=== PATIENT | male | born 1950 | race Caucasian/White ===

== ENCOUNTER 2019-01-20 16:52 | Inpatient (IN) ==
[2019-01-20] MEDS ORDERED: ZITHROMAX 500 MG/NS 500 MG/250 ML IVPB IV ONE (17:25)
[2019-01-20 18:15] LABS: BASO# 0.06 X1000 (0.0-0.2); BASO% 0.2 % (0.0-0.8); EOS# 0.05 X1000 (0.0-0.7); EOS% 0.2 % (0.0-10.0); HEMATOCRIT 47.1 % (42.0-52.0); HEMOGLOBIN 15.3 g/dL (14.0-18.0); IMM GRAN# 0.13 X1000 (0.0-0.04); IMM GRAN% 0.5 % (0.0-0.5); LYMPH# 1.08 X1000 (1.2-3.4); LYMPH% 4.3 % (20.5-51.1); MCH 29.4 PG (27-31); MCHC 32.5 g/dL (33-37); MCV 90.6 FL (81-99); MONO# 0.32 X1000 (0.11-0.59); MONO% 1.3 % (1.7-9.3); MPV 10.4 FL (7.4-10.4); NEUT# 23.63 X1000 (1.4-6.5); NEUT% 93.5 % (42.2-75.2); PLT 337 X1000 (130-400); RDW 14.5 % (11.5-14.5); WBC 25.27 X1000 (4.8-10.8)
--- NOTE | 2019-01-20 18:52 | Diag Imaging Result Doc PS360 ---
EXAM: CHEST-2 VIEWS HISTORY: SOB TECHNIQUE: Chest two views COMPARISON: 03/07/2015 FINDINGS: The lungs are hyperexpanded. There are multifocal bilateral infiltrates. These are most dense in the upper lobes. No cardiomegaly. Sternal wires are present. No pleural effusions. IMPRESSION: Dense bilateral pneumonia. Follow-up films recommended. Electronically signed by Rosendo Mendoza 01/20/2019 6:50 PM
[2019-01-20 18:59] LABS: AGAP 15; ALB/GLOB RATIO 1.2; ALBUMIN 4.4 g/dL (3.5-5.0); ALKALINE PHOSPHATASE 170 U/L (32-122); BUN 12 mg/dL (8-22); CALCIUM 9.7 mg/dL (8.8-10.2); CHLORIDE 101 mmol/L (98-107); CK PROFILE 168 U/L (24-204); COSMO 285; CREATININE 0.8 mg/dL (0.7-1.2); ESTIMATED GFR > 60; GLUCOSE 135 mg/dL (70-104); GOT 27 U/L (10-34); GPT 34 U/L (10-44); SODIUM 142 mmol/L (136-145); TCO2 26 mmol/L (25-35); TOTAL BILIRUBIN 0.47 mg/dL (0.20-1.00)
[2019-01-20] MEDS ORDERED: XYLOCAINE 2% JELLY UROJECT ONE (19:08)
--- NOTE | 2019-01-20 19:25 | PROVIDER DOCUMENTATION ---
This chart was entered by Fatimah Macario Scribe, acting as scribe for Wellington Irizarry MD. HPI-Respiratory General - General Chief Complaint: Shortness of Breath Stated Complaint: sob Time Seen by Provider: 01/20/19 16:53 Source: patient Allergies/Adverse Reactions: Patient Allergies Allergy/AdvReac Type Severity Reaction Status Date / Time No Known Allergies Allergy Verified 05/29/15 19:42 Home Medications: Home Medication List Medication Instructions Recorded Confirmed Last Taken Type Amlodipine [Norvasc] 10 mg PO DAILY 05/29/15 05/29/15 05/29/15 09:00 History Aspirin [Ecotrin] 81 mg PO DAILY 05/29/15 05/29/15 05/29/15 09:00 History Clopidogrel [Plavix] 75 mg PO DAILY 05/29/15 05/29/15 05/29/15 09:00 History Metoprolol Tartrate 25 mg PO BID 05/29/15 05/29/15 05/29/15 09:00 History PRAVAstatin [Pravachol] 40 mg PO QHS 05/29/15 05/29/15 05/28/15 23:00 History - History of Present Illness-Resp Nature of Presenting Problem: Patient is a 68 year old male who presents to the ED via EMS with shortness of breath, chest pain and cough that has been present for 1 month. Report being seen at [facility] today and was informed he has bilateral pneumonia and an elevated WBC. Denies abdominal pain, nausea, and vomiting. Patient's O2 sat was 78% on room air on arrival to ED. Quality of Pain: reports: aching, tightness Severity in ED: reports: mild Onset/Duration: reports: other (1 month) Timing: reports: still present, getting worse Cough Quality/Degree: reports: moderate Current Respiratory Medication Therapy: Initiated see nurses note Modifying Factors: improves with: coughing (worse) Associated Symptoms: reports: chest pain/soreness (CP), cough, shortness of breath Similar Symptoms Previously?: Yes Recently seen or treated by another doctor?: Yes Review of Systems - Adult - REVIEW OF SYSTEMS - ADULT Constitutional: reports: no symptoms reported. denies: chills, fever, fatique Eyes: reports: no symptoms reported Ears, Nose, Mouth & Throat: reports: no symptoms reported Cardiovascular: reports: see HPI, chest pain. denies: irregular heart rate, palpitations Respiratory: reports: see HPI, cough, shortness of breath. denies: wheezing Gastrointestinal: reports: no symptoms reported Genitourinary: reports: no symptoms reported Musculoskeletal: reports: no symptoms reported Integumentary: reports: no symptoms reported Neurological: reports: no symptoms reported Psychiatric: reports: no symptoms reported Endocrine: reports: no symptoms reported Hematologic/Lymphatic: reports: no symptoms reported Allergic/Immunologic: reports: no symptoms reported All Other Systems: Reviewed and Negative Past History - Adult - PAST MEDICAL HISTORY-ADULT Review of Records: reports: Nursing Assessment Review, Medications Reviewed, Social history reviewed & non-contributory. Major Childhood Illnesses: reports: denies history Cardiovascular: reports: CAD, HTN, hyperlipidemia, [place] Respiratory: reports: denies history Gastrointestinal: reports: denies history Obstetrical/Gynecological: reports: denies history Genitourinary: reports: prostate cancer Musculoskeletal: reports: denies history Neurological: reports: denies history Psychiatric: reports: denies history Endocrine/Immune: reports: denies history Other Conditions: reports: denies history - PRIOR SURGERIES/PROCEDURES Surgical/Procedure History: reports: appendectomy, CABG, hernia repair - IMMUNIZATION STATUS Childhood Immunizations: See Nurse Assessment Flu Vaccine: See Nurse Assessment - FAMILY HISTORY Family History: reviewed, not pertinent - SOCIAL HISTORY Smoking: cigarettes (former) Substance Use: denies Physical Exam-General - PHYSICAL EXAM-ADULT Initial Vital Signs Reviewed: Yes - CONSTITUTIONAL General Appearance: alert, moderate distress. negative: lethargic, slow to respond - HEAD, EARS, NOSE, MOUTH & THROAT HENMT: normal ENT inspection. negative: angioedema, hearing deficit - RESPIRATORY Respiratory: chest non-tender, respiratory distress (moderate), crackles, rales, rhonchi, wheezing. negative: lungs clear, normal breath sounds - CARDIOVASCULAR Cardiovascular: normal peripheral pulses, regular rate, rhythm. negative: tachycardia, systolic murmur - GASTROINTESTINAL (ABDOMEN) Abdominal Exam: normal bowel sounds, non tender, soft. negative: guarding, rebound - MUSCULOSKELETAL Extremity: non-tender, normal inspection. negative: deformity, swelling - SKIN Integumentary: normal color, normal turgor, warm/dry. negative: cyanosis, ecc hymosis, erythema, jaundice - NEUROLOGIC Neurologic: grossly normal. negative: aphasia, facial droop - PSYCHIATRIC Psych/Mental Status: normal mood/affect, oriented x 3. negative: paranoid, tearful - HEART Score HEART Score: History: Slightly Suspicious HEART Score: ECG: Non-Specific Repolarization Disturbance/LBBB/PM HEART Score: Age: > or = 65 Years HEART Score: Risk Factors for Atherosclerotic Disease: 1 or 2 Risk Factors HEART Score: Troponin: < or = Normal Limit Total HEART Score:: 4 Progress - PLAN OF CARE/RESULTS Progress/Plan/Lab Results: Vital Signs - 8 hr 01/20/19 17:15 01/20/19 17:16 01/20/19 17:20 Temperature Pulse Rate 116 H 116 H Respiratory Rate 20 Blood Pressure 201/174 201/174 O2 Sat by Pulse Oximetry 78 L 79 L 86 L 01/20/19 17:27 01/20/19 17:30 01/20/19 17:40 Temperature Pulse Rate 113 H 114 H 100 H Respiratory Rate 21 14 13 Blood Pressure 130/79 O2 Sat by Pulse Oximetry 96 95 92 L 01/20/19 17:50 01/20/19 17:51 01/20/19 18:00 Temperature 98.2 F Pulse Rate 112 H 111 H Respiratory Rate 26 H 19 17 Blood Pressure 141/91 O2 Sat by Pulse Oximetry 92 L 92 L 92 L 01/20/19 18:01 01/20/19 18:10 Temperature Pulse Rate 109 H Respiratory Rate 14 61 H Blood Pressure 124/85 O2 Sat by Pulse Oximetry 93 L 91 L Laboratory Results - last 24 hr 01/20/19 01/20/19 01/20/19 17:40 17:40 17:40 WBC 25.27 H RBC 5.20 Hgb 15.3 Hct 47.1 MCV 90.6 MCH 29.4 MCHC 32.5 L RDW Std Deviation 14.5 Plt Count 337 MPV 10.4 Immature Gran % (Auto) 0.5 Neut % (Auto) 93.5 H Lymph % (Auto) 4.3 L Alexander % (Auto) 1.3 L Eos % (Auto) 0.2 Baso % (Auto) 0.2 Immature Gran # (Auto) 0.13 H Neut # (Auto) 23.63 H Lymph # (Auto) 1.08 L Alexander # (Auto) 0.32 Eos # (Auto) 0.05 Baso # (Auto) 0.06 Sodium 142 Potassium 4.0 Chloride 101 Carbon Dioxide 26 Anion Gap 15 BUN 12 Creatinine 0.8 Estimated GFR/1.73 m2 > 60 BUN/Creatinine Ratio 15 Glucose 135 H Calculated Osmolality 285 Calcium 9.7 Total Bilirubin 0.47 AST 27 ALT 34 Alkaline Phosphatase 170 H Creatine Kinase 168 Troponin T Total Protein 8.0 Albumin 4.4 Globulin 3.6 Albumin/Globulin Ratio 1.2 Plasma Lactate 1.4 01/20/19 17:40 WBC RBC Hgb Hct MCV MCH MCHC RDW Std Deviation Plt Count MPV Immature Gran % (Auto) Neut % (Auto) Lymph % (Auto) Alexander % (Auto) Eos % (Auto) Baso % (Auto) Immature Gran # (Auto) Neut # (Auto) Lymph # (Auto) Alexander # (Auto) Eos # (Auto) Baso # (Auto) Sodium Potassium Chloride Carbon Dioxide Anion Gap BUN Creatinine Estimated GFR/1.73 m2 BUN/Creatinine Ratio Glucose Calculated Osmolality Calcium Total Bilirubin AST ALT Alkaline Phosphatase Creatine Kinase Troponin T < 0.010 Total Protein Albumin Globulin Albumin/Globulin Ratio Plasma Lactate Orders Category Date Time Status Saline Loc NOW Care 01/20/19 17:25 Active CHEST-2 VIEWS [RAD] Stat Exams 01/20/19 17:25 Completed BLOOD CULTURE [BLDCUL] Stat Lab 01/20/19 17:48 Results CBC WITH ELECTRONIC DIFF [HEME] Stat Lab 01/20/19 17:40 Completed CK PROFILE [SP CHEM] Stat Lab 01/20/19 17:40 Completed COMPREHENSIVE METABOLIC PANEL [CHEM] Stat Lab 01/20/19 17:40 Completed LACTATE, PLASMA [CHEM] Stat Lab 01/20/19 17:40 Completed TROPONIN T Stat Lab 01/20/19 17:40 Completed Azithromycin 500 mg/Ns [Zithromax 500 mg/Ns] Med 01/20/19 17:25 Discontinued 500 mg in 250 ml IV NOW Lidocaine 2% Jelly Appl [Xylocaine 2% Jelly Uroject] Med 01/20/19 19:08 Discontinued 10 ml .ROUTE .STK-MED ONE EKG [EKG] Stat Ther 01/20/19 17:25 Ordered A/P: Bilateral pneumonia, elevated WBC. was seen in urgent care, given ceftriaxone, steroids, breting treatment, low oxygen sat 78. will admit Dr hagan accepted Result Diagrams: 01/20/19 17:40 01/20/19 17:40 - EKG 1 Time of EKG reading by physician:: 17:05 EKG Read and Signed by:: Keon Ortez EKG Interpretation (*Must complete 3 of following elements*): Abnormal (bifascicular block;) Rate: 110 Rhythm: sinus tachycardia QRS: RBB, LVH (inferior infarct, age undetermined) VT Interval: normal Comments: possible left atrial enlargement; left anterior fascicular block; - XRAY 1 XRAY Study: Chest Impression: Abnormal ([facility] [address], [address], [place] [address] Department of Imaging Patient: JAIRO WILKINSON Date: 01/20/19#: [id number] : 1950DM Status: PRE ERAcct#: [id number] Age/Sex: 68/MRoom/Bed: Loc: ED Ordering Physician: Wellington Irizarry MD Family Physician: Reason for Procedure: SOB Signed EXAM: CHEST-2 VIEWS HISTORY: SOB TECHNIQUE: Chest two views COMPARISON: 03/07/2015 FINDINGS: The lungs are hyperexpanded. There are multifocal bilateral infiltrates. These are most dense in the upper lobes. No cardiomegaly. Sternal wires are present. No pleural effusions. IMPRESSION: Dense bilateral pneumonia. Follow-up films recommended. Electronically signed by Rosendo Mendoza 01/20/2019 6:50 PM 01/20/19 5800 Interpreting Physician: Rosendo Mendoza MD Dictated Date/Time: 01/20/19 0082 cc: Wellington Irizarry MD;) - CONSULTS/PCP/HOSPITALIST Notification #1 *Consult/PCP/Hospitalist*: Dr Iqbal Time Discussed: 19:24 Consult Disposition: Admit Departure - Departure Date of Disposition Decision: 01/20/19 Time of Disposition Decision: 19:24 DIAGNOSIS: Bilateral pneumonia Disposition: HOME 01 Certified Medical Emergency: Emergent Condition: Stable Additional Freetext Instructions: We have examined and treated you today on an emergency basis only. This was not a substitute for, or an effort to provide, complete medical care. In most cases, you must let your doctor check you again. Tell your doctor about any new or lasting problems. We cannot recognize and treat all injuries or illnesses in one Emergency Department visit. If you had special tests, such as X-rays or CT scans, will be reviewed by radiologist and will call you if there are any new suggestions Follow up with primary care provider in 1 to 2 days if no improvement. If you do not have a primary care provider, you need to choose one as soon as possible. Take medicines as prescribed. Monitor for any side effects or adverse events from medications. If any side effect, adverse event or rash develops, or if you suspect any other adverse reaction to the medication, then discontinue the medication immediately and contact clinic /PCP or go to the nearest ER. Narcotic meds / sedative meds instruction - patent advised not to drive, operate any machinery or go into water after taking meds as it may impair mental ability to react to the situation in an appropriate manner. Continue other current medicines. Follow up with PCP within 24-48 hours, or sooner if symptoms worsen or fail to improve. Patient / guardian verbalizes understanding of treatment plan, medication, and side effects and agrees with treatment plan. Patient leaves ER in stable condition and ambulatory state. Return to ER as needed. Discharge instructions reviewed verbally and given to patient in written form. Follow up with primary care provider. - Critical Care Note This patient required my direct & personal management of CC.: No Attestation - Physician/ BRIGITTE Attestation Patient care was provided by Advanced Practice Provider:: No The physician spent face to face time with patient:: Yes Advanced Practice Provider documentation review:: Supervising physician onsite and consulted in the evaluation and care of this patient. The physician did have a face to face encounter with the patient. This chart was documented by the indicated scribe, (Fatimah Macario Scribe) and accurately reflects the services I performed and decisions made by me, Wellington Irizarry MD, as attested by the provider's signature.
[2019-01-20] MEDS ORDERED: DUONEB (A & A) INH PRN (19:47)
[2019-01-20] MEDS ORDERED: NS 1,000 ML IV SCH (20:00)
[2019-01-20] MEDS ORDERED: ROCEPHIN 1 GM in NS 50 ML IV SCH (20:00)
[2019-01-20 20:29] LABS: ALLEN TEST YES; BE 0.7 mmoll (-3.0-3.0); BLOOD TYPE ARTERIAL; HCO3-(ACT) 25.2 mmoll (20.0-26.0); METHB 1.1 % (0.0-1.5); O2(CT) 18.9 mL/dL (15.0-23.0); PCO2(98.6) 43 mmHg (35-45); PO2(98.6) 59 mmHg (60-100); SAMPLE BLOOD; SAO2 92.6 % (95.0-100.0); pH(98.6) 7.39 (7.35-7.45)
[2019-01-20 20:31] LABS: MODALITY VENTIMASK; O2HB 89.6 % (95.0-99.0)
[2019-01-20] MEDS ORDERED: VANCOMYCIN IV PER PHARMACY MISC SCH (21:00)
[2019-01-20] MEDS: PROTONIX IV SCH (21:49)
[2019-01-20] MEDS: NS 1,000 ML IV SCH (21:49)
[2019-01-20] MEDS: SODIUM CHLORIDE 0.9% INJ SCH (21:50)
[2019-01-20] MEDS: ROCEPHIN 2 GM in NS 50 ML IV SCH (21:50)
[2019-01-20] MEDS ORDERED: VANCOMYCIN 2,250 MG in NS 500 ML IV ONE (23:30)
[2019-01-20] MEDS: DUONEB (A & A) INH SCH (23:30)
--- NOTE | 2019-01-21 01:06 | HISTORY AND PHYSICAL ---
CHIEF COMPLAINT: Shortness of breath for about 3 weeks. HISTORY OF PRESENT ILLNESS: Mr. Juan Yang is a 68-year-old male who has a history of hypertension, hyperlipidemia, urinary retention, thyroid disease, prostate cancer status post radiation treatment, presented to the hospital because of shortness of breath which has been ongoing for close to 3 weeks. Initially he describes having chest pain. The patient also reports having cough with clear sputum. No wheezing, no fever. X-ray of the chest done at the time of presentation showed evidence of dense bilateral pneumonia. He was noted to be hypoxic at the time of presentation and required oxygen. White count was elevated at 25.27. The patient has now been admitted to the unit for further management. PAST MEDICAL HISTORY: 1. Hypertension. 2. Coronary artery disease. 3. Hyperlipidemia. 4. Urinary retention. 5. Peripheral artery disease. 6. History of prostate cancer status post radiation treatment. SOCIAL HISTORY: The patient is an ex-smoker. Drinks alcohol. No drug use. ALLERGIES: No known drug allergies. PAST SURGICAL HISTORY: 1. Carotid endarterectomy. 2. CABG. 3. Appendectomy. FAMILY HISTORY: Positive for diabetes, lung cancer. MEDICATIONS INCLUDE: 1. Amlodipine 10 mg p.o. daily. 2. Aspirin 81 mg p.o. daily. 3. Plavix 75 mg p.o. once a day. 4. Metoprolol 25 mg p.o. twice a day. 5. Pravastatin 40 mg p.o. at bedtime. REVIEW OF SYSTEMS: Central nervous system: Has headaches. Cardiovascular: Has chest pain. Respiratory: As per history of present illness. Gastrointestinal: No nausea, vomiting, but has diarrhea. Genitourinary: No dysuria. Musculoskeletal: Has joint pain. Dermatology: No skin cancer. Hematology: The patient bleeds easily, he is currently on Plavix. Endocrinology: No diabetes. No thyroid disease. PHYSICAL EXAMINATION: VITAL SIGNS: As follows, temperature 99.1 degrees, pulse 116, respiratory is 16, blood pressure 126/74, O2 saturation is 94%. HEENT: The patient is atraumatic, normocephalic. He is anicteric. Extraocular movements intact. No oral lesions noted. Neck: No lymphadenopathy or thyromegaly. Cardiovascular: S1, S2. Respiratory system: Has evidence of good air entry bilaterally. Abdomen: Soft, nontender. No masses felt. Extremities: No evidence of edema. Central nervous system: No evidence of focal deficits. LABS: WBC 25.27, hematocrit is 27.1 with a platelet count of 337,000. ABG 7.39/33/59/82.96%. Sodium is 142, potassium 3.0, chloride is 101, bicarb 26, BUN is 12, creatinine 0.8. IMAGING: X-ray chest shows dense bilateral infiltrates. ASSESSMENT AND PLAN: This is a 68-year-old male presents to the hospital because of shortness of breath, and x-ray chest shows evidence of dense bilateral infiltrate. 1. Acute respiratory failure. Maintain patient on oxygen supplementation. Primary lung condition pneumonia. Maintain patient on nebulized bronchodilators if needed. 2. Multifocal pneumonia. Obtain sputum culture as well as blood cultures. Maintain patient on antibiotics. 3. Coronary artery disease, asymptomatic. Continue the patient on aspirin, beta-sanya, as well as statin. Also, get serial cardiac enzymes. 4. Hypertension. Maintain patient on current antihypertensive regimen. 5. Hyperlipidemia. Continue lipid-lowering agent. 6. History of prostate cancer status post radiation treatment/urinary retention. Maintain the patient on Flomax for now. 7. Peripheral artery disease. Continue Plavix. 8. Deep vein thrombosis prophylaxis. Lovenox. 9. Gastrointestinal prophylaxis. Proton pump inhibitor. cc: Foster Torres MD
[2019-01-21] MEDS: DUONEB (A & A) INH SCH ×5 (03:30→23:33)
[2019-01-21] MEDS: NS 1,000 ML IV SCH ×2 (05:27→20:48)
[2019-01-21 06:12] LABS: BASO# 0.01 X1000 (0.0-0.2); BASO% 0.1 % (0.0-0.8); HEMATOCRIT 41.2 % (42.0-52.0); HEMOGLOBIN 13.3 g/dL (14.0-18.0); IMM GRAN% 0.7 % (0.0-0.5); LYMPH# 0.91 X1000 (1.2-3.4); LYMPH% 6.4 % (20.5-51.1); MCH 29.6 PG (27-31); MCHC 32.3 g/dL (33-37); MCV 91.8 FL (81-99); MONO# 0.16 X1000 (0.11-0.59); MONO% 1.1 % (1.7-9.3); MPV 10.7 FL (7.4-10.4); NEUT# 13.05 X1000 (1.4-6.5); NEUT% 91.7 % (42.2-75.2); PLT 287 X1000 (130-400); RBC 4.49 XMIL (4.7-6.1); RDW 14.3 % (11.5-14.5); WBC 14.23 X1000 (4.8-10.8)
[2019-01-21 06:45] LABS: AGAP 12; BUN 11 mg/dL (8-22); CALCIUM 8.5 mg/dL (8.8-10.2); CHLORIDE 104 mmol/L (98-107); COSMO 282; CREATININE 0.7 mg/dL (0.7-1.2); ESTIMATED GFR > 60; GLUCOSE 126 mg/dL (70-104); POTASSIUM 4.3 mmol/L (3.5-5.1); SODIUM 141 mmol/L (136-145); TCO2 25 mmol/L (25-35)
[2019-01-21 07:14] LABS: SEGS 100 % (42-75)
--- NOTE | 2019-01-21 07:22 | Diag Imaging Result Doc PS360 ---
CHEST-1 VIEW - 01/21/2019 INDICATION: pneumonia COMPARISON: 01/20/2019 FINDINGS: There are stable dense bilateral infiltrates. Stable sternotomy wires. Heart size and pulmonary vascularity remain normal. No pneumothorax or pleural effusion. IMPRESSION: Stable dense bilateral infiltrates suggesting pneumonia. Electronically signed by Jairo Hammonds 01/21/2019 7:20 AM
--- NOTE | 2019-01-21 08:19 | PROGRESS NOTE ---
DATE: 01/21/2019 SUBJECTIVE: The patient reports breathing better in comparing with yesterday. Denies any chest pain or any shortness of breath at this point. OBJECTIVE: Vital Signs: Temperature degrees, heart rate 91, respiratory rate 14, blood pressure 104/71, O2 saturation on Venturi mask at 50%. General Examination: This is a 68-year-old male, lying in bed, in no acute distress. HEENT: Head is normocephalic, atraumatic. Neck: No JVD noted. No carotid bruits. No lymphadenopathy. No thyromegaly. Cardiovascular: S1, S2 heard. No murmurs, gallops, or rubs. Regular rate and rhythm. Respiratory: Minimal coarse breath sounds in both pulmonary bases. Patient not using any accessory muscles or having work of breathing. Abdomen: Soft. Nontender to palpation. Bowel sounds present. No organomegaly. Extremities: No clubbing, cyanosis, or edema. Peripheral pulses present in both legs. Neurological: Patient is alert and oriented x3. Moves 4 extremities. LABORATORY DATA: White cell count 14.23, hemoglobin 13.3, hematocrit 41.2, platelets 287,000 with normal BMP. We have checked troponins 3 times and are completely normal. ASSESSMENT AND PLAN: 1. Acute hypoxemic respiratory failure secondary to bilateral pneumonia. Patient has been placed on vancomycin, ceftriaxone and azithromycin. This patient white cell count is getting better. I think that because Dr. Link from Infectious Disease has been consulted, I will leave the management of antibiotics to him. 2. Multifocal pneumonia. As we mentioned above. A sputum culture pending as well as blood cultures. We will continue with antibiotic directed by Dr. Link. 3. Coronary artery disease status post coronary artery bypass grafting. Initially because the because the patient was complaining of chest pain. We have checked troponins. I think that the chest pain is secondary to pneumonia. In any case, since admission, Cardiology has been consulted. We will follow recommendations. 4. Hyperlipidemia. We will continue with statin. 5. Peripheral vascular disease. We will continue with Plavix. 6. Deep vein thrombosis prophylaxis. Patient is on Lovenox. 7. Gastrointestinal prophylaxis. Patient is on Protonix. 8. Disposition. The patient is getting better. We will transfer him to a regular floor today. Addendum: I was called by nurse around 12:00 that patient start to desaturate. Currently he is on NRB at 100%. Will keep him in the ICU. Considering her worsening respiratory status will also order CT of thorax w/o contrast. Will monitor patient closely. cc: Dejon Dominguez MD MTDEzequiel
--- NOTE | 2019-01-21 08:24 | INFECTIOUS DISEASE CONSULT REP ---
DATE: 01/21/2019 CONCLUSION: Patient is admitted to the hospital with bilateral pneumonia. RECOMMENDATIONS: I agree with treating the patient with Rocephin and azithromycin. I have changed azithromycin from IV to p.o., and I have discontinued vancomycin. I have ordered a pneumococcal urinary antigen also. I ordered immunoglobulin levels. DISCUSSION: The patient tells me for the past 3 or 4 weeks he has had a cough. He occasionally brings up sputum which he says is clear. He has also noticed that he has dyspnea on exertion. He has not noticed any blood in his sputum. The patient did not have any fever. His chest x-ray shows bilateral infiltrates. His CBC shows a white count of 14,230, hemoglobin 13.3 and platelet count 287,000. Blood gases show a pH of 7.39, a PO2 of 59, a pCO2 of 43. Creatinine is 0.7. GFR is greater than 60. Blood cultures are pending. Chest x-ray shows bilateral infiltrates. PAST MEDICAL HISTORY/REVIEW OF SYSTEMS: Eyes and ears: Patient has decreased hearing, but his vision is okay. Neck: No stiffness. Respiratory: See present illness. Cardiac: No chest pain or palpitations. GI: The patient has had for almost 20 years episodic diarrhea. : No dysuria or flank pain. Bones, joints, muscles: No swollen joints or muscle aches. Endocrine: Patient is not a diabetic. He does not have thyroid problems either. Neurologic: No seizures. No recent loss of motor or sensory function. Integument: No rash. Extremities: No erythema in the legs. The patient does have edema in the legs. PREVIOUS HOSPITALIZATIONS AND OPERATIONS: He has had a carotid endarterectomy, a femoral artery endarterectomy, coronary artery bypass grafting, radiation therapy and use of radioactive gold seeds for patient's prostate cancer. He has had 2 bladder surgeries. MEDICAL DISEASES: Positive for hypertension, myocardial infarction, peripheral vascular disease, obesity, prostate cancer, and hyperlipidemia. INFECTIOUS DISEASE HISTORY: Positive for UTI. Negative for pneumonia. FAMILY HISTORY: Positive for diabetes mellitus, hypertension, myocardial infarction, stroke and cancer. SOCIAL HISTORY[place] . He has dogs and cats for pets. He stopped smoking cigarettes in 2014. He still drinks alcoholic beverages. He does not abuse drugs. The patient is retired. MEDICATIONS TAKEN AT HOME: Include the following: Amlodipine, aspirin, Plavix, metoprolol and Pravachol. PHYSICAL EXAMINATION: Vital Signs: The temperature is 98 degrees, pulse 87, respirations 15, blood pressure 101/61. General: This is a somewhat ill-appearing elderly male. He is in no acute distress. Head, eyes, ears, nose, and throat: He had decreased hearing. He can see near objects. He does not have any white patches on his tongue. Neck: No pain when he moves his head. Lungs: Clear to auscultation. Cardiovascular: Heart rate is regular. Abdomen: Soft and nontender. Extremities: The patient has bilateral leg edema, but no erythema. Neurologic: Patient is alert. He can move his extremities. There is no tremor. His memory as regarding his medical history is intact. Integument: No rash noted. Thank you for the consult. cc: Aleks Link MD MTDD
--- NOTE | 2019-01-21 08:46 | EKG Report ---
Test Performed on : 01/20/2019 8:25:18 PM Test Reason : sob Blood Pressure : / mmHG Vent. Rate : 107 BPM Atrial Rate : 107 BPM P-R Int : 166 ms QRS Dur : 140 ms QT Int : 382 ms P-R-T Axes : 057 -64 054 degrees QTc Int : 509 ms Sinus tachycardia. with premature atrial complexes. with aberrant conduction. Possible Left atrial enlargement Right bundle branch block Left anterior fascicular block Bifascicular block Cannot rule out Inferior infarct (cited on or before 29-MAY-2015) Abnormal ECG When compared with ECG of 20-JAN-2019 17:05, (Unconfirmed) aberrant conduction. is now present Unconfirmed Result
[2019-01-21] MEDS: LOVENOX SUBQ SCH (09:28)
[2019-01-21] MEDS: NORVASC PO SCH (11:15)
[2019-01-21] MEDS: ASPIRIN PO SCH (11:15)
[2019-01-21] MEDS: PLAVIX PO SCH (11:15)
[2019-01-21] MEDS: LOPRESSOR PO SCH ×2 (11:15→20:49)
--- NOTE | 2019-01-21 11:17 | CONSULTATION ---
DATE OF CONSULTATION: 01/21/2019 IMPRESSION: 1. Productive cough and atypical chest pain with leukocytosis and abnormal chest x-ray suggesting pneumonia. 2. Atherosclerotic coronary artery disease with previous coronary artery bypass grafting in 2014. Patient continues without angina. 3. Mild aortic stenosis. 4. Probable chronic obstructive pulmonary disease. 5. Peripheral artery disease with history of previous cerebrovascular accident in the past. Patient continues on dual anti-platelet therapy. 6. Hypertension. RECOMMENDATIONS: 1. Continue current cardiovascular regimen unchanged. 2. We will see further on an inpatient basis as needed. Patient should follow up with his regular pipelaying fitter, Dr. James, in [place] on a routine basis following discharge. HISTORY: This 68-year-old, white male with a past history of previous coronary artery bypass grafting in 2014, mild aortic stenosis, probable COPD, hypertension, and hyperlipidemia was admitted with a several day history of cough productive of clear to white sputum. Due to persistent coughing, he started experiencing some bilateral chest discomfort with his cough. He relates he has not had any recurrence of angina or discomfort like what he had prior to his coronary artery bypass surgery. He was found to have leukocytosis and radiographic evidence of pneumonia. He has been started on parenteral antibiotics. He no longer smokes. PAST MEDICAL HISTORY: 1. Atherosclerotic coronary disease with previous coronary artery bypass surgery in 2014. 2. Mild aortic stenosis. 3. Probable COPD. 4. Hypertension. 5. Hyperlipidemia. 6. Prostate cancer treated with radiation therapy. 7. Peripheral artery disease. Patient is status post previous cerebrovascular accident and has had carotid endarterectomy on the right. He continues on dual anti-platelet therapy. PAST SURGICAL HISTORY: Includes coronary artery bypass surgery in 2015, right carotid endarterectomy, and appendectomy. ALLERGIES: He has no known drug allergies. MEDICATIONS PRIOR TO ADMISSION: As listed. 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 He is originally from [place], [place]. He has a history of smoking 50 years at a rate of 1-1/2 packs of cigarettes per day but discontinued this at the time of his bypass surgery. He does not use alcohol. FAMILY HISTORY: Negative for premature coronary artery disease. REVIEW OF SYSTEMS: Pulmonary: Noteworthy for dyspnea, cough productive of clear to white sputum, and atypical chest pain. Gastrointestinal: Negative. Constitutional: Negative for fever. Remainder of review of systems negative/noncontributory with 14 total systems reviewed. PHYSICAL EXAMINATION: General: This is an overweight, older, white male in no distress, on supplemental oxygen per nasal cannula. Vital Signs: Blood pressure 142/87, heart rate 110 with ECG monitor showing sinus tachycardia. HEENT Examination: Extraocular movements appear to be intact. Mucous membranes are moist. Neck: Supple without jugular venous distention. Auscultation of the chest reveals inspiratory crackles and rhonchi in the right base posteriorly. Cardiac Examination: Reveals a regular rate and rhythm with soft systolic murmur at the right upper sternal border. No gallop could be appreciated. Abdomen: Soft. Bowel sounds are normal. Extremities: Without edema. Neurologic: Examination reveals him to be alert and fully oriented. Speech is fluent. He moves all 4 extremities equally well. Skin: Warm, dry. Psychiatric: Examination reveals mood to be appropriate. DIAGNOSTIC DATA: A 12-lead EKG demonstrates sinus tachycardia with occasional premature atrial complex, occasional premature ventricular complex, left atrial abnormality, right bundle branch block, and left anterior fascicular block. LABORATORY DATA: Includes initial white blood cell count of 25.27, hematocrit 47.1, hemoglobin 15.3, platelet count 337,000. Sodium 142, potassium 4.0, chloride 101, carbon dioxide 26, BUN 12, creatinine 0.8. Troponin T less than 0.01. Followup troponin T less than 0.01. Followup white blood cell count 14.23. Initial arterial blood gas, pH 7.39, pCO2 43, PO2 59 on supplemental oxygen per Ventimask. cc: Carlos Tracey MD
[2019-01-21 12:11] LABS: URINE SOURCE CATH
[2019-01-21 12:22] LABS: BILIRUBIN URINE NEGATIVE (NEGATIVE); BLOOD URINE LARGE (NEGATIVE); COLOR YELLOW; GLUCOSE URINE NEGATIVE (NEGATIVE); KETONE URINE 10 mg/dL (NEGATIVE); LEUKOCYTES URINE TRACE (NEGATIVE); NITRITE URINE NEGATIVE (NEGATIVE); PH URINE 5.5; PROTEIN URINE TRACE mg/dL (NEGATIVE); SP GRAVITY URINE 1.016; TURBIDITY URINE HAZY (CLEAR); UROBILINOGEN URINE NORMAL (NORMAL)
[2019-01-21 12:30] LABS: UR EPITHELIAL CELLS <10 /HPF (<10); URINE BACTERIA NEGATIVE /HPF; URINE RBC TNTC /HPF (<10)
[2019-01-21 12:44] LABS: URINE YEAST NONE SEEN
--- NOTE | 2019-01-21 16:44 | Diag Imaging Result Doc PS360 ---
EXAM: CT THORAX W/O CONTRAST 01/21/2019 HISTORY: pna TECHNIQUE: This exam was performed using automated exposure control, adjustment of mA or kV according to patient size, and/or use of iterative reconstruction technique. COMMENT: There are no previous studies available for comparison. There are patchy opacities in both upper lobes particularly the right upper lobe. There are numerous patchy and nodular opacities present in the lower lobes the lingula and to some extent in the right middle lobe as well. There are no abnormal fluid collections. There are extensive vascular calcifications including coronary calcifications. There are nonspecific aorticopulmonary window and paratracheal nodes. There has been sternotomy. IMPRESSION: Bronchopneumonia. Advise followup after treatment. Electronically signed by Kamlesh Garcia 01/21/2019 4:42 PM
[2019-01-21] MEDS: ZITHROMAX PO SCH (17:58)
[2019-01-21] MEDS ORDERED: ZITHROMAX 500 MG/NS 500 MG/250 ML IVPB IV SCH (18:00)
[2019-01-21] MEDS: PROTONIX IV SCH (20:48)
[2019-01-21] MEDS: SODIUM CHLORIDE 0.9% INJ SCH (20:48)
[2019-01-21] MEDS: LIPITOR PO SCH (20:49)
[2019-01-21] MEDS: ROCEPHIN 2 GM in NS 50 ML IV SCH (20:51)
[2019-01-21] MEDS ORDERED: VANCOMYCIN 1,850 MG in NS 500 ML IV SCH (23:30)
[2019-01-22] MEDS: DUONEB (A & A) INH SCH ×6 (03:12→23:30)
[2019-01-22 05:06] LABS: BASO# 0.04 X1000 (0.0-0.2); BASO% 0.2 % (0.0-0.8); EOS# 0.26 X1000 (0.0-0.7); EOS% 1.4 % (0.0-10.0); HEMATOCRIT 40.4 % (42.0-52.0); HEMOGLOBIN 12.7 g/dL (14.0-18.0); IMM GRAN# 0.11 X1000 (0.0-0.04); IMM GRAN% 0.6 % (0.0-0.5); LYMPH# 1.96 X1000 (1.2-3.4); LYMPH% 10.8 % (20.5-51.1); MCH 29.5 PG (27-31); MCHC 31.4 g/dL (33-37); MCV 93.7 FL (81-99); MPV 10.2 FL (7.4-10.4); NEUT# 14.72 X1000 (1.4-6.5); PLT 274 X1000 (130-400); RBC 4.31 XMIL (4.7-6.1); RDW 14.5 % (11.5-14.5); WBC 18.19 X1000 (4.8-10.8)
[2019-01-22] MEDS: NS 1,000 ML IV SCH (05:37)
[2019-01-22 05:43] LABS: AGAP 10; BUN 13 mg/dL (8-22); CALCIUM 7.9 mg/dL (8.8-10.2); CHLORIDE 108 mmol/L (98-107); COSMO 289; CREATININE 0.8 mg/dL (0.7-1.2); ESTIMATED GFR > 60; GLUCOSE 109 mg/dL (70-104); POTASSIUM 3.9 mmol/L (3.5-5.1); SODIUM 145 mmol/L (136-145); TCO2 27 mmol/L (25-35)
--- NOTE | 2019-01-22 08:14 | PROGRESS NOTE ---
DATE: 01/22/2019 No acute event overnight. SUBJECTIVE: Patient continues to have cough, and he wants me to take off his BiPAP mask. I discussed with him about low oxygen level. Also discussed with him about his very bad pneumonia which was showing up on CT scan. Also discussed with him about progression of pneumonia or other possible course of pneumonia. If it gets worse, he might require intubation. I answered all of his questions. We discussed about restarting his allopurinol. VITALS: Currently, detect temperature of 98.1 degrees, pulse of 61, respiratory rate 17, saturating 92% on 90% BiPAP with blood pressure of 108/60. OBJECTIVE: General: He does not appear in any acute distress. He has a BiPAP mask on. HEENT: Pupils bilaterally equal reacting to light. Lungs: Equal bilateral air entry with inspiratory crackles bilaterally. No wheeze or rhonchi. Cardiovascular: S1, S2 normal. Tachycardic with heart rate of 98 on monitor. No murmur, rub, or gallop. He has a midline scar of previous CABG. Abdomen: Soft and nontender. Extremities: No lower extremity edema. Pelvic: He has a Graff catheter in place. Input and output suggests positive 1.6 L yesterday. LABORATORY: Suggestive of persistent leukocytosis. Normal hemoglobin and platelet count. His electrolytes are within acceptable range. Microbiology: Blood culture and sputum culture are pending. ASSESSMENT AND PLAN: 1. Acute hypoxic respiratory failure and sepsis secondary to bilateral pneumonia. Continue intravenous ceftriaxone and azithromycin. Continue BiPAP for oxygenation, and I will consider giving him a BiPAP break today. Continue albuterol ipratropium nebulization every 4 hours. Appreciate Infectious Disease recommendation. 2. History of coronary artery disease status post CABG (2014). Continue his home aspirin, clopidogrel, atorvastatin, metoprolol, and amlodipine for essential hypertension as well. 3. GI prophylaxis on pantoprazole. 4. DVT prophylaxis on Lovenox. 5. Other issues: History of hyperlipidemia, peripheral vascular disease, gout on allopurinol. DISPOSITION: The patient's condition remains critical because of persistent hypoxia. TIME SPENT: More than 30 minutes of critical care time was spent taking care of this patient. I discussed the plan with the patient at bedside, and answered all of his questions. Surrogate decision makers are patient's and daughter, and will keep them updated. cc: Dickson Monteiro MD [facility]
[2019-01-22] MEDS: ASPIRIN PO SCH (08:39)
[2019-01-22] MEDS: LOVENOX SUBQ SCH (08:39)
[2019-01-22] MEDS: NORVASC PO SCH (08:39)
[2019-01-22] MEDS: ZITHROMAX PO SCH (08:40)
[2019-01-22] MEDS: LOPRESSOR PO SCH ×2 (08:40→21:32)
[2019-01-22] MEDS: PLAVIX PO SCH (08:40)
[2019-01-22] MEDS ORDERED: ATIVAN IV ONE (09:04)
[2019-01-22] MEDS ORDERED: NS 1,000 ML IV SCH (09:12)
[2019-01-22] MEDS: ZYLOPRIM PO SCH ×2 (09:25→21:32)
--- NOTE | 2019-01-22 10:41 | INFECTIOUS DISEASE PROGRESS NO ---
DATE: 01/22/2019 SUBJECTIVE: The patient has a bilateral pneumonia. 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 MEDICATIONS: The patient is on Rocephin and azithromycin. OBJECTIVE: Vital signs: Temperature is 98, pulse 88, respirations 24, blood pressure 108/60. General: This is an ill-appearing elderly male. He is wearing a BiPAP mask at this time. He does seem to be dyspneic even at rest. Head, eyes, ears, nose and throat: The patient is wearing a BiPAP mask. There is no drainage from the ears, I did not see any from the nose. Neck: No pain with movement of his head. Lungs: Clear to auscultation. Cardiovascular: Heart rate is regular. Abdomen: Soft and not tender. Neurologic: The patient is awake. He can moves his extremities. He is trying to talk, but it is difficult with the BiPAP mask on. Integument: No rash noted. Thorax: The patient has an increased AP diameter of the chest. LABORATORY AND X-RAY: The CBC today shows a white count of 18,190, hemoglobin 12.7 and platelets 274,000, creatinine is 0.8. GFR is greater than 60. Blood cultures are still. Sputum culture is pending. Chest x-ray shows bilateral pneumonia. ASSESSMENT AND PLAN: The patient has a bilateral pneumonia. My plan is to continue azithromycin and increase the dose of Rocephin to 2 g IV every 12 hours. I have also ordered immunoglobulin levels, because I think it is possible the patient has an immunoglobulin deficiency. COMORBIDITIES: Include the following: He is elderly, he has a history of cigarette smoking which he stopped in 2014, but I suspect there is some damage to his lungs causing him to have possible chronic obstructive pulmonary disease. On physical examination, he did have an increase in the AP diameter of the chest, which may indicate that he does have emphysema. cc: Aleks Link MD [facility]
[2019-01-22] MEDS: ROCEPHIN 2 GM in NS 50 ML IV SCH ×2 (10:42→21:32)
[2019-01-22] MEDS ORDERED: HUMALOG SUBQ SCH (16:00)
[2019-01-22] MEDS ORDERED: CHLORASEPTIC SPRAY MT PRN (18:33)
[2019-01-22] MEDS: LIPITOR PO SCH (21:32)
[2019-01-22] MEDS: PROTONIX IV SCH (21:32)
[2019-01-22] MEDS: ATIVAN IV PRN (21:33)
[2019-01-22 21:53] LABS: ALLEN TEST YES; BE 5.1 mmoll (-3.0-3.0); BLOOD TYPE ARTERIAL; HCO3-(ACT) 28.8 mmoll (20.0-26.0); O2HB 93.9 % (95.0-99.0); PCO2(98.6) 47 mmHg (35-45); PO2(98.6) 71 mmHg (60-100); SAMPLE BLOOD; SAO2 96.5 % (95.0-100.0); THB 13.6 g/dL (11.5-17.4); pH(98.6) 7.42 (7.35-7.45)
[2019-01-22 21:55] LABS: MODALITY BI PAP
--- NOTE | 2019-01-22 22:13 | CONSULTATION ---
DATE OF CONSULTATION: 01/22/2019 REQUESTING PROVIDER: Dr. Dickson Monteiro. REASON FOR CONSULTATION: Hypoxemic respiratory failure due to pneumonia. HISTORY OF PRESENT ILLNESS: This is a 68-year-old male with a medical history of hypertension, atherosclerotic coronary arterial disease, mild aortic stenosis, hyperlipidemia, urinary retention, peripheral arterial disease, prostatic cancer, cerebral vascular accident. He apparently was diagnosed with bilateral pneumonia and leukocytosis at [facility] on 01/20/2019 as his oxygen saturation dropped to 78% at room air later on that day he was sent to the ER via EMS. Initial chest x-ray in the ER revealed hyperexpanded lungs with multifocal bilateral infiltrates and most dense in the upper lobes. He has been admitted since then for further evaluation and management. Since yesterday morning, his respiratory status kept further declining and he was placed on BiPAP yesterday afternoon. At the time of my examination, the patient is wearing a BiPAP mask. He appears comfortable at this time with his eyes closed. His oxygen saturation stays at low 90s, but as I wake him up and he tries to talk with me, he becomes dyspneic and his oxygen saturation drops to 80s. There is no family at the bedside. All other information is obtained from the E-chart. PAST MEDICAL AND SURGICAL HISTORY: 1. Hypertension. 2. Atherosclerotic coronary arterial disease status post coronary artery bypass in 2014. 3. Mild aortic stenosis. 4. Hyperlipidemia. 5. Urinary retention 6. Peripheral arterial disease. 7. Prostatic cancer status post radiation treatment. 8. History of cerebrovascular accident, on dual antiplatelet therapy. 9. Right carotid endarterectomy. 10. Appendectomy. SOCIAL HISTORY: Per the E-chart. The patient used to smoke 1-1/2 packs of cigarettes per day for 50 years. He quit in 2014. He has no history of alcohol or illicit drug use. FAMILY HISTORY: Positive for diabetes and lung cancer. ALLERGIES: No known drug allergies. REVIEW OF SYSTEMS: Difficult to be obtained. PHYSICAL EXAMINATION: Vital Signs: Temperature 98.1, blood pressure 108/60, pulse 77, respiratory rate 24, oxygen saturation 93% on BiPAP with FiO2 90%, and pressure 14/5. General: Patient appears chronically ill. He is wearing a BiPAP mask at this time. He is resting comfortably at this time with his eyes closed and oxygen saturation at low 90s, but as I wake him out and he tries to talk with me, his oxygen saturation dropped to 80s. HEENT: Atraumatic. Trachea midline. Respiratory: Breathing symmetrical excursion. Auscultation reveals diminished breathing sounds and inspiratory crackles bilaterally. Cardiovascular: Regular rate and rhythm, with murmur. Gastrointestinal: Bowel sounds present in all 4 quadrants. Soft and nondistended. Extremities: No pedal edema. No cyanosis. No clubbing. Dorsalis pedis 1+ bilaterally. LAB DATA: White blood cell 18.19, hemoglobin 12.7, hematocrit 40.4, platelet 274,000. Sodium 145, potassium 3.9, chloride 108, carbon dioxide 27, BUN 14, creatinine 0.8, glucose 109, proBNP 395. IMAGING DATA: Chest CT without contrast on 01/21/2019 revealed patchy opacities in both upper lobes, particularly the right upper lobe. Numerous patchy and nodular opacities present in the lower lobes, the lingula and to some extent in the right middle lobe as well. Extensive vascular calcifications including coronary calcifications. ASSESSMENT: This is a 68-year-old male with a medical history of hypertension, atherosclerotic coronary artery disease, mild aortic stenosis, hyperlipidemia, urinary retention, peripheral arterial disease, prostate cancer, cerebral vascular accident. He has been admitted since 01/20/2019 with bilateral pneumonia. 1. Acute hypoxemic respiratory failure. 2. Bilateral pneumonia. 3. Worsened leukocytosis today. The patient is not on steroids. PLAN: 1. Continue BiPAP with supplemental oxygen. 2. The patient is a full code. Consider AC if needed. 3. Continue two broad spectrum antibiotics per Dr. Link. 4. Continue bronchodilators. 5. Follow up with pro BNP and sputum culture. 6. Continue GI and DVT prophylaxis. 7. Further recommendations pending hospital course. Thank you for the courtesy of this consult. Dictated by RIO Euceda for Renae Madrid MD cc: RIO Euceda MD [facility]
[2019-01-23] MEDS: DUONEB (A & A) INH SCH ×7 (03:30→23:30)
[2019-01-23 05:07] LABS: ALLEN TEST YES; BE 5.3 mmoll (-3.0-3.0); BLOOD TYPE ARTERIAL; HCO3-(ACT) 28.9 mmoll (20.0-26.0); METHB 1.2 % (0.0-1.5); O2(CT) 18.3 mL/dL (15.0-23.0); O2HB 92.8 % (95.0-99.0); PCO2(98.6) 49 mmHg (35-45); PO2(98.6) 66 mmHg (60-100); SAMPLE BLOOD; SAO2 95.7 % (95.0-100.0); pH(98.6) 7.41 (7.35-7.45)
[2019-01-23 05:12] LABS: MODALITY BI PAP
[2019-01-23 07:28] LABS: BASO# 0.05 X1000 (0.0-0.2); BASO% 0.3 % (0.0-0.8); EOS# 0.52 X1000 (0.0-0.7); EOS% 3.4 % (0.0-10.0); HEMATOCRIT 43.5 % (42.0-52.0); HEMOGLOBIN 13.8 g/dL (14.0-18.0); IMM GRAN# 0.03 X1000 (0.0-0.04); IMM GRAN% 0.2 % (0.0-0.5); LYMPH# 1.26 X1000 (1.2-3.4); LYMPH% 8.2 % (20.5-51.1); MCH 29.6 PG (27-31); MCHC 31.7 g/dL (33-37); MCV 93.1 FL (81-99); MONO# 0.87 X1000 (0.11-0.59); MONO% 5.6 % (1.7-9.3); MPV 9.9 FL (7.4-10.4); NEUT# 12.69 X1000 (1.4-6.5); NEUT% 82.3 % (42.2-75.2); PLT 269 X1000 (130-400); RBC 4.67 XMIL (4.7-6.1); RDW 14.4 % (11.5-14.5); WBC 15.42 X1000 (4.8-10.8)
[2019-01-23 08:04] LABS: AGAP 12; BUN 9 mg/dL (8-22); CHLORIDE 97 mmol/L (98-107); COSMO 278; CREATININE 0.7 mg/dL (0.7-1.2); ESTIMATED GFR > 60; GLUCOSE 90 mg/dL (70-104); MAGNESIUM 1.7 mg/dL (1.5-2.7); PHOSPHORUS 4.3 mg/dL (2.7-4.5); POTASSIUM 3.7 mmol/L (3.5-5.1); SODIUM 140 mmol/L (136-145); TCO2 31 mmol/L (25-35)
[2019-01-23] MEDS: LOVENOX SUBQ SCH (08:40)
[2019-01-23] MEDS: ROCEPHIN 2 GM in NS 50 ML IV SCH ×2 (08:40→21:21)
[2019-01-23] MEDS: ZYLOPRIM PO SCH ×2 (08:40→21:20)
[2019-01-23] MEDS: ZITHROMAX PO SCH (08:40)
[2019-01-23] MEDS: ASPIRIN PO SCH (08:41)
[2019-01-23] MEDS: NORVASC PO SCH (08:41)
[2019-01-23] MEDS: PLAVIX PO SCH (08:41)
[2019-01-23] MEDS: LOPRESSOR PO SCH ×2 (08:41→21:20)
--- NOTE | 2019-01-23 10:16 | INFECTIOUS DISEASE PROGRESS NO ---
DATE: 01/23/2019 PRESENT ILLNESS: Mr. Yang is being treated for bilateral pneumonia. MEDICATIONS: He is receiving Zithromax 500 mg by mouth daily and Rocephin 2 grams IV every 12 hours. PHYSICAL EXAMINATION: Vital Signs: Temperature is 98.6 degrees, pulse rate 92, respiratory rate 17, blood pressure 137/79 ,O2 saturation is 94% on 90% FiO2 on the BiPAP. General: This is an acutely ill-appearing elderly gentleman. He is lying in the bed currently in no acute distress. HEENT: Atraumatic, normocephalic. Oral mucous membranes are pink and dry. Conjunctiva are pink. Neck: Supple. Trachea is midline. Cardiovascular: Heart rate and rhythm are regular. Normal sinus rhythm on the monitor. Respiratory: The lung sounds have crackles noted bilaterally with breath sounds diminished. Abdomen: Soft, round, nontender. Bowel sounds are active. Neurologic: He is awake, alert, and oriented. Able to move all extremities in the bed independently. LABORATORY AND X-RAY: Today his white count is 15.42, hemoglobin 13.8, platelet count 269,000. On 100% FiO2 on the BiPAP this morning his pH was 7.41, pCO2 49, PO2 66, HCO3 28.9. Creatinine is 0.7, estimated GFR is greater than 60. Immunoglobulin levels show an IgA of 158 and IgG of 799. Urine strep pneumoniae antigen is negative. Urine, sputum and blood cultures have also shown no growth. No imaging reports today. However yesterday afternoon he had a CT of the chest which showed bronchopneumonia with patchy opacities in both upper lobes and numerous patchy nodular opacities in the lower lobes and lingula. ASSESSMENT AND PLAN: Mr. Yang is being treated for bilateral pneumonia and today he states he is feeling a little better. His FiO2 has been decreased slightly on the BiPAP and the plan is to try to put him on high-flow oxygen. Today his white count has come down a little so we will continue his medications as ordered which includes Rocephin and Zithromax. These plans have been discussed with and recommended by Dr. Link. COMORBIDITIES: For the patient include he is elderly, with coronary artery disease, peripheral artery disease, and COPD. Dictated by RIO Marcial for Aleks Link MD cc: Aleks Link MD MTDD
--- NOTE | 2019-01-23 10:20 | PROGRESS NOTE ---
DATE: 01/23/2019 INTERVAL HISTORY: Overnight, the patient's BiPAP settings were changed because he was saturating only 89% to 100% BiPAP after the settings were changed with increase in IPAP to 20 and EPAP to 10. His saturation was increasing to 94% to 95%. SUBJECTIVE: He is feeling better than he was yesterday. He does not appear in a lot of distress today. We discussed with him about his tenuous respiratory status, pneumonia, antibiotics and answered all of his questions. He is denying any chest pain. VITALS: Detect temperature of 98.6 degrees, pulse 88, respiratory rate 19, blood pressure 130/79, saturating 95% on BiPAP. He is on 90% to 100% FiO2. PHYSICAL EXAMINATION: General: Morbidly obese, not in any acute distress. Mouth: Oral cavity is dry. Eyes: Pupils bilaterally equal, reacting to light. Lungs: Air entry equal bilaterally with inspiratory crackles. No appreciable wheeze or rhonchi. Heart: S1, S2 normal. Not tachycardic. No murmur, rub, or gallop. He has midline scar of previous CABG. Abdomen: Soft, nontender. No lower extremity edema. He has a Graff catheter in place. LABS: Suggestive of decreasing leukocytosis. Acceptable range of hemoglobin, hematocrit, and platelet count which is normal. His pCO2 is 49, but pH of 7.41 and PO2 of 66 on 100% FiO2. His electrolytes are in acceptable range. His proBNP is only mildly elevated. His urine streptococcal antigen was undetectable. Immunoglobulins are all within normal limits. MICROBIOLOGY: Urine culture, blood culture, sputum culture has not shown any growth. IMAGING: No new chest x-ray today. ASSESSMENT AND PLAN: 1. Acute hypoxic respiratory failure and sepsis secondary to bilateral pneumonia. Continue intravenous ceftriaxone and intravenous azithromycin as per Infectious Disease recommendation. Continue BiPAP for oxygenation. I discussed with Respiratory Therapy about considering high- flow nasal cannula to try if tolerated. Continue albuterol ipratropium nebulization every 4 hours. His proBNP is only minimally elevated. 2. History of coronary artery disease status post coronary artery bypass graft in 2014. Continue his home aspirin, clopidogrel, atorvastatin, metoprolol and amlodipine. 3. Gastrointestinal prophylaxis. Pantoprazole. 4. Deep venous thrombosis prophylaxis. Lovenox. 5. Other issues: Hyperlipidemia, peripheral vascular disease and gout. We will continue his home medications including allopurinol, and we will also continue intravenous lorazepam as needed for anxiety. DISPOSITION: The patient's condition remains critical as he is requiring 100% FiO2, and he might need intubation if his respiratory status worsens. I will continue to monitor him. CRITICAL CARE: More than 30 minutes of critical care time was spent in taking care of this patient. I called the patient's daughter and informed her about patient's clinical condition and answered all of her questions. The patient's did not picker box operator, and I have left a voice message. cc: Dickson Monteiro MD
[2019-01-23] MEDS ORDERED: LASIX IV ONE (15:12)
--- NOTE | 2019-01-23 18:38 | PULMONOLOGY PROGRESS NOTE ---
DATE: 01/23/2019 SUBJECTIVE: The patient is awake, alert, and conversant. He is on high-flow oxygen by nasal cannula at 95%. OBJECTIVE: Vital Signs: The patient is afebrile for the last 24 hours. Blood pressure 127/75, heart rate 100, respiratory rate 17, oxygen saturation 92%. HEENT: Pupils are equal and reactive. Oropharynx is clear. Neck: Supple. Chest: Reveals coarse rhonchi bilaterally. Cardiovascular: S1, S2. Abdomen is soft. Extremities: Without edema. LABORATORIES: Immunoglobulin levels are normal. White blood count has decreased to 15.42, hemoglobin 13.8, platelet count 269,000. Arterial blood gas on 100% BiPAP, pH 7.41, pCO2 of 49, PO2 of 66. Chemistry: Sodium 140, potassium 3.7, chloride 97, bicarbonate 31, BUN 9, creatinine 0.7. Streptococcal pneumonia antigen is negative. IMPRESSION: A 68-year-old with: 1. Chronic obstructive pulmonary disease. 2. Severe community-acquired pneumonia. 3. Acute hypoxemic respiratory failure. 4. Coronary artery disease status post bypass grafting. 5. History of prostate cancer. PLAN: 1. Attempt to balance intake and output. 2. Continue oxygen for hypoxemic respiratory failure. 3. Continue current anticoagulation, but consider discontinuing Lovenox if he has worsening infiltrates. With aspirin, Lovenox and Plavix he will be at increased risk for alveolar bleeding with pneumonia. 4. Continue antibiotic regimen per Dr. Aleks Link. 5. Prognosis is guarded. His pulmonary status is tenuous and he remains at risk for intubation. 6. Continue ICU monitoring. cc: Dereck Duarte MD
[2019-01-23] MEDS: ATIVAN IV PRN (18:40)
[2019-01-23] MEDS: LIPITOR PO SCH (21:20)
[2019-01-23] MEDS: PROTONIX IV SCH (21:21)
[2019-01-23] MEDS ORDERED: NORCO-5 PO ONE (22:41)
[2019-01-24] MEDS: ATIVAN IV PRN ×2 (02:49→18:12)
[2019-01-24] MEDS: DUONEB (A & A) INH SCH ×6 (03:30→23:40)
[2019-01-24 05:13] LABS: ALLEN TEST YES; BE 6.6 mmoll (-3.0-3.0); BLOOD TYPE ARTERIAL; HCO3-(ACT) 29.9 mmoll (20.0-26.0); METHB 1.2 % (0.0-1.5); O2(CT) 19.9 mL/dL (15.0-23.0); O2HB 92.7 % (95.0-99.0); PCO2(98.6) 40 mmHg (35-45); PO2(98.6) 66 mmHg (60-100); SAMPLE BLOOD; SAO2 95.4 % (95.0-100.0); THB 15.3 g/dL (11.5-17.4); pH(98.6) 7.49 (7.35-7.45)
[2019-01-24 05:14] LABS: MODALITY BI PAP
[2019-01-24 06:43] LABS: MAGNESIUM 1.8 mg/dL (1.5-2.7); PHOSPHORUS 4.5 mg/dL (2.7-4.5)
--- NOTE | 2019-01-24 07:31 | Diag Imaging Result Doc PS360 ---
CHEST-PORTABLE - 01/24/2019 INDICATION: abnormal exam COMPARISON: 01/21/2019 FINDINGS: There has been significant decrease in density of the bilateral focal infiltrates. There is worsening pulmonary vascular congestion and faint interstitial pulmonary edema diffusely. Heart size remains top normal. No pneumothorax or large pleural effusion. IMPRESSION: Mixed changes from prior. Electronically signed by Jairo Hammonds 01/24/2019 7:29 AM
[2019-01-24] MEDS ORDERED: COLCRYS PO ONE (08:31)
[2019-01-24] MEDS ORDERED: LASIX IV ONE ×2 (08:32→21:00)
[2019-01-24] MEDS: ZITHROMAX PO SCH (08:58)
[2019-01-24] MEDS: NORVASC PO SCH (08:58)
[2019-01-24] MEDS: ZYLOPRIM PO SCH ×2 (08:58→21:47)
[2019-01-24] MEDS: PLAVIX PO SCH (08:58)
[2019-01-24] MEDS: LOPRESSOR PO SCH ×2 (08:58→21:49)
[2019-01-24] MEDS: ROCEPHIN 2 GM in NS 50 ML IV SCH ×2 (08:59→21:45)
[2019-01-24] MEDS: ASPIRIN PO SCH (08:59)
--- NOTE | 2019-01-24 09:34 | PROGRESS NOTE ---
DATE: 01/24/2019 INTERVAL HISTORY: Yesterday he was given a dose of Lasix following which he put out a good amount of urine. He tolerated high-flow nasal cannula during daytime, pretty well at nighttime. He was put back on BiPAP. SUBJECTIVE: He is feeling better than he has been over the last few days. Denies any chest pain. Denies any shortness of breath. He is complaining of excruciating pain in the left knee, which is bothering him. He does have prior history of acute gouty arthritis predominantly affecting bilateral feet. VITALS: Currently, temperature 99.1 degrees, pulse 103, respiratory rate 20, blood pressure 120/78, saturating 100% on BiPAP. PHYSICAL EXAMINATION: General: Does not appear in any acute distress. Morbidly obese. No pallor, cyanosis, clubbing, or icterus. Oral cavity is moist. Pupils bilaterally equal, reactive to light. Lungs: Air entry bilaterally equal. No wheeze or rhonchi. Mild inspiratory crackles in the bilateral inframammary region. Heart: S1, S2 normal. Heart rate of 100 per minute. No murmur, rub, or gallop. He has midline scar of previous CABG. Abdomen: Soft, nontender. No lower extremity edema. He has a Graff catheter in place. Extremities: Right knee examination is essentially normal. Left knee examination: He does have significant swelling affecting left knee. There is no overlying erythema that I could see. It is not hot to touch, but he has significant joint line tenderness, and range of movement is significantly tender. MICROBIOLOGY: No new microbiological data. Urine Legionella and streptococcal antigen have been negative. Cultures of blood and sputum have been negative. LABS: ABG suggestive of PO2 of 62 on 90% BiPAP and pH of 7.49. His phosphorus and magnesium have been unremarkable. IMAGING: Chest x-ray performed today suggests significant decrease in the bilateral local infiltrates, but worsening pulmonary vascular congestion and interstitial pulmonary edema diffusely. ASSESSMENT AND PLAN: 1. Acute hypoxic respiratory failure and sepsis, secondary to bilateral pneumonia. Continue intravenous ceftriaxone and intravenous azithromycin. Continue to cycle BiPAP and high-flow nasal cannula as tolerated. Continue albuterol ipratropium nebulization every 4 hours. I will give him additional dose of Lasix today considering chest x-ray findings. Continue Graff catheter for close input and output monitoring. 2. Suspected acute gouty arthritis of the left knee. Continue home allopurinol and start him on colchicine. Lasix could have contributed to it. However, considering his tenuous respiratory status, I will continue Lasix as tolerated. 3. History of coronary artery disease status post coronary artery bypass graft in 2015. Continue home aspirin, clopidogrel, atorvastatin, metoprolol and amlodipine. 4. Others. Continue pantoprazole for gastrointestinal prophylaxis. I am holding his Lovenox for deep vein thrombosis prophylaxis at the moment until his respiratory status stabilizes. Continue intravenous lorazepam as needed for anxiety. His other issues, including hyperlipidemia, peripheral vascular disease, are stable. DISPOSITION: The patient would remain in ICU for monitoring of his tenuous respiratory status. More than 30 minutes of critical care time was spent in taking care of this patient. Yesterday, I had informed the patient's daughter of patient's clinical course and had answered all of her questions. cc: Dickson Monteiro MD
--- NOTE | 2019-01-24 13:18 | PULMONOLOGY PROGRESS NOTE ---
DATE: 01/24/2019 SUBJECTIVE: The patient is awake, alert, and conversant. He reports his breathing has marginally improved. He reports increased hunger. OBJECTIVE: Vital Signs: Intake 1140; output 3950. BP 146/84, heart rate 103, respiratory rate 19, oxygen saturation 93% on 84% high-flow oxygen. The patient has been afebrile for the last 24 hours. HEENT: Pupils are equal and reactive. Oropharynx appears clear. Neck: Supple. Chest: Reveals rhonchi and crackles bilaterally. Cardiac Exam: S1, S2. Abdomen: Soft without hepatosplenomegaly. Extremities: Reveal trace edema. LABORATORIES: No CBC today. No chemistries today. X-RAYS: Chest x-ray reveals decrease in bilateral areas of consolidation with increased evidence of pulmonary edema. IMPRESSION: A 68-year-old with: 1. Community-acquired pneumonia. 2. Severe chronic obstructive pulmonary disease. 3. Acute hypoxemic respiratory failure. 4. Coronary artery disease. 5. History of prostate cancer. RECOMMENDATIONS: 1. Continue oxygen and wean as tolerated for acute hypoxemic respiratory failure. 2. Continue antibiotics. 3. Continue to balance intake and output. 4. Follow up chest x-ray and arterial blood gas tomorrow morning. cc: Dereck Duarte MD
[2019-01-24] MEDS: NORCO-5 PO PRN (14:31)
[2019-01-24] MEDS: COLCRYS PO SCH (17:34)
[2019-01-24] MEDS: PROTONIX IV SCH (21:45)
[2019-01-24] MEDS: LIPITOR PO SCH (21:47)
[2019-01-25] MEDS: DUONEB (A & A) INH SCH ×6 (03:05→23:55)
[2019-01-25 05:35] LABS: ALLEN TEST YES; BE 7.2 mmoll (-3.0-3.0); BLOOD TYPE ARTERIAL; HCO3-(ACT) 30.3 mmoll (20.0-26.0); METHB 1.3 % (0.0-1.5); O2(CT) 18.5 mL/dL (15.0-23.0); PO2(98.6) 60 mmHg (60-100); SAMPLE BLOOD; SAO2 92.7 % (95.0-100.0); THB 14.7 g/dL (11.5-17.4); pH(98.6) 7.41 (7.35-7.45)
[2019-01-25 05:36] LABS: MODALITY BI PAP; O2HB 89.7 % (95.0-99.0); PCO2(98.6) 53 mmHg (35-45)
[2019-01-25] MEDS: COLCRYS PO SCH ×2 (06:18→17:36)
--- NOTE | 2019-01-25 07:37 | Diag Imaging Result Doc PS360 ---
CHEST-PORTABLE - 01/25/2019 INDICATION: abnormal exam COMPARISON: 01/24/2019 FINDINGS: There has been little change in the dense peripheral infiltrates in the right upper lobe and lateral left lung base. There is little change in the pulmonary vascular congestion and background interstitial pulmonary edema. Heart size remains top normal. No large pleural effusion. IMPRESSION: Pulmonary edema. Dense bilateral peripheral infiltrates. No change from prior. Electronically signed by Jairo Hammonds 01/25/2019 7:35 AM
[2019-01-25] MEDS: LOPRESSOR PO SCH ×2 (08:43→21:04)
[2019-01-25] MEDS: ZITHROMAX PO SCH (08:44)
[2019-01-25] MEDS: ZYLOPRIM PO SCH ×2 (08:44→21:03)
[2019-01-25] MEDS: PLAVIX PO SCH (08:44)
[2019-01-25] MEDS: NORVASC PO SCH (08:44)
[2019-01-25] MEDS: ASPIRIN PO SCH (08:44)
[2019-01-25] MEDS: NORCO-5 PO PRN ×2 (08:44→21:03)
[2019-01-25 09:19] LABS: BASO# 0.04 X1000 (0.0-0.2); BASO% 0.3 % (0.0-0.8); EOS# 0.37 X1000 (0.0-0.7); EOS% 2.5 % (0.0-10.0); HEMATOCRIT 45.5 % (42.0-52.0); HEMOGLOBIN 14.2 g/dL (14.0-18.0); IMM GRAN# 0.06 X1000 (0.0-0.04); IMM GRAN% 0.4 % (0.0-0.5); LYMPH# 1.75 X1000 (1.2-3.4); LYMPH% 11.6 % (20.5-51.1); MCH 28.8 PG (27-31); MCHC 31.2 g/dL (33-37); MCV 92.3 FL (81-99); MONO# 1.02 X1000 (0.11-0.59); MONO% 6.8 % (1.7-9.3); MPV 10.4 FL (7.4-10.4); NEUT% 78.4 % (42.2-75.2); PLT 271 X1000 (130-400); RBC 4.93 XMIL (4.7-6.1); RDW 14.1 % (11.5-14.5); WBC 15.04 X1000 (4.8-10.8)
[2019-01-25 09:29] LABS: AGAP 12; BUN 15 mg/dL (8-22); CALCIUM 9.1 mg/dL (8.8-10.2); CHLORIDE 94 mmol/L (98-107); COSMO 284; CREATININE 0.7 mg/dL (0.7-1.2); ESTIMATED GFR > 60; GLUCOSE 166 mg/dL (70-104); MAGNESIUM 1.8 mg/dL (1.5-2.7); PHOSPHORUS 3.2 mg/dL (2.7-4.5); POTASSIUM 3.5 mmol/L (3.5-5.1); SODIUM 140 mmol/L (136-145); TCO2 34 mmol/L (25-35)
[2019-01-25] MEDS: ROCEPHIN 2 GM in NS 50 ML IV SCH ×2 (09:46→21:02)
--- NOTE | 2019-01-25 10:04 | PULMONOLOGY PROGRESS NOTE ---
DATE: 01/25/2019 SUBJECTIVE: The patient is awake, alert, and conversant. He reports, "I can finally take of deep breath and breathe." He reports he is hungry. OBJECTIVE: Vital Signs: The patient has been afebrile for the last 24 hours. BP 128/82, heart rate 98, respiratory rate 15, oxygen saturation 93% on nonrebreather. HEENT: Pupils are equal and reactive. Oropharynx is clear. Neck: Supple. Chest: Reveals some crackles bilaterally, with intermittent rhonchi over the large airways. IMAGING AND LABORATORY DATA: White blood count 15.0, hemoglobin 14.2, platelet count 271,000. Arterial blood gas: PH 7.41, pCO2 of 53, PO2 of 60. Sodium 140, potassium 3.7, chloride 91, BUN 9, creatinine 0.7. Chest x-ray reveals bilateral infiltrates with increased vascular congestion. No change from 01/24/2019. Microbiology reveals no new data. IMPRESSION: A 68-year-old with: 1. Community-acquired pneumonia. 2. Severe chronic obstructive pulmonary disease. 3. Acute hypoxemic respiratory failure. 4. Coronary artery disease. 5. History of prostate cancer. PLAN: 1. Continue antibiotics as directed by Dr. Aleks Link. 2. Attempt to collect another sputum for C and S to rule out drug-resistant pathogens. 3. Continue bronchial hygiene. 4. Attempt to balance intake and output fluids today. cc: Dereck Duarte MD
[2019-01-25] MEDS: LASIX IV SCH ×2 (10:56→21:02)
--- NOTE | 2019-01-25 12:13 | PROGRESS NOTE ---
DATE: 01/25/2019 INTERVAL HISTORY: No acute overnight events. He maintained adequate saturations on high-flow nasal cannula to a nonrebreather mask yesterday without any problems. In the morning time, he is feeling fine. He states he feels his breathing every day better. We discussed about his persistent low oxygen, pneumonia. I answered all of his questions. We discussed about advancing his diet. Currently, he is denying any chest pain. His shortness of breath is mild. He is denying undue cough. His left knee pain is better. VITALS: Detect he has been afebrile with temperature of 97.5 degrees, pulse of 80, respiratory rate 17, blood pressure 113/65, saturating 94% on 100% nonrebreather mask. PHYSICAL EXAMINATION: General: Not in any acute distress. Morbidly obese. No pallor, cyanosis, clubbing, or icterus. Oral cavity is moist. Pupils are bilaterally equal, reacting to light. Lungs: Air entry bilaterally equal. No rhonchi and end-expiratory mild wheezes bilaterally. Inspiratory crackles in bilateral inframammary region. S1, S2 normal. Heart rate of 100 per minute. No murmur, rub, or gallop. He has midline scar of previous CABG. Abdomen: Soft, nontender. No lower extremity edema. He has Graff catheter in place. There is persistent swelling of left knee without any erythema. MICROBIOLOGY: No new microbiological data. IMAGING: Chest x-ray today morning is suggestive of pulmonary edema. There is bilateral peripheral infiltrates which are unchanged from prior. ASSESSMENT AND PLAN: 1. Acute hypoxic respiratory failure and sepsis secondary to bilateral pneumonia. Continue intravenous ceftriaxone and intravenous azithromycin, cycling of BiPAP, high-flow nasal cannula or nonrebreather mask as tolerated. Continue albuterol-ipratropium nebulization every 4 hours, intravenous Lasix to match input and output and considering his pulmonary edema, add budesonide inhaler, and continue Graff catheter for close input and output monitoring. 2. Acute gouty arthritis of left knee, improving. Continue colchicine and [place]. 3. History of coronary artery disease, status post coronary artery bypass graft in 2014. Continue home aspirin, clopidogrel, atorvastatin, metoprolol, and amlodipine. 4. Others. Continue pantoprazole for gastrointestinal prophylaxis. He is on dual anti-platelet therapy so I would withhold on adding enoxaparin at the moment. Continue as needed lorazepam as needed for anxiety. His other issues including hyperlipidemia and peripheral vascular disease are stable. I ordered physical therapy to help him mobilize and advance his diet to a gastrointestinal soft. 5. More than 30 minutes of critical care time were spent in taking of this patient. All of his questions have been answered. I will try and reach out to patient's family and inform them about his clinical course. cc: Dickson Monteiro MD
--- NOTE | 2019-01-25 13:36 | INFECTIOUS DISEASE PROGRESS NO ---
DATE: 01/25/2019 PRESENT ILLNESS: Patient has bilateral pneumonia superimposed on pulmonary venous congestion. MEDICATIONS: The patient is taking azithromycin and Rocephin. This is the 4th day of treatment with these agents. PHYSICAL EXAMINATION: Vital Signs: Temperature is 97.5 degrees, pulse 80, respirations 17, blood pressure 129/67. General: This is a somewhat ill-appearing, elderly male. He is wearing an oxygen mask and has progressed well from what he came in like. Head/eyes/ears/nose/throat: He can hear my spoken words and see near objects. He does not have any white patches on his tongue. Neck: There is no pain when he bends his neck. Lungs: Clear to auscultation. Cardiovascular: Regular heart rate. Abdomen: Soft and nontender. Neurologic: Patient is alert. He can move his extremities. There is no tremor. LABORATORY AND X-RAY: Chest x-ray shows pulmonary venous congestion with bilateral infiltrates. Immunoglobulin levels are normal. Legionella and pneumococcal antigens are negative. Sputum cultures growing normal rommel. Blood and urine cultures are negative. Creatinine is 0.7. GFR is greater than 60. CBC shows a white count of 15,040, hemoglobin 14.2, and platelet count 271,000. Blood gases show a pH of 7.41, PO2 of 60, pCO2 of 53. ASSESSMENT AND PLAN: 1. The patient has bilateral pneumonia superimposed on pulmonary venous congestion. I plan on continuing Rocephin and azithromycin. 2. Comorbidities in this patient: He is elderly he has coronary artery disease, peripheral artery disease, and COPD. cc: Aleks Link MD
[2019-01-25] MEDS: PULMICORT INH SCH ×2 (15:51→19:35)
[2019-01-25] MEDS: SODIUM CHLORIDE 0.9% INJ SCH (21:02)
[2019-01-25] MEDS: PROTONIX IV SCH (21:02)
[2019-01-25] MEDS: LIPITOR PO SCH (21:03)
[2019-01-26] MEDS: DUONEB (A & A) INH SCH ×6 (03:30→23:33)
[2019-01-26] MEDS: COLCRYS PO SCH ×2 (05:51→18:15)
[2019-01-26] MEDS ORDERED: MIRALAX PO ONE (07:49)
[2019-01-26] MEDS: PULMICORT INH SCH ×2 (08:01→20:20)
[2019-01-26] MEDS: ASPIRIN PO SCH (08:38)
[2019-01-26] MEDS: NORVASC PO SCH (08:39)
[2019-01-26] MEDS: PLAVIX PO SCH (08:39)
[2019-01-26] MEDS: LOPRESSOR PO SCH ×2 (08:39→20:43)
--- NOTE | 2019-01-26 09:03 | INFECTIOUS DISEASE PROGRESS NO ---
DATE: 01/26/2019 PRESENT ILLNESS: The patient has a bilateral pneumonia. Clinically, he is better than when he came in. However, I discussed the patient with Dr. Monteiro and I agree that the patient still remains very ill and there is not much in the way of improvement that he has had. I would suggest consulting Dr. Madrid for a bronchoscopy with transbronchial biopsy or possibly even a VATS procedure. In the meantime, Dr. Monteiro suggested changing the antibiotics and I think that would be very reasonable to do too. What I will do is stop Rocephin and azithromycin, and put the patient on meropenem and Zyvox. MEDICATIONS: This is the 5th day of treatment with Rocephin and azithromycin. PHYSICAL EXAMINATION: Vital Signs: Temperature is 98 degrees, pulse 101, respirations 22, blood pressure 148/90. General: This still is a somewhat ill-appearing, elderly male. He is wearing an oxygen mask and even with it on, he does seem dyspneic. Head, Eyes, Ears, Nose, and Throat: He can hear my spoken words and see near objects. He does not have any white coating of his tongue. Neck: There is no pain when he moves this neck. Lungs: Lungs are clear to auscultation. Cardiovascular: Heart rate is regular. Abdomen: Soft and nontender. Neurologic: The patient is alert. He can move his extremities. There is no tremor. LAB AND X-RAY: CBC today shows a white count of 15,040, hemoglobin 14.2, and platelet count 271,000. Blood gases show a pH of 7.41, a PO2 of 16, a pCO2 of 53. Creatinine is 0.7. GFR is greater than 60. ASSESSMENT AND PLAN: The patient has a bilateral pneumonia and there may well be a component of pulmonary venous congestion. I am going to change the patient's antibiotics to meropenem and Zyvox. Also, the plan is to discuss with Dr. Madrid the possibility of doing a bronchoscopy with transbronchial biopsy. COMORBIDITIES: The patient is elderly. He has COPD. He also has coronary artery disease and peripheral vascular disease. cc: Aleks Link MD
--- NOTE | 2019-01-26 09:17 | PROGRESS NOTE ---
DATE: 01/26/2019 INTERVAL HISTORY: No acute events overnight. SUBJECTIVE: He is feeling fine. He has not had a bowel movement. We discussed about giving him MiraLAX. We also discussed about discussing with Infectious Disease about changing antibiotics and possible bronchoscopy and I answered all of his questions. OBJECTIVE: Vitals: Currently, temperature of 98 degrees, pulse of 101, respiratory rate 20, blood pressure 148/90, he is saturating 92% on 15 L 90% non-rebreather mask. INPUT AND OUTPUT: Suggests he was equal input and output yesterday. LABORATORIES: Today suggestive of persistent leukocytosis. Normal hemoglobin, hematocrit, platelet count, which was yesterday's laboratory. We will repeat laboratories tomorrow. No new microbiological data. Repeat sputum culture has been ordered. No new imaging. ASSESSMENT AND PLAN: 1. Acute hypoxic respiratory failure and sepsis secondary to bilateral pneumonia. After discussion with Infectious Disease doctor, we will upgrade the antibiotics to meropenem and linezolid. I will continue to cycle BiPAP and non-rebreather mask as tolerated. Continue albuterol-ipratropium nebulization every 4 hours. I will continue Lasix as needed to match input and output monitor, budesonide inhaler, and Graff catheter for close input and output monitoring. I will appreciate Pulmonology recommendations about need for bronchoscopy since he has not improved after for 4 to 5 days of intravenous antibiotics. 2. Acute gouty arthritis of left knee, likely related to Lasix use, now improving. Continue colchicine and [place]. 3. History of coronary artery disease, status post CABG in 2015. Continue home aspirin, clopidogrel, atorvastatin, metoprolol and amlodipine. 4. Continue pantoprazole for gastrointestinal prophylaxis. He is on dual anti-platelet therapy, so I would withhold from adding enoxaparin for DVT prophylaxis. I will apply a mechanical device. 5. Continue as-needed lorazepam for anxiety. Continue statin for hyperlipidemia. His peripheral vascular disease is stable. 6. Disposition. The patient remains in ICU for high oxygen need. Physical therapy has been ordered to help him ambulate a little bit. Plan of care was discussed with the patient. Yesterday, I called the patient's daughter and informed her about patient's clinical course and had left a voice message with the patient's mother. cc: Dickson Monteiro MD
[2019-01-26] MEDS: MERREM 2 GM in NS 100 ML IV SCH ×2 (09:18→18:15)
[2019-01-26] MEDS: ZYVOX PO SCH ×2 (09:18→20:43)
[2019-01-26] MEDS: ZYLOPRIM PO SCH ×2 (09:18→20:43)
[2019-01-26] MEDS: SOLU-MEDROL IV SCH ×3 (13:46→20:42)
--- NOTE | 2019-01-26 15:11 | Diag Imaging Result Doc PS360 ---
EXAM: CT ANGIOGRM PULMONARY ARTERIES 01/26/2019 HISTORY: Rule out PE TECHNIQUE: This exam was performed using automated exposure control, adjustment of mA or kV according to patient size, and/or use of iterative reconstruction technique. COMMENT: The current examination is compared with the previous study of 01/21/2019. 3-D MIPS were performed. There are no filling defects in the pulmonary arteries. There are calcifications in the aorta and its branches. There is no evidence of aneurysm or dissection. There are patchy alveolar opacities in both lungs. Compared to the previous examination there is slight worsening of opacities in the right middle lobe and lingula. The right lower lobe opacities are also more extensive. There is right paratracheal and aorticopulmonary window adenopathy. This was also present at the time the previous examination. The regional skeleton appears to be stable. IMPRESSION: Slightly worsened bronchopneumonia. No evidence of pulmonary emboli. Electronically signed by Kamlesh Garcia 01/26/2019 3:09 PM
[2019-01-26] MEDS: LIPITOR PO SCH (20:43)
[2019-01-26] MEDS: PROTONIX IV SCH (20:43)
[2019-01-27] MEDS: MERREM 2 GM in NS 100 ML IV SCH ×3 (02:52→17:33)
[2019-01-27] MEDS: SOLU-MEDROL IV SCH ×4 (02:52→20:44)
[2019-01-27] MEDS: DUONEB (A & A) INH SCH ×6 (04:11→23:45)
[2019-01-27 04:49] LABS: ALLEN TEST YES; BE 8.7 mmoll (-3.0-3.0); BLOOD TYPE ARTERIAL; HCO3-(ACT) 31.6 mmoll (20.0-26.0); METHB 0.9 % (0.0-1.5); O2(CT) 23.7 mL/dL (15.0-23.0); O2HB 94.4 % (95.0-99.0); PO2(98.6) 79 mmHg (60-100); SAMPLE BLOOD; SAO2 96.5 % (95.0-100.0); THB 17.9 g/dL (11.5-17.4); pH(98.6) 7.42 (7.35-7.45)
[2019-01-27 04:50] LABS: MODALITY NRB; PCO2(98.6) 55 mmHg (35-45)
[2019-01-27] MEDS: COLCRYS PO SCH ×2 (05:43→17:33)
--- NOTE | 2019-01-27 07:13 | Diag Imaging Result Doc PS360 ---
EXAM: CHEST-1 VIEW 01/27/2019 HISTORY: SOB TECHNIQUE: AP portable at 0532 COMMENT: There are patchy alveolar opacities bilaterally. There is interstitial opacity in the right lower lobe. The left upper lobe is relatively clear. This has not changed appreciably since 01/25/2019 but is slightly improved since 01/24/2019. IMPRESSION: Pulmonary edema and/or pneumonia. Electronically signed by Kamlesh Garcia 01/27/2019 7:11 AM
[2019-01-27 07:57] LABS: BASO# 0.01 X1000 (0.0-0.2); BASO% 0.1 % (0.0-0.8); EOS# 0.01 X1000 (0.0-0.7); EOS% 0.1 % (0.0-10.0); HEMATOCRIT 44.5 % (42.0-52.0); HEMOGLOBIN 14.5 g/dL (14.0-18.0); IMM GRAN# 0.02 X1000 (0.0-0.04); IMM GRAN% 0.2 % (0.0-0.5); LYMPH# 0.57 X1000 (1.2-3.4); LYMPH% 6.1 % (20.5-51.1); MCH 29.4 PG (27-31); MCHC 32.6 g/dL (33-37); MCV 90.3 FL (81-99); MONO# 0.17 X1000 (0.11-0.59); MONO% 1.8 % (1.7-9.3); MPV 10.5 FL (7.4-10.4); NEUT# 8.53 X1000 (1.4-6.5); NEUT% 91.7 % (42.2-75.2); PLT 307 X1000 (130-400); RBC 4.93 XMIL (4.7-6.1); RDW 13.6 % (11.5-14.5); WBC 9.31 X1000 (4.8-10.8)
[2019-01-27] MEDS: ZYVOX PO SCH ×2 (08:04→20:42)
[2019-01-27] MEDS: PLAVIX PO SCH (08:04)
[2019-01-27] MEDS: LOPRESSOR PO SCH ×2 (08:04→20:42)
[2019-01-27] MEDS: NORVASC PO SCH (08:04)
[2019-01-27] MEDS: ASPIRIN PO SCH (08:05)
[2019-01-27] MEDS: ZYLOPRIM PO SCH ×2 (08:06→20:42)
[2019-01-27 08:15] LABS: AGAP 4; BUN 19 mg/dL (8-22); CHLORIDE 94 mmol/L (98-107); COSMO 280; CREATININE 0.7 mg/dL (0.7-1.2); ESTIMATED GFR > 60; GLUCOSE 194 mg/dL (70-104); MAGNESIUM 1.9 mg/dL (1.5-2.7); POTASSIUM 3.8 mmol/L (3.5-5.1); SODIUM 136 mmol/L (136-145); TCO2 38 mmol/L (25-35)
[2019-01-27 08:19] LABS: BANDS 4 % (0-1); LARGE PLATELETS 1+; LYMPHS 6 % (21-51); SEGS 90 % (42-75)
[2019-01-27] MEDS: PULMICORT INH SCH ×2 (08:21→19:55)
--- NOTE | 2019-01-27 09:44 | PROGRESS NOTE ---
DATE: 01/27/2019 INTERVAL HISTORY: Patient underwent CT scan and angiography of lungs yesterday which did not detect any pulmonary embolism. However, it did detect the patient had persistent bilateral pneumonia. His antibiotics were changed to meropenem and linezolid. Physical therapy had evaluated the patient. Patient was able to come out of bed and sit in the chair without too much trouble. Intravenous steroids were also added to his regimen. SUBJECTIVE: He is feeling significantly fine. Denies any new complaints. Does not appear in any acute distress. He states that his shortness of breath is significantly better. No other complaints. VITAL SIGNS: Currently vitals suggest temperature of 98.1 degrees, pulse 94, respiratory rate 22, blood pressure 140/75, saturating 100% on nonrebreather mask. PHYSICAL EXAMINATION: General: Does not appear in any acute distress. HEENT: Oral cavity is moist. Lungs: Air entry bilaterally equal. No wheeze, rhonchi. He does have significant crackles and decreased air entry bilateral in infrascapular region. Cardiac: S1, S2 normal. Not tachycardic. No murmur, rub, or gallop. Abdomen: Soft, nontender. Extremities: No lower extremity edema, significantly decreased swelling of left knee. Neurologic: Alert and oriented x3. LABS: Labs suggestive of resolution of leukocytosis. Normal hemoglobin, hematocrit, platelet count. Normal pH with pCO2 of 55 and pO2 of 79 on 100% non-rebreather. He does have hypochloremia, elevated bicarbonate and normal kidney function.Microbiology: Repeat sputum culture is pending. IMAGING: As discussed, pulmonary arteriogram yesterday had slightly worsened bronchopneumonia without any evidence of pulmonary embolism. Chest x-ray performed today had pulmonary edema or pneumonia. ASSESSMENT AND PLAN: 1. Acute hypoxic respiratory failure and sepsis secondary to bilateral pneumonia. His antibiotics were changed from ceftriaxone and azithromycin to meropenem and linezolid on January 26. Continue current antibiotics. Continue oxygenation to maintain saturation more than 94%. Continue to cycle non-rebreather mask and high-flow nasal cannula as tolerated. Pulmonology and ID on board. He is also on intravenous steroids. 2. Acute gouty arthritis of left knee related to Lasix use, now improving. Continue patient on colchicine and [place]. 3. Coronary artery disease status post coronary artery bypass grafting in 2014. Continue home aspirin, clopidogrel, atorvastatin, metoprolol and amlodipine. 4. Continue pantoprazole for GI prophylaxis. He is on dual anti-platelet and so enoxaparin has not been added for deep venous thrombosis prophylaxis. Continue mechanical device for sequential compression; continue lorazepam as needed for anxiety; statin for hyperlipidemia. DISPOSITION: I will continue to monitor the patient in ICU. His oxygen requirement has remained stable, though he is requiring 90% of oxygen. Once his oxygen requirement decreases, my plan is to eventually transition him to [facility], which I would expect in the next 48 to 72 hours. Plan of care discussed with him. All of his questions have been answered. cc: Dickson Monteiro MD
--- NOTE | 2019-01-27 14:01 | INFECTIOUS DISEASE PROGRESS NO ---
DATE: 01/27/2019 PRESENT ILLNESS: Patient has bilateral pneumonia. Clinically, he is better, but the chest x-ray today shows bilateral opacities that has not changed much. His PO2 today was higher. MEDICATIONS: This is day 1 of treatment with Zyvox and meropenem. Prior to that, the patient had been on Rocephin and azithromycin. PHYSICAL EXAMINATION: Vital Signs: Temperature is 98 degrees, pulse 92, respirations 14, blood pressure is 127/70. General: This is a somewhat ill-appearing elderly male. He is wearing an oxygen mask, but he seems much more alert and less dyspneic. Head/eyes/ears/nose/throat: He can hear my spoken words and see near objects. There is no white coating on his tongue. Neck: It does not hurt when he is moving his head. Lungs: Clear to auscultation. Cardiovascular: Heart rate is regular. Abdomen: Soft and nontender. Neurologic: Patient is alert. He is sitting up in his chair. There is no tremor. LAB AND X-RAY: Chest x-ray shows bilateral opacity. Sputum culture grew normal rommel. CBC shows a white count of 9310, hemoglobin 14.5, and platelet count 307,000. Blood gases show a pH of 7.42, a PO2 79 and a pCO2 of 55. ASSESSMENT AND PLAN: Patient has bilateral pneumonia. The plan is to continue with these new antibiotics, namely Zyvox and meropenem. I am waiting to see what further suggestions if any Dr. Madrid has to make. COMORBIDITIES: The patient is elderly. He has COPD. He also has coronary artery disease and peripheral vascular disease. cc: Aleks Link MD
--- NOTE | 2019-01-27 14:09 | INFECTIOUS DISEASE PROGRESS NO ---
DATE: 01/27/2019 PRESENT ILLNESS: The patient has a bilateral pneumonia. Yesterday, I switched his antibiotics around and he continues to feel a little bit better each day. Also, it appears that his PO2 is increased. MEDICATIONS: This is day 1 of treatment with a combination of meropenem and Zyvox. PHYSICAL EXAMINATION: Vital Signs: Temperature is 98 degrees, pulse 92, respirations 14, blood pressure 127/70. General: This is a somewhat ill-appearing elderly male, but he is looking a little bit better each day now. He is wearing an oxygen mask but he does not seem to be dyspneic and he is sitting in a chair. Head, eyes, ears, nose, and throat: He can hear my spoken words and see near objects. He does not have any white coating on his tongue. Neck: There is no pain when he moves his head. Lungs: Clear to auscultation. Cardiovascular: Regular heart rate. Abdomen: Soft and nontender. Neurologic: He is alert. He can move his extremities. As mentioned above, he is sitting in a chair now. LAB AND X-RAY: A chest x-ray shows bilateral opacities that have not changed much. Sputum culture is growing normal rommel. CBC shows a white count of 9310, hemoglobin 14.5, and platelet count 307,000. Blood gases show a pH of 7.42, a PO2 of 79, and a pCO2 of 55. ASSESSMENT AND PLAN: The patient has a bilateral pneumonia. There may be some element of pulmonary venous congestion as well. For now, I am going to continue with the patient's current antibiotics, namely meropenem and Zyvox. Waiting for Dr. Madrid's opinion. COMORBIDITIES: The patient is elderly. He has COPD as well as coronary artery disease and peripheral vascular disease. cc: Aleks Link MD
[2019-01-27] MEDS: SODIUM CHLORIDE 0.9% INJ SCH (20:43)
[2019-01-27] MEDS: PROTONIX IV SCH (20:43)
[2019-01-27] MEDS: LIPITOR PO SCH (20:43)
[2019-01-28] MEDS: SOLU-MEDROL IV SCH ×4 (01:46→21:37)
[2019-01-28] MEDS: MERREM 2 GM in NS 100 ML IV SCH ×3 (01:46→18:32)
[2019-01-28] MEDS: DUONEB (A & A) INH SCH ×7 (03:40→23:45)
[2019-01-28] MEDS: COLCRYS PO SCH ×2 (05:59→17:23)
[2019-01-28] MEDS: PULMICORT INH SCH ×2 (08:05→20:29)
[2019-01-28 08:21] LABS: ALLEN TEST NO; BE 8.5 mmoll (-3.0-3.0); BLOOD TYPE ARTERIAL; HCO3-(ACT) 31.2 mmoll (20.0-26.0); METHB 1.2 % (0.0-1.5); O2(CT) 18.4 mL/dL (15.0-23.0); PCO2(98.6) 46 mmHg (35-45); PO2(98.6) 52 mmHg (60-100); SAMPLE BLOOD; SAO2 88.8 % (95.0-100.0); THB 15.2 g/dL (11.5-17.4); pH(98.6) 7.47 (7.35-7.45)
[2019-01-28 08:26] LABS: MODALITY CANNULA; O2HB 86.1 % (95.0-99.0)
[2019-01-28] MEDS: LOPRESSOR PO SCH ×2 (10:59→21:36)
[2019-01-28] MEDS: NORVASC PO SCH (10:59)
[2019-01-28] MEDS: ZYLOPRIM PO SCH ×2 (11:00→21:36)
[2019-01-28] MEDS: ASPIRIN PO SCH (11:00)
[2019-01-28] MEDS: PLAVIX PO SCH (11:00)
[2019-01-28] MEDS: ZYVOX PO SCH ×2 (11:00→21:36)
--- NOTE | 2019-01-28 11:09 | INFECTIOUS DISEASE PROGRESS NO ---
DATE: 01/28/2019 PRESENT ILLNESS: Patient has bilateral pneumonia. Overall since his admission, he is improving. MEDICATIONS: This is the second day of treatment with meropenem and Zyvox. Prior to those 2 antibiotics, the patient was on Rocephin and azithromycin. PHYSICAL EXAMINATION: Vital Signs: Temperature is 98 degrees, pulse 74, respirations 11, blood pressure 141/80. General: This is a somewhat ill-appearing elderly male. He actually looks better than when he first came in. Head, Eyes, Ears, Nose, and Throat: He can hear my spoken words and see near objects. He does not have any white coating to his tongue. He is only requiring now nasal cannula oxygen. Neck: There is no pain when he moves his neck. Lungs: Clear to auscultation. Cardiovascular: Heart rate is regular. Abdomen: Soft and nontender. Neurologic: The patient is alert. He is able to ambulate with the use of a walker. Integument: No rash noted. DIAGNOSTIC STUDIES: Sputum culture grew out normal rommel. Legionella antigen was negative. Blood gases showed a pH of 7.47, a PO2 of 52, and a pCO2 of 46. Chest x-ray shows bilateral opacities which had not changed from the patient's last chest x-ray. ASSESSMENT AND PLAN: I have discussed the patient's case with Dr. Monteiro and Dr. Madrid and we all agree the patient is getting better and for now we are going to continue his current antibiotics. COMORBIDITIES: 1. The patient is elderly. 2. He has chronic obstructive pulmonary disease. 3. Coronary artery disease. 4. Peripheral vascular disease. cc: Aleks Link MD
--- NOTE | 2019-01-28 12:24 | PROGRESS NOTE ---
DATE: 01/28/2019 HOSPITAL COURSE SUMMARY: Mr. Yang has been admitted for bilateral pneumonia and acute hypoxic respiratory failure. He was previously on ceftriaxone and azithromycin, and it did not improve his hypoxia so we had decided to titrate his antibiotics up to meropenem and linezolid, and add steroids about 48 hours ago. Since then, he has shown significant improvement. His oxygen levels are going down. His culture data have been negative. INTERVAL HISTORY: No acute event overnight. SUBJECTIVE: He is feeling fine. He is sitting in the chair receiving his nebulization. Denies any chest pain, shortness of breath, or cough. He states now he is able to expectorate pinkish frothy sputum, but denies any chest pain. He states he is ready to be discharged. However, I discussed with him about his high oxygen need, currently on oxygen. VITALS: Temperature 98 degrees, pulse 81, respiratory rate 13, blood pressure 140/80, and saturating 94% on 4 L nasal cannula. PHYSICAL EXAMINATION: General: Does not appear in any acute distress. HEENT: Oral cavity is moist. Lungs: Air entry bilaterally equal. No wheeze or rhonchi. Bilateral infrascapular crackles and decreased air entry. Cardiovascular: S1, S2 normal. Not tachycardic. No murmur, rub, or gallop. He has previous sternotomy scar. Abdomen: Soft and nontender. No lower extremity edema. The left knee has only mild tenderness and significantly decreased knee effusion. Neurologic: Alert and oriented x3. LABORATORY: Input and output since presentation is -2 L. No CBC or BMP today. ABG was suggestive of hypoxia with hypoxemia with PO2 of 52. No new microbiological data. ASSESSMENT AND PLAN: 1. Acute hypoxic respiratory failure and sepsis secondary to bilateral pneumonia. Continue intravenous meropenem and linezolid. Continue oxygenation and titrated down to maintain saturation more than 92%. Pulmonology and ID on board. Continue intravenous steroids. Continue albuterol ipratropium nebulization with budesonide. 2. Acute gouty arthritis of left knee likely related to Lasix use now improving significantly. Continue colchicine and [place] with home allopurinol. 3. History of essential hypertension and coronary artery disease status post CABG in 2014. Continue home aspirin, clopidogrel, atorvastatin, metoprolol, and amlodipine. 4. Others: Continue pantoprazole for GI prophylaxis, mechanical device for sequential compression for deep venous thrombosis prophylaxis, lorazepam as needed for anxiety. His issues of peripheral vascular disease and hyperlipidemia are stable. DISPOSITION: The patient has high oxygen requirement. It has been stable for more than 72 hours now. Patient has clinically improved. I would transfer this patient out to CIC unit. If his oxygen levels go down, he might need to be discharged on home oxygen later during the week. I will place social work consult with that. Physical Therapy is on board too. Plan of care discussed with the patient. I also called the patient's daughter. I answered all of her questions satisfactorily. cc: Dickson Monteiro MD
[2019-01-28] MEDS: LIPITOR PO SCH (21:36)
[2019-01-28] MEDS: SODIUM CHLORIDE 0.9% INJ SCH (21:37)
[2019-01-28] MEDS: PROTONIX IV SCH (21:37)
[2019-01-29] MEDS: SOLU-MEDROL IV SCH ×4 (02:19→20:21)
[2019-01-29] MEDS: MERREM 2 GM in NS 100 ML IV SCH ×3 (02:19→17:37)
[2019-01-29] MEDS: DUONEB (A & A) INH SCH ×6 (03:30→23:38)
[2019-01-29 05:20] LABS: ALLEN TEST YES; BE 8.6 mmoll (-3.0-3.0); BLOOD TYPE ARTERIAL; HCO3-(ACT) 31.4 mmoll (20.0-26.0); METHB 0.1 % (0.0-1.5); PCO2(98.6) 46 mmHg (35-45); PO2(98.6) 55 mmHg (60-100); SAMPLE BLOOD; SAO2 92.8 % (95.0-100.0); THB 13.5 g/dL (11.5-17.4); pH(98.6) 7.47 (7.35-7.45)
[2019-01-29 05:43] LABS: MODALITY CANNULA
[2019-01-29 05:47] LABS: O2HB 89.8 % (95.0-99.0)
[2019-01-29] MEDS: COLCRYS PO SCH ×2 (06:34→17:37)
--- NOTE | 2019-01-29 07:36 | Diag Imaging Result Doc PS360 ---
CHEST-1 VIEW - 01/29/2019 INDICATION: SOB COMPARISON: 01/27/2019 FINDINGS: Stable dense bilateral infiltrates. There has been improvement in the background interstitial pulmonary edema. No pneumothorax or significant pleural effusion. Heart size is normal. IMPRESSION: Improvement in the background interstitial pulmonary edema. Stable dense bilateral infiltrates. Electronically signed by Jairo Hammonds 01/29/2019 7:32 AM
--- NOTE | 2019-01-29 07:36 | INFECTIOUS DISEASE PROGRESS NO ---
DATE: 01/29/2019 PRESENT ILLNESS: The patient has bilateral pneumonia. He appears to be improving. MEDICATIONS: Currently, the patient is on a combination of meropenem and Zyvox. This is day 3 of those antibiotics. Prior to that, the patient was on Rocephin and azithromycin. PHYSICAL EXAMINATION: Vital Signs: Temperature is 98.4 degrees, pulse 96, respirations 15, blood pressure 151/75. General: This is a somewhat ill-appearing elderly male. He is in no acute distress and he continues each day to look a little bit better. Currently, he is wearing his nasal cannula for oxygen. Head/eyes/ears/nose/throat: He can hear my spoken words and see near objects. He does not have any white patches on tongue. Neck: There is no pain when he moves his neck. Lungs: Clear to clear to auscultation. Cardiovascular: Heart rate is regular. The patient has a systolic murmur. Abdomen: Soft and nontender. Neurologic: The patient is alert. He can move his extremities. There is no tremor. Integument: No rash noted. LAB AND X-RAY: There was no x-ray for today and there is no CBC or BMP for today. The arterial blood gases show a pH of 7.47, a PO2 of 55, and a pCO2 of 46. ASSESSMENT AND PLAN: The patient has bilateral pneumonia which is improving. My plan would be for right now to continue with meropenem and Zyvox. For tomorrow, I have ordered a CBC, a BMP, and a portable chest x-ray. COMORBIDITIES: He is elderly. He has chronic obstructive pulmonary disease, coronary artery disease, and peripheral vascular disease. cc: Aleks Link MD
[2019-01-29] MEDS: PLAVIX PO SCH (09:02)
[2019-01-29] MEDS: ZYVOX PO SCH ×2 (09:02→20:20)
[2019-01-29] MEDS: ASPIRIN PO SCH (09:02)
[2019-01-29] MEDS: NORVASC PO SCH (09:02)
[2019-01-29] MEDS: LOPRESSOR PO SCH ×2 (09:03→20:20)
[2019-01-29] MEDS: ZYLOPRIM PO SCH ×2 (09:05→20:21)
[2019-01-29] MEDS: PULMICORT INH SCH ×2 (10:36→19:30)
--- NOTE | 2019-01-29 14:23 | PROGRESS NOTE ---
DATE: 01/29/2019 SUBJECTIVE: Respiratory hernandez, this patient is feeling better, but now apparently he has been having diarrhea, since last night at least 15 times. I will ask for C difficile toxin and antigen, also stool studies. He is not complaining of nausea or vomiting. He does not look dehydrated, I will add Imodium to his medications to be given if the C difficile is negative. OBJECTIVE: Vital Signs: Temperature 97.3 degrees, pulse 84, respiratory rate 16, blood pressure 156/75, oxygen saturation 94% on 6 L of nasal cannula. HEENT: Head normocephalic. No trauma. PERRLA. Neck: Supple. No JVD. No masses. Central trachea. Chest: Decreased breath sounds globally with bilateral rhonchi and crackles at the bases. Abdomen: Soft, nontender, nondistended. No hepatosplenomegaly. Some discomfort to palpation at the level of the periumbilical area. Extremities: No edema, no clubbing, no cyanosis. Neurological: The patient is completely alert and oriented x3. No focal deficits. LABORATORY DATA: pH 7.47, pCO2 46, PO2 55. Oxyhemoglobin 89.8. ASSESSMENT AND PLAN: 1. Acute hypoxemic, hypercarbic respiratory failure, likely secondary to bilateral pneumonia. He used to be a heavy smoker so the possibility of chronic obstructive pulmonary disease still is high, he stop smoking 4 years ago but he used to smoke 1-1/2 packs a day for 50 years. Will continue with the same treatment. He is getting better slowly. 2. Acute gouty arthritis, improving significantly. Continue with the same management. 3. Hypertension and coronary artery disease status post coronary artery bypass grafting in 2014, Continue with aspirin, atorvastatin, metoprolol, amlodipine, and Plavix. 4. Bilateral lung pneumonia, continue with antibiotics. This is likely the source of his hypoxia. 5. Gastrointestinal prophylaxis with proton pump inhibitor. 6. Deep venous thrombosis prophylaxis with sequential compression devices. 7. Anxiety. Continue with lorazepam as needed. 8. Diarrhea. As per the patient, he has a history of IBS and he takes Imodium every time he has diarrhea and has been working fine at home. I will put him back on Imodium but I will start the treatment only if the C difficile toxin and antigen are negative. cc: Jason Steele MD [facility]iel
[2019-01-29] MEDS: PROTONIX IV SCH (20:21)
[2019-01-29] MEDS: LIPITOR PO SCH (20:49)
[2019-01-30] MEDS: SOLU-MEDROL IV SCH ×4 (01:15→22:22)
[2019-01-30] MEDS: MERREM 2 GM in NS 100 ML IV SCH ×2 (01:16→17:09)
[2019-01-30] MEDS: DUONEB (A & A) INH SCH ×6 (03:33→23:39)
[2019-01-30] MEDS: COLCRYS PO SCH ×2 (05:27→17:09)
[2019-01-30 05:36] LABS: ALLEN TEST YES; BE 8.5 mmoll (-3.0-3.0); BLOOD TYPE ARTERIAL; HCO3-(ACT) 31.2 mmoll (20.0-26.0); O2(CT) 16.5 mL/dL (15.0-23.0); PO2(98.6) 50 mmHg (60-100); SAMPLE BLOOD; SAO2 88.4 % (95.0-100.0); THB 13.7 g/dL (11.5-17.4); pH(98.6) 7.43 (7.35-7.45)
[2019-01-30 05:38] LABS: BASO# 0.01 X1000 (0.0-0.2); BASO% 0.1 % (0.0-0.8); HEMATOCRIT 42.4 % (42.0-52.0); HEMOGLOBIN 13.4 g/dL (14.0-18.0); LYMPH% 4.7 % (20.5-51.1); MCH 29.5 PG (27-31); MCHC 31.6 g/dL (33-37); MCV 93.2 FL (81-99); MONO# 0.42 X1000 (0.11-0.59); MONO% 3.3 % (1.7-9.3); MPV 10.5 FL (7.4-10.4); NEUT# 11.79 X1000 (1.4-6.5); NEUT% 91.9 % (42.2-75.2); PLT 311 X1000 (130-400); RBC 4.55 XMIL (4.7-6.1); RDW 13.9 % (11.5-14.5); WBC 12.82 X1000 (4.8-10.8)
[2019-01-30 05:49] LABS: MODALITY CANNULA; PCO2(98.6) 52 mmHg (35-45)
[2019-01-30 05:52] LABS: AGAP 10; BUN 19 mg/dL (8-22); CALCIUM 8.5 mg/dL (8.8-10.2); CHLORIDE 101 mmol/L (98-107); COSMO 290; CREATININE 0.7 mg/dL (0.7-1.2); ESTIMATED GFR > 60; GLUCOSE 185 mg/dL (70-104); POTASSIUM 3.6 mmol/L (3.5-5.1); SODIUM 142 mmol/L (136-145); TCO2 31 mmol/L (25-35)
--- NOTE | 2019-01-30 07:24 | Diag Imaging Result Doc PS360 ---
CHEST-1 VIEW - 01/30/2019 INDICATION: SOB COMPARISON: 01/29/2019 FINDINGS: Stable dense bilateral alveolar infiltrates. Heart size is normal. No pneumothorax or pleural effusion. IMPRESSION: No change from prior. Electronically signed by Jairo Hammonds 01/30/2019 7:21 AM
--- NOTE | 2019-01-30 07:40 | INFECTIOUS DISEASE PROGRESS NO ---
DATE: 01/30/2019 PRESENT ILLNESS: The patient has a bilateral pneumonia. Also, he has pulmonary venous congestion. MEDICATIONS: This is the fourth day of treatment with meropenem and Zyvox. Prior to that, the patient was on Rocephin and azithromycin. PHYSICAL EXAMINATION: Vital Signs: Temperature is 97.6 degrees, pulse 86, respirations 16, blood pressure 139/71. General: This is a somewhat ill-appearing elderly male. He is in no acute distress, and he would very much like to go home. Head/Eyes/Ears/Nose/Throat: The patient has nasal cannulas on for oxygen. He can hear my spoken words and see near objects. He does not have any white coating of his tongue. Neck: There is no pain when he moves his neck. Lungs: Clear to auscultation. Cardiovascular: Heart rate is regular with a systolic murmur. Abdomen: Soft and nontender. Neurologic: The patient is alert. He can move his extremities. There is no tremor. Integumentary: No rash. Thorax: Patient has an increased AP diameter of the chest. LAB AND X-RAY STUDIES: A CBC today shows a white count of 12,820, hemoglobin 13.4, and platelet count 311,000. Blood gases show a pH of 7.43, a PO2 of 50, and a pCO2 of 52. Creatinine is 0.7, GFR is greater than 60. Clostridium difficile toxin and antigen are negative. Sputum culture grew normal rommel. Chest x-ray shows stable dense bilateral infiltrates superimposed on pulmonary venous congestion. ASSESSMENT AND PLAN: The patient has a bilateral pneumonia. He is certainly better than when he came in. However, he remains hypoxemic and also has retention of CO2. For now, I think it would be reasonable to continue Zyvox and meropenem. The question I think comes up is can the patient go home. If he did would, it probably be best to be on his current antibiotics, but I think with his O2 level low and his CO2 level high, it might be somewhat risky. COMORBIDITIES: The patient is elderly. He also has chronic obstructive pulmonary disease, coronary artery disease, and peripheral vascular disease. cc: Aleks Link MD
[2019-01-30] MEDS: PULMICORT INH SCH ×2 (07:58→19:24)
[2019-01-30] MEDS: IMODIUM PO PRN ×4 (09:40→18:37)
[2019-01-30] MEDS: NORVASC PO SCH (09:40)
[2019-01-30] MEDS: ZYLOPRIM PO SCH ×2 (09:40→22:21)
[2019-01-30] MEDS: PLAVIX PO SCH (09:40)
[2019-01-30] MEDS: ASPIRIN PO SCH (09:41)
[2019-01-30] MEDS: LOPRESSOR PO SCH ×2 (09:45→22:22)
[2019-01-30] MEDS: ZYVOX PO SCH ×2 (09:45→22:22)
--- NOTE | 2019-01-30 10:24 | PROGRESS NOTE ---
DATE: 01/30/2019 SUBJECTIVE: As per the patient, he is breathing better. He is still complaining of diarrhea, C difficile toxin and antigen were negative. I have placed this patient on Imodium. We will continue to monitor this patient. He is still hypoxemic and hypercapnic. He still has bilateral dense infiltrates, no pneumothorax or pleural effusion. OBJECTIVE: Vital Signs: Temperature 98.3 degrees, pulse 89, respiratory rate 16, blood pressure 165/71, oxygen saturation 98 on 6 L of nasal cannula. HEENT: Head normocephalic no trauma PERRLA. Neck: Supple. No JVD. No masses. Central trachea. Chest: Decreased breath sounds globally with bilateral rhonchi and crackles at the bases mostly. Abdomen: Soft, nontender, nondistended. No hepatosplenomegaly. Some discomfort to palpation at the level of the periumbilical area. Extremities: No edema, no clubbing, no cyanosis. Neurological: The patient is completely alert and oriented x3. No focal deficits. LABORATORY: WBC 12.8, hemoglobin 13.4, hematocrit 42.4, platelets 311,000, PO2 50, pCO2 52. Sodium 142, potassium 3.6, chloride 101, bicarbonate 31, BUN 19, creatinine 0.7 glucose 185, calcium 8.5. ASSESSMENT AND PLAN: 1. One acute hypoxemic, hypercarbic respiratory failure likely secondary to bilateral pneumonia. He used to be a heavy smoker so the possibility of chronic obstructive pulmonary disease is still high. He stopped smoking 4 years ago and he used to smoke 1-1/2 pack a day for 50 years. We will continue with same management. He is getting better slowly. 2. Severe diarrhea, C difficile toxin and antigen has been negative. Apparently, he has a history of irritable bowel syndrome and I would I have placed this patient on Imodium. He is tolerating p.o. 3. Acute gouty arthritis, improving significantly. 4. Hypertension and coronary artery disease status post coronary artery bypass grafting in 2014, continue with aspirin, atorvastatin, metoprolol, amlodipine, and Plavix. 5. Bilateral lung pneumonia, continue with antibiotics. This is likely the source of his hypoxia. 6. Gastrointestinal prophylaxis with proton pump inhibitors. 7. Deep vein thrombosis prophylaxis with sequential compression devices. 8. Anxiety, continue with lorazepam as needed. cc: Jason Steele MD
[2019-01-30] MEDS: HUMULIN R SUBQ SCH ×3 (12:03→22:23)
[2019-01-30] MEDS: LIPITOR PO SCH (22:22)
[2019-01-30] MEDS: SODIUM CHLORIDE 0.9% INJ SCH (22:22)
[2019-01-30] MEDS: PROTONIX IV SCH (22:22)
[2019-01-31] MEDS: DUONEB (A & A) INH SCH ×5 (03:18→20:01)
[2019-01-31] MEDS: MERREM 2 GM in NS 100 ML IV SCH ×3 (04:56→18:21)
[2019-01-31 05:48] LABS: ALLEN TEST YES; BE 6.4 mmoll (-3.0-3.0); BLOOD TYPE ARTERIAL; HCO3-(ACT) 29.8 mmoll (20.0-26.0); PCO2(98.6) 50 mmHg (35-45); PO2(98.6) 68 mmHg (60-100); SAMPLE BLOOD; SAO2 97.1 % (95.0-100.0); THB 15.9 g/dL (11.5-17.4); pH(98.6) 7.42 (7.35-7.45)
[2019-01-31 05:49] LABS: MODALITY CANNULA
[2019-01-31] MEDS: COLCRYS PO SCH ×2 (05:54→18:21)
[2019-01-31] MEDS: SOLU-MEDROL IV SCH ×4 (05:54→21:22)
[2019-01-31] MEDS: HUMULIN R SUBQ SCH ×4 (06:20→21:14)
[2019-01-31 07:26] LABS: HEMATOCRIT 44.8 % (42.0-52.0); HEMOGLOBIN 14.2 g/dL (14.0-18.0); IMM GRAN# 0.07 X1000 (0.0-0.04); IMM GRAN% 0.5 % (0.0-0.5); LYMPH% 5.5 % (20.5-51.1); MCH 29.2 PG (27-31); MCHC 31.7 g/dL (33-37); MONO# 0.79 X1000 (0.11-0.59); MONO% 5.5 % (1.7-9.3); MPV 10.8 FL (7.4-10.4); NEUT# 12.82 X1000 (1.4-6.5); NEUT% 88.5 % (42.2-75.2); PLT 358 X1000 (130-400); RBC 4.87 XMIL (4.7-6.1); RDW 14.1 % (11.5-14.5); WBC 14.48 X1000 (4.8-10.8)
--- NOTE | 2019-01-31 07:34 | Diag Imaging Result Doc PS360 ---
EXAM: CHEST-1 VIEW INDICATION: SOB TECHNIQUE: One view COMPARISON: 01/30/2019 FINDINGS: Bilateral dense consolidations in the right upper lobe and left mid and lower lung zone are essentially stable. No new consolidation is identified. Cardiac silhouette is stable. IMPRESSION: Stable chest. Electronically signed by Tae Cornell 01/31/2019 7:32 AM
[2019-01-31 07:42] LABS: AGAP 12; BUN 23 mg/dL (8-22); CHLORIDE 101 mmol/L (98-107); COSMO 296; CREATININE 0.8 mg/dL (0.7-1.2); ESTIMATED GFR > 60; GLUCOSE 166 mg/dL (70-104); POTASSIUM 4.1 mmol/L (3.5-5.1); SODIUM 145 mmol/L (136-145); TCO2 32 mmol/L (25-35)
[2019-01-31] MEDS: PULMICORT INH SCH ×2 (07:47→20:01)
[2019-01-31 08:22] LABS: BANDS 2 % (0-1); LYMPHS 6 % (21-51); SEGS 92 % (42-75)
[2019-01-31] MEDS: ZYLOPRIM PO SCH ×2 (10:16→21:21)
[2019-01-31] MEDS: PLAVIX PO SCH (10:16)
[2019-01-31] MEDS: ZYVOX PO SCH ×2 (10:16→21:21)
[2019-01-31] MEDS: NORVASC PO SCH (10:17)
[2019-01-31] MEDS: ASPIRIN PO SCH (10:17)
[2019-01-31] MEDS: IMODIUM PO PRN ×2 (10:17→15:55)
[2019-01-31] MEDS: LOPRESSOR PO SCH ×2 (10:17→21:21)
--- NOTE | 2019-01-31 11:33 | PROGRESS NOTE ---
DATE: 01/31/2019 SUBJECTIVE: This patient is breathing better, diarrhea is better. He has been admitted due to pneumonia, hypoxemic and hypercarbic respiratory failure. He does have bilateral pneumonia. Infectious Disease Department and Pulmonary Department following this patient closely. OBJECTIVE: Vital Signs: Temperature 97.9 degrees, pulse 99, respiratory rate 15, blood pressure 148/48 and oxygen saturation 98 on 4 L of nasal cannula. HEENT: Head normocephalic. No trauma. PERRLA. Neck: Supple. No JVD. No masses. Central trachea. Chest: Decreased breath sounds globally with bilateral rhonchi and crackles at the bases mostly. Abdomen: Soft, nontender, and nondistended. No hepatosplenomegaly. There is some discomfort to palpation at the level of the periumbilical area. Extremities: No edema. No clubbing. No cyanosis. Neurological: The patient is completely alert and oriented x3. No focal deficits. LABORATORY: WBC 14.4, hemoglobin 14.2, hematocrit 44.8, and platelets 258,000. A pH 7.42, pCO2 50, PO2 68, and oxygen hemoglobin 94. Sodium 145, potassium 4.1, chloride 101, bicarbonate 32, BUN 23, creatinine 0.8, glucose 166, and calcium 9. ASSESSMENT AND PLAN: 1. Acute hypoxemic and hypercarbic respiratory failure, likely secondary to bilateral pneumonia. He used to be a heavy smoker, so probably this patient also has COPD. He stopped smoking 4 years ago, and he used to smoke 1-1/2 packs a day for 50 years. We will continue with the same management. I do believe this is getting better slowly. Probably, this patient will need to be discharged home with oxygen. 2. Severe diarrhea, C. Difficile toxin and antigen are negative. Apparently, he has a history of IBS. I placed this patient on Imodium. This is getting better. He is tolerating p.o. 3. Acute gouty arthritis, improving significantly. 4. Hypertension and coronary artery disease status post CABG in 2014. Continue with aspirin, atorvastatin, metoprolol, and amlodipine. 5. Bilateral lung pneumonia, right upper lung and left lower lung. Symptomatically, he is improving, but he is still requiring oxygen. Probably, he will need to be discharged home with oxygen. We will follow the recommendations of Pulmonary Department, Infectious Disease on board. 6. Gastroesophageal reflux disease. Continue proton pump inhibitors. 7. Deep vein thrombosis prophylaxis with SCD's. 8. Anxiety. Continue with lorazepam as needed. 9. Overall, this patient is doing much better. Symptomatically, he has been improving on a daily basis. X-ray showed bilateral pneumonia. He is tolerating the antibiotics. He is tolerating p.o. and walking. He is still requiring oxygen and we will continue with that. Probably, he will need to be discharged home with home oxygen. Infectious Disease Department and Pulmonary Department following this patient closely. We will wait for final recommendations, and once they are okay to send this patient home we will discharge him. Pulmonary Department has placed this patient on steroids. We will continue with that. cc: Jason Steele MD
[2019-01-31] MEDS: PROTONIX IV SCH (21:21)
[2019-01-31] MEDS: LIPITOR PO SCH (21:21)
[2019-01-31] MEDS: SODIUM CHLORIDE 0.9% INJ SCH (21:21)
[2019-02-01] MEDS: DUONEB (A & A) INH SCH ×7 (00:23→23:32)
[2019-02-01 03:48] LABS: ALLEN TEST YES; BE 6.1 mmoll (-3.0-3.0); BLOOD TYPE ARTERIAL; HCO3-(ACT) 29.6 mmoll (20.0-26.0); METHB 1.1 % (0.0-1.5); O2(CT) 16.8 mL/dL (15.0-23.0); O2HB 92.1 % (95.0-99.0); PCO2(98.6) 46 mmHg (35-45); PO2(98.6) 65 mmHg (60-100); SAMPLE BLOOD; SAO2 94.8 % (95.0-100.0); pH(98.6) 7.44 (7.35-7.45)
[2019-02-01 03:50] LABS: MODALITY CANNULA
[2019-02-01] MEDS: MERREM 2 GM in NS 100 ML IV SCH ×3 (04:18→18:40)
[2019-02-01] MEDS: SOLU-MEDROL IV SCH ×4 (04:19→22:14)
[2019-02-01] MEDS: HUMULIN R SUBQ SCH ×3 (06:25→16:20)
[2019-02-01] MEDS: COLCRYS PO SCH ×2 (06:38→18:40)
--- NOTE | 2019-02-01 07:26 | Diag Imaging Result Doc PS360 ---
EXAM: CHEST-1 VIEW HISTORY: SOB TECHNIQUE: Chest single view COMPARISON: 01/31/2019 FINDINGS: There are dense infiltrates in the right upper lobe and in the mid left lung. No cardiomegaly. Sternal wires are present. Question trace left pleural fluid. IMPRESSION: No interval improvement Electronically signed by Rosendo Mendoza 02/01/2019 7:24 AM
[2019-02-01] MEDS: PULMICORT INH SCH ×2 (07:51→19:32)
[2019-02-01] MEDS: ASPIRIN PO SCH (07:59)
[2019-02-01] MEDS: IMODIUM PO PRN ×4 (07:59→22:19)
[2019-02-01] MEDS: LOPRESSOR PO SCH ×2 (07:59→22:14)
[2019-02-01] MEDS: ZYLOPRIM PO SCH ×2 (07:59→22:14)
[2019-02-01] MEDS: ZYVOX PO SCH ×2 (07:59→22:14)
[2019-02-01] MEDS: NORVASC PO SCH (07:59)
[2019-02-01] MEDS: PLAVIX PO SCH (07:59)
[2019-02-01 08:00] LABS: BASO# 0.01 X1000 (0.0-0.2); BASO% 0.1 % (0.0-0.8); EOS# 0.07 X1000 (0.0-0.7); EOS% 0.5 % (0.0-10.0); HEMATOCRIT 44.6 % (42.0-52.0); IMM GRAN# 0.07 X1000 (0.0-0.04); IMM GRAN% 0.5 % (0.0-0.5); LYMPH# 0.85 X1000 (1.2-3.4); LYMPH% 6.1 % (20.5-51.1); MCH 28.9 PG (27-31); MCHC 31.4 g/dL (33-37); MONO# 0.54 X1000 (0.11-0.59); MONO% 3.9 % (1.7-9.3); NEUT# 12.35 X1000 (1.4-6.5); NEUT% 88.9 % (42.2-75.2); PLT 353 X1000 (130-400); RBC 4.85 XMIL (4.7-6.1); RDW 14.1 % (11.5-14.5); WBC 13.89 X1000 (4.8-10.8)
[2019-02-01 08:06] LABS: AGAP 12; BUN 22 mg/dL (8-22); CALCIUM 8.7 mg/dL (8.8-10.2); CHLORIDE 104 mmol/L (98-107); COSMO 298; CREATININE 0.7 mg/dL (0.7-1.2); ESTIMATED GFR > 60; GLUCOSE 179 mg/dL (70-104); POTASSIUM 3.6 mmol/L (3.5-5.1); SODIUM 146 mmol/L (136-145); TCO2 30 mmol/L (25-35)
[2019-02-01 08:18] LABS: BANDS 2 % (0-1); EOS 2 % (1-10); LYMPHS 16 % (21-51); MONO 2 % (1-9); SEGS 76 % (42-75)
[2019-02-01] MEDS ORDERED: QUESTRAN PO PRN (14:36)
--- NOTE | 2019-02-01 14:54 | PROGRESS NOTE ---
DATE: 02/01/2019 SUBJECTIVE: The patient complains of frequent bowel motions. OBJECTIVE: Vital Signs: Temperature 98.6 degrees, pulse 93, respiratory rate 16, blood pressure 158/84, oxygen saturation is 93%. HEENT: Atraumatic, normocephalic. Cardiovascular System: S1, S2. Respiratory System: Has evidence of good air entry bilaterally. Abdomen: Soft, nontender. No masses felt. Extremities: No evidence of edema. Central Nervous System: No obvious focal deficit noted. Labs: WBC 13.89, hematocrit 44.6, with a platelet count of [*] . ABG 7.44/ [*]/65/94.8 percent. Sodium is 146, potassium 3.6, chloride 104, bicarb 30, BUN is 22, creatinine 0.8. ASSESSMENT AND PLAN: 1. Acute respiratory failure secondary to bilateral pneumonia. The patient also has probable chronic obstructive pulmonary disease. Continue antibiotics for presumed pneumonia as well as nebulized bronchodilators for chronic obstructive pulmonary disease. We will continue to follow up on patient's respiratory status. Maintain him on oxygen supplementation. 2. Severe diarrhea. Stool for Clostridium difficile negative. We will place patient on Questran. 3. Coronary artery disease, status post coronary artery bypass graft in 2014. Continue aspirin, beta sanya, as well as a statin. The patient is currently asymptomatic. 4. Hypertension. Continue current antihypertensive regimen. 5. Gastroesophageal reflux disease. Continue proton pump inhibitor. 6. Anxiety. Continue benzodiazepine as needed. 7. Deep vein thrombosis prophylaxis. Sequential compression devices. 8. Gastrointestinal prophylaxis. Proton pump inhibitor. DISPOSITION: I think the patient can be discharged home once we can get his diarrhea under control. In terms of antibiotics, we will defer decision to the infectious disease team. cc: Foster Torres MD
[2019-02-01] MEDS: LIPITOR PO SCH (22:14)
[2019-02-01] MEDS: SODIUM CHLORIDE 0.9% INJ SCH (22:14)
[2019-02-01] MEDS: PROTONIX IV SCH (22:14)
[2019-02-02] MEDS: HUMULIN R SUBQ SCH ×3 (01:41→11:06)
[2019-02-02] MEDS: DUONEB (A & A) INH SCH ×4 (03:32→15:50)
[2019-02-02] MEDS: SOLU-MEDROL IV SCH ×3 (04:51→15:49)
[2019-02-02] MEDS: MERREM 2 GM in NS 100 ML IV SCH ×2 (04:51→09:53)
[2019-02-02] MEDS: COLCRYS PO SCH ×2 (04:51→05:46)
[2019-02-02 05:27] LABS: ALLEN TEST YES; BE 1.7 mmoll (-3.0-3.0); BLOOD TYPE ARTERIAL; HCO3-(ACT) 26.2 mmoll (20.0-26.0); METHB 1.2 % (0.0-1.5); O2(CT) 18.4 mL/dL (15.0-23.0); O2HB 95.3 % (95.0-99.0); PCO2(98.6) 42 mmHg (35-45); PO2(98.6) 85 mmHg (60-100); SAMPLE BLOOD; SAO2 98.2 % (95.0-100.0); THB 13.7 g/dL (11.5-17.4); pH(98.6) 7.41 (7.35-7.45)
[2019-02-02 05:28] LABS: MODALITY CANNULA
--- NOTE | 2019-02-02 06:41 | Diag Imaging Result Doc PS360 ---
EXAM: CHEST-1 VIEW HISTORY: SOB TECHNIQUE: Portable chest single view COMPARISON: 02/01/2019 FINDINGS: There is bilateral pneumonia. No definite change. No cardiomegaly. Sternal wires are present. The lungs are well expanded. No pleural effusions identified. IMPRESSION: Persistent bilateral pneumonia with no significant change. Electronically signed by Rosendo Mendoza 02/02/2019 6:38 AM
[2019-02-02] MEDS: PULMICORT INH SCH (07:50)
[2019-02-02] MEDS: LOPRESSOR PO SCH (09:11)
[2019-02-02] MEDS: PLAVIX PO SCH (09:11)
[2019-02-02] MEDS: ASPIRIN PO SCH (09:11)
[2019-02-02] MEDS: NORVASC PO SCH (09:11)
[2019-02-02] MEDS: ZYLOPRIM PO SCH (09:11)
[2019-02-02] MEDS: ZYVOX PO SCH (09:12)
[2019-02-02] MEDS: IMODIUM PO PRN (11:01)
--- NOTE | 2019-02-02 11:28 | PROGRESS NOTE ---
DATE: 02/02/2019 SUBJECTIVE: The patient is resting in bed. He would like to be discharged home today. OBJECTIVE: Vital Signs: Temperature 97.8 degrees, pulses 81, respiratory rate 16, blood pressure 169/79, and oxygen is 93%. HEENT: Atraumatic, normocephalic. Cardiovascular: S1, S2. Respiratory: There is evidence of good air entry bilaterally. Abdomen: Soft and nontender. No masses felt. Extremities: No evidence of edema. Central nervous system: No obvious focal deficits noted. LABORATORY: ABG 7.41/42/85/95.3. Blood glucose 154. ASSESSMENT AND PLAN: 1. Acute respiratory failure secondary to bilateral pneumonia. The patient also has probable COPD as well. Continue antibiotics for presumed pneumonia as well as nebulized bronchodilators for COPD. Maintain patient on supplemental oxygen. 2. Severe diarrhea. Stool for Clostridium difficile negative. Continue current regimen. 3. Coronary artery disease. Status post coronary artery bypass graft in 2014. Continue aspirin, beta sanya, as well as statin. The patient is currently asymptomatic. 4. Hypertension. Continue current antibiotic regimen. 5. Gastroesophageal reflux disease. Continue proton pump inhibitor. 6. Anxiety disorder. Continue anxiolytic. 7. Deep vein thrombosis prophylaxis. Sequential compression devices. 8. Gastrointestinal prophylaxis. Proton pump inhibitor. 9. Disposition. I think the patient can be discharged home soon. Will discuss with ID concerning discharge. The patient's preference is to be discharged home today. cc: Foster Torres MD MTDD
[2019-02-02 11:58] VITALS: BP 144/78
--- NOTE | 2019-02-02 14:51 | INFECTIOUS DISEASE PROGRESS NO ---
DATE: 02/02/2019 PRESENT ILLNESS: The patient has bilateral pneumonia. MEDICATIONS: This is the is the 7th day of treatment with a combination of meropenem and Zyvox. Prior to that, the patient had been on Rocephin and azithromycin. PHYSICAL EXAMINATION: Vital Signs: Temperature is 97.9, pulse 88, respirations 18, blood pressure is 144/78. General: This is a somewhat ill-appearing elderly male. He is in no acute distress and he looks much better than when he came in. He also told me he very much wants to go home. Head, Eyes, Ears, Nose and Throat: He is wearing nasal oxygen. He can hear my spoken words and see near objects. He does not have any white patches on his tongue. Neck: There is no pain when he moves his neck. Lungs: Clear to auscultation. Cardiovascular: Heart rate is regular with a systolic murmur. Abdomen: Soft and nontender. Genitalia: The patient has a Graff catheter in place. Neurologic: The patient is alert. He is able to ambulate without difficulty. Integument: No rash. Thorax: Patient has an increased AP diameter of the chest. LAB AND X-RAY: The patient's latest chest x-ray shows bilateral pneumonia without any change from the chest x-ray done before this one. CBC shows a white count of 13,890, hemoglobin 14 and platelet count 353,000. Creatinine is 0.7. GFR is greater than 60. ASSESSMENT AND PLAN: The patient has bilateral pneumonia. He very much wants to go home, as I mentioned above. My plan is to send him home on a combination of doxycycline and Ceftin. I am requesting that the patient has an appointment to my office in 2 weeks at which time the patient will be examined and the chest x-ray will be repeated. The patient self catheterizes himself four times a day, so when the patient leaves we will remove his Graff catheter and then he will return to doing self catheterizations. COMORBIDITIES: He is elderly. He has chronic obstructive pulmonary disease, coronary artery disease and peripheral vascular disease. cc: Aleks Link MD MTDD
[2019-02-02] MEDS ORDERED: PNEUMOVAX 23 IM ONE (16:34)
--- NOTE | 2019-02-02 19:30 | DISCHARGE SUMMARY ---
ADMISSION DATE: 01/20/2019 DISCHARGE DATE: 02/02/2019 PRINCIPAL DIAGNOSIS: Acute respiratory failure. SECONDARY DIAGNOSES: 1. Multifocal pneumonia. 2. Coronary artery disease. 3. Hypertension. 4. Hyperlipidemia. 5. History of prostate cancer status post radiation treatment. 6. Urinary retention. 7. Peripheral arterial disease. DISCHARGE MEDICATIONS: Include the followin. Doxycycline 100 mg p.o. twice a day. 2. Ceftin 500 mg every 12 hours. 3. Pravastatin 40 mg p.o. daily. 4. Metoprolol 25 mg p.o. twice a day. 5. Plavix 75 mg p.o. once a day. 6. Aspirin 81 mg p.o. daily. 7. Norvasc 10 mg p.o. daily. 8. Atorvastatin 80 mg p.o. daily. 9. Pletal 50 mg p.o. twice a day. PROCEDURES DONE DURING THIS HOSPITAL STAY: Include the following: Chest CT on 01/21/2019. CONSULTATIONS DONE DURING THIS HOSPITAL STAY: Include: 1. Dr. Aleks Link, Infectious Disease. 2. Dr. Renae Madrid, Pulmonology. HOSPITAL COURSE: Mr. Juan Yang is a 68-year-old male who has a history of hypertension, coronary artery disease, hyperlipidemia urinary retention, peripheral artery disease, history of prostate cancer status post radiation treatment. The patient was admitted to the hospital as a case of acute respiratory failure as well as multifocal pneumonia. Antibiotic management was done by Dr. Aleks Link. Sputum culture came back positive for gram-positive cocci. The patient was also seen by the Pulmonary Team. Just prior to discharge patient was noted to be hypoxic with oxygen saturations in the 80s. X-ray of his chest showed bilateral pneumonia. The patient kept insisting on going home. The pulmonary Team as well as Infectious Disease Team were made aware of his persistence in wanting to go home. PHYSICAL EXAMINATION: During my evaluation today vital signs as follows: Temperature 97.9, pulse 88, respirations 18, blood pressure 144/78, oxygen is 92%. HEENT: Atraumatic, normocephalic. Cardiovascular: S1, S2. Respiratory: Has evidence of good air entry bilaterally. Abdomen: Soft, nontender. No masses felt. Extremities: No evidence of edema. Central Nervous System: No obvious focal deficit noted. LABORATORY: AB.41/42/85/98.2%. Blood glucose is 177. PLAN: We will proceed and discharge patient home today. Antibiotics to be taken in the outpatient have already been addressed by the Infectious Disease Team. We will notify the Pulmonary Team prior to discharge from the hospital. The patient will need to follow up with both Dr. Madrid as well as Dr. Aleks Link in the outpatient. He will be going home on home oxygen. cc: Foster Torres MD
== END 2019-02-02 17:17 | disposition home health service (06) | DRG 189 ==
LOC: ED 16:52 → 3N 19:42 → SUATTDRO 19:42 → ICU 22:03 → 3S 01-28 22:57 → 3N 01-30 14:03
PROVIDERS: ATTEND Internal Medicine
CPT/HCPCS: 51702; 71010; 71020; 71045; 71046; 71250; 71275; 80048; 80053; 81001; 82550; 82784; 82805; 82948; 83605; 83735; 83880; 84100; 84484; 85025; 87040; 87070; 87088; 87205; 87324; 87449; 87899; 89055; 90732; 93005; 94640; 94660; 94667; 94668; 94761; 96365; 97162; 97530; 99285; A9270; C9113; J0456; J0696; J1650; J1940; J2060; J2185; J2920; J2930; J3370; J7030; J7040; Q9967; S0164; XXXXX

== ENCOUNTER 2019-02-05 15:45 | Inpatient (IN) ==
[2019-02-05] MEDS ORDERED: DUONEB (A & A) INH ONE (16:10)
[2019-02-05] MEDS ORDERED: VANCOMYCIN 1 GM/NS 1 GM/250 ML IVPB IV ONE (16:13)
[2019-02-05] MEDS ORDERED: ZOSYN 2.25 GM in NS 50 ML IV ONE (16:13)
[2019-02-05 16:53] LABS: ALLEN TEST YES; BE 0.9 mmoll (-3.0-3.0); BLOOD TYPE ARTERIAL; HCO3-(ACT) 25.6 mmoll (20.0-26.0); METHB 1.1 % (0.0-1.5); O2(CT) 19.3 mL/dL (15.0-23.0); O2HB 95.8 % (95.0-99.0); PCO2(98.6) 39 mmHg (35-45); PO2(98.6) 87 mmHg (60-100); SAMPLE BLOOD; SAO2 98.9 % (95.0-100.0); THB 14.3 g/dL (11.5-17.4); pH(98.6) 7.42 (7.35-7.45)
[2019-02-05 16:54] LABS: MODALITY BI PAP
[2019-02-05 17:05] LABS: EOS# 0.42 X1000 (0.0-0.7); EOS% 2.2 % (0.0-10.0); HEMOGLOBIN 14.6 g/dL (14.0-18.0); IMM GRAN# 0.09 X1000 (0.0-0.04); IMM GRAN% 0.5 % (0.0-0.5); LYMPH# 3.06 X1000 (1.2-3.4); MCH 28.8 PG (27-31); MCHC 32.4 g/dL (33-37); MCV 88.8 FL (81-99); MONO# 1.18 X1000 (0.11-0.59); MONO% 6.2 % (1.7-9.3); MPV 10.9 FL (7.4-10.4); NEUT# 14.41 X1000 (1.4-6.5); NEUT% 75.1 % (42.2-75.2); PLT 193 X1000 (130-400); RBC 5.07 XMIL (4.7-6.1); RDW 13.8 % (11.5-14.5); WBC 19.16 X1000 (4.8-10.8)
[2019-02-05 17:18] LABS: AGAP 13; ALB/GLOB RATIO 1.4; ALBUMIN 4.2 g/dL (3.5-5.0); ALKALINE PHOSPHATASE 145 U/L (32-122); BUN 20 mg/dL (8-22); CALCIUM 8.9 mg/dL (8.8-10.2); CHLORIDE 100 mmol/L (98-107); COSMO 285; CREATININE 0.7 mg/dL (0.7-1.2); ESTIMATED GFR > 60; GLUCOSE 114 mg/dL (70-104); GOT 29 U/L (10-34); GPT 37 U/L (10-44); POTASSIUM 3.8 mmol/L (3.5-5.1); SODIUM 141 mmol/L (136-145); TCO2 28 mmol/L (25-35); TOTAL BILIRUBIN 0.96 mg/dL (0.20-1.00); TOTAL PROTEIN 7.1 g/dL (6.3-8.3)
--- NOTE | 2019-02-05 17:31 | Diag Imaging Result Doc PS360 ---
CHEST-PORTABLE - 02/05/2019 INDICATION: short of breath COMPARISON: 02/02/2019 FINDINGS: There is worsening ill-defined infiltrate in the lung bases bilaterally. Stable dense focal infiltrates bilaterally. Heart size is normal. No pneumothorax or pleural effusion. IMPRESSION: Worsening ill-defined infiltrate throughout the lung bases. Electronically signed by Jairo Hammonds 02/05/2019 5:28 PM
[2019-02-05 17:46] LABS: INR 0.97; PROTIME 13.7 Seconds (11.0-16.0)
[2019-02-05 17:47] LABS: PTT 31.6 Seconds (22.3-41.8)
[2019-02-05] MEDS ORDERED: DUONEB (A & A) INH PRN (18:48)
--- NOTE | 2019-02-05 18:53 | PROVIDER DOCUMENTATION ---
This chart was entered by Laura Rhodes Scribe, acting as scribe for Mendel Diaz MD. HPI-Respiratory General - General Chief Complaint: Shortness of Breath Stated Complaint: 02 LOW Time Seen by Provider: 02/05/19 16:04 Source: patient, family () Unable to obtain history due to:: urgency Allergies/Adverse Reactions: Patient Allergies Allergy/AdvReac Type Severity Reaction Status Date / Time No Known Allergies Allergy Verified 02/05/19 18:00 Home Medications: Home Medication List Medication Instructions Recorded Confirmed Last Taken Type Amlodipine [Norvasc] 10 mg PO DAILY 05/29/15 02/05/19 02/05/19 History Aspirin [Ecotrin] 81 mg PO DAILY 05/29/15 02/05/19 02/05/19 History Clopidogrel [Plavix] 75 mg PO DAILY 05/29/15 02/05/19 02/05/19 History Metoprolol Tartrate 25 mg PO BID 05/29/15 02/05/19 02/05/19 07:00 History Allopurinol 100 mg PO BID 01/21/19 02/05/19 02/05/19 07:00 History Atorvastatin Calcium [Lipitor] 80 mg PO HS 01/21/19 02/05/19 02/04/19 History Cilostazol [Pletal] 50 mg PO BID 01/21/19 02/05/19 02/05/19 07:00 History CefUROXIME [Ceftin] 500 mg PO Q12HR 14 Days #56 tab 02/02/19 02/05/19 02/05/19 07:00 Rx Doxycycline 100 mg PO Q12H #30 tab 02/02/19 02/05/19 02/05/19 07:00 Rx - History of Present Illness-Resp Nature of Presenting Problem: 68 yowm presents to the ed with c/o sob. pt was recently dc from [facility] with bilateral pneumonia. pt sts was feeling better till yesterday and started feeling sob and fatigue. this am pt felt worse. pt when arrived in triage pt had 65% on ra. pt was brought back to ed and dr diaz was at bedside due to critical O2. pt was placed on non-rebreather at 100% and pt O2 came up to 89%. 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 worse with: exertion Associated Symptoms: reports: chest pain/soreness, cough, shortness of breath. denies: wheezing Similar Symptoms Previously?: Yes Recently seen or treated by another doctor?: Yes (dr fuller) Review of Systems - Adult - REVIEW OF SYSTEMS - ADULT Constitutional: denies: chills, fever Eyes: reports: no symptoms reported Ears, Nose, Mouth & Throat: reports: no symptoms reported Cardiovascular: reports: see HPI, chest pain (chest wall pain from cough). denies: palpitations, syncope Respiratory: reports: see HPI, cough, dyspnea on exertion, shortness of breath Gastrointestinal: denies: abdominal pain, diarrhea, nausea, vomiting Genitourinary: reports: no symptoms reported Musculoskeletal: reports: no symptoms reported Integumentary: reports: no symptoms reported Neurological: denies: dizziness/vertigo, headache/migraines Psychiatric: reports: no symptoms reported Endocrine: reports: no symptoms reported Hematologic/Lymphatic: reports: no symptoms reported Allergic/Immunologic: reports: no symptoms reported All Other Systems: Reviewed and Negative Past History - Adult - PAST MEDICAL HISTORY-ADULT Review of Records: reports: Nursing Assessment Review, Medications Reviewed Major Childhood Illnesses: reports: denies history Cardiovascular: reports: CAD, HTN, MS Respiratory: reports: pneumonia. denies: COPD Gastrointestinal: reports: denies history Genitourinary: reports: prostate cancer Musculoskeletal: reports: denies history Hand Dominance: Right Handed Neurological: reports: denies history Psychiatric: reports: denies history Endocrine/Immune: reports: denies history Other Conditions: reports: denies history - PRIOR SURGERIES/PROCEDURES Surgical/Procedure History: reports: appendectomy, CABG, hernia repair - IMMUNIZATION STATUS Childhood Immunizations: See Nurse Assessment Flu Vaccine: See Nurse Assessment - FAMILY HISTORY Family History: reviewed, not pertinent - SOCIAL HISTORY Smoking: quit greater than 1 year Substance Use: denies Alcohol Use Frequency: never Living Situation: family Physical Exam-General - PHYSICAL EXAM-ADULT Initial Vital Signs Reviewed: Yes - CONSTITUTIONAL General Appearance: alert, moderate distress, obese - EYES Eyes: PERRL/EOMI, pink conjunctivae - HEAD, EARS, NOSE, MOUTH & THROAT HENMT: moist mucous membranes, dental decay - NECK Neck: full range of motion, supple, normal inspection - RESPIRATORY Respiratory: respiratory distress, crackles, rales, increased rate (24). negative: chest non-tender (tenderness from coughing) - CARDIOVASCULAR Cardiovascular: normal peripheral pulses, tachycardia (103) - GASTROINTESTINAL (ABDOMEN) Abdominal Exam: normal bowel sounds, non tender, soft - LYMPHATIC Lymphatic: no adenopathy - MUSCULOSKELETAL Back Exam: normal inspection, no CVA tenderness, no vertebral tenderness Extremity: normal range of motion, non-tender, normal gait, normal inspection, no pedal edema, no calf tenderness, normal capillary refill, pelvis stable - SKIN Integumentary: normal color, normal turgor, warm/dry - NEUROLOGIC Neurologic: grossly normal - PSYCHIATRIC Psych/Mental Status: normal mood/affect, normal thought content, normal thought process, oriented x 3 Progress - PLAN OF CARE/RESULTS Progress/Plan/Lab Results: Vital Signs - 8 hr 02/05/19 15:55 02/05/19 16:32 02/05/19 16:34 Temperature 98.3 F Pulse Rate 103 H 100 H 87 Respiratory Rate 24 21 21 Blood Pressure 126/80 143/89 O2 Sat by Pulse Oximetry 65 L 02/05/19 16:40 02/05/19 16:45 02/05/19 16:50 Temperature Pulse Rate 99 H 95 H 98 H Respiratory Rate 25 H 25 H 16 Blood Pressure O2 Sat by Pulse Oximetry 97 100 02/05/19 17:00 02/05/19 17:10 02/05/19 17:20 Temperature Pulse Rate 92 H 90 89 Respiratory Rate 19 16 16 Blood Pressure O2 Sat by Pulse Oximetry 100 99 100 02/05/19 17:30 02/05/19 17:40 02/05/19 17:50 Temperature Pulse Rate 88 90 90 Respiratory Rate 19 17 21 Blood Pressure O2 Sat by Pulse Oximetry 100 98 100 02/05/19 18:00 02/05/19 18:10 Temperature Pulse Rate 84 91 H Respiratory Rate 17 24 Blood Pressure O2 Sat by Pulse Oximetry 100 100 Laboratory Results - last 24 hr 02/05/19 02/05/19 02/05/19 16:35 16:35 16:35 WBC 19.16 H RBC 5.07 Hgb 14.6 Hct 45.0 MCV 88.8 MCH 28.8 MCHC 32.4 L RDW Std Deviation 13.8 Plt Count 193 MPV 10.9 H Immature Gran % (Auto) 0.5 Neut % (Auto) 75.1 Lymph % (Auto) 16.0 L Grainger % (Auto) 6.2 Eos % (Auto) 2.2 Baso % (Auto) 0.0 Immature Gran # (Auto) 0.09 H Neut # (Auto) 14.41 H Lymph # (Auto) 3.06 Grainger # (Auto) 1.18 H Eos # (Auto) 0.42 Baso # (Auto) 0.00 PT INR PTT (Actin FS) Specimen Type Sample Site pH pCO2 pO2 HCO3 Base Excess Oxyhemoglobin ABG O2 Sat (Calculated) ABG O2 Saturation ABG Carboxyhemoglobin ABG Methemoglobin Elías Test A-a O2 Difference Total Hemoglobin Lactate Blood Gas Modality FiO2 % Inspiratory BiPAP Expiratory BiPAP Sodium 141 Potassium 3.8 Chloride 100 Carbon Dioxide 28 Anion Gap 13 BUN 20 Creatinine 0.7 Estimated GFR/1.73 m2 > 60 BUN/Creatinine Ratio 29 Glucose 114 H Calculated Osmolality 285 Calcium 8.9 Total Bilirubin 0.96 AST 29 ALT 37 Alkaline Phosphatase 145 H Troponin T Iwc-C-Xqfhuiumogh Pept Total Protein 7.1 Albumin 4.2 Globulin 2.9 Albumin/Globulin Ratio 1.4 Plasma Lactate 1.4 02/05/19 02/05/19 02/05/19 16:35 16:35 16:35 WBC RBC Hgb Hct MCV MCH MCHC RDW Std Deviation Plt Count MPV Immature Gran % (Auto) Neut % (Auto) Lymph % (Auto) Grainger % (Auto) Eos % (Auto) Baso % (Auto) Immature Gran # (Auto) Neut # (Auto) Lymph # (Auto) Grainger # (Auto) Eos # (Auto) Baso # (Auto) PT 13.7 INR 0.97 PTT (Actin FS) 31.6 Specimen Type Sample Site pH pCO2 pO2 HCO3 Base Excess Oxyhemoglobin ABG O2 Sat (Calculated) ABG O2 Saturation ABG Carboxyhemoglobin ABG Methemoglobin Elías Test A-a O2 Difference Total Hemoglobin Lactate Blood Gas Modality FiO2 % Inspiratory BiPAP Expiratory BiPAP Sodium Potassium Chloride Carbon Dioxide Anion Gap BUN Creatinine Estimated GFR/1.73 m2 BUN/Creatinine Ratio Glucose Calculated Osmolality Calcium Total Bilirubin AST ALT Alkaline Phosphatase Troponin T < 0.010 Snp-W-Meruqlkmjlv Pept 259 H Total Protein Albumin Globulin Albumin/Globulin Ratio Plasma Lactate 02/05/19 16:40 WBC RBC Hgb Hct MCV MCH MCHC RDW Std Deviation Plt Count MPV Immature Gran % (Auto) Neut % (Auto) Lymph % (Auto) Grainger % (Auto) Eos % (Auto) Baso % (Auto) Immature Gran # (Auto) Neut # (Auto) Lymph # (Auto) Grainger # (Auto) Eos # (Auto) Baso # (Auto) PT INR PTT (Actin FS) Specimen Type ARTERIAL Sample Site R RADIAL pH 7.42 pCO2 39 pO2 87 HCO3 25.6 Base Excess 0.9 Oxyhemoglobin 95.8 ABG O2 Sat (Calculated) 19.3 ABG O2 Saturation 98.9 ABG Carboxyhemoglobin 2.10 ABG Methemoglobin 1.1 Elías Test YES A-a O2 Difference 577.0 Total Hemoglobin 14.3 Lactate 1.00 Blood Gas Modality BI PAP FiO2 % 100.0 Inspiratory BiPAP 16.0 Expiratory BiPAP 8.0 Sodium Potassium Chloride Carbon Dioxide Anion Gap BUN Creatinine Estimated GFR/1.73 m2 BUN/Creatinine Ratio Glucose Calculated Osmolality Calcium Total Bilirubin AST ALT Alkaline Phosphatase Troponin T Ifn-B-Dkjqdsdqvve Pept Total Protein Albumin Globulin Albumin/Globulin Ratio Plasma Lactate Orders Category Date Time Status Admit - [facility] Routine AdmDCTranf 02/05/19 18:46 Active Activity - Strict Bedrest ORDERED Care 02/05/19 18:46 Active Intake and Output-Strict ORDERED Care 02/05/19 18:46 Active Nursing- MD Consult Request ROUTINE Care 02/05/19 18:48 Active Vital Signs Order Q 8-HR ASSESS Care 02/05/19 18:46 Active Z-Document. for Tele Applied ORDERED Care 02/05/19 18:47 Active Physician/Provider Consults Routine Cons 02/05/19 18:46 Ordered Clear Liquid Diet Diet 02/05/19 18:47 Active CHEST-PORTABLE [RAD] Stat Exams 02/05/19 16:13 Completed ABG [RESP] Routine Lab 02/05/19 16:40 Completed BLOOD CULTURE [BLDCUL] Stat Lab 02/05/19 16:35 Results CBC WITH DIFF [HEME] Routine Lab 02/06/19 06:00 Uncollected CBC WITH ELECTRONIC DIFF [HEME] Stat Lab 02/05/19 16:35 Completed COMPREHENSIVE METABOLIC PANEL [CHEM] Routine Lab 02/06/19 06:00 Uncollected COMPREHENSIVE METABOLIC PANEL [CHEM] Stat Lab 02/05/19 16:35 Completed LACTATE, PLASMA [CHEM] Stat Lab 02/05/19 16:35 Completed PRO B-NATRIURETIC PEPTIDE Stat Lab 02/05/19 16:35 Completed PROTIME WITH INR [COAG] Stat Lab 02/05/19 16:35 Completed PTT [COAG] Stat Lab 02/05/19 16:35 Completed TROPONIN T Stat Lab 02/05/19 16:35 Completed Albuterol 2.5MG/Ipratrop 0.5MG [Duoneb (A & A)] Med 02/05/19 16:10 Discontinued 3 ml INH NOW ONE Albuterol 2.5MG/Ipratrop 0.5MG [Duoneb (A & A)] Med 02/05/19 18:48 Ordered 3 ml INH Q2H PRN PRN Albuterol 2.5MG/Ipratrop 0.5MG [Duoneb (A & A)] Med 02/05/19 19:30 Ordered 3 ml INH RTQ4H Linezolid 600 mg/D5w [Zyvox 600 mg/D5w] Med 02/05/19 19:00 Ordered 600 mg in 300 ml IV Q12H Meropenem [Merrem] 1,000 mg Med 02/05/19 19:00 Ordered 0.9% Sodium Chloride Inj [Ns] 50 ml IV Q8H Methylprednisolone Sod Succ [Solu-Medrol] Med 02/05/19 19:00 Ordered 60 mg IV Q12H Ondansetron [Zofran] Med 02/05/19 18:46 Ordered 4 mg IV Q4H PRN PRN Pantoprazole [Protonix] Med 02/05/19 19:00 Ordered 40 mg IV Q24H Piperacillin/Tazobactam [Zosyn] 2.25 gm Med 02/05/19 16:13 Discontinued 0.9% Sodium Chloride Inj [Ns] 50 ml IV NOW Sodium Chloride 0.9% Med 02/05/19 19:00 Ordered 10 ml INJ DIRECTED Vancomycin 1 gm/Ns Med 02/05/19 16:13 Discontinued 1 gm in 250 ml IV NOW Aerosol Treatments Routine Oth 02/05/19 16:11 Completed Aerosol Treatments Routine Ot 02/05/19 18:49 Active Aerosol Treatments Stat Oth 02/05/19 16:11 Completed BIPAP Stat Ot 02/05/19 16:47 Active Telemetry [OM.EQ] Routine Ot 02/05/19 18:46 Active Result Diagrams: 02/05/19 16:35 02/05/19 16:35 - REASSESSMENT Reassessment #1 Time Reassessed: 16:26 (pt on bipap and much improved) Status: improving (on bipap) - EKG 1 Time of EKG reading by physician:: 16:19 EKG Read and Signed by:: Mendel Diaz EKG Interpretation (*Must complete 3 of following elements*): Abnormal Rate: 94 Rhythm: nsr [place]: left (deviation) QRS: RBB, LVH, other (possible left atrial enlargement) UT Interval: normal ST Wave: normal Comments: inferior/anterior infarct, age undetermined - CONSULTS/PCP/HOSPITALIST Notification #1 *Consult/PCP/Hospitalist*: dr fuller Time Discussed: 16:28 (spoke with dr fuller and he agrees with managment) Consult Disposition: Admit Departure - Departure Date of Disposition Decision: 02/05/19 Time of Disposition Decision: 17:00 DIAGNOSIS: Bilateral pneumonia Disposition: ADMITTED INPATIENT 09 Certified Medical Emergency: Emergent Condition: Critical Referrals and Follow-Ups: None,PCP [Primary Care Provider] - - Critical Care Note This patient required my direct & personal management of CC.: Yes Total Time (mins): 38 Critical Care Statement: This patient required my direct personal management to treat or rule out processes, the absence of which, could potentiallly result in sudden, clinically significant life or limb threatening deterioration. Attestation - Physician/ BRIGITTE Attestation Patient care was provided by Advanced Practice Provider:: No The physician spent face to face time with patient:: Yes Advanced Practice Provider documentation review:: Supervising physician onsite and consulted in the evaluation and care of this patient. The physician did have a face to face encounter with the patient. This chart was documented by the indicated scribe, (Laura Rhodes, John) and accurately reflects the services I performed and decisions made by me, Mendel Diaz MD, as attested by the provider's signature.
[2019-02-05] MEDS ORDERED: SODIUM CHLORIDE 0.9% INJ SCH (19:00)
[2019-02-05] MEDS ORDERED: IMODIUM PO ONE (20:15)
[2019-02-05] MEDS: ZYVOX 600 MG/D5W 600 MG/300 ML IVPB IV SCH (20:42)
[2019-02-05] MEDS: SOLU-MEDROL IV SCH (20:42)
[2019-02-05] MEDS: PROTONIX IV SCH (20:42)
[2019-02-05] MEDS ORDERED: LASIX IV ONE (20:57)
[2019-02-05 21:59] LABS: URINE SOURCE CATH
[2019-02-05] MEDS: MERREM 1,000 MG in NS 50 ML IV SCH (22:00)
[2019-02-05] MEDS: LOPRESSOR PO SCH (22:00)
--- NOTE | 2019-02-05 22:15 | PROVIDER PROGRESS NOTE ---
Progress Note Pulmonary Consult: Case Evaluated and full Dictation to follow. Recent Discharge with pneumonia and possible C.O.P. Was in My office today with significant Oxygen desaturation. He was Sent to ER Likely he has persistent pneumonia, ARDS. Possible C.O.P. Plan includes antibiotics, steroids, ICU observation. So far compensating with Bipap and if needed will use assisted ventillation. Once more stable will consider CT chest. Thanks for the courtesy of this consult.
--- NOTE | 2019-02-05 22:27 | HISTORY AND PHYSICAL ---
CHIEF COMPLAINT: Shortness of breath since 2 days. HISTORY OF PRESENT ILLNESS: Mr. Yang is a 68-year-old man with past medical history of essential hypertension, coronary artery disease status post CABG in 2015, carotid artery disease status post carotid endarterectomy, hyperlipidemia, peripheral arterial disease, history of prostate cancer status post radiation who was recently admitted for bilateral pneumonia and acute hypoxic respiratory failure requiring prolonged antibiotic course and prolonged hospitalization for hypoxia who was discharged on January and comes in with complaints of worsening shortness of breath since last 2 days. At the time of discharge on February 02, 2019, the patient was detected to be hypoxic, and he was recommended to remain inside the hospital; however, he was adamant about going home so after discussing risks versus benefit, the patient was discharged home on p.o. antibiotics. Patient was doing okay for a day; however, yesterday he started feeling short of breath again to an extent that he had feeling of passing out. 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 Madrid's office, he was found to be hypoxic and was sent to the emergency room where he was found to have saturation of oxygen of 65% on room air so he was admitted for further management. I am seeing this patient in ICU at the moment. By the time I evaluated him he had received a dose of what looks like vancomycin and Zosyn, and he has been started on meropenem and linezolid as well as methylprednisolone. Currently, he is feeling fine. Denies any complaints. He is on 100% non-rebreather mask. We discussed about chest x-ray findings, diagnosis, lung consultation and answered all of his questions. I also discussed with him about need for nighttime BiPAP. Currently vitals suggest temperature of 98.5 degrees, pulse 86, respiratory 24, blood pressure 142/74. He is saturating 89% on nonrebreather mask. REVIEW OF SYSTEMS: Positive for occasional cough. Negative for chest pain. Negative for knee pain. Negative for headache or dizziness. Negative for nausea or vomiting. Negative for abdominal pain. Negative for bowel or bladder symptoms. PAST MEDICAL HISTORY: Coronary artery disease disease, hyperlipidemia, urinary retention, peripheral artery disease, history of prostate cancer status post radiation. PAST SURGICAL HISTORY: Carotid endarterectomy, CABG in 2015, appendectomy. SOCIAL HISTORY: Patient is an ex-smoker, and he had quit smoking several years ago. He drinks occasional alcohol. No drug use. ALLERGIES: The patient does not have any known drug allergy. FAMILY HISTORY: Positive for diabetes and lung cancer. HOME MEDICATIONS: He was discharged on doxycycline 100 mg b.i.d., cefuroxime 500 mg every 12 hours, pravastatin 40 mg daily, metoprolol 25 mg b.i.d., Plavix 75 mg once a day, aspirin 81 mg daily, Norvasc 10 mg daily, atorvastatin 80 mg daily, Pletal 50 mg twice a day. PHYSICAL EXAMINATION: VITALS: As mentioned above. GENERAL: The patient does not appear in any acute distress on nonrebreather mask. HEENT: Oral cavity is moist. No pallor, cyanosis, clubbing, or icterus. RESPIRATORY: Decreased air entry with inspiratory crackles, bilateral inframammary infrascapular region. No wheeze or rhonchi. CARDIOVASCULAR: S1, S2 normal. Systolic murmur affecting base of the heart, crescendo decrescendo. He has a scar of previous CABG on the sternotomy. ABDOMEN: Soft, nontender. EXTREMITIES: No lower extremity edema. LABORATORY DATA: Suggestive of leukocytosis. Normal hemoglobin, hematocrit, platelet count. Normal coagulation profile. ABG on 100% BiPAP, had pO2 of 87. Normal electrolytes and normal kidney function. His proBNP was just 259. Blood cultures are in lab. IMAGING: Chest x-ray performed, has worsening ill-defined infiltrate throughout the lung bases. ASSESSMENT: 1. Acute hypoxic respiratory failure. 2. Persistent bilateral pneumonia with suspicion for cryptogenic organizing pneumonia. 3. Sepsis due to bilateral pneumonia. 4. History of coronary artery disease status post CABG in 2015. PLAN: I will start the patient on albuterol ipratropium nebulization, intravenous antibiotics and intravenous steroids. I will resume his home antiplatelet medication for history of coronary artery disease. Continue on pantoprazole for GI prophylaxis, enoxaparin for DVT prophylaxis. We will consult pulmonology to evaluate for need for bronchoscopy. I would also consider Infectious Disease consult in the future. TIME SPENT: More than 30 minutes of critical care time was spent in taking care of this patient. All of his questions have been answered. cc: MD NIKO Muñiz
[2019-02-05 22:37] LABS: BILIRUBIN URINE NEGATIVE (NEGATIVE); BLOOD URINE NEGATIVE (NEGATIVE); COLOR YELLOW; GLUCOSE URINE NEGATIVE (NEGATIVE); KETONE URINE 10 mg/dL (NEGATIVE); LEUKOCYTES URINE NEGATIVE (NEGATIVE); NITRITE URINE NEGATIVE (NEGATIVE); PH URINE 5.5; PROTEIN URINE TRACE mg/dL (NEGATIVE); SP GRAVITY URINE 1.024; TURBIDITY URINE CLEAR (CLEAR); UROBILINOGEN URINE NORMAL (NORMAL)
[2019-02-05] MEDS: DUONEB (A & A) INH SCH ×2 (22:43)
[2019-02-05 22:50] LABS: UR EPITHELIAL CELLS <10 /HPF (<10); URINE BACTERIA NEGATIVE /HPF; URINE RBC <10 /HPF (<10); URINE WBC <10 /HPF (<10)
[2019-02-05 23:38] LABS: URINE CASTS NONE SEEN; URINE CRYSTALS NONE SEEN; URINE SMALL ROUND CELLS NONE SEEN; URINE YEAST NONE SEEN
[2019-02-06] MEDS: DUONEB (A & A) INH SCH ×6 (03:35→23:35)
[2019-02-06 04:26] LABS: ALLEN TEST YES; BLOOD TYPE ARTERIAL; O2(CT) 17.7 mL/dL (15.0-23.0); O2HB 96.7 % (95.0-99.0); PCO2(98.6) 45 mmHg (35-45); PO2(98.6) 100 mmHg (60-100); SAMPLE BLOOD; SAO2 99.2 % (95.0-100.0); THB 12.9 g/dL (11.5-17.4); pH(98.6) 7.42 (7.35-7.45)
[2019-02-06 04:27] LABS: MODALITY NRB
[2019-02-06] MEDS: MERREM 1,000 MG in NS 50 ML IV SCH ×3 (04:48→20:25)
[2019-02-06 05:45] LABS: EOS# 0.02 X1000 (0.0-0.7); EOS% 0.2 % (0.0-10.0); HEMATOCRIT 39.3 % (42.0-52.0); HEMOGLOBIN 12.8 g/dL (14.0-18.0); IMM GRAN# 0.05 X1000 (0.0-0.04); IMM GRAN% 0.5 % (0.0-0.5); LYMPH% 7.6 % (20.5-51.1); MCH 28.9 PG (27-31); MCHC 32.6 g/dL (33-37); MCV 88.7 FL (81-99); MONO# 0.12 X1000 (0.11-0.59); MONO% 1.3 % (1.7-9.3); MPV 11.6 FL (7.4-10.4); NEUT# 8.28 X1000 (1.4-6.5); NEUT% 90.4 % (42.2-75.2); PLT 165 X1000 (130-400); RBC 4.43 XMIL (4.7-6.1); RDW 13.5 % (11.5-14.5); WBC 9.17 X1000 (4.8-10.8)
[2019-02-06] MEDS: ZYVOX 600 MG/D5W 600 MG/300 ML IVPB IV SCH ×2 (06:01→18:14)
[2019-02-06] MEDS: SOLU-MEDROL IV SCH ×3 (06:01→18:14)
[2019-02-06 06:04] LABS: AGAP 12; ALB/GLOB RATIO 1.3; ALBUMIN 3.1 g/dL (3.5-5.0); ALKALINE PHOSPHATASE 116 U/L (32-122); BUN 17 mg/dL (8-22); CALCIUM 7.9 mg/dL (8.8-10.2); CHLORIDE 103 mmol/L (98-107); COSMO 286; CREATININE 0.7 mg/dL (0.7-1.2); ESTIMATED GFR > 60; GLUCOSE 195 mg/dL (70-104); GOT 21 U/L (10-34); GPT 28 U/L (10-44); POTASSIUM 3.9 mmol/L (3.5-5.1); SODIUM 140 mmol/L (136-145); TCO2 25 mmol/L (25-35); TOTAL BILIRUBIN 0.61 mg/dL (0.20-1.00); TOTAL PROTEIN 5.5 g/dL (6.3-8.3)
--- NOTE | 2019-02-06 07:11 | Diag Imaging Result Doc PS360 ---
EXAM: CHEST-1 VIEW 02/06/2019 HISTORY: SOB TECHNIQUE: AP portable at 0515 COMMENT: There are patchy alveolar opacities present in the right upper and left lower lobes with generalized interstitial opacity elsewhere. Compared to 02/05/2019 the opacity over the right base has improved and the left heart border is more defined. IMPRESSION: Improved pulmonary edema plus minus pneumonia. Electronically signed by Kamlesh Garcia 02/06/2019 7:09 AM
[2019-02-06] MEDS: LOPRESSOR PO SCH ×2 (08:08→20:25)
[2019-02-06] MEDS: NORVASC PO SCH (08:08)
[2019-02-06] MEDS: ZYLOPRIM PO SCH ×2 (08:08→20:25)
[2019-02-06] MEDS: LOVENOX SUBQ SCH (08:08)
[2019-02-06] MEDS: ASPIRIN EC PO SCH (08:08)
[2019-02-06] MEDS: PLAVIX PO SCH (08:08)
--- NOTE | 2019-02-06 08:33 | EKG Report ---
Test Performed on : 02/05/2019 4:19:13 PM Test Reason : SOB Blood Pressure : / mmHG Vent. Rate : 094 BPM Atrial Rate : 094 BPM P-R Int : 162 ms QRS Dur : 146 ms QT Int : 430 ms P-R-T Axes : 055 -65 052 degrees QTc Int : 537 ms Normal sinus rhythm. Possible Left atrial enlargement Left axis deviation Right bundle branch block Left ventricular hypertrophy Inferior infarct (cited on or before 29-MAY-2015) Anterior infarct , age undetermined Abnormal ECG When compared with ECG of 20-JAN-2019 20:25, (Unconfirmed) aberrant conduction. is no longer present Anterior infarct is now present Questionable change in initial forces of Inferior leads Unconfirmed Result
[2019-02-06] MEDS: COLCRYS PO SCH (10:23)
--- NOTE | 2019-02-06 11:24 | PROGRESS NOTE ---
DATE: 02/06/2019 INTERVAL HISTORY: Mr. Yang received a dose of Lasix overnight. He has a Graff catheter placed. He did not have any other overnight events. He was continued on non- rebreather mask, which he tolerated well. SUBJECTIVE: In the morning time, he is feeling better. Denies any new complaints. We discussed about working him up for possible fungal pneumonia as well as HIV test, and I answered all of the questions. Currently, he denies any other complaints. We also discussed about cryptogenic organizing pneumonia, persistent bacterial pneumonia, and answered all of his questions. OBJECTIVE: Vital Signs: He has been afebrile with temperature of 97.9 degrees, He is no longer tachycardic with heart rate of 85 per minute, respiratory rate 21 per minute, blood pressure 160/89. He is saturating 98% on 15 L 100% non-rebreather mask, and I discussed with the nursing team about decreasing oxygenation as tolerated. General: Not in any acute distress. HEENT: Oral cavity is moist. No pallor, cyanosis, clubbing, or icterus. Lungs: Decreased air entry with inspiratory crackles bilateral inframammary and infrascapular region. No wheeze or rhonchi. Cardiovascular: S1, S2 normal. Systolic murmur affecting base of the heart, crescendo decrescendo without any radiation. He has scar of previous CABG on the sternotomy. Abdomen: Soft, nontender. Extremities: Mild left lower extremity edema. The left knee appears without any inflammation. Input and output -1 L so far today. LABORATORY DATA: Suggestive of resolution of leukocytosis, normocytic anemia, normal platelet count. ABG with PO2 of 100 on 100% non-rebreather mask. Normal kidney function. Microbiology: Blood cultures are in lab. IMAGING: Chest x-ray performed today morning shows improved pulmonary edema, plus or minus pneumonia. Previously, he has had CT scans on last admission. ASSESSMENT AND PLAN: 1. Sepsis and acute hypoxic respiratory failure due to bilateral pneumonia with suspicion of cryptogenic organizing pneumonia. Continue the patient on intravenous meropenem and intravenous linezolid and follow up procalcitonin levels. Follow up blood test results for fungal pneumonia and HIV. Continue intravenous steroids. Continue oxygenation and albuterol ipratropium nebulization. to maintain saturation more than 94%. 2. History of coronary artery disease with coronary artery bypass graft in 2014. Continue home dose of aspirin, atorvastatin, clopidogrel. Obtain ECHO for the findings of pulmonary edema 3. History of essential hypertension. Continue home metoprolol, amlodipine. 4. History of gout. Continue allopurinol and add colchicine. DISPOSITION: The patient remains in ICU for high oxygen requirement. TIME SPENT: More than 30 minutes of critical care time was spent in taking of this patient. Plan of care discussed with him. All of his questions have been answered. cc: Dickson Monteiro MD MTDD
--- NOTE | 2019-02-06 13:36 | Diag Imaging Result Doc PS360 ---
CT THORAX W/O CONTRAST - 02/06/2019 INDICATION: Non resolving pneumonia COMPARISON: 01/21/2019 FINDINGS: There has been little change in the dense alveolar consolidation of the right and left upper lobes. There is worsening diffuse infiltrate mainly throughout the lung bases. There is also diffuse intralobular septal thickening suggesting pulmonary edema. Heart size is normal. There are CABG changes. There are densities in the gallbladder. These may represent sludge or small stones. IMPRESSION: 1. Persistent dense bilateral upper lobe infiltrate. At this point, these are likely cryptogenic organizing pneumonia. 2. Worsening more diffuse infiltrates with basilar predominance. Most consistent with pulmonary edema. This exam was performed using automated exposure control, adjustment of mA or kV according to patient size, and/or use of iterative reconstruction technique Electronically signed by Jairo Hammonds 02/06/2019 1:34 PM
[2019-02-06] MEDS ORDERED: LASIX IV ONE (14:18)
--- NOTE | 2019-02-06 15:46 | PULMONOLOGY PROGRESS NOTE ---
DATE: 02/06/2019 SUBJECTIVE: The patient is awake, alert, and conversant. He remains on high oxygen concentration. He has a dry cough. OBJECTIVE: Vital Signs: Blood pressure 133/74, heart rate, respiratory rate 15, oxygen saturation 89%. HEENT: Pupils are equal and reactive. Oropharynx appears clear. Neck: Supple. Chest: Reveals rhonchi bilaterally Cardiac: Distant heart sounds. Normal S1, normal S2. Abdomen: Soft. Extremities: Without edema. LABORATORY DATA: Chest x-ray reveals dense opacities in the right upper lobe and the left lower lobe with generalized infiltrates bilaterally. Preliminary microbiology is negative. White blood count 9.1, hemoglobin 12.8, platelet count 165,000. Sodium 140, potassium 3.9, chloride 103, bicarbonate 25, BUN 17, creatinine 0.7, glucose 195. IMPRESSION: A 68-year-old with recent admission and discharge to the hospital for community- acquired pneumonia who returns with persistent infiltrates and acute hypoxemic respiratory failure. The patient did receive steroids during the last hospitalization, but was not discharged on steroids. This may represent a cryptogenic organizing pneumonia/BOOP. However, other etiologies such as persistent infections, recurrent aspiration, connective tissue diseases will remain in the differential. RECOMMENDATIONS: 1. CT scan of the thorax to compare to previous CT scans. 2. Increase steroid dosing. 3. Antibiotics per Dr. Aleks Link. 4. Collect sputum for culture and sensitivity. 5. Send serology for a connective tissue profile/cascade and a CRP level. 6. We will add sliding scale. The patient will likely become hyperglycemic with increased steroid dosing. cc: Dereck Duarte MD
[2019-02-06] MEDS: HUMULIN R SUBQ SCH ×3 (16:20→20:25)
[2019-02-06] MEDS: PROTONIX IV SCH (18:14)
[2019-02-06] MEDS: LIPITOR PO SCH (20:24)
[2019-02-06 23:23] LABS: HIV ANTIBODY SCREEN SEE COMMENTS
[2019-02-07] MEDS: SOLU-MEDROL IV SCH ×5 (00:04→23:43)
[2019-02-07] MEDS: HUMULIN R SUBQ SCH ×7 (00:04→23:43)
[2019-02-07] MEDS: DUONEB (A & A) INH SCH ×6 (03:24→23:33)
[2019-02-07 04:17] LABS: ALLEN TEST YES; BE 8.3 mmoll (-3.0-3.0); BLOOD TYPE ARTERIAL; HCO3-(ACT) 31.4 mmoll (20.0-26.0); METHB 1.1 % (0.0-1.5); O2(CT) 16.3 mL/dL (15.0-23.0); O2HB 96.3 % (95.0-99.0); PCO2(98.6) 44 mmHg (35-45); PO2(98.6) 91 mmHg (60-100); SAMPLE BLOOD; SAO2 98.5 % (95.0-100.0); pH(98.6) 7.48 (7.35-7.45)
[2019-02-07 04:19] LABS: MODALITY BI PAP
[2019-02-07] MEDS: MERREM 1,000 MG in NS 50 ML IV SCH (04:26)
[2019-02-07] MEDS: ZYVOX 600 MG/D5W 600 MG/300 ML IVPB IV SCH ×2 (06:13→18:12)
--- NOTE | 2019-02-07 06:42 | Diag Imaging Result Doc PS360 ---
EXAM: CHEST-1 VIEW HISTORY: SOB TECHNIQUE: Portable chest single view COMPARISON: 02/06/2019 FINDINGS: There are dense bilateral infiltrates most pronounced in the upper right lung and in the lower left lung. Overall the infiltrates are less dense than on the prior study. No cardiomegaly. No pleural effusions identified. Sternal wires are present. IMPRESSION: Mild interval improvement. Electronically signed by Rosendo Mendoza 02/07/2019 6:40 AM
[2019-02-07] MEDS: COLCRYS PO SCH (08:50)
[2019-02-07] MEDS: PLAVIX PO SCH (08:50)
[2019-02-07] MEDS: ZYLOPRIM PO SCH ×2 (08:50→20:47)
[2019-02-07] MEDS: NORVASC PO SCH (08:50)
[2019-02-07] MEDS: LASIX IV SCH ×2 (08:50→20:47)
[2019-02-07] MEDS: ASPIRIN EC PO SCH (08:50)
[2019-02-07] MEDS: LOPRESSOR PO SCH ×2 (08:50→20:48)
[2019-02-07] MEDS: LOVENOX SUBQ SCH (08:50)
--- NOTE | 2019-02-07 09:08 | PROGRESS NOTE ---
DATE: 02/07/2019 INTERVAL HISTORY: No acute events overnight. The patient's steroid dose was increased considering possible cryptogenic organizing pneumonia. His HIV test has been negative, which I conveyed to him. He was also given an additional dose of Lasix. SUBJECTIVE: He is denying any new complaints. He is feeling great. We discussed about exam findings. I answered all of his questions. He is denying chest pain, shortness of breath or cough. VITALS: Currently examined and suggests he has been afebrile. Temperature of 98.2 degrees, pulse of 59, respiratory rate 17, blood pressure 135/62, saturating 94% on Venturi mask, 15 L. Input and output suggests he was -900 mL yesterday, -200 mL so far today. OBJECTIVE: General: On physical examination, he does not appear in any acute distress. Oral cavity is moist. No pallor, cyanosis, clubbing, or icterus. Lungs: Decreased air entry with inspiratory crackles bilateral inframammary and infrascapular region. No wheeze or rhonchi. Heart: S1, S2 normal. Systolic murmur affecting second intercostal space without any other rub or gallop. He has a scar of previous sternotomy. Abdomen: Soft, nontender. Extremities: No lower extremity edema. LABS: Suggestive of no CBC today. ABG suggestive of PO2 of 91 on 50% BiPAP. MICROBIOLOGY: Blood culture no growth to date. IMAGING: Chest x-ray suggests improvement in infiltrates. ASSESSMENT AND PLAN: 1. Sepsis and acute hypoxic respiratory failure due to bilateral pneumonia with suspicion of cryptogenic organizing pneumonia. Follow up procalcitonin fungal pneumonia workup and sputum culture. Continue antibiotics, intravenous meropenem and linezolid, until procalcitonin level comes back and continue intravenous steroids. Continue oxygenation and wean down as tolerated to maintain saturation more than 94%, and continue albuterol ipratropium nebulization. Pulmonology on board. 2. History of coronary artery disease with coronary artery bypass graft in 2014. Continue home aspirin, atorvastatin, clopidogrel. Follow up echocardiogram for left ventricular function evaluation considering his pulmonary edema, and start patient on intravenous Lasix. 3. History of essential hypertension. Continue home metoprolol, amlodipine. 4. Continue allopurinol and colchicine for history of gout, pantoprazole for gastrointestinal prophylaxis, and is also on enoxaparin for deep vein thrombosis prophylaxis. Plan of care discussed with the patient. All of his questions have been answered. cc: Dickson Monteiro MD
[2019-02-07 09:22] LABS: AGAP 14; BUN 17 mg/dL (8-22); CALCIUM 8.3 mg/dL (8.8-10.2); CHLORIDE 98 mmol/L (98-107); COSMO 288; CREATININE 0.8 mg/dL (0.7-1.2); ESTIMATED GFR > 60; GLUCOSE 262 mg/dL (70-104); MAGNESIUM 1.5 mg/dL (1.5-2.7); POTASSIUM 3.4 mmol/L (3.5-5.1); SODIUM 139 mmol/L (136-145); TCO2 27 mmol/L (25-35)
[2019-02-07] MEDS: MERREM 1 GM in NS 50 ML IV SCH ×2 (12:06→20:49)
[2019-02-07] MEDS ORDERED: KLOR-CON PO ONE (12:45)
--- NOTE | 2019-02-07 14:00 | PULMONOLOGY PROGRESS NOTE ---
DATE: 02/07/2019 SUBJECTIVE: The patient is awake, alert, and conversant. He has a relatively dry cough. He is without specific complaints. OBJECTIVE: Vital Signs: The patient's input and output is nearly equivalent. BP 131/67, heart rate 78, respiratory rate 21, and oxygen saturation 93%. HEENT: Pupils are equal and reactive. Oropharynx appears clear. Neck: Supple. Respiratory: Chest reveals minimal crackles in the lung bases. Cardiac: S1 and S2. Abdomen: The abdomen is soft. Extremities: The extremities are without edema. LABORATORY DATA: Chest x-ray continues to reveal infiltrates in the right upper lobe and the left base. There appears to be a slight decrease in vascular prominence. Sodium is 139, potassium 3.4, chloride 98, bicarbonate 27, BUN 17, creatinine 0.8, and glucose 262 with a repeat measured at 191. White blood count not performed today. Arterial blood gas on 50% FiO2 reveals a pH of 7.44, pCO2 of 44, and pO2 of 91. IMPRESSION: A 68-year-old with history of community-acquired pneumonia last month now with persistent infiltrates and acute hypoxemic respiratory failure. 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 He is marginally improved clinically with decreased FiO2 requirements. PLAN: 1. Continue current steroid dosing. 2. Antibiotics per Dr. Aleks Link. 3. Await sputum for C S. 4. Await connective tissue profile/cascade. 5. Repeat CRP tomorrow to see if steroids are decreasing this level. 6. Continue sliding scale for hyperglycemia. 7. Consider bronchoscopy with transbronchial biopsies if he does not improve over the next 7 to 10 days. cc: Dereck Duarte MD
--- NOTE | 2019-02-07 14:34 | ECHO REPORT ---
ORDER DATE: 02/06/2019 INTERPRETING PHYSICIAN: Jerod Ceja MD ECHOCARDIOGRAPHIC MEASUREMENTS: 1. Interventricular septum 0.9 cm. 2. Left ventricular posterior wall 0.8 cm. 3. Diastolic diameter 3.7 cm. 4. Left atrium 4 cm. SUMMARY OF THE 2-DIMENSIONAL IMAGIN. Technically suboptimal study. 2. Aortic valve leaflets are not well visualized. 3. Pulmonic valve not well visualized. 4. Mitral valve was normal. 5. Tricuspid valve was normal. 6. Prominent moderator band noted in the right ventricle. 7. There was mild mitral regurgitation. 8. Peak velocity across the aortic valve was 3.9 m/sec. 9. Peak gradient of 63 mmHg. 10. Mean gradient of 40 mmHg. 11. There is significant aortic stenosis; however, a technically suboptimal study. Would recommend a transesophageal echocardiogram to assess the aortic valve if clinically indicated. 12. Normal left ventricular cavity size. 13. Estimated ejection fraction of 65%. 14. There is diastolic dysfunction. 15. There is mild mitral regurgitation. 16. Mild tricuspid regurgitation. 17. Peak velocity across the tricuspid valve less than 2 m/sec. 18. There is no pericardial effusion. cc: MD Dickson Farias MD
[2019-02-07] MEDS: CULTURELLE PO SCH (15:31)
[2019-02-07] MEDS: LOMOTIL PO PRN ×2 (15:36→20:48)
[2019-02-07] MEDS: LIPITOR PO SCH (20:48)
[2019-02-08] MEDS: DUONEB (A & A) INH SCH ×6 (03:19→23:18)
[2019-02-08] MEDS: HUMULIN R SUBQ SCH ×6 (03:44→23:13)
[2019-02-08] MEDS: MERREM 1 GM in NS 50 ML IV SCH ×3 (04:18→20:09)
[2019-02-08] MEDS: ZOFRAN IV PRN ×2 (04:21→12:23)
[2019-02-08 04:42] LABS: ALLEN TEST YES; BE 9.9 mmoll (-3.0-3.0); BLOOD TYPE ARTERIAL; HCO3-(ACT) 32.6 mmoll (20.0-26.0); METHB 0.9 % (0.0-1.5); O2(CT) 17.4 mL/dL (15.0-23.0); O2HB 95.5 % (95.0-99.0); PCO2(98.6) 44 mmHg (35-45); PO2(98.6) 76 mmHg (60-100); SAMPLE BLOOD; SAO2 97.8 % (95.0-100.0); THB 12.9 g/dL (11.5-17.4)
[2019-02-08 04:49] LABS: MODALITY BI PAP
[2019-02-08] MEDS: SOLU-MEDROL IV SCH ×4 (05:33→23:13)
[2019-02-08 06:06] LABS: BASO# 0.02 X1000 (0.0-0.2); BASO% 0.1 % (0.0-0.8); HEMATOCRIT 39.1 % (42.0-52.0); HEMOGLOBIN 12.9 g/dL (14.0-18.0); IMM GRAN# 0.21 X1000 (0.0-0.04); IMM GRAN% 0.6 % (0.0-0.5); LYMPH# 1.82 X1000 (1.2-3.4); LYMPH% 5.4 % (20.5-51.1); MCH 28.9 PG (27-31); MCV 87.5 FL (81-99); MONO# 2.14 X1000 (0.11-0.59); MONO% 6.4 % (1.7-9.3); MPV 11.9 FL (7.4-10.4); NEUT# 29.33 X1000 (1.4-6.5); NEUT% 87.5 % (42.2-75.2); PLT 163 X1000 (130-400); RBC 4.47 XMIL (4.7-6.1); RDW 13.5 % (11.5-14.5); WBC 33.52 X1000 (4.8-10.8)
[2019-02-08 06:27] LABS: AGAP 13; BUN 26 mg/dL (8-22); CALCIUM 8.6 mg/dL (8.8-10.2); CHLORIDE 101 mmol/L (98-107); COSMO 291; CREATININE 0.8 mg/dL (0.7-1.2); ESTIMATED GFR > 60; GLUCOSE 126 mg/dL (70-104); MAGNESIUM 1.6 mg/dL (1.5-2.7); POTASSIUM 3.6 mmol/L (3.5-5.1); SODIUM 143 mmol/L (136-145); TCO2 29 mmol/L (25-35)
[2019-02-08] MEDS: PRILOSEC PO SCH (06:28)
[2019-02-08] MEDS: ZYVOX 600 MG/D5W 600 MG/300 ML IVPB IV SCH ×2 (06:28→18:03)
[2019-02-08 06:38] LABS: LYMPHS 6 % (21-51); MONO 5 % (1-9); SEGS 89 % (42-75)
[2019-02-08] MEDS: MAGNESIUM SULFATE 2 GM/S.W.I. 2 GM/50 ML IVPB IV SCH ×2 (07:43→10:44)
[2019-02-08] MEDS: KLOR-CON PO SCH ×2 (07:43→10:44)
[2019-02-08] MEDS: LOPRESSOR PO SCH ×2 (08:07→20:09)
[2019-02-08] MEDS: CULTURELLE PO SCH (08:07)
[2019-02-08] MEDS: NORVASC PO SCH (08:07)
[2019-02-08] MEDS: PLAVIX PO SCH (08:07)
[2019-02-08] MEDS: LASIX IV SCH (08:07)
[2019-02-08] MEDS: ASPIRIN EC PO SCH (08:07)
[2019-02-08] MEDS: ZYLOPRIM PO SCH ×2 (08:07→20:09)
[2019-02-08] MEDS: COLCRYS PO SCH (08:07)
--- NOTE | 2019-02-08 09:33 | PROGRESS NOTE ---
DATE: 02/08/2019 OVERNIGHT EVENTS: No acute overnight events. He was able to walk in the hallway without any trouble. We discussed about the echocardiogram findings. Currently, he is denying any chest pain. His shortness of breath is better. We discussed about possible bronchoscopy as well. VITALS: Currently, temperature 98 degrees, pulse 94, respiratory rate 17, blood pressure 126/66, saturating 91% on Venturi mask. Input and output suggests he was -200 mL yesterday and -400 mL today. LABS: Suggestive of leukocytosis of 33,000. Normal hemoglobin, hematocrit, and platelet count. ABG suggestive of PO2 of 76 on 50% FiO2. He does have elevation in his BUN. Low potassium and low magnesium are being repleted for hypokalemia and hypomagnesemia. Microbiology, nothing positive. IMAGING: No new chest x-ray. ASSESSMENT AND PLAN: 1. Sepsis and acute hypoxic respiratory failure due to bilateral pneumonia with suspicion of cryptogenic organizing pneumonia. Follow up fungal pneumonia workup as well as sputum culture, if he is able to make one. Continue intravenous meropenem and linezolid with intravenous steroids. I will decide on duration of antibiotics based on procalcitonin level as well as future bronchoscopy plan. Continue oxygenation and wean down as tolerated to maintain saturation more than 94%, and continue albuterol-ipratropium nebulization. Pulmonology on board. Appreciate recommendations. 2. History of coronary artery disease with coronary artery bypass graft in 2015 and echocardiogram evidence of severe aortic stenosis with diastolic dysfunction, though it was a poor study. I will continue home atorvastatin, aspirin, clopidogrel, and decrease the Lasix dose considering elevated BUN. I will discuss with pulmonology about getting transesophageal echocardiography at the time of bronchoscopy evaluation. 3. History of essential hypertension. Continue home metoprolol and amlodipine. 4. Others. Continue allopurinol, colchicine for gout, pantoprazole for gastrointestinal prophylaxis. I will discontinue enoxaparin as he is on dual anti-platelet therapy and he is ambulatory. 5. Disposition. Patient remains inside the intensive care unit for a very high oxygen requirement. Plan of care discussed with him. All of his questions have been answered. I will try and reach out to his daughter and inform her about the course. I informed his about his clinical course and answered all of her questions. cc: MD INKO Muñiz
--- NOTE | 2019-02-08 10:17 | Diag Imaging Result Doc PS360 ---
EXAM: CHEST-2 VIEWS INDICATION: abnormal exam TECHNIQUE: 2 views COMPARISON: 02/07/2019 FINDINGS: Dense consolidations in the right upper lobe, the lingula, and probably the left lower lobe as well are essentially stable given differences in exposure and technique. No new consolidation is identified. Cardiac silhouette is stable. IMPRESSION: Essentially stable chest. Electronically signed by Tae Cornell 02/08/2019 10:15 AM
--- NOTE | 2019-02-08 15:29 | PULMONOLOGY PROGRESS NOTE ---
DATE: 02/08/2019 SUBJECTIVE: The patient is awake, alert and conversant. He is without specific complaints. OBJECTIVE: Vital Signs: BP 125/80, heart rate 100, respiratory rate 16. Oxygen saturation 88% on 40% Venturi mask. HEENT: Pupils are equal and reactive. Oropharynx appears clear. Neck: Supple. Chest: Reveals bilateral crackles. Cardiac: S1, S2. Abdomen: Soft. Extremities: Without edema. LABORATORIES: WBC reveals significant leukocytosis with a white blood count of 33,000, hemoglobin 12.8, platelet count 163,000. Chest x-ray reveals consolidation right upper lobe on the right and lingula/left lower lobe on the left. No change. IMPRESSION: A 68-year-old with: 1. Presumptive bronchiolitis obliterans, organizing pneumonia/cryptogenic organizing pneumonia. 2. Recent treatment for community-acquired pneumonia. 3. Hypoxemic respiratory failure. 4. Ongoing decrease in oxygen requirements. RECOMMENDATION: 1. Continue current treatment regimen. His CRP now falls into the normal range. Connective tissue cascade is still pending. 2. Antibiotics per Infectious Disease. 3. Wean oxygen as tolerated. 4. Okay for transfer to the floor. 5. Consider bronchoscopy if he does not have continued improvement on steroids. cc: Dereck Duarte MD MTDD
[2019-02-08] MEDS: LOMOTIL PO PRN (19:46)
[2019-02-08] MEDS: LIPITOR PO SCH (20:09)
[2019-02-09] MEDS: HUMULIN R SUBQ SCH ×6 (03:16→23:18)
[2019-02-09] MEDS: LOMOTIL PO PRN ×2 (03:18→10:48)
[2019-02-09] MEDS: DUONEB (A & A) INH SCH ×6 (03:20→23:40)
[2019-02-09] MEDS: MERREM 1 GM in NS 50 ML IV SCH ×3 (04:03→20:09)
[2019-02-09 04:56] LABS: ALLEN TEST YES; BLOOD TYPE ARTERIAL; HCO3-(ACT) 31.2 mmoll (20.0-26.0); METHB 1.1 % (0.0-1.5); O2(CT) 16.6 mL/dL (15.0-23.0); O2HB 96.8 % (95.0-99.0); PCO2(98.6) 33 mmHg (35-45); PO2(98.6) 94 mmHg (60-100); SAMPLE BLOOD; SAO2 99.6 % (95.0-100.0); THB 12.1 g/dL (11.5-17.4)
[2019-02-09 04:57] LABS: MODALITY VENTILATOR; pH(98.6) 7.57 (7.35-7.45)
[2019-02-09] MEDS: SOLU-MEDROL IV SCH ×4 (05:02→23:21)
[2019-02-09] MEDS: ZYVOX 600 MG/D5W 600 MG/300 ML IVPB IV SCH ×2 (06:07→18:14)
[2019-02-09] MEDS: PRILOSEC PO SCH (06:07)
[2019-02-09] MEDS: NORVASC PO SCH (08:25)
[2019-02-09] MEDS: ASPIRIN EC PO SCH (08:25)
[2019-02-09] MEDS: LOPRESSOR PO SCH ×2 (08:25→20:09)
[2019-02-09] MEDS: ZYLOPRIM PO SCH ×2 (08:25→20:09)
[2019-02-09] MEDS: COLCRYS PO SCH (08:25)
[2019-02-09] MEDS: PLAVIX PO SCH (08:26)
[2019-02-09] MEDS: CULTURELLE PO SCH (08:26)
--- NOTE | 2019-02-09 09:45 | PROGRESS NOTE ---
DATE: 02/09/2019 INTERVAL HISTORY: No acute event overnight. SUBJECTIVE: Patient is feeling fine. Denies any new complaints. We discussed about his oxygenation findings. We discussed about my discussion with Pulmonology that we may hold off on bronchoscopy for now. I answered all of his questions. He is denying new complaints. VITALS: Afebrile with temperature of 97.9 degrees, pulse of 80, respirations 17, blood pressure 126/60, saturating 90 to 95% on 40% venturi mask. PHYSICAL EXAMINATION: General: Obese not in any acute distress. HEENT: Oral cavity is moist. Respiratory: Air entry bilaterally equal. No wheeze or rhonchi. He does have bilateral inframammary crackles. Abdomen: Soft, nontender. Extremities: No lower extremity edema. : He has urine catheter in place. LABS: No CBC today. ABG suggestive of PO2 of 94 on 40% FiO2. MICROBIOLOGY: No data. IMAGING: No chest x-ray today. ASSESSMENT AND PLAN: 1. Sepsis and acute hypoxic respiratory failure due to bilateral pneumonia with suspicion of cryptogenic organizing pneumonia. Follow up fungal pneumonia workup. Continue intravenous meropenem and linezolid and decide duration based on procalcitonin level. Continue intravenous steroids. Continue oxygenation to maintain saturation more than 94% and wean down as tolerated. 2. History of coronary artery disease status post coronary artery bypass grafting in 2015 and echocardiogram evidence of severe aortic stenosis with diastolic dysfunction, though it was a poor study. Continue home aspirin, atorvastatin, clopidogrel, and outpatient cardiology followup. 3. Others. Continue home metoprolol and amlodipine for essential hypertension, allopurinol and colchicine for gout, pantoprazole for GI prophylaxis. DISPOSITION: I will transfer patient to medical unit. I will allow activity as tolerated. Plan of care discussed with him. All of his questions have been answered. Yesterday I called the patient's and talked with her and informed her about plan of care. cc: Dickson Monteiro MD
--- NOTE | 2019-02-09 12:22 | PULMONOLOGY PROGRESS NOTE ---
DATE: 02/09/2019 SUBJECTIVE: The patient is awake, alert. He is getting up and out of bed. He is on a 50% face mask. OBJECTIVE: Vital Signs: The patient has been afebrile for the last 24 hours. Blood pressure 110/66, heart rate 85, respiratory rate 18, oxygen saturation 96% on Venturi mask. HEENT: Pupils are equal and reactive. Oropharynx appears clear. Neck is supple. Chest reveals crackles bilaterally. Cardiac Examination: S1-S2 with a 2/6 systolic ejection murmur at the right upper sternal border. Abdomen is soft. Extremities are without edema. Laboratories: No new chemistries or CBC today. Arterial blood gas reveals a pH of 7.57, pCO2 of 33, PO2 of 94. IMPRESSION: A 68-year-old with: 1. 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 2. Acute hypoxemic respiratory failure. 3. Recent treatment for community-acquired pneumonia. 4. Ongoing improvement in oxygen requirements. PLAN: 1. Agree with transfer to the floor. 2. Continue current steroid and antibiotic dosing. 3. Wean oxygen as tolerated. 4. Two-view chest x-ray tomorrow. 5. Anticipate bronchoscopy if he does not have ongoing clinical and radiographic improvement. cc: Dereck Duarte MD
[2019-02-09] MEDS: LIPITOR PO SCH (20:09)
[2019-02-10] MEDS: HUMULIN R SUBQ SCH ×4 (03:32→22:36)
[2019-02-10] MEDS: DUONEB (A & A) INH SCH ×6 (03:44→23:16)
[2019-02-10] MEDS: MERREM 1 GM in NS 50 ML IV SCH ×2 (04:48→12:52)
[2019-02-10 05:38] LABS: BASO# 0.01 X1000 (0.0-0.2); BASO% 0.1 % (0.0-0.8); HEMATOCRIT 39.6 % (42.0-52.0); IMM GRAN# 0.05 X1000 (0.0-0.04); IMM GRAN% 0.3 % (0.0-0.5); LYMPH# 1.01 X1000 (1.2-3.4); LYMPH% 6.3 % (20.5-51.1); MCH 29.5 PG (27-31); MCHC 32.8 g/dL (33-37); MCV 89.8 FL (81-99); MONO# 0.46 X1000 (0.11-0.59); MONO% 2.9 % (1.7-9.3); MPV 12.1 FL (7.4-10.4); NEUT# 14.44 X1000 (1.4-6.5); NEUT% 90.4 % (42.2-75.2); PLT 139 X1000 (130-400); RBC 4.41 XMIL (4.7-6.1); RDW 13.9 % (11.5-14.5); WBC 15.97 X1000 (4.8-10.8)
[2019-02-10 05:56] LABS: AGAP 11; BUN 23 mg/dL (8-22); CALCIUM 8.5 mg/dL (8.8-10.2); CHLORIDE 101 mmol/L (98-107); COSMO 293; CREATININE 0.9 mg/dL (0.7-1.2); ESTIMATED GFR > 60; GLUCOSE 152 mg/dL (70-104); MAGNESIUM 2.2 mg/dL (1.5-2.7); POTASSIUM 4.3 mmol/L (3.5-5.1); SODIUM 144 mmol/L (136-145); TCO2 32 mmol/L (25-35)
[2019-02-10] MEDS: SOLU-MEDROL IV SCH ×4 (06:10→23:06)
[2019-02-10] MEDS: PRILOSEC PO SCH (06:11)
[2019-02-10] MEDS: ZYVOX 600 MG/D5W 600 MG/300 ML IVPB IV SCH ×2 (06:11→19:24)
[2019-02-10 06:13] LABS: LYMPHS 6 % (21-51); SEGS 92 % (42-75)
--- NOTE | 2019-02-10 08:37 | Diag Imaging Result Doc PS360 ---
EXAM: CHEST-2 VIEWS HISTORY: abnormal exam TECHNIQUE: Chest two views COMPARISON: 02/08/2019 FINDINGS: There are dense bilateral infiltrates. These are less pronounced in the left base than they were on the prior study. No cardiomegaly. Sternal wires are present. The lungs are hyperexpanded. IMPRESSION: Mild interval improvement in the bilateral pneumonia. Electronically signed by Rosendo Mendoza 02/10/2019 8:34 AM
--- NOTE | 2019-02-10 09:48 | PROGRESS NOTE ---
DATE: 02/10/2019 INTERVAL HISTORY: No acute event overnight. So far the fungal pneumonia workup has been unrevealing. He denies any new complaints. He continues to have loose watery stools. He had a temperature of 99.7 degrees, SUBJECTIVE: He is feeling fine. We discussed about his improving oxygen requirement. I answered all of his questions including bronchoscopy, cryptogenic organizing pneumonia, etc. PHYSICAL EXAMINATION: Vital signs: Temperature 98.6 degrees, pulse 94, respiratory rate 16, blood pressure 142/79, saturating 97% on 8 L nasal cannula. General: Does not appear in any acute distress. HEENT: Oral cavity is moist. Lungs: Air entry bilaterally equal. He does have significant bilateral inframammary crackles. No wheeze or rhonchi. Cardiovascular: S1, S2 normal. He has a systolic murmur affecting the left and right second intercostal space. No rub or gallop. Abdomen: Soft, nontender. Extremities: No lower extremities edema. Neurologic: He is alert oriented x3. Genitourinary: He has a urine catheter in place. LABORATORY DATA: Suggestive of leukocytosis, normocytic anemia, normal platelet count. Eosinophil count of 0% suggestive of steroid reaction. He does have normal electrolytes, slightly elevated BUN, hyperglycemia; however, is in acceptable range. His cryptococcal antigen, histoplasma, HIV, connective tissue disease and beta glucan tests have been negative. MICROBIOLOGY: No data. IMAGING: Chest x-ray performed today suggests mild interval improvement in the bilateral pneumonia. ASSESSMENT AND PLAN: 1. Sepsis and acute hypoxic respiratory failure due to bilateral pneumonia with suspicion of cryptogenic organizing pneumonia. Fungal pneumonia workup has been unrevealing. Continue intravenous meropenem and linezolid and follow up procalcitonin levels. Continue intravenous steroids and continue oxygenation to maintain saturation more than 94% and wean down as tolerated. 2. History of coronary artery disease status post CABG in 2015 and echocardiogram evidence of severe aortic stenosis with diastolic dysfunction, though it was a poor study. Continue home aspirin, atorvastatin, clopidogrel, and outpatient Cardiology followup. 3. Others. Continue home metoprolol, amlodipine for essential hypertension; allopurinol and colchicine for gout; pantoprazole for GI prophylaxis; indwelling Graff catheter for history of urinary retention and at home he was doing intermittent self catheterization. 4. Disposition. The patient is transferred to medical unit. We will continue to monitor his oxygen requirement. Plan of care was discussed with the patient. All of his questions have been answered. cc: Dickson Monteiro MD
[2019-02-10] MEDS: NORVASC PO SCH (10:51)
[2019-02-10] MEDS: ASPIRIN EC PO SCH (10:51)
[2019-02-10] MEDS: ZYLOPRIM PO SCH ×2 (10:51→22:38)
[2019-02-10] MEDS: PLAVIX PO SCH (10:51)
[2019-02-10] MEDS: LOPRESSOR PO SCH ×2 (10:51→22:37)
[2019-02-10] MEDS: COLCRYS PO SCH (10:51)
[2019-02-10] MEDS: CULTURELLE PO SCH (10:51)
[2019-02-10] MEDS: LOMOTIL PO PRN ×2 (10:51→18:01)
--- NOTE | 2019-02-10 20:41 | PULMONOLOGY PROGRESS NOTE ---
DATE: 02/10/2019 SUBJECTIVE: The patient reports multiple episodes of diarrhea and would like his antibiotics discontinued. He denies crampy abdominal pain. He is just having frequent stools. He reports his breathing continues to improve. OBJECTIVE: Vital Signs: Blood pressure 114/68, heart rate 89, respiratory rate 18, oxygen saturation 94% on 5 L per nasal cannula. HEENT: Pupils are equal and reactive. Oropharynx is clear. Neck: Supple. Chest: Reveals good air entry bilaterally without wheezing or rhonchi. Cardiac exam: S1, S2. Abdomen: Soft and without hepatosplenomegaly. LABORATORIES: Chest x-ray reveals marginal improvement over the last 2 days. IMPRESSION: A 68-year-old with: 1. 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 2. Acute hypoxemic respiratory failure. 3. Recent treatment for community-acquired pneumonia. 4. Diarrhea, antibiotic diarrhea most likely. PLAN: 1. Discontinue antibiotics. The patient is not having sputum production or fevers. Procalcitonin level was low, making active infectious process less likely. 2. Continue current steroid dosing. 3. Wean oxygen as tolerated. 4. Anticipate discharge later this week if he continues to improve. We will initiate oral steroids prior to discharge. cc: Dereck Duarte MD
[2019-02-10] MEDS: LIPITOR PO SCH (22:37)
[2019-02-11] MEDS: HUMULIN R SUBQ SCH ×6 (00:51→20:49)
[2019-02-11] MEDS: DUONEB (A & A) INH SCH ×6 (03:29→23:50)
[2019-02-11] MEDS: SOLU-MEDROL IV SCH ×3 (06:39→17:40)
[2019-02-11] MEDS: PRILOSEC PO SCH (06:40)
[2019-02-11] MEDS: PLAVIX PO SCH (09:31)
[2019-02-11] MEDS: COLCRYS PO SCH (09:31)
[2019-02-11] MEDS: CULTURELLE PO SCH (09:31)
[2019-02-11] MEDS: ZYLOPRIM PO SCH ×2 (09:31→20:11)
[2019-02-11] MEDS: ASPIRIN EC PO SCH (09:31)
[2019-02-11] MEDS: NORVASC PO SCH (09:31)
[2019-02-11] MEDS: LOPRESSOR PO SCH ×2 (09:31→20:11)
[2019-02-11] MEDS: LOMOTIL PO PRN (13:53)
[2019-02-11] MEDS: LOMOTIL PO SCH ×2 (15:00→22:15)
--- NOTE | 2019-02-11 18:37 | PROGRESS NOTE ---
DATE: 02/11/2019 LOCATION: Patient was transferred to the Medical Floor. He did not have any acute events. SUBJECTIVE: He is complaining of loose watery bowel movements which have been ongoing for 3 days now. C difficile analysis has been sent which is negative for Clostridium difficile colitis. The patient continues to have bowel incontinence because of diarrhea. We discussed about possible etiology and the fact that we have already stopped his antibiotics. We also discussed about his chest exam findings. I answered all of his questions. VITALS: Currently vital signs: Temperature 98.1, pulse 91, respiratory rate 18, blood pressure 150/74. Saturating 100% on 4 L nasal cannula. PHYSICAL EXAMINATION: General: He does not appear in acute respiratory distress. However, he is in distress because of diarrhea. Lungs: Air entry bilaterally equal; however, decreased air entry bilaterally inframammary region with inspiratory crackles, which is significantly improved on presentation. Cardiovascular: S1, S2. No wheeze or rhonchi. S1, S2 normal. No murmur, rub or gallop. S1, S2 normal. He has systolic murmur affecting left and right second intercostal space without any rub or gallop. Abdomen: Soft, nontender. Extremities: No lower extremity edema. Neurologic: He is alert and oriented x 3. He has urine catheter in place. LAB DATA: No new lab data today. ASSESSMENT AND PLAN: 1. Sepsis and acute hypoxic respiratory failure due to bilateral pneumonia with suspicion of cryptogenic organizing pneumonia. Fungal pneumonia workup was negative. He is status post a 6-day course of intravenous meropenem and linezolid, which were stopped on February 10 because of negative procalcitonin levels. Continue intravenous steroids for suspected cryptogenic organizing pneumonia as per Pulmonology recommendation. Continue oxygenation to such to maintain saturation more than 94% and wean down as tolerated. 2. Diarrhea, likely antibiotic-associated enterocolitis. He is not complaining of abdominal pain though. C difficile analysis is negative. Continue Lomotil and Culturelle. 3. History of coronary artery disease status post CABG in 2014 and echocardiogram with evidence of severe aortic stenosis, with diastolic dysfunction. It was poor study. Continue home aspirin, atorvastatin, clopidogrel, and outpatient Cardiology followup with possible transesophageal echocardiogram to better evaluate aortic wall morphology. 4. Continue home metoprolol, amlodipine for essential hypertension, allopurinol for gout. I am holding colchicine considering his diarrhea. Pantoprazole for GI prophylaxis which I will stop considering diarrhea. Indwelling Graff catheter. He has indwelling Graff catheter while inside the hospital since his history of urinary retention and at home he does intermittent self catheterization. 5. Disposition: The patient appears to be hemodynamically stable. His oxygen requirement is also stable. Once his oxygen requirement goes down, then I would anticipate discharge on oral steroids. According to pulmonology recommendation, I would anticipate discharge in next 48 to 72 hours. Plan of care discussed with him. All of his questions have been answered. cc: Dickson Monteiro MD MTDD
--- NOTE | 2019-02-11 19:16 | PULMONOLOGY PROGRESS NOTE ---
DATE: 02/11/2019 SUBJECTIVE: The patient is awake, alert and conversant. He reports his breathing continues to improve. His oxygen has been turned down to 2 to 3 L per nasal cannula. He continues to have diarrhea. OBJECTIVE: Vital Signs: BP 151/74, heart rate 91, respiratory rate 18, oxygen saturation 100%. HEENT: Pupils are equal and reactive. Oropharynx is clear. Neck: Supple. Chest: Reveals good air entry bilaterally. No significant wheezing, rhonchi or crackles. Cardiac: S1, S2. Abdomen: Soft. Extremities: Without edema. LABORATORIES: C difficile antigen and toxin are negative. IMPRESSION: 1. A 68-year-old with bronchiolitis obliterans, organizing pneumonia/cryptogenic organizing pneumonia. 2. Acute hypoxemic respiratory failure. 3. Recent treatment for community-acquired pneumonia. 4. Diarrhea, antibiotics suspected, with negative C difficile toxin and antigen. PLAN: 1. Continue current steroid dosing. 2. Continue to wean oxygen as tolerated. 3. Two-view chest x-ray tomorrow. I believe he has approached a time when he can be discharged and transition to oral steroids. Would likely initiate prednisone 40 mg per day at the time of discharge. cc: Dereck Duarte MD
[2019-02-11] MEDS: LIPITOR PO SCH (20:11)
[2019-02-12] MEDS: HUMULIN R SUBQ SCH ×6 (00:43→21:48)
[2019-02-12] MEDS: SOLU-MEDROL IV SCH ×5 (00:45→23:29)
[2019-02-12] MEDS: DUONEB (A & A) INH SCH ×6 (02:57→23:25)
[2019-02-12] MEDS: LOMOTIL PO SCH ×3 (04:50→17:44)
[2019-02-12 07:47] LABS: BASO# 0.02 X1000 (0.0-0.2); BASO% 0.1 % (0.0-0.8); EOS# 0.06 X1000 (0.0-0.7); EOS% 0.3 % (0.0-10.0); HEMOGLOBIN 13.6 g/dL (14.0-18.0); IMM GRAN# 0.05 X1000 (0.0-0.04); IMM GRAN% 0.3 % (0.0-0.5); LYMPH% 5.5 % (20.5-51.1); MCH 29.2 PG (27-31); MCHC 32.4 g/dL (33-37); MCV 90.1 FL (81-99); MONO# 0.36 X1000 (0.11-0.59); NEUT% 91.8 % (42.2-75.2); PLT 140 X1000 (130-400); RBC 4.66 XMIL (4.7-6.1); RDW 14.1 % (11.5-14.5); WBC 18.19 X1000 (4.8-10.8)
[2019-02-12 08:02] LABS: AGAP 13; BUN 27 mg/dL (8-22); CALCIUM 8.6 mg/dL (8.8-10.2); CHLORIDE 103 mmol/L (98-107); COSMO 295; ESTIMATED GFR > 60; GLUCOSE 114 mg/dL (70-104); MAGNESIUM 2.3 mg/dL (1.5-2.7); POTASSIUM 3.7 mmol/L (3.5-5.1); SODIUM 145 mmol/L (136-145); TCO2 29 mmol/L (25-35)
--- NOTE | 2019-02-12 08:39 | Diag Imaging Result Doc PS360 ---
EXAM: CHEST-2 VIEWS HISTORY: pneumonia TECHNIQUE: Chest single view COMPARISON: 02/10/2019 FINDINGS: There are dense infiltrates in the mid right lung and in the lower left lung. These are fairly similar to the prior exam considering the differences in technique. No cardiomegaly. No pleural effusions identified. Hyperexpanded lungs. IMPRESSION: Bilateral pneumonia with no significant change. Electronically signed by Rosendo Mendoza 02/12/2019 8:37 AM
[2019-02-12 08:53] LABS: LYMPHS 7 % (21-51); MONO 2 % (1-9); SEGS 91 % (42-75)
[2019-02-12 08:54] LABS: LARGE PLATELETS 1+
[2019-02-12] MEDS: ASPIRIN EC PO SCH (09:50)
[2019-02-12] MEDS: NORVASC PO SCH (09:50)
[2019-02-12] MEDS: LOPRESSOR PO SCH ×2 (09:51→20:19)
[2019-02-12] MEDS: ZYLOPRIM PO SCH ×2 (09:51→20:19)
[2019-02-12] MEDS: PLAVIX PO SCH (09:51)
[2019-02-12] MEDS: CULTURELLE PO SCH (09:51)
--- NOTE | 2019-02-12 10:45 | PROGRESS NOTE ---
DATE: 02/12/2019 SUBJECTIVE: This patient is still complaining of loose/watery bowel movement. He has been placed on Lomotil and Culturelle. I will continue with the same management. He has no complaint of chest pain or shortness of breath today. As per the patient he has been having chronic diarrhea on and off. OBJECTIVE: Vital Signs: Temperature 97.7 degrees, pulse 84, respiratory rate 20, blood pressure 134/71, oxygen saturation 98 on 3 L of nasal cannula. HEENT: Head normocephalic, no trauma. PERRLA. Neck: Supple no JVD. No masses. Central trachea. Chest: Decreased breath sounds bilaterally with inspiratory crackles, no wheezing. Some crepitus at the bases as well. Cardiovascular: Regular rhythm and rate. Systolic murmur. Abdomen: Soft, nontender, nondistended. No hepatosplenomegaly. Extremities: No edema, no clubbing, no cyanosis. Neurological: The patient is alert and oriented x3. No focal deficits. Genitourinary: He has a bladder problem and he does in an out at home/self catheterization. We will keep the Graff catheter in place for now. LABORATORY: WBC 18.1, hemoglobin 13.6, hematocrit 42, platelets 140,000. Sodium 145, potassium 3.7, chloride 103, bicarbonate 29, BUN 27, creatinine 1, glucose 114, calcium 8.6, magnesium 2.3. ASSESSMENT AND PLAN: 1. Sepsis. We will continue with same management. Antibiotics were stopped already. His WBC is still high, but likely because of the steroids. 2. Bilateral pneumonia, probably related to cryptogenic organizing pneumonia. Fungal workup has been negative. He received already 6 days of meropenem and linezolid which were stopped on February 10 because of negative procalcitonin level. We will continue with IM steroids. Likely this patient can be discharged in the near future, may be 24 to 48 hours. Pulmonary Department following this patient closely. We will need to continue with oxygen. 3. Possible bilateral cryptogenic organizing pneumonia as above. 4. Hypoxemic respiratory failure due to bilateral pneumonia. Aware. 5. Diarrhea, probably antibiotic associated enterocolitis, but this patient has been having diarrhea even before coming to the hospital on and off. For now we will continue with Lomotil and Culturelle. 6. History of coronary artery disease status post coronary artery bypass grafting in 2014, echocardiogram with severe aortic stenosis. Continue with the same management. 7. Hypertension continue blood pressure medication. 8. Gout continue with allopurinol. Colchicine has been stopped due to his diarrhea. Continue with pantoprazole. 9. Item indwelling Graff catheter, which is chronic, actually this patient is doing in and out/self catheterization at home. I will just keep the Graff for now until he can be discharged. cc: Jason Steele MD
[2019-02-12] MEDS: ZOFRAN IV PRN (20:18)
[2019-02-12] MEDS: LIPITOR PO SCH (20:35)
--- NOTE | 2019-02-12 21:46 | PULMONOLOGY PROGRESS NOTE ---
DATE: 02/12/2019 SUBJECTIVE: Denies dyspnea but he is having some colicky abdominal pain. OBJECTIVE: Vital signs: Blood pressure 124/84, heart rate 72, respiratory rate 20, oxygen saturation 96% on 3 L per nasal cannula. HEENT: Pupils are equal and reactive. Oropharynx appears clear. Neck: Supple. Chest: Reveals mild prolonged expiratory phase with crackles at the left base. Cardiac exam: S1, S2. Abdomen: Soft. He has good bowel sounds in all 4 quadrants. He does not have any abdominal tenderness or rebound. Extremities: Without edema. LABORATORIES: Sodium 145, potassium 3.7, chloride 103, bicarbonate 29, BUN 27, creatinine 1.0. White blood count 18.2, hemoglobin 13.6, platelet count 140,000. IMPRESSION: 1. A 68-year-old with cryptogenic organizing pneumonia/bronchiolitis obliterans organizing pneumonia. 2. Acute hypoxemic respiratory failure. 3. Diarrhea. He has had 2 stools sent, which were negative for Clostridium difficile toxin. 4. New onset abdominal pain with cramping. The patient had Lomotil initiated yesterday evening, which may be contributing to his abdominal pain and nausea. I will hold this medicine this evening and allow the hospitalist service to re-initiate it tomorrow if they think it is necessary. From a pulmonary standpoint, he can be discharged home and initiated on prednisone 40 mg daily until he follows up in my office. I would like to see him in followup in 7 to 14 days. RECOMMENDATIONS: 1. Hold Lomotil given nausea and new abdominal cramping pain. 2. Repeat chemistries tomorrow. He appears to be hemoconcentrating, and his BUN is increasing, and he may be becoming dehydrated. 3. Okay for discharge home when his abdominal pain and diarrhea decreases/resolves. 4. Follow up in my clinic in 10 to 14 days. 5. Please discharge on prednisone 40 mg each day. cc: Dereck Duarte MD [facility]
[2019-02-13] MEDS: HUMULIN R SUBQ SCH ×3 (00:17→09:03)
[2019-02-13] MEDS: ZOFRAN IV PRN (03:13)
[2019-02-13] MEDS: DUONEB (A & A) INH SCH ×3 (03:20→11:58)
[2019-02-13] MEDS: SOLU-MEDROL IV SCH ×2 (06:22→13:06)
[2019-02-13 07:47] LABS: BASO# 0.01 X1000 (0.0-0.2); BASO% 0.1 % (0.0-0.8); EOS# 0.03 X1000 (0.0-0.7); EOS% 0.2 % (0.0-10.0); HEMATOCRIT 38.2 % (42.0-52.0); HEMOGLOBIN 12.3 g/dL (14.0-18.0); IMM GRAN# 0.05 X1000 (0.0-0.04); IMM GRAN% 0.3 % (0.0-0.5); LYMPH# 0.99 X1000 (1.2-3.4); LYMPH% 5.7 % (20.5-51.1); MCH 29.1 PG (27-31); MCHC 32.2 g/dL (33-37); MCV 90.5 FL (81-99); MONO# 0.55 X1000 (0.11-0.59); MONO% 3.2 % (1.7-9.3); MPV 12.1 FL (7.4-10.4); NEUT# 15.78 X1000 (1.4-6.5); NEUT% 90.5 % (42.2-75.2); PLT 105 X1000 (130-400); RBC 4.22 XMIL (4.7-6.1); WBC 17.41 X1000 (4.8-10.8)
[2019-02-13 08:13] LABS: MAGNESIUM 2.1 mg/dL (1.5-2.7); PHOSPHORUS 3.9 mg/dL (2.7-4.5)
[2019-02-13 08:15] LABS: AGAP 11; BUN 28 mg/dL (8-22); CALCIUM 8.1 mg/dL (8.8-10.2); CHLORIDE 106 mmol/L (98-107); COSMO 292; CREATININE 0.9 mg/dL (0.7-1.2); ESTIMATED GFR > 60; GLUCOSE 165 mg/dL (70-104); POTASSIUM 3.5 mmol/L (3.5-5.1); SODIUM 142 mmol/L (136-145); TCO2 25 mmol/L (25-35)
[2019-02-13 09:00] LABS: BANDS 2 % (0-1); LYMPHS 4 % (21-51); SEGS 92 % (42-75)
[2019-02-13] MEDS: ASPIRIN EC PO SCH (09:04)
[2019-02-13] MEDS: PLAVIX PO SCH (09:04)
[2019-02-13] MEDS: ZYLOPRIM PO SCH (09:04)
[2019-02-13] MEDS: CULTURELLE PO SCH (09:04)
[2019-02-13] MEDS: LOPRESSOR PO SCH (09:04)
[2019-02-13] MEDS: NORVASC PO SCH (09:04)
[2019-02-13 12:25] VITALS: BP 121/71
--- NOTE | 2019-02-13 15:05 | DISCHARGE SUMMARY ---
ADMISSION DATE: 02/05/2019 DISCHARGE DATE: 02/13/2019 DISCHARGE DIAGNOSES: 1. Sepsis likely secondary to pneumonia. 2. Bilateral pneumonia, probably related to cryptogenic organizing pneumonia/bronchiolitis obliterans organizing pneumonia. 3. Hypoxemic respiratory failure due to bilateral pneumonia in a patient with coronary artery disease status post CABG, and severe aortic stenosis, which may be contributing to this hypoxemia as well. 4. Diarrhea, chronic. 5. History of coronary artery disease status post coronary artery bypass grafting in 2014, severe aortic stenosis. 6. Hypertension. 7. Gout. 8. Bladder dysfunction with chronic treatment with self catheterization at home. PROCEDURES PERFORMED: 1. Chest x-ray dated 02/05/2019. Impression: Worsening ill defined infiltrate throughout the lung bases. 2. Chest x-ray dated 02/06/2019. Impression: Improved pulmonary edema plus minus pneumonia. 3. Echocardiogram dated 02/06/2019. Impression: Prominent moderator band noted in the right ventricle, mild mitral regurgitation. There is significant aortic stenosis. However, a technically suboptimal study, ejection fraction 65% with normal left ventricular cavitary size, diastolic dysfunction. No pericardial effusion. Mild tricuspid regurgitation. 4. CT scan dated 02/06/2018. Impression: Persistent dense bilateral upper lobe infiltrate. At this point, these are likely cryptogenic organizing pneumonia, worsening more diffuse infiltrates with bibasilar predominance, most consistent with pulmonary edema. 5. Chest x-ray dated 02/07/2019. Impression: Mild interval improvement. 6. Chest x-ray dated 02/08/2019. Impression: Essentially stable chest, no changes. 7. Chest x-ray dated 02/10/2019. Impression: Mild interval improvement in the bilateral pneumonia. 8. X-ray dated 02/12/2019. Impression: Bilateral pneumonia with no significant change. HOSPITAL COURSE: A 68-year-old male with a past medical history of hypertension, coronary artery disease status post CABG in 2014, carotid artery disease status post carotid endarterectomy, hyperlipidemia, peripheral arterial disease, prostate cancer status post radiation. He was recently admitted for bilateral pneumonia and acute hypoxemic respiratory failure requiring prolonged antibiotic course and prolonged hospitalization for hypoxia, who was discharged on 02/02/2019. He came in and admitted again on 02/05/2019 as he was complaining of worsening shortness of breath for 2 days. Apparently, in January of 2019, the patient was detected to be hypoxic and he was recommended to remain inside the hospital. However, he was sent home after discussing risk versus benefit, the patient was discharged home with p.o. antibiotics. The patient was okay for some days, however, the day prior to admission he started feeling short of breath again, and he was about to pass out. He went to a merchandising coordinator for his routine appointment the day of admission, who found this patient hypoxemic and sent this patient to the emergency room with the oxygen saturation around 65% on room air. He was placed on antibiotics. He was placed on steroids and high-flow oxygen. At some point, I believe he used the BiPAP machine mostly during the night. Pulmonary Department was consulted and they followed this patient closely during the course of this hospitalization. At some point, we measured the procalcitonin level which was low making active infectious process less likely so we stopped the antibiotics but we continued with high dose of steroids. The patient symptomatically was improving on a daily basis. We continued with oxygen supplementation and breathing treatment as well. He started having diarrhea, but as per the patient this has been happening on and off. C difficile toxin and antigen were done twice on 02/11/2018 and also on 02/12/2019. Like I said, they were both negative. Today, this patient is feeling good. He still is having bilateral infiltrates, but we do believe it is more related to the possibility of probably cryptogenic organizing pneumonia/bronchiolitis obliterans organizing pneumonia. The patient will be discharged home with steroids. He will continue with breathing as needed and also he will be discharged with oxygen. He does have a stable chronic coronary artery disease status post CABG, and per echocardiogram and aortic stenosis, which may be also contributing to his hypoxemia in some degree on top of the pulmonary issues. The patient feels good. He is able to ambulate by himself. He is tolerating p.o. completely alert and oriented x3. He will follow up with Dr. Bennett on 02/25/2019 at 2:00 in the afternoon. Also, follow up with Dr. Duarte in 10 to 14 days. He seems to be stable. OBJECTIVE: Vital Signs: Temperature 97.9 degrees, pulse 95, respiratory rate 16, blood pressure 125/71, and oxygen saturation 95 on 2 L of nasal cannula. HEENT: Head normocephalic. No trauma. PERRLA. Neck: Supple. No JVD. No masses. Central trachea. Chest: Decreased breath sounds bilaterally with inspiratory crackles. No wheezing. Some crepitus at the bases as well. Cardiovascular: Regular rhythm and rate. Systolic murmur. Abdomen: Soft, nontender, and nondistended. No hepatosplenomegaly. Extremities: No edema. No clubbing. No cyanosis. Neurological: Alert and oriented x3. No focal deficits. LABORATORY: WBC 17.4, hemoglobin 12.3, hematocrit 38.2, and platelet 105,000. Sodium 142, potassium 3.5, chloride 106, bicarbonate 25, BUN 28, creatinine 0.9, glucose 165, and calcium 8.1. DISCHARGE MEDICATIONS: 1. Ventolin HFA 2 puff inhaler q.6 hours as needed for shortness of breath. 2. Allopurinol 100 mg p.o. b.i.d. 3. Amlodipine 10 mg p.o. daily. 4. Aspirin 81 mg p.o. daily. 5. Lipitor 80 mg p.o. at bedtime. 6. Cilostazol: 50 mg p.o. b.i.d. 7. Plavix 75 mg p.o. daily. 8. Colchicine 0.6 mg p.o. daily. 9. Culturelle 1 tablet p.o. daily. 10. Metoprolol tartrate 25 mg p.o. b.i.d. 11. Prednisone 40 mg p.o. daily. TIME SPENT: Time discharging this patient 35 minutes. cc: Jason Steele MD MTDD
== END 2019-02-13 14:14 | disposition home health service (06) | DRG 871 ==
LOC: ED 15:45 → SUATTDRO 19:05 → ICU 19:05 → 3N 02-10 08:37
PROVIDERS: ATTEND Internal Medicine
CPT/HCPCS: 71010; 71020; 71045; 71046; 71250; 80048; 80053; 81001; 82805; 82948; 83605; 83735; 83880; 84100; 84145; 84484; 85025; 85610; 85730; 86038; 86140; 86200; 86403; 86606; 86701; 87040; 87324; 87385; 87389; 87449; 93005; 93306; 94640; 94660; 94761; 96365; 96367; 97161; 99285; 99291; 99999; A9270; C9113; J1650; J1940; J2020; J2185; J2405; J2543; J2930; J3370; J3475; S0164; XXXXX

== ENCOUNTER 2019-02-20 06:33 | Inpatient (IN) ==
[2019-02-20] MEDS ORDERED: DUONEB (A & A) INH ONE (06:42)
[2019-02-20] MEDS ORDERED: SOLU-MEDROL IV ONE (06:42)
--- NOTE | 2019-02-20 06:46 | PROVIDER DOCUMENTATION ---
HPI-General Adult - General Chief Complaint: Shortness of Breath Stated Complaint: sob Time Seen by Provider: 02/20/19 06:41 Source: patient, EMS Allergies/Adverse Reactions: Patient Allergies Allergy/AdvReac Type Severity Reaction Status Date / Time No Known Allergies Allergy Verified 02/05/19 18:00 Home Medications: Home Medication List Medication Instructions Recorded Confirmed Last Taken Type Amlodipine [Norvasc] 10 mg PO DAILY 05/29/15 02/05/19 02/05/19 History Aspirin [Ecotrin] 81 mg PO DAILY 05/29/15 02/05/19 02/05/19 History Clopidogrel [Plavix] 75 mg PO DAILY 05/29/15 02/05/19 02/05/19 History Metoprolol Tartrate 25 mg PO BID 05/29/15 02/05/19 02/05/19 07:00 History Allopurinol 100 mg PO BID 01/21/19 02/05/19 02/05/19 07:00 History Atorvastatin Calcium [Lipitor] 80 mg PO HS 01/21/19 02/05/19 02/04/19 History Cilostazol [Pletal] 50 mg PO BID 01/21/19 02/05/19 02/05/19 07:00 History Colchicine 0.6 mg PO DAILY #60 cap 02/09/19 Unknown Rx Albuterol Sulfate Inhaler 2 puff INH Q6H PRN PRN #1 inhaler 02/13/19 Unknown Rx [Ventolin Hfa] Lactobacillus Rhamnosus GG 1 ea PO DAILY cap 02/13/19 Unknown Rx [Culturelle] Prednisone [Deltasone] 40 mg PO DAILY #90 tab 02/13/19 Unknown Rx - History of Present Illness -Gen Adult Nature of Presenting Problems: Pt presents with sob, x a couple of days but worse this am, pt has had several hospitalizations recently for PNA, not on abx, pt is former smoker, pt denies f/c, freed, cp, ap, n/v/d. Pt is in mild respiratory distress, started on BiPap Location of Pain/Injury: reports: none Pain Radiation: reports: no radiation Quality of Pain: reports: none Severity: reports: moderate Onset/Duration: reports: 3 days ago Timing: reports: still present Context/Activities at Onset: reports: none Modifying Factors: improves with: nothing Associated Symptoms: reports: cough, shortness of breath Similar Symptoms Previously?: Yes Recently seen or treated by another doctor?: Yes Review of Systems - Adult - REVIEW OF SYSTEMS - ADULT Constitutional: reports: no symptoms reported Eyes: reports: no symptoms reported Ears, Nose, Mouth & Throat: reports: no symptoms reported Cardiovascular: reports: no symptoms reported Respiratory: reports: see HPI Gastrointestinal: reports: no symptoms reported Genitourinary: reports: no symptoms reported Musculoskeletal: reports: no symptoms reported Integumentary: reports: no symptoms reported Neurological: reports: no symptoms reported Psychiatric: reports: no symptoms reported Endocrine: reports: no symptoms reported Hematologic/Lymphatic: reports: no symptoms reported Allergic/Immunologic: reports: no symptoms reported All Other Systems: Reviewed and Negative Past History - Adult - PAST MEDICAL HISTORY-ADULT Review of Records: reports: Old Records Reviewed, Nursing Assessment Review, Medications Reviewed, Social history reviewed & non-contributory. Major Childhood Illnesses: reports: denies history Cardiovascular: reports: CAD, HTN, [place] Respiratory: reports: denies history Gastrointestinal: reports: denies history Obstetrical/Gynecological: reports: denies history Genitourinary: reports: prostate cancer Musculoskeletal: reports: denies history Neurological: reports: denies history Psychiatric: reports: denies history Endocrine/Immune: reports: denies history - PRIOR SURGERIES/PROCEDURES Surgical/Procedure History: reports: appendectomy, CABG, hernia repair - IMMUNIZATION STATUS Childhood Immunizations: See Nurse Assessment Flu Vaccine: See Nurse Assessment Physical Exam-General - PHYSICAL EXAM-ADULT Initial Vital Signs Reviewed: Yes - CONSTITUTIONAL General Appearance: alert, mild distress - EYES Eyes: PERRL/EOMI - HEAD, EARS, NOSE, MOUTH & THROAT HENMT: normocephalic/atraumatic - NECK Neck: normal inspection - RESPIRATORY Respiratory: accessory muscle use, crackles, increased rate - CARDIOVASCULAR Cardiovascular: tachycardia - GASTROINTESTINAL (ABDOMEN) Abdominal Exam: non tender, soft - LYMPHATIC Lymphatic: no adenopathy - MUSCULOSKELETAL Back Exam: normal inspection Extremity: normal range of motion - SKIN Integumentary: normal color - NEUROLOGIC Neurologic: grossly normal - PSYCHIATRIC Psych/Mental Status: normal mood/affect Progress - PLAN OF CARE/RESULTS Progress/Plan/Lab Results: Orders Category Date Time Status Cardiac Monitoring DIRECTED Care 02/20/19 06:41 Ordered IV Insertion ORDERED Care 02/20/19 06:41 Ordered Notify MD of + Sepsis Screen NOW Care 02/20/19 06:41 Ordered Notify Physician As Ordered Care 02/20/19 06:41 Ordered CHEST-1 VIEW [RAD] Stat Exams 02/20/19 06:41 Ordered ABG [RESP] Stat Lab 02/20/19 06:42 Ordered BLOOD CULTURE [BLDCUL] Stat Lab 02/20/19 06:41 Uncollected CBC WITH DIFF [HEME] Stat Lab 02/20/19 06:41 Uncollected CK PROFILE [SP CHEM] Stat Lab 02/20/19 06:41 Uncollected COMPREHENSIVE METABOLIC PANEL [CHEM] Stat Lab 02/20/19 06:41 Uncollected LACTATE, PLASMA [CHEM] Q3H Lab 02/20/19 06:45 Uncollected LACTATE, PLASMA [CHEM] Q3H Lab 02/20/19 09:45 Uncollected LACTATE, PLASMA [CHEM] Q3H Lab 02/20/19 12:45 Uncollected PROTIME WITH INR [COAG] Stat Lab 02/20/19 06:41 Uncollected PTT [COAG] Stat Lab 02/20/19 06:41 Uncollected TROPONIN T Stat Lab 02/20/19 06:41 Uncollected URINALYSIS W/POSS RFLX CULT [URINALYSIS] Stat Lab 02/20/19 06:41 Uncollected Albuterol 2.5MG/Ipratrop 0.5MG [Duoneb (A & A)] Med 02/20/19 06:42 Once 9 ml INH NOW ONE Methylprednisolone Sod Succ [Solu-Medrol] Med 02/20/19 06:42 Once 125 mg IV NOW ONE Aerosol Treatments Routine Oth 02/20/19 06:42 Ordered Aerosol Treatments Stat Oth 02/20/19 06:42 Ordered Oxygen Device Stat Oth 02/20/19 06:41 Ordered Result Diagrams: 02/20/19 06:57 02/20/19 06:57 - REASSESSMENT Reassessment #1 Time Reassessed: 08:16 Status: improving (pt has excellent ABG on Bipap, at bedside he is awake, alert, communicative. remains tachycardic. scattered rhonchi and dullness at bases on exam. lactate noted, wbc noted, U/A noted (pt has hx of prostate scarring s/p rad'n for CA, is on intermittent self-cath program and reports slightly purulent dischg upon last leaving hospital, hasn't been using catheter since: Levaquin given for UTI (if not pna).) - CONSULTS/PCP/HOSPITALIST Notification #1 *Consult/PCP/Hospitalist*: Melissa Time Discussed: 08:18 Consult Disposition: Admit - CHANGE OF SHIFT REPORT (ED Provider) 1 Report Given and Care Transferred to:: Ronna Time of Transfer: 19:00 Departure - Departure Date of Disposition Decision: 02/20/19 Time of Disposition Decision: 08:18 DIAGNOSIS: Bilateral pneumonia, UTI (urinary tract infection) Disposition: ADMITTED INPATIENT 09 Certified Medical Emergency: Emergent Condition: Serious Referrals and Follow-Ups: None,PCP [Primary Care Provider] - - Critical Care Note This patient required my direct & personal management of CC.: Yes Total Time (mins): 45 Critical Care Statement: This patient required my direct personal management to treat or rule out processes, the absence of which, could potentiallly result in sudden, clinically significant life or limb threatening deterioration. Attestation - Physician/ BRIGITTE Attestation The physician spent face to face time with patient:: Yes Advanced Practice Provider documentation review:: Supervising physician onsite and consulted in the evaluation and care of this patient. The physician did have a face to face encounter with the patient.
--- NOTE | 2019-02-20 07:08 | Diag Imaging Result Doc PS360 ---
EXAM: CHEST-1 VIEW 02/20/2019 HISTORY: sob, pmh of recent pna TECHNIQUE: AP portable at 0657 COMMENT: There are alveolar opacities in the right upper lobe and the lingula and left lower lobe with less opacity present elsewhere. This has worsened since the previous study of 02/12/2019. IMPRESSION: Worsening bilateral pneumonias. Electronically signed by Kamlesh Garcia 02/20/2019 7:05 AM
[2019-02-20 07:30] LABS: URINE SOURCE CLEAN CATCH
[2019-02-20 07:34] LABS: BILIRUBIN URINE NEGATIVE (NEGATIVE); BLOOD URINE TRACE (NEGATIVE); COLOR STRAW; GLUCOSE URINE NEGATIVE (NEGATIVE); KETONE URINE NEGATIVE (NEGATIVE); LEUKOCYTES URINE LARGE (NEGATIVE); NITRITE URINE POSITIVE (NEGATIVE); PROTEIN URINE NEGATIVE (NEGATIVE); TURBIDITY URINE CLEAR (CLEAR); UROBILINOGEN URINE NORMAL (NORMAL)
[2019-02-20 07:36] LABS: UR EPITHELIAL CELLS <10 /HPF (<10); URINE BACTERIA 4+ /HPF; URINE RBC <10 /HPF (<10); URINE WBC TNTC /HPF (<10)
[2019-02-20 07:41] LABS: INR 0.9; PROTIME 12.9 Seconds (11.0-16.0)
[2019-02-20 07:45] LABS: AGAP 16; ALB/GLOB RATIO 1.5; ALBUMIN 3.4 g/dL (3.5-5.0); ALKALINE PHOSPHATASE 164 U/L (32-122); BUN 11 mg/dL (8-22); CALCIUM 7.7 mg/dL (8.8-10.2); CHLORIDE 103 mmol/L (98-107); CK PROFILE 66 U/L (24-204); COSMO 292; CREATININE 0.7 mg/dL (0.7-1.2); ESTIMATED GFR > 60; GLUCOSE 144 mg/dL (70-104); GOT 22 U/L (10-34); GPT 32 U/L (10-44); SODIUM 146 mmol/L (136-145); TCO2 27 mmol/L (25-35); TOTAL BILIRUBIN 0.58 mg/dL (0.20-1.00); TOTAL PROTEIN 5.7 g/dL (6.3-8.3)
[2019-02-20 07:46] LABS: ALLEN TEST YES; BE 4.9 mmoll (-3.0-3.0); BLOOD TYPE ARTERIAL; HCO3-(ACT) 28.7 mmoll (20.0-26.0); METHB 1.2 % (0.0-1.5); O2HB 96.8 % (95.0-99.0); PCO2(98.6) 41 mmHg (35-45); PO2(98.6) 111 mmHg (60-100); SAMPLE BLOOD; SAO2 99.3 % (95.0-100.0); SRATE 12 BPM; THB 11.6 g/dL (11.5-17.4); pH(98.6) 7.46 (7.35-7.45)
[2019-02-20 07:49] LABS: MODALITY BI PAP
[2019-02-20 07:54] LABS: BASO# 0.02 X1000 (0.0-0.2); BASO% 0.1 % (0.0-0.8); EOS# 0.15 X1000 (0.0-0.7); EOS% 0.6 % (0.0-10.0); HEMATOCRIT 36.1 % (42.0-52.0); HEMOGLOBIN 11.9 g/dL (14.0-18.0); IMM GRAN# 0.08 X1000 (0.0-0.04); IMM GRAN% 0.3 % (0.0-0.5); LYMPH# 1.94 X1000 (1.2-3.4); LYMPH% 8.1 % (20.5-51.1); MCH 29.4 PG (27-31); MCV 89.1 FL (81-99); MONO# 0.99 X1000 (0.11-0.59); MONO% 4.1 % (1.7-9.3); MPV 11.4 FL (7.4-10.4); NEUT# 20.76 X1000 (1.4-6.5); NEUT% 86.8 % (42.2-75.2); PLT 186 X1000 (130-400); RBC 4.05 XMIL (4.7-6.1); WBC 23.94 X1000 (4.8-10.8)
[2019-02-20] MEDS ORDERED: LEVAQUIN 750 MG/D5W 750 MG/150 ML IVPB IV ONE (08:08)
[2019-02-20] MEDS ORDERED: VANCOMYCIN IV PER PHARMACY MISC SCH (08:30)
[2019-02-20] MEDS ORDERED: LOVENOX SUBQ SCH (08:30)
[2019-02-20] MEDS ORDERED: SOLU-MEDROL IV SCH (08:30)
[2019-02-20] MEDS ORDERED: KLOR-CON PO ONE (08:33)
[2019-02-20 09:00] LABS: BANDS 2 % (0-1); LARGE PLATELETS 1+; LYMPHS 8 % (21-51); MONO 5 % (1-9); SEGS 85 % (42-75)
[2019-02-20 09:15] LABS: HEMOGLOBIN A1C 7.3 % (4.8-6.0)
[2019-02-20] MEDS ORDERED: MAGNESIUM SULFATE 2 GM/S.W.I. 2 GM/50 ML IVPB IV ONE (09:35)
--- NOTE | 2019-02-20 09:51 | EKG Report ---
Test Performed on : 02/20/2019 09:44:10 AM Test Reason : tachycardia, resp failure Blood Pressure : / mmHG Vent. Rate : 130 BPM Atrial Rate : 130 BPM P-R Int : 124 ms QRS Dur : 134 ms QT Int : 352 ms P-R-T Axes : 021 -56 046 degrees QTc Int : 518 ms Sinus tachycardia. with premature atrial complexes. Right bundle branch block Left anterior fascicular block Bifascicular block Minimal voltage criteria for LVH, may be normal variant Cannot rule out Inferior infarct (cited on or before 29-MAY-2015) Abnormal ECG When compared with ECG of 20-FEB-2019 06:48, (Unconfirmed) premature atrial complexes. are now present Confirmed by Giorgio BERMUDEZ, Fidencio Byrd ([id number]) on 02/20/2019 10:57:48 AM
[2019-02-20] MEDS: MAXIPIME 2 GM in NS 100 ML IV SCH ×2 (10:13→20:35)
[2019-02-20] MEDS: VANCOMYCIN 1.5 GM in NS 250 ML IV SCH ×2 (10:15→22:17)
[2019-02-20] MEDS: XOPENEX NEB INH SCH ×4 (10:48→23:24)
--- NOTE | 2019-02-20 10:55 | HISTORY AND PHYSICAL ---
PRIMARY CARE PHYSICIAN: None. GREENHOUSE MANAGER: Dr. Dereck Duarte CHIEF COMPLAINT: Respiratory distress. HISTORY OF PRESENT ILLNESS: Mr. Yang is a 68-year-old male who was discharged from our service last week. He has had multiple and extended admissions for recurrent pneumonia, ultimately diagnosed with cryptogenic organizing pneumonia, discharged on steroids last week. Overall since discharge, he has been doing much better. His breathing has improved. However, last night into this morning, he started having respiratory distress, feeling dizzy. At around 1 in the morning, he checked his O2 saturation and was found to be 68%. He did go back to sleep, but when he woke up, he again was feeling short of breath and came to the ER for evaluation. He also said that he has had a sudden increase in lower extremity edema over the past 12 hours but denies any chest pain. He has not had any fever. No rash. No nausea or vomiting. He has had some diarrhea, and this has improved somewhat. He also reports that he has had some ulceration on the glans penis due to self catheterization along with some whitish discharge and significant urinary incontinence. In the ER, he was noted to have a white count of 23,000, and his chemistry showed hypokalemia and hypomagnesemia as well as hypoalbuminemia. He is tachycardic and slightly hypotensive with a lactate of 2.8, meeting criteria for sepsis. We are going to put him on the ICU on BiPAP and consult Pulmonary and Critical Care. PAST MEDICAL HISTORY: 1. Recent and multiple admissions for recurrent pneumonia/cryptogenic organizing pneumonia. 2. Known coronary artery disease, status post CABG. EF last admission was 60%. 3. Severe aortic stenosis. Last echocardiogram did show the possibility of severe stenosis but recommended LEONIE for better evaluation. 4. Prolonged antibiotic and steroid course over the past few weeks. 5. History of PAD. 6. Hypertension. 7. Hyperlipidemia. 8. History of prostate cancer. PAST SURGICAL HISTORY: He has had a CABG, right carotid endarterectomy, appendectomy. SOCIAL HISTORY: He quit smoking some time ago, drinks socially. Denies drug use. is at the bedside. FAMILY HISTORY: Significant for diabetes and lung cancer. HOME MEDICATIONS: Allopurinol 100 mg daily, Ecotrin 81 mg daily, Lipitor 80 mg at bedtime, metoprolol tartrate 25 mg p.o. b.i.d., Norvasc 10 mg daily, Plavix 75 mg daily, Pletal 50 mg b.i.d., colchicine 0.6 mg daily, prednisone 40 mg daily, albuterol 2 puffs inhaled every 6 hours as needed. REVIEW OF SYSTEMS: A 14-point review of systems was obtained and found to be negative with the exception of the HPI. PHYSICAL EXAMINATION: VITAL SIGNS: Blood pressure is 90/60, heart rate 136, respiratory rate is 24, O2 saturation is 98% on BiPAP. Temperature is 98.3. GENERAL: Slightly overweight 68-year-old male lying in hospital bed, mild to moderate respiratory distress. NEUROLOGICAL: He is oriented, follows commands. No focal deficits. HEENT: Head is atraumatic and normocephalic. Pupils are equal, round and reactive to light. Oropharynx and oral mucosa unable to be examined due to BiPAP. NECK: Supple. Trachea is midline. CHEST: Crackles bilaterally. CARDIOVASCULAR: Tachycardic but regular. S1 and S2 noted. Systolic murmur at right sternal border 2/6 noted. GASTROINTESTINAL: Soft, nondistended and nontender. Bowel sounds are hypoactive. EXTREMITIES: 2+ edema bilaterally. Pulses are palpable 1+. DIAGNOSTIC DATA: Chest x-ray shows right upper lobe and left lower lobe opacities which have worsened significantly since last exam. EKG is pending. WBC is 23.94, hemoglobin 11.9, hematocrit 36.1. INR is 0.9. ABG on 100% BiPAP shows pH of 7.46, CO2 of 41, O2 of 111, bicarb 28.7. Sodium 146, potassium 3, chloride 103, CO2 is 27, anion gap is 16, BUN is 11, creatinine 0.7, glucose 144. Hemoglobin A1c is 7.3. Calcium 7.7, magnesium 1.4, bilirubin 0.5, AST is 22, ALT is 32, alkaline phosphatase 164, protein 5.7, albumin 3.4. Lactic acid 2.8. UA does show significant bacteruria. ASSESSMENT AND PLAN: 1. Acute hypoxemic respiratory failure with a h/o [employer] [place]. The patient has worsening bilateral infiltrates along with mild to moderate respiratory distress and hypoxemia. He has been placed on BiPAP which we will continue. We will obtain sputum and blood cultures, start the patient on cefepime and vancomycin, as he has been in the hospital quite a bit recently. We will continue aggressive pulmonary hygiene and consult Dr. Duarte and Dr. Link. 2. Sepsis on presentation. The patient is tachycardic and hypotensive with a white count of 23,000. The white count is likely steroid induced, as he was discharged on quite a bit of steroids. However, given the overall picture of worsening infiltrates, we need to cover him with broad spectrum antibiotics for now. His lactate is elevated at 2.8 which we will continue to trend. We will need to be cautious with his IV fluids, as he also appears to be somewhat volume overloaded. 3. Hyperglycemia. The patient has a hemoglobin A1c of 7.3%, which more than likely is all steroid induced; however, we will put him on sliding scale and pattern blood sugars. 4. Hypokalemia and hypomagnesemia. We will replace those and follow results daily. 5. Severe aortic stenosis/questionable congestive heart failure. The patient does have known aortic stenosis. We will order a limited echocardiogram, trend cardiac enzymes and likely get cardiology involved as he will need a LEONIE at some point. DVT prophylaxis with Lovenox. Patient seen and examined by me face to face, all the laboratory, images and vital signs were reviewed, patient presented to the emergency department complaining of shortness of breath, hypoxemia and bilateral lower extremity swelling, he recently was discharge for pneumonia and hypoxemia, we believed that was at the beginning related to a bacterial infection, but then we though about cryptogenic type pneumonia, images showed infiltrates bilaterally, course reparatory sounds, will be placed on antibiotics, breathing treatment, steroids, oxygen, pulmonary department and ID will be involved, likely he will need a bronchoscopy done, ICU I agree with the [employer]' assessment and plan, Jason Salinas MD. Critical care time with the patient is 1 hour. Dictated by RIO Keating for Jason Steele MD cc: RIO Keating MD MTDD
[2019-02-20] MEDS ORDERED: ALBUMIN 25% IV ONE (12:20)
[2019-02-20] MEDS ORDERED: NS 500 ML IV ONE (12:20)
[2019-02-20] MEDS: HUMULIN R SUBQ SCH ×3 (12:40→21:00)
[2019-02-20] MEDS: MYCAMINE 100 MG in NS 100 ML IV SCH (14:39)
--- NOTE | 2019-02-20 15:22 | EKG Report ---
Test Performed on : 02/20/2019 06:48:11 AM Test Reason : ER Blood Pressure : / mmHG Vent. Rate : 129 BPM Atrial Rate : 129 BPM P-R Int : 136 ms QRS Dur : 140 ms QT Int : 340 ms P-R-T Axes : 051 -58 055 degrees QTc Int : 498 ms Sinus tachycardia. Right bundle branch block Left anterior fascicular block Bifascicular block Left ventricular hypertrophy with repolarization abnormality Cannot rule out Inferior infarct (cited on or before 29-MAY-2015) Abnormal ECG When compared with ECG of 20-FEB-2019 06:47, (Unconfirmed) No significant change was found Unconfirmed Result
[2019-02-20] MEDS: CLINDAMYCIN 600 MG/D5W 600 MG/50 ML IVPB IV SCH (16:40)
--- NOTE | 2019-02-20 20:01 | PULMONOLOGY CONSULTATION ---
DATE: 02/20/2019 REQUESTING PHYSICIAN: Dr. Melissa. REASON FOR CONSULTATION: Respiratory failure. HISTORY OF PRESENT ILLNESS: Mr. Yang is a 68-year-old white male who was admitted to the hospital on 01/20/2019 with infiltrates in the right upper lobe and the left base. The patient was treated for community-acquired pneumonia. He was initially followed by Dr. Madrid. The patient was discharged home without steroids on 02/02/2019 with a diagnosis of multifocal pneumonia. The patient returned to the hospital 3 days later and was diagnosed with possible cryptogenic organizing pneumonia. The patient was placed on high-dose steroids. He did slowly improve and was discharged on 2 L per nasal cannula. The patient reports he was doing well while on his prednisone 40 mg per day dose until yesterday morning. He did notice increased lower extremity edema. He has had a cough productive of pink-tinged sputum. He checked an oxygen saturation and it had significantly prompt plummeted from prior checks. He denies fevers, chills, cough, or significant purulent sputum production. He has noted increasing lower extremity edema. PAST MEDICAL HISTORY/PROBLEM LIST: 1. Possible severe aortic stenosis documented on previous echocardiogram with LEONIE recommended. 2. Coronary artery disease, status post coronary artery bypass grafting. 3. Persistent bilateral infiltrates, which have been present for over 1 month as outlined above. 4. History of peripheral vascular disease. 5. Hypertension. 6. Dyslipidemia. 7. History of prostate cancer. 8. Status post appendectomy. 9. Status post carotid endarterectomy. SOCIAL HISTORY: The patient has a prior tobacco history. No alcohol use. FAMILY HISTORY: Positive for cancer of the lung and diabetes. REVIEW OF SYSTEMS: As noted in the HPI. PHYSICAL EXAMINATION: General: Reveals a well-developed, well-nourished male who appears his stated age. He is currently on BiPAP and oxygen saturation is 98% on 60% FiO2. BP 115/54, heart rate 127, respiratory rate 21. HEENT: Pupils are equal and reactive. Oropharynx is clear. Neck: Supple. Chest: Reveals coarse crackles bilaterally. Cardiac: S1 and S2, increased rate with a 3/9 to 4/6 systolic ejection murmur right upper sternal border. Abdomen: Soft. Extremities: Without edema. LABORATORIES: Chest x-ray reveals significant increased density in the right upper and left base. Remaining lung harrington are unchanged. White blood count 23,000, hemoglobin 11.9, platelet count 186,000. Sodium 146, potassium 3, chloride 103, bicarbonate 27, BUN 11, creatinine 0.7. Prior connective tissue cascade was negative. Arterial blood gas reveals a pH of 7.46, pCO2 of 41, PO2 of 111 on BiPAP. IMPRESSION: Complicated 68-year-old male with 2 recent hospitalizations. The patient had clinically improved on steroids, but continued to have significant infiltrates. Now he has had acute decompensation along with cough and pink sputum with increasing density in the previously identified areas. The acute decompensation would not be suspected with bronchiolitis obliterans with organizing pneumonia(BOOP). It might be seen with an infectious process, and he does have leukocytosis, but does not have appear to be overtly toxic. I suspect that he has 2 concurrent processes affecting his oxygen and radiographic changes. One is significant aortic stenosis and the second is a parenchymal lung process. He clearly needs a bronchoscopy with transbronchial biopsies and a lavage to help further identify the 2 areas given failure to improve on prior treatment regimens. Unfortunately, he is marginal from an oxygen standpoint and is taking Plavix, making transbronchial biopsies an extremely high risk. The patient will require intubation for any bronchoscopic procedure. At this juncture, we will maintain on BiPAP, place on broad-spectrum antibiotics, and try and delay bronchoscopy for at least 3 to 5 days so that the effects of Plavix will be less severe at the time of bronchoscopy. RECOMMENDATIONS: 1. Broad-spectrum antibiotics. 2. Recommend limited view echocardiogram to help evaluate the aortic valve. Consider LEONIE. 3. Sputum cultures and blood cultures. 4. Hold Plavix and anticoagulation. 5. BiPAP for acute hypoxemic respiratory failure. 6. Continues steroids at this juncture. PROGNOSIS: Overall prognosis is guarded. The patient is aware that he is critically ill and will likely require intubation for a bronchoscopic procedure. cc: Dereck Duarte MD [facility]
--- NOTE | 2019-02-20 22:01 | INFECTIOUS DISEASE PROGRESS NO ---
DATE: 02/20/2019 PRESENT ILLNESS: The patient presents to the emergency room in a septic condition. He has been diagnosed with cryptogenic organizing pneumonia, but he may have developed a superimposed bacterial pneumonia. On physical examination, the patient's penis is very swollen and red and it extends somewhat into his scrotum. 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 The patient also appears to have a urinary tract infection as noted by the urinalysis which showed white cells and bacteria. The patient also is having diarrhea, which could be due to Clostridium difficile in view of the fact that the patient has been on antibiotics for a prolonged period of time. He has also been on steroids for a prolonged period of time. MEDICATIONS: The patient is already receiving vancomycin cefepime and micafungin. To this, I am going to add clindamycin. In case the patient does have Jaime's gangrene, the clindamycin can help to cut down on toxin production. Also, the micafungin can supply some anaerobic coverage and the clindamycin can also supply some coverage for anaerobic organisms. PHYSICAL EXAMINATION: Vital Signs: Temperature is 98.8, pulse 114, respirations 19, blood pressure 81/57. General: This is an ill-appearing, elderly male. He is in no acute distress. HEENT: He can hear my spoken words and see near objects. He does not have any white patches on his tongue. Neck: No meningismus. Lungs: Clear to auscultation. Cardiovascular: Heart rate is regular and rapid. Abdomen: Soft, and nontender. Genitalia: The penis is erythematous and swollen. There is some spreading of the erythema into the scrotum also. Neurologic: The patient is alert. He can move his extremities. There is no tremor. LAB AND RADIOLOGY: CBC-WBC 23.94, hgb 11.9, platelets 186K. Blood gases-pH 7.46, pO2 111, pCO2 41. Creatinine-0.7. GFR->60. Alk phos-164. Procalcitonin-0.39. UA-WBCs and bacteria. Legionella and pneumococcal antigens-negative. Chest [id number] bilateral infiltrates. ASSESSMENT AND PLAN: The patient may have Clostridium difficile diarrhea because he has been on a prolonged course of antibiotics recently, I have ordered a stool for Clostridium difficile antigen and toxin. COMORBIDITIES: The patient recently was hospitalized and as mentioned above, he received a lot of antibiotics and steroids. He also has a bladder problem where it is very difficult for him to urinate on his own and he has to self catheterize himself 4 times a day. He is elderly. cc: Aleks Link MD MTDD
--- NOTE | 2019-02-20 23:52 | CONSULTATION ---
DATE OF CONSULTATION: 02/20/2019 CHIEF COMPLAINT: Erythematous penis and history of CIC. HISTORY OF PRESENT ILLNESS: Mr. Yang is a 68-year-old who was recently discharged from the hospital due to recurrent pneumonia and diagnosed with cryptogenic organizing pneumonia. He was discharged on steroids last week. Overall, the patient has been doing slightly better, with improvement in his respiratory status. However, last night, he started having increased respiratory distress and feeling dizzy at approximately 1:00 last night. His O2 saturation has been found to be low, around 68%, and he presented to the emergency room this morning due to shortness of breath. The patient also noticed increased lower extremity edema as well as diarrhea. The patient was discharged on steroids with a white blood cell count around 17,000 to 19,000. Urology was consulted today after evaluation by Infectious Disease regarding erythematous changes to his phallus. The patient has been seen by Urology previously both at [facility] as well as [facility] regarding history of prostate cancer, status post radiation over 20 years ago. The patient also had seeds put in at that time. The patient's PSAs have all been normal, and the patient currently does intermittent self-catheterization due to bladder neck contracture and urinary retention. The patient has a PVR around 350 mL per his report. The patient states that his penis looks appropriate for himself. There is no obvious change in the appearance since presentation to the hospital. He denies any scrotal swelling or pain and states he has been catheterizing without issue. He states he will occasionally have hematuria and had a cystoscopy at [facility] in November which was negative for pathology. PAST MEDICAL HISTORY: 1. Multiple admissions for recurrent pneumonia and cryptogenic organizing pneumonia. 2. Coronary artery disease, status post CABG. 3. Severe aortic stenosis. 4. History of peripheral artery disease. 5. History of hypertension, hyperlipidemia. 6. History of prostate cancer, status post external radiation and brachytherapy. PAST SURGICAL HISTORY: 1. Coronary artery bypass graft. 2. Right carotid endarterectomy. 3. Appendectomy. 4. Brachytherapy. ALLERGIES: No known drug allergies. HOME MEDICATIONS: 1. Allopurinol 100 mg daily. 2. Ecotrin 81 mg daily. 3. Lipitor 80 mg at bedtime. 4. Metoprolol tartrate 25 mg p.o. b.i.d. 5. Norvasc 10 mg daily. 6. Plavix 75 mg daily. 7. Pletal 50 mg b.i.d. 8. Colchicine 0.6 mg daily. 9. Prednisone 40 mg daily. 10. Albuterol 2 puffs inhaled q.6 hours. SOCIAL HISTORY: He quit smoking several years ago. Drinks socially. Denies any illicit drug use. FAMILY HISTORY: Denies significant family history of prostate cancer. REVIEW OF SYSTEMS: Twelve-point review of systems performed with all pertinent positives and negatives as in the HPI. PHYSICAL EXAMINATION: Vital Signs: Heart rate 114, blood pressure 81/57, O2 saturation 96% on BiPAP. General: Mild respiratory distress, resting comfortably in bed, jovial and makes significant conversation. Respiratory: Increased work of breathing. Audible wheezing and rales present in the bases. Patient currently on BiPAP machine. Accessory muscle use. HEENT: Normocephalic, atraumatic. Pupils equal, round, reactive to light. Mucous membranes moist. Neck: Trachea midline. No obvious masses. Cardiovascular: Evidence of tachycardia with regular rhythm. The patient has a systolic murmur 2/6. Gastrointestinal: Abdomen is soft, nontender, nondistended. No palpable masses. Genitourinary: Normal phallus. It is slightly erythematous. No obvious crepitus or necrosis present. Urethra widely patent. Urethral catheter present with no drainage through the catheter itself. Scrotum is normal. Bilateral testicles palpated without masses or nodularity. No palpable varicoceles or hydroceles. No erythema present, and they are nontender to palpation. CRAIG showed a normal prostate with no prostatic enlargement. The patient has a quite firm prostate, likely related to prior radiation exposure. Neurologic: Moving all extremities without issue. The patient has some lower extremity edema. LABORATORIES: White blood cell count 23.9, hemoglobin 11.9, hematocrit 36.1, platelets 186,000. Sodium 146, potassium 3.0, chloride 103, bicarb 27, BUN 11, creatinine 0.7, glucose 144. Hemoglobin A1c 7.3. Alkaline phosphatase 165, potassium 4.1. Urinalysis: Nitrite positive, trace blood, large amount of leukocytes, 4+ bacteria. ASSESSMENT AND PLAN: Mr. Yang is a 68-year-old with recurrent cryptogenic organizing pneumonia, coronary artery disease status post coronary artery bypass graft, severe aortic stenosis, peripheral artery disease, hypertension, hyperlipidemia, prostate cancer status post external beam radiation and brachytherapy, who presents in consultation regarding possible Jaime gangrene. On exam today, there is no obvious Jaime's, no crepitus, no pain to palpation. Examining his penis, he does have some erythema there, but this is likely either a yeast infection or related to chronic catheterization. No obvious crepitus or swelling of the scrotum is seen, and digital rectal exam showed no obvious masses with a normal prostate. The patient had a Graff catheter that was inserted. This was difficult per Nursing. However, the catheter is not draining any urine. I deflated the balloon and was able to advance the catheter into the bladder with return of approximately 300 mL of yellow urine. I reinflated the balloon, and it was positioned well. The patient had minimal discomfort with this. We will leave an indwelling catheter at this time. Low concern for Jaime gangrene at this time. Continue management per Pulmonary, Infectious Disease, and Hospitalist. No active urologic management necessary. We will continue to monitor for developing a possible Jaime gangrene, but at this time, there does not appear to be any active evidence of this. Continue to optimize his care. He likely will need to follow up in an outpatient setting as the patient has previously seen Dr. Burns and Dr. Coyle for his urology care. Has history of CIC, will likely be colonized with bacteria. Had bacteria in his urine today. Will continue to monitor, please call with questions. cc: Brady Mcdaniels MD MTDD
--- NOTE | 2019-02-21 | ECHO REPORT ---
ORDER DATE: 02/20/2019 SUMMARY: 1. Very difficult study for interpretation. There were no parasternal windows. Study was obtained via subcostal window and apical window. The apical window was also technically difficult. 2. Fibrocalcific changes of aortic valve demonstrated. Aortic valve is not well imaged and aortic valve area is not determined. Mitral and tricuspid valves are without gross structural abnormality. Pulmonic valve is not well demonstrated. The aortic root is not well imaged. 3. Normal left chamber size with mild concentric left hypertrophy is suggested. Estimated left ejection fraction appears to be at least 70%. No regional wall motion abnormality can be appreciated. Left atrium, right atrium, right ventricle are grossly normal size. 4. No pericardial effusion. 5. Appearance of inferior vena cava suggests normal central venous pressure. CONCLUSIONS: 1. Very difficult study for interpretation. 2. Fibrocalcific changes of aortic valve demonstrated with reduced aortic valve leaflet mobility. Severity of aortic stenosis not determined on this study. 3. Mild concentric left ventricular hypertrophy with estimated left ventricular ejection fraction at least 70%. cc: MD Jason Amaya MD
[2019-02-21] MEDS: CLINDAMYCIN 600 MG/D5W 600 MG/50 ML IVPB IV SCH ×3 (00:22→16:22)
[2019-02-21] MEDS: XOPENEX NEB INH SCH ×6 (03:30→23:30)
[2019-02-21 05:46] LABS: BASO# 0.01 X1000 (0.0-0.2); BASO% 0.1 % (0.0-0.8); HEMATOCRIT 27.3 % (42.0-52.0); HEMOGLOBIN 8.8 g/dL (14.0-18.0); IMM GRAN# 0.04 X1000 (0.0-0.04); IMM GRAN% 0.2 % (0.0-0.5); LYMPH# 0.96 X1000 (1.2-3.4); LYMPH% 5.8 % (20.5-51.1); MCH 29.1 PG (27-31); MCHC 32.2 g/dL (33-37); MCV 90.4 FL (81-99); MONO# 0.43 X1000 (0.11-0.59); MONO% 2.6 % (1.7-9.3); MPV 10.6 FL (7.4-10.4); NEUT# 15.09 X1000 (1.4-6.5); NEUT% 91.3 % (42.2-75.2); PLT 171 X1000 (130-400); RBC 3.02 XMIL (4.7-6.1); RDW 15.1 % (11.5-14.5); WBC 16.53 X1000 (4.8-10.8)
[2019-02-21] MEDS: HUMULIN R SUBQ SCH ×4 (06:25→21:23)
[2019-02-21 06:29] LABS: AGAP 11; BUN 9 mg/dL (8-22); CALCIUM 7.7 mg/dL (8.8-10.2); CHLORIDE 105 mmol/L (98-107); COSMO 287; CREATININE 0.5 mg/dL (0.7-1.2); ESTIMATED GFR > 60; GLUCOSE 126 mg/dL (70-104); MAGNESIUM 1.7 mg/dL (1.5-2.7); POTASSIUM 3.5 mmol/L (3.5-5.1); SODIUM 144 mmol/L (136-145); TCO2 28 mmol/L (25-35)
[2019-02-21] MEDS: SOLU-MEDROL IV SCH ×2 (08:50→16:22)
--- NOTE | 2019-02-21 08:52 | Diag Imaging Result Doc PS360 ---
EXAM: CHEST-PORTABLE 02/21/2019 HISTORY: abnormal exam TECHNIQUE: AP portable upright at 0843 COMMENT: There are dense alveolar opacities in the right upper lobe and left lower lung field. Compared to 02/20/2019 there has been some improvement on the left and the heart border is now largely visible. IMPRESSION: Slightly improved left pneumonia. Electronically signed by Kamlesh Garcia 02/21/2019 8:50 AM
[2019-02-21] MEDS ORDERED: LASIX IV ONE (09:01)
[2019-02-21] MEDS: MAXIPIME 2 GM in NS 100 ML IV SCH ×2 (09:18→21:24)
[2019-02-21] MEDS: VANCOMYCIN 1.5 GM in NS 250 ML IV SCH ×2 (09:46→22:59)
[2019-02-21 13:31] LABS: ALLEN TEST YES; BE 12.7 mmoll (-3.0-3.0); BLOOD TYPE ARTERIAL; HCO3-(ACT) 34.8 mmoll (20.0-26.0); METHB 1.2 % (0.0-1.5); MODALITY PRB; PCO2(98.6) 44 mmHg (35-45); PO2(98.6) 63 mmHg (60-100); SAMPLE BLOOD; SAO2 95.8 % (95.0-100.0); THB 10.7 g/dL (11.5-17.4); pH(98.6) 7.53 (7.35-7.45)
--- NOTE | 2019-02-21 14:44 | PROGRESS NOTE ---
DATE: 02/21/2019 SUBJECTIVE DATA: Mr. Yang was admitted yesterday for acute hypoxemic respiratory failure and progressive worsening of his known cryptogenic organizing pneumonia. He reports that his breathing has improved greatly overnight, otherwise no complaints overnight. No acute events noted by the nursing staff. OBJECTIVE DATA: Vital signs: Blood pressure 111/60, heart rate is 109, respiratory rate 31, O2 saturation 91% on 15 L face mask, temperature is 98.3. General: A 68-year-old male lying in the hospital bed in no acute distress. Neurologic: Awake, alert, and oriented, follows commands. No focal deficits. HEENT: Head is atraumatic, normocephalic. Pupils equal, round, and reactive to light. Oral mucosa is moist. Trachea is midline. No JVD. Chest: Diminished but clear to auscultation bilaterally. Cardiovascular: Regular rate and rhythm. S1, S2 is noted. Systolic ejection murmur noted. Gastrointestinal: Soft, nondistended, nontender. Bowel sounds positive. Extremities: Edema has improved to trace bilaterally. Pulses palpable. DIAGNOSTIC DATA: Chest x-ray this morning shows slightly improved left pneumonia. WBC 16.53, hemoglobin 8.8, hematocrit 27.3, platelet count 171. Sodium 144, potassium 3.5, chloride 105, CO2 28, anion gap 11, BUN 9, creatinine 0.5, glucose 126, magnesium 1.7. Procalcitonin level 0.38 with a cutoff of 0.15. Urine Legionella is strep pneumo. Antigens are negative. ASSESSMENT AND PLAN: 1. Acute hypoxemic respiratory failure: Subjectively, the patient has improved, however, he still has marginal oxygen saturations with tachycardia and radiographic evidence of bilateral infiltrates. We will check an ABG and continue antibiotics. His procalcitonin level is elevated. Pulmonary is following as well as Infectious Disease. 2. Cryptogenic organizing pneumonia: Steroids have been continued. He is also on antibiotics for the presumed pneumonia. Continue aggressive pulmonary toilet, breathing treatments. 3. New diagnosis of diabetes mellitus: Likely steroid-induced but hemoglobin A1c is 7.3%. Will continue sliding scale and diabetic diet. 4. Normocytic anemia: The patient's hemoglobin went from 11.9 to 8.8, this is likely secondary to hemodilution but we will follow closely. He denies any melena. 5. Sepsis on presentation: The patient initially improved as his lactic acid went down yesterday, however, by the end of the day, his lactic acid had gone back up to 4.1. We will recheck another lactic acid now, continue antibiotics directed at gram-negative organisms, as he does have 1 out of 2 bottles blood cultures positive for gram-negative rods. 6. Urinary tract infection: The patient did report symptoms with a urinalysis that did reveal infection and his urinalysis is growing gram-negative rods as well. Urology did evaluate the patient yesterday, appreciate input. No evidence of Jaime gangrene. 7. Severe aortic stenosis: The patient does have likely 2 different processes affecting his pulmonary status occurring at the same time, however, his cryptogenic organizing pneumonia appears to be the more critical. He will need followup for the aortic stenosis and can likely do that outpatient unless there is any acute decompensation in the hospital. 8. Known coronary artery disease: Stable. Limited echocardiogram did not show anything acute and his enzymes have been negative over 3 sets. 9. Deep venous thrombosis prophylaxis with sequential compression devices as he has bronchoscopy in the near future. Dictated by RIO Keating for Jason Steele MD cc: RIO Keating MD MTDD
[2019-02-21] MEDS: MYCAMINE 100 MG in NS 100 ML IV SCH (15:18)
[2019-02-21] MEDS: ZYLOPRIM PO SCH (21:22)
[2019-02-21] MEDS: PLETAL PO SCH (21:22)
[2019-02-21] MEDS: LIPITOR PO SCH (21:22)
--- NOTE | 2019-02-21 22:14 | PROGRESS NOTE ---
DATE: 02/21/2019 SUBJECTIVE: Patient remains in the emergency room overnight. The patient has been transitioned off BiPAP to non-rebreather. The patient denies any shortness of breath. Remains afebrile with good urinary output from his urethral catheter. Wants a diet. Denies any nausea, vomiting. States he has some pain in his penis as it is sticking to his underwear. Denies pain with indwelling catheter. OBJECTIVE: Vital Signs: HR 109, BP 111/60, oxygen saturation 91% on non- rebreather, respiratory rate 31. General: Increased work of breathing but carries on conversation during interview without shortness of breath. Respiratory: Obvious accessory muscle usage with non- rebreather in place. Increased work of breathing. Abdomen: Soft, nontender, nondistended. : Urethral catheter in place draining clear yellow urine. Small amount of blood present at the meatus. No palpable masses in the scrotum. The glans of the penis appears to be improving with less erythema. No evidence of crepitus or warmth. LABS: White blood cell count 16.5, hemoglobin 8.8, hematocrit 27.3, platelets 171,000. Sodium 144, potassium 3.5, chloride 105, bicarb 28, BUN 9, creatinine 0.5, glucose 126. ASSESSMENT/PLAN: Mr. Yang is a 68-year-old with recurrent pneumonia with cryptogenic organizing pneumonia, coronary artery disease status post coronary artery bypass graft, severe aortic stenosis, peripheral artery disease, hypertension, hyperlipidemia, history of prostate cancer status post external radiation and brachytherapy who presents consultation regarding erythematous penis and urinary retention. The patient has neurogenic bladder and is unable to void completely. The patient has a history of prostate cancer status post radiation with brachytherapy. The patient usually has postvoid residuals around 350 mL, indwelling catheter was inserted yesterday. Patient's catheter seems to be draining well, is having a small amount of blood around the catheter and states is sticking to his underwear. The patient did have some blood present likely from when the catheter was inserted yesterday and the balloon was deflated in his prostate but this appears to be minimal. The patient overall from urology standpoint appears to be improving. His penile erythema has almost resolved. No other masses are present and no crepitus. We will continue to monitor. Please call with questions or concerns. cc: Brady Mcdaniels MD MTDD
[2019-02-22] MEDS: CLINDAMYCIN 600 MG/D5W 600 MG/50 ML IVPB IV SCH (00:29)
[2019-02-22] MEDS: SOLU-MEDROL IV SCH ×3 (00:29→16:16)
[2019-02-22] MEDS: XOPENEX NEB INH SCH ×6 (03:20→23:30)
[2019-02-22] MEDS: HUMULIN R SUBQ SCH ×4 (06:15→21:31)
[2019-02-22 06:27] LABS: BASO# 0.01 X1000 (0.0-0.2); BASO% 0.1 % (0.0-0.8); HEMATOCRIT 30.5 % (42.0-52.0); HEMOGLOBIN 9.8 g/dL (14.0-18.0); IMM GRAN# 0.04 X1000 (0.0-0.04); IMM GRAN% 0.3 % (0.0-0.5); LYMPH# 0.39 X1000 (1.2-3.4); LYMPH% 2.7 % (20.5-51.1); MCH 28.7 PG (27-31); MCHC 32.1 g/dL (33-37); MCV 89.4 FL (81-99); MONO# 0.22 X1000 (0.11-0.59); MONO% 1.5 % (1.7-9.3); MPV 10.8 FL (7.4-10.4); NEUT# 13.81 X1000 (1.4-6.5); NEUT% 95.4 % (42.2-75.2); PLT 199 X1000 (130-400); RBC 3.41 XMIL (4.7-6.1); RDW 15.1 % (11.5-14.5); WBC 14.47 X1000 (4.8-10.8)
[2019-02-22 07:00] LABS: AGAP 12; BUN 11 mg/dL (8-22); CALCIUM 8.2 mg/dL (8.8-10.2); CHLORIDE 99 mmol/L (98-107); COSMO 287; CREATININE 0.6 mg/dL (0.7-1.2); ESTIMATED GFR > 60; GLUCOSE 144 mg/dL (70-104); MAGNESIUM 1.7 mg/dL (1.5-2.7); SODIUM 143 mmol/L (136-145); TCO2 32 mmol/L (25-35)
--- NOTE | 2019-02-22 08:27 | PULMONOLOGY PROGRESS NOTE ---
DATE: 02/21/2019 SUBJECTIVE: The patient has been moved from the emergency room to the ICU. He feels better today. He continues to have a cough but it is no longer blood-tinged or pink in character but is clear. His appetite has improved. OBJECTIVE: Vital Signs: The patient has been afebrile for the last 24 hours but has only had limited temperatures placed in the system. Heart rate 103, respiratory rate 14, blood pressure 110/63, oxygen saturation 95% on nonrebreather. HEENT: Pupils are equal and reactive. Oropharynx is clear. Neck is supple. Chest reveals rhonchi and crackles bilaterally. Cardiac Examination: S1, S2. Abdomen is soft. Extremities are without edema. Laboratories: White blood count 16.53, hemoglobin 8.8, platelet count 171,000. Sodium 144, potassium 3.5, chloride 105, bicarbonate 28, BUN 9, creatinine 0.5. Blood cultures reveal 1 out of 2 cultures positive for a gram-negative joon. Urine culture is also growing a gram-negative joon. Arterial blood gas reveals a pH of 7.53, pCO2 of 44, PO2 of 63. Chest x-ray reveals bilateral infiltrates with marginal improvement at the left base. 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 The patient continues to have dense bilateral pneumonia along with pink sputum. The patient also has significant aortic stenosis along with acute hypoxemic respiratory failure and a gram-negative organism in his blood and urine/urinary tract infection. RECOMMENDATIONS: 1. Continue to hold Plavix with anticipation of bronchoscopy next week. 2. Continue antibiotics per infectious disease. 3. Continue oxygen and BiPAP for acute hypoxemic respiratory failure. 4. Continue steroids. 5. Anticipate CT scan of the thorax tomorrow without contrast if he remains stable. cc: Dereck Duarte MD
--- NOTE | 2019-02-22 09:11 | Diag Imaging Result Doc PS360 ---
EXAM: CHEST-PORTABLE 02/22/2019 HISTORY: resp failure TECHNIQUE: AP portable at 0858 COMMENT: There are alveolar opacities bilaterally in the upper lobes. This has diminished slightly since the previous study of 02/21/2019. IMPRESSION: Slight improvement in bilateral pneumonia. Electronically signed by Kamlesh Garcia 02/22/2019 9:09 AM
[2019-02-22] MEDS: ASPIRIN EC PO SCH (09:21)
[2019-02-22] MEDS: ZYLOPRIM PO SCH ×2 (09:21→21:30)
[2019-02-22] MEDS: PLETAL PO SCH ×2 (09:21→21:31)
[2019-02-22] MEDS: CULTURELLE PO SCH (09:21)
[2019-02-22] MEDS: MAXIPIME 2 GM in NS 100 ML IV SCH ×2 (09:22→21:30)
--- NOTE | 2019-02-22 09:43 | PROGRESS NOTE ---
DATE: 02/22/2019 SUBJECTIVE: This patient is feeling better. He seems to be stable. I will continue with the same management. Hopefully, we will get a biopsy in the next few days. Pulmonary Department following this patient. OBJECTIVE: Vital Signs: Temperature 98.9 degrees, pulse 86, respiratory rate 13, blood pressure 126/71, oxygen saturation 90 on a nonrebreathing mask. HEENT: Head normocephalic, no trauma. PERRLA. Neck: Supple. No JVD. No masses. Central trachea. Chest: Decreased breath sounds bilaterally with crepitus bilaterally as well. Coarse breath sounds. Cardiovascular: RRR. Systolic murmur. Abdomen: Soft, nontender, nondistended. No hepatosplenomegaly. Extremities: Trace edema. No clubbing. No cyanosis. Neurological: The patient is alert and oriented x3. No focal deficits. LABORATORY: WBC 14.4, hemoglobin 9.8, hematocrit 30.5, platelet 199,000. Sodium 143, potassium 4, chloride 99, bicarbonate 32, BUN 11, creatinine 0.6, glucose 144, calcium 8.2, magnesium 1.7. ASSESSMENT AND PLAN: 1. Acute on chronic hypoxemic respiratory failure. This patient feels better. His oxygen saturation has been more stable. We will continue with the same management. Pulmonary Department on board. 2. Bacterial pneumonia versus cryptogenic organizing pneumonia. Continue with the same management. He is on steroids and antibiotics. Continue aggressive pulmonary toilet breathing treatment. The plan is to go ahead and perform a biopsy at some point. This patient has been on Plavix which has been stopped. 3. Elevated hemoglobin A1c at 7.3. I will continue with sliding scale and a diabetic diet. I do believe this is related to the steroids, but we will keep an eye on that. 4. Normocytic anemia, stable. Will monitor. 5. Sepsis on presentation. We will continue to monitor. He does have a positive blood culture that showed Enterobacter cloacae and also a urine culture that showed the same organism. Infectious Disease Department on board. 6. Bacteremia secondary to Enterobacter cloacae. Infectious Disease on board. 7. Urinary tract infection with a positive culture that showed the same micro organism, Enterobacter cloacae. Will monitor. 8. Hypokalemia, hypomagnesemia, resolved. 9. Severe aortic stenosis. Continue to monitor. He is not symptomatic at this moment. 10. Deep vein thrombosis prophylaxis with Lovenox. cc: Jason Steele MD
--- NOTE | 2019-02-22 11:05 | Diag Imaging Result Doc PS360 ---
EXAM: CT THORAX W/O CONTRAST 02/22/2019 HISTORY: non resolving pneumonia TECHNIQUE: This exam was performed using automated exposure control, adjustment of mA or kV according to patient size, and/or use of iterative reconstruction technique. COMMENT: The current examination is compared with the study of 02/06/2019. There is patchy alveolar opacity with air bronchograms in the right upper lobe which has not changed appreciably since the previous study. There are nodular and patchy alveolar opacities present in the right lower lobe and middle lobe which have improved since the previous study. There are still considerable tree-in-bud and nodular opacities present however. There has also been some improvement in the groundglass opacity and patchy alveolar opacities present in the left lower lobe. There appear to be more dense nodular opacities in some portions of the left lower lobe notably on image 71 anteriorly where there is a nodule measuring in excess of 16 mm. There is still dense consolidation in the posterior lateral inferior left upper lobe with air bronchograms. This may be slightly worse than on the previous examination. Some of the more groundglass opacity in the left upper lobe has improved however. There is also some worsening a nodularity of the opacities in the left upper lobe. There are no abnormal pleural fluid collections. The appearance of the mediastinum has not changed appreciably. The regional skeleton is stable in appearance. There is apparent hydronephrosis on the left which is only partially visible. There is a moderate degree of constipation with stool in the visualized portion of the colon. IMPRESSION: In general, there has been worsening in the nodular opacities while the more groundglass opacity present bilaterally has generally improved. The denser consolidation present in the right upper lobe and left upper lobe remain. The possibility of granulomatous disease or neoplastic disease cannot be entirely excluded. Electronically signed by Kamlesh Garcia 02/22/2019 11:02 AM
--- NOTE | 2019-02-22 15:25 | PULMONOLOGY PROGRESS NOTE ---
DATE: 02/22/2019 SUBJECTIVE: The patient is awake and alert. He reports he feels better today. OBJECTIVE: Vital Signs: The patient has been afebrile for the last 24 hours. Blood pressure 153/84, heart rate 96, respiratory rate 15, oxygen saturation 95% on face mask. HEENT: Pupils are equal and reactive. Oropharynx appears clear. Neck: Supple. Chest: Reveals crackles bilaterally. Cardiac: S1-S2 with 3/6 systolic ejection murmur right upper sternal border. Abdomen: Soft. Extremities: Reveal trace edema. LABORATORIES: White blood count 14.47, hemoglobin 9.8, platelet count 199,000. Microbiology reveals Enterobacter cloacae complex identified in the urine and the blood. Sputum cultures are pending. Chest x-ray reveals slight decrease in infiltrates bilaterally. IMPRESSION: 68-year-old with 1. Bilateral pneumonia which is not resolving despite steroids and antibiotics. 2. Aortic stenosis. 3. Acute hypoxemic respiratory failure. 4. Urinary tract infection. 5. Bacteremia. RECOMMENDATIONS: 1. Continue to hold Plavix use in anticipation of bronchoscopy. Hopefully, this can be performed on Saturday if he continues to improve. 2. Continue antibiotics per Infectious Disease. 3. Continue to cycle BiPAP at bedtime and p.r.n. 4. Continue steroids. 5. CT scan of the thorax today to help in planning for bronchoscopy. cc: Dereck Duarte MD
--- NOTE | 2019-02-22 16:27 | INFECTIOUS DISEASE PROGRESS NO ---
DATE: 02/22/2019 PRESENT ILLNESS: The patient has an Enterobacter bacteremia and urinary tract infection. Also, it looks like he has a pneumonia as well. I am concerned that the patient may have aortic valve endocarditis also. MEDICATIONS: The patient has been switched to cefepime 2 g IV every 12 hours. PHYSICAL EXAMINATION: Vital Signs: Temperature is 98.2 degrees, pulse 116, respirations 20, blood pressure 147/88. General: This is a somewhat ill-appearing, elderly male. He is in no acute distress. Head, eyes, ears, nose, and throat: He can hear my spoken words and see near objects. There is no drainage coming from the nose or ears. He does not have any white patches on his tongue. Neck: No meningismus. Lungs: Clear to auscultation. Cardiovascular: Heart rate is regular and rapid. Abdomen: Soft and nontender. Genitalia: There is much less erythema and swelling of the penis. Neurologic: The patient is alert. He can move his extremities. There is no tremor. LAB AND RADIOLOGY: CT scan of the chest shows worsening nodular opacities and ground-glass opacities. The patient's CBC shows a white count of 14,470, hemoglobin 9.8, and platelet count 199,000. Creatinine is 0.6. GFR is greater than 60. Procalcitonin is 0.38. Cultures from the blood and urine are growing Enterobacter and I think that most likely the increasing pulmonary infiltrates may in fact be due to Enterobacter pneumonia also. ASSESSMENT AND PLAN: I put the patient on cefepime 2 g IV every 12 hours. I have put in a consult for Cardiology to consider doing a transesophageal echocardiogram to look for aortic valve endocarditis. COMORBIDITIES: The patient has a bladder problem where he has to catheterize himself 4 times a day. He is elderly. It was thought that he may have an underlying pulmonary disease such as a cryptogenic organizing pneumonia/bronchiolitis obliterans. cc: Aleks Link MD
--- NOTE | 2019-02-22 16:47 | CARDIOLOGY CONSULTATION ---
DATE: 02/22/2019 CHIEF COMPLAINT: Shortness of breath on presentation. HISTORY OF PRESENT ILLNESS: Mr. Yang is a 68-year-old white male who had a recent hospitalization for recurrent pneumonias, ultimately identify with a cryptogenic organizing pneumonia and discharged on steroids. Over the last few weeks he has continued to be short of breath and have a cough. He tried to treated it at home but apparently this did not improve. He subsequently was admitted and found to have a urinary tract infection with Enterobacter growing in the urine and had a positive blood culture as well. He was admitted for further evaluation. PAST MEDICAL HISTORY: 1. Significant for multiple admissions for pneumonia/cryptogenic organizing pneumonia. 2. Coronary artery disease with history of bypass grafting. 3. Suggestion of severe aortic stenosis by his last 2 echocardiograms. 4. History of PAD. 5. Hypertension. 6. Hyperlipidemia. SOCIAL HISTORY: He is . He quit smoking several years ago. No illicit drugs. FAMILY HISTORY: Significant for hypertension, diabetes, and lung cancer. REVIEW OF SYSTEMS: A 10 system review of systems is negative except for those things mentioned in the HPI. PHYSICAL EXAMINATION: Vital signs: Afebrile, heart rate of 116. He appears to be in sinus tach based on his telemetry. Blood pressure 147/88. His O2 saturation most recently was 91% and he has been variably on BiPAP or non-rebreather. General: He is in no acute distress. HEENT: Oropharynx is moist. Poor dentition. Eye examination shows pink conjunctivae, white sclerae. Neck: No obvious thyromegaly or thyroid tenderness. Cardiovascular: He is in a tachycardic and regular rhythm. He has a 2/6 systolic murmur at the right upper sternal border. He has no lower extremity edema. Chest: Has coarse breath sounds somewhat diffusely. No wheezing. Abdomen: Soft, nontender, nondistended. He has no obvious organomegaly. Skin: Warm and dry throughout without any rashes. Neurological: Moving all extremities well. No lateralizing deficits. PERTINENT DATA: CT of his chest demonstrates worsening nodular opacities with improvement in the ground-glass opacities bilaterally, possibility of granulomatous disease or neoplastic disease. He had an EKG on the reviewed by me that showed a right bundle branch block, sinus tachycardia, rate of 130 beats per minute. His echocardiogram was reviewed, suggesting and normal ejection fraction and possible severe aortic stenosis. White count 14.5, hematocrit 30, platelet count 199,000. His sodium is 143, potassium is 4, BUN is 11, creatinine 0.6. ASSESSMENT: Mr. Yang is a 68-year-old male with a history of bypass with recent pulmonary infections, who appears to be septic from a urinary source presently. PLAN: At this point, I would not proceed with LEONIE; he needs to be in a better respiratory status. We will tentatively do this sometime in the next 48 hours. We will assess him in the morning and give further recommendations. cc: Ezequiel Nicholson MD
[2019-02-22] MEDS: LIPITOR PO SCH (21:30)
[2019-02-23] MEDS: SOLU-MEDROL IV SCH ×4 (00:25→23:43)
[2019-02-23] MEDS: XOPENEX NEB INH SCH ×6 (03:34→23:32)
[2019-02-23 06:02] LABS: AGAP 9; BUN 16 mg/dL (8-22); CALCIUM 8.1 mg/dL (8.8-10.2); CHLORIDE 98 mmol/L (98-107); COSMO 287; CREATININE 0.7 mg/dL (0.7-1.2); ESTIMATED GFR > 60; GLUCOSE 217 mg/dL (70-104); MAGNESIUM 1.9 mg/dL (1.5-2.7); POTASSIUM 3.6 mmol/L (3.5-5.1); SODIUM 140 mmol/L (136-145); TCO2 33 mmol/L (25-35)
[2019-02-23] MEDS: HUMULIN R SUBQ SCH ×4 (06:02→21:29)
[2019-02-23 06:09] LABS: HEMATOCRIT 31.4 % (42.0-52.0); IMM GRAN# 0.03 X1000 (0.0-0.04); IMM GRAN% 0.3 % (0.0-0.5); LYMPH# 0.38 X1000 (1.2-3.4); LYMPH% 3.5 % (20.5-51.1); MCH 28.8 PG (27-31); MCHC 31.8 g/dL (33-37); MCV 90.5 FL (81-99); MONO# 0.21 X1000 (0.11-0.59); MONO% 1.9 % (1.7-9.3); MPV 10.6 FL (7.4-10.4); NEUT% 94.3 % (42.2-75.2); PLT 224 X1000 (130-400); RBC 3.47 XMIL (4.7-6.1); RDW 15.2 % (11.5-14.5); WBC 10.82 X1000 (4.8-10.8)
--- NOTE | 2019-02-23 06:54 | Diag Imaging Result Doc PS360 ---
EXAM: CHEST-PORTABLE HISTORY: dyspnea TECHNIQUE: Portable chest single view COMPARISON: 02/22/2019 FINDINGS: There are bilateral dense infiltrates. These appear slightly less dense than on the prior exam. There are sternal wires. No cardiomegaly. No pleural effusions identified. IMPRESSION: Slight interval improvement. Electronically signed by Rosendo Mendoza 02/23/2019 6:51 AM
[2019-02-23 07:24] LABS: LYMPHS 4 % (21-51); MONO 2 % (1-9); SEGS 94 % (42-75)
--- NOTE | 2019-02-23 08:37 | PROGRESS NOTE ---
DATE: 02/23/2019 SUBJECTIVE: No acute events overnight. The patient remains on non-rebreather. States his breathing has improved. He is having a small amount of discomfort with his urethral catheter. Denies any changes in the erythema of his penis, and overall feels that it is actually improving. Denies any itching or burning. The patient is tolerating p.o. intake and feels that he is clinically improving. OBJECTIVE: Vital Signs: Temperature 97.3 degrees, heart rate 102, blood pressure 130/77, and oxygen saturation 99% on non-rebreather. Respiratory: Good respiratory effort with decreased accessory muscle usage. Remains on non-rebreather, and carries on conversation with minimal exertion. Abdomen: Soft, nontender, and nondistended. No palpable masses. : No suprapubic tenderness. No CVA tenderness. Urethral catheter in place draining clear yellow urine. Urethral catheter currently not attached to the [employer] and on small amount of tension. The patient's penis is without erythema or lesions. LABORATORY DATA: White blood cell count 10.8, hemoglobin 10, hematocrit 31.4, and platelets 224,000. Sodium 140, potassium 3.6, chloride 98, bicarb 33, BUN 16, creatinine 0.7, and glucose 217. ASSESSMENT AND PLAN: Mr. Yang is a 68-year-old with history of recurrent pneumonia with cryptogenic organizing pneumonia, coronary artery disease status post CABG, severe aortic stenosis, peripheral artery disease, hypertension, hyperlipidemia, history of prostate cancer status post external radiation and brachytherapy who presents in consultation regarding erythematous penis and urinary retention. The erythema of the penis seems to have improved significantly. Patient continues indwelling catheter. The patient has a long history of bladder neck contracture and neurogenic bladder. Overall, I think patient from a urologic standpoint is stable. The patient did have a positive culture of his urine which grew both the yeast as well as Enterobacter cloacae. The patient has been followed by Infectious Disease for both of these. The patient states that he was not catheterizing himself as regularly as he normally does after his most recent hospitalization, which likely led to these in his urine. The patient also has a history of CIC, which likely leads to the bacteria in his urine. Recommended indwelling catheter to persist at this time, and likely would need to transition back to CIC on a regular basis when he is discharged. The patient expresses that he did not catheterize himself as directed previously. We will continue to monitor. Please call with questions or concerns. cc: Brady Mcdaniels MD MTDEzequiel
--- NOTE | 2019-02-23 09:06 | PROGRESS NOTE ---
DATE: 02/23/2019 SUBJECTIVE: No acute events overnight. He seems to be stable. I will continue with same management. Hopefully he can get a bronchoscopy/biopsy in the next few days, also Cardiology Department evaluated this patient and they will do a LEONIE in the future. His glucose has been elevated. I will start this patient on Lantus 10 and I will increase it as needed. OBJECTIVE: Vital Signs: Temperature 97.3 degrees, pulse 104, respiratory rate 16, blood pressure 130/77, oxygen saturation 96 on a nonrebreathing mask. HEENT: Head normocephalic, no trauma. PERRLA. Neck: Supple. No JVD. No masses. Central trachea. Chest: Decreased breath sounds bilaterally with crepitus bilaterally and coarse breath sounds. Cardiovascular: Regular rhythm and rate, systolic murmur. Abdomen: Soft, nontender, nondistended. No hepatosplenomegaly. Extremities: Trace edema. No clubbing. No cyanosis. Neurological: The patient is alert and oriented x3. No focal deficits. LABORATORY: WBC 10.8, hemoglobin 10, hematocrit 31.4, platelets 224,000. Sodium 140, potassium 3.6, chloride 98, bicarbonate 33, BUN 16, creatinine 0.7, glucose 217, calcium 8.1, magnesium 1.9. ASSESSMENT AND PLAN: 1. Acute on chronic hypoxemic respiratory failure. This patient is feeling better. Oxygen saturation has been more stable, but he is still on a nonrebreathing mask. We will continue with same management. Pulmonary Department on board. 2. Bilateral pneumonia versus cryptogenic organizing pneumonia. We will continue with steroids and antibiotics. Pulmonary Department and Infectious Disease Department on board. The plan is to go ahead and do a bronchoscopy/biopsy in the near future, probably Saturday or Saturday. This patient has been on Plavix before, which has been stopped. 3. Bacteremia, secondary to Enterobacter cloacae, Infectious Disease Department placed this patient on antibiotics and they also suggested to perform a LEONIE, Cardiology Department evaluated this patient and they will wait until the respiratory status improves a little bit so they can perform the LEONIE. Likely we will be in the next few days. 4. Urinary tract infection showing Enterobacter cloacae in the urine culture, aware. Continue with same management. Infectious Disease on board. 5. Sepsis on presentation. Continue with the same treatment. 6. Elevated hemoglobin A1c at 7.3. We will continue with the sliding scale insulin and pattern of blood sugar, diabetic diet. I do believe this is related to steroids. I have placed this patient on Lantus 10 today. I will monitor. 7. Hypokalemia with hypomagnesemia, resolved. 8. Severe aortic stenosis, continue to monitor. He is not symptomatic at this moment. 9. 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 This patient seems to be stable. He is not having chest pain. Some shortness of breath. He is not having diarrhea or constipation. I have placed this patient on Lantus due to his increase of blood sugar, which is likely due to steroids. This patient was on Plavix, which has been stopped. We are planning to do a bronchoscopy/biopsy maybe in 1 or 2 days. Pulmonary Department on board. cc: Jason Steele MD MTDD
[2019-02-23] MEDS: CULTURELLE PO SCH (09:13)
[2019-02-23] MEDS: LANTUS INSULIN SUBQ SCH (09:13)
[2019-02-23] MEDS: MAXIPIME 2 GM in NS 100 ML IV SCH ×2 (09:13→21:29)
[2019-02-23] MEDS: ASPIRIN EC PO SCH (09:13)
[2019-02-23] MEDS: ZYLOPRIM PO SCH ×2 (09:13→21:29)
[2019-02-23] MEDS: PLETAL PO SCH ×2 (09:13→21:29)
--- NOTE | 2019-02-23 10:00 | INFECTIOUS DISEASE PROGRESS NO ---
DATE: 02/23/2019 HISTORY OF PRESENT ILLNESS: The patient has an Enterobacter bacteremia urinary tract infection. He may also have an Enterobacter pneumonia and possibly Enterobacter aortic valve endocarditis, both acquired from the Enterobacter bacteremia. Also a new finding is that the patient has an immunoglobulin deficiency. Specifically, his IgG is 394, which is quite low, and the IgA is normal at 197. MEDICATIONS: The patient is receiving cefepime 2 g IV every 12 hours. Day 1 of treatment will be the first day that the patient's repeat blood cultures are sterile. PHYSICAL EXAMINATION: Vital Signs: Temperature is 97.3 degrees, pulse 102, respirations 21, blood pressure 130/77. General: This is a somewhat ill-appearing elderly male. He is in no acute distress. Head, eyes, ears, nose, and throat: Can hear my spoken words and see near objects. He does not have any white coating of his tongue. Neck: No pain with movement. Lungs: Clear to auscultation. Cardiovascular: Heart rate is regular. Abdomen: Soft and nontender. Genitalia: There is no erythema or swelling of the penis or scrotum. Neurologic: The patient is alert. He is able to ambulate. There is no tremor. LABS AND X-RAY: CBC shows a white count of 10,820, hemoglobin 10, platelet count 224,000. Creatinine is 0.7. GFR is greater than 60. IgG is 394, IgA is 197. The Legionella and pneumococcal urinary antigens are negative. ASSESSMENT AND PLAN: I plan to continue with cefepime 2 g IV every 12 hours. Regarding the patient's immunoglobulin deficiency, I have ordered IVIG 20 g today and 20 g for tomorrow. The patient is going to have bronchoscopy with transbronchial biopsy to be performed by Dr. Duarte. I have ordered immunoglobulin 20 g today and [address] Nicholson plans on doing a transesophageal echocardiogram in a few days. COMORBIDITIES: The patient has a bladder problem in which he has to catheterize himself four times a day. He is elderly and he may have an underlying pulmonary disease such as cryptogenic organizing pneumonia/bronchiolitis obliterans which may be complicated now by an overlying Enterobacter pneumonia. I am going to order for the patient a procalcitonin level. cc: Aleks Link MD
[2019-02-23] MEDS: GAMUNEX-C 10% IV SCH (10:37)
--- NOTE | 2019-02-23 16:46 | CARDIOLOGY PROGRESS NOTE ---
DATE: 02/23/2019 SUBJECTIVE: The patient seems to be doing well. He has no complaints. He continues to be on a high rate of supplemental oxygen. OBJECTIVE: Vital Signs: Afebrile. His heart rates are in the low 100s to 110s predominantly. His blood pressure is 136/79. He continues on a non-rebreather. FiO2 is in the mid 90s predominantly. General: No acute distress. Cardiovascular: He sounds to be in a tachycardic but regular rhythm. He appears to be in sinus based on his recent telemetry. He has no lower extremity edema. He has a 2/6 systolic murmur at the right upper sternal border. Chest: Has coarse breath sounds somewhat diffusely. Somewhat distant breath sounds. No increased work of breathing. Abdomen: Soft, nontender. PERTINENT DATA: His white count is 10.8, his hematocrit is 31, platelet count 224,000. He has a left shift with no bands. Sodium 140, potassium 3.6, BUN 16, creatinine 0.7. ASSESSMENT: Mr. Yang is a 68-year-old gentleman who is here with multiple pulmonary issues including bilateral pneumonia. He is tentatively planned for a bronchoscopy tomorrow. PLAN: We will likely consider transesophageal echo after he has bronchoscopy, possibly Saturday or , to assess his aortic valve. Certainly his respiratory status presently is a little bit concerning. If he makes it through the bronchoscopy okay from a respiratory standpoint, then he should be a reasonable transesophageal echo candidate. cc: Ezequiel Nicholson MD
[2019-02-23] MEDS ORDERED: LASIX IV ONE (18:34)
--- NOTE | 2019-02-23 20:53 | PULMONOLOGY PROGRESS NOTE ---
DATE: 02/23/2019 SUBJECTIVE: The patient reports he feels a little better. He is having a cough productive of clear secretions. He is without new complaints. OBJECTIVE: Vital Signs: The patient has been afebrile for the last 24 hours. Blood pressure 151/86, heart rate 94, respiratory rate 19, oxygen saturation 100% on Venturi mask. HEENT: Pupils are equal and reactive. Oropharynx is clear. Chest: Reveals crackles bilaterally. Abdomen: Soft. Extremities: Without edema. IMAGING: Chest x-ray reveals continued bilateral dense infiltrates with plus or minus improvement. MICROBIOLOGY: Preliminary sputum: Sparse growth. LABORATORY DATA: Immunoglobulin levels are extremely low at 394. IMPRESSION: A 68-year-old with: 1. Bilateral pneumonia which has not resolved despite antibiotics and steroids. 2. Aortic stenosis. 3. Acute hypoxemic respiratory failure. 4. Urinary tract infection. 5. Bacteremia. 6. Immunoglobulin deficiency. PLAN: 1. We will pursue bronchoscopy with transbronchial biopsies tomorrow. The risks for the bronchoscopy will include bleeding, infection and pneumothorax. The patient is aware. 2. Agree with immunoglobulin replacement per Infectious Disease. 3. Continue steroids. cc: Dereck Duarte MD
[2019-02-23] MEDS: LIPITOR PO SCH (21:29)
[2019-02-24] MEDS: XOPENEX NEB INH SCH ×6 (03:46→23:10)
[2019-02-24 05:32] LABS: BASO# 0.01 X1000 (0.0-0.2); BASO% 0.1 % (0.0-0.8); EOS# 0.01 X1000 (0.0-0.7); EOS% 0.1 % (0.0-10.0); HEMATOCRIT 32.2 % (42.0-52.0); HEMOGLOBIN 10.4 g/dL (14.0-18.0); IMM GRAN# 0.05 X1000 (0.0-0.04); IMM GRAN% 0.4 % (0.0-0.5); LYMPH# 0.61 X1000 (1.2-3.4); LYMPH% 5.2 % (20.5-51.1); MCH 29.1 PG (27-31); MCHC 32.3 g/dL (33-37); MCV 89.9 FL (81-99); MONO# 0.32 X1000 (0.11-0.59); MONO% 2.7 % (1.7-9.3); MPV 10.7 FL (7.4-10.4); NEUT# 10.74 X1000 (1.4-6.5); NEUT% 91.5 % (42.2-75.2); PLT 228 X1000 (130-400); RBC 3.58 XMIL (4.7-6.1); RDW 14.9 % (11.5-14.5); WBC 11.74 X1000 (4.8-10.8)
[2019-02-24 05:43] LABS: AGAP 8; BUN 18 mg/dL (8-22); CALCIUM 8.1 mg/dL (8.8-10.2); CHLORIDE 95 mmol/L (98-107); COSMO 282; CREATININE 0.7 mg/dL (0.7-1.2); ESTIMATED GFR > 60; GLUCOSE 116 mg/dL (70-104); MAGNESIUM 1.8 mg/dL (1.5-2.7); POTASSIUM 3.6 mmol/L (3.5-5.1); SODIUM 140 mmol/L (136-145); TCO2 37 mmol/L (25-35)
[2019-02-24] MEDS: HUMULIN R SUBQ SCH ×4 (06:04→21:13)
[2019-02-24] MEDS ORDERED: XYLOCAINE-MPF 2% ONE (06:45)
[2019-02-24] MEDS ORDERED: ROBINUL ONE (06:45)
[2019-02-24] MEDS ORDERED: DIPRIVAN 1% ONE ×2 (06:46→06:47)
[2019-02-24] MEDS ORDERED: FENTANYL ONE (06:46)
[2019-02-24] MEDS ORDERED: SODIUM CHLORIDE 0.9% 20 ML ONE ×2 (07:21→07:41)
[2019-02-24] MEDS ORDERED: XYLOCAINE 2% VISCOUS ONE (07:21)
[2019-02-24] MEDS ORDERED: EPINEPHRINE ONE (07:21)
[2019-02-24] MEDS ORDERED: XYLOCAINE 2% ONE ×2 (07:21→08:20)
[2019-02-24] MEDS ORDERED: NEO-SYNEPHRINE ONE (07:41)
[2019-02-24] MEDS: GAMUNEX-C 10% IV SCH (10:26)
[2019-02-24] MEDS: MAXIPIME 2 GM in NS 100 ML IV SCH ×2 (10:26→21:13)
[2019-02-24] MEDS: LANTUS INSULIN SUBQ SCH (10:26)
[2019-02-24] MEDS: SOLU-MEDROL IV SCH ×2 (10:26→16:52)
--- NOTE | 2019-02-24 10:35 | Diag Imaging Result Doc PS360 ---
CHEST-PORTABLE - 02/24/2019 INDICATION: abnormal exam COMPARISON: 02/23/2019 FINDINGS: There are stable dense bilateral alveolar infiltrates. This is mainly in the right upper lobe and lingula. No new infiltrates. No pneumothorax or pleural effusion. Heart size and pulmonary vascular is normal. IMPRESSION: No change from multiple prior exams. Electronically signed by Jairo Hammonds 02/24/2019 10:33 AM
--- NOTE | 2019-02-24 11:55 | INFECTIOUS DISEASE PROGRESS NO ---
DATE: 02/24/2019 PRESENT ILLNESS: The patient has the following illnesses: He has an Enterobacter bacteremia and an Enterobacter urinary tract infection. He has a pneumonia which may be due to hematogenous seeding of the lung from the patient's Enterobacter bacteremia. Also, I am concerned that he may have an Enterobacter aortic valve endocarditis. The patient also has an immunoglobulin deficiency, namely his IgG is 394. MEDICATIONS: The patient is on IV cefepime 2 g every 12 hours. Day 1 of treatment will be the first day that the patient's repeat blood cultures are sterile. The patient had an infusion of IVIG yesterday and is scheduled to have one today. PHYSICAL EXAMINATION: Vital Signs: Temperature is 98.1 degrees, pulse 98, respirations 19, blood pressure is 124/74. General: This is an ill-appearing, elderly male. He is in no acute distress. Head, Eyes, Ears, Nose, and Throat: He can hear my spoken words and see near objects. He does not have any white patches on his tongue. Neck: He does not have any pain when he moves his neck. Lungs: Clear to auscultation. Cardiovascular: Heart rate is regular. There is a systolic murmur. Abdomen: Soft and nontender. Neurologic: The patient is alert. He is able to walk in his room. He does not have a tremor. LAB AND X-RAY: CBC today shows a white count of 11,740, hemoglobin 10.4, and platelet count 228,000. Creatinine is 0.7. GFR is greater than 60. The patient's repeat blood cultures are pending. The patient has a procalcitonin level that was 0.38 which means pneumonia is likely. ASSESSMENT AND PLAN: The patient has an Enterobacter bacteremia and pneumonia. I plan to continue with cefepime. I am concerned that he could have endocarditis. The patient has an immunoglobulin deficiency. He received one dose of IVIG yesterday and is scheduled to get one today. The patient is scheduled today to have a transbronchial biopsy performed by Dr. Duarte. Dr. Nicholson will be doing a transesophageal echocardiogram, hopefully in a few days. COMORBIDITIES: The patient has a bladder problem which has caused him to catheterize himself four times a day. He may have an underlying pulmonary disease such as cryptogenic organizing pneumonia/bronchiolitis obliterans. He also has an immunoglobulin deficiency. cc: Aleks Link MD
[2019-02-24] MEDS: PLETAL PO SCH ×2 (12:01→21:13)
[2019-02-24] MEDS: ZYLOPRIM PO SCH ×2 (12:01→21:14)
[2019-02-24] MEDS: CULTURELLE PO SCH (12:01)
--- NOTE | 2019-02-24 14:20 | OPERATIVE NOTE ---
PROCEDURE DATE: 02/24/2019 PROCEDURE PERFORMED: Bronchoscopy with: 1. Washing of the trachea. 2. Lavage of the lingula. 3. Lavage of the right upper lobe. 4. Transbronchial biopsies of the posterior segment of the right upper lobe. 5. Transbronchial biopsies of the anterior segment of the right upper lobe. CLINICAL INDICATIONS: A 68-year-old with recurrent hypoxemia and persistent consolidation/pneumonia in the right upper lobe and lingula with patchy infiltrates bilaterally. DESCRIPTION OF PROCEDURE: The risks of the procedure were discussed with the patient at length. He was aware of the possibility of bleeding, infection, and pneumothorax. Prior to the procedure, a time-out was performed. The patient was identified. Equipment was checked, and all agree with the indications for the procedure. Topical anesthesia was achieved with nebulized lidocaine with viscous lidocaine to the right nostril. Monitored anesthesia care was provided by the anesthesia group. When topical anesthesia and monitored anesthesia/sedation were achieved, bronchoscope was advanced through a specially designed face mask with a hole and then traversed the right nostril to the level of the vocal cords. The vocal cords were visualized and had normal movement. The bronchoscope was advanced into the trachea. Tracheal secretions were clear. Airways to the right upper lobe, right middle lobe, right upper lobe, left upper lobe, lingula, and left lower lobe were all patent and without lesions. There was mucosal pitting consistent with chronic bronchitis, but all the airways were clear. The bronchoscope was directed to the lingula segment and wedged into position. A bronchoalveolar lavage was performed with approximately 120 mL of saline which was instilled in 10 mL aliquots. There was adequate return. The bronchoscope was retracted, and residual affluent was suctioned into the container. The bronchoscope was directed to the posterior segment of the right upper lobe and wedged into position. The bronchoalveolar lavage procedure was repeated. The patient did have periodic transient hypoxemia with oxygen saturations dropping into the 84% range. The patient would be allowed to recover until he would reach 89% to 90%, and the procedure would progress. The bronchoscope was directed to the posterior segment of the right upper lobe. Topical epinephrine was used as a premedication prior to transbronchial biopsies. Under fluoroscopy, 6 to 8 transbronchial biopsies were performed. There was minor bleeding, and additional epinephrine was utilized. Specimen container was closed, and bronchoscope was directed to the anterior segment of the right upper lobe. Five additional transbronchial biopsies were taken from the anterior segment of the right upper lobe with a premedication, and post biopsy epinephrine also utilized. Given the severity of his illness, patient did remarkably well during the procedure. At the completion of the procedure, the right apex was visualized under fluoroscopy. No pneumothorax was identified and a postprocedure chest x- ray has been ordered. PREOPERATIVE DIAGNOSIS: Persistent pneumonia. POSTOPERATIVE DIAGNOSIS: Persistent pneumonia. SPECIMENS: Removed during the procedure: 1. Tracheal wash. 2. Lavage of the lingula. 3. Lavage of the posterior segment of the right upper lobe. 4. Transbronchial biopsies from the posterior segment of the right upper lobe. 5. Transbronchial biopsies from the anterior segment of the right upper lobe. cc: Dereck Duarte MD
--- NOTE | 2019-02-24 14:50 | PROGRESS NOTE ---
DATE: 02/24/2019 SUBJECTIVE: Patient reports feeling fine, a little bit short of breath but he is fine whenever he is at rest. According to nursing staff, every time the patient talks too much, his oxygen saturation decreases and he is on Ventimask of 12 L/min, his O2 saturation is barely above 90%. OBJECTIVE: Vital Signs: Temperature 97.8 degrees, heart rate 93, respiratory rate 18, blood pressure 153/82, O2 saturation 92% on Venturi mask at 12 L/min. General Examination: This is a chronically ill-appearing 68-year-old male, lying in bed, in no acute distress. Cardiovascular: S1, S2 heard. No murmurs, gallops, or rubs. Regular rate and rhythm. Respiratory: Decreased breath sounds globally with rhonchi and crepitus noted in both pulmonary bases. Patient not using any accessory muscles or having work of breathing. Abdomen: Soft. Nontender to palpation. Bowel sounds present. No organomegaly. Extremities: No clubbing or cyanosis. Mild edema in both lower extremities. Neurological: Patient alert oriented x3. Moves 4 extremities. LABORATORY DATA: White blood cell count 11.74, hemoglobin 10.4, hematocrit 32.2, platelets 228,000. BMP is okay with glucose 116. ASSESSMENT AND PLAN: 1. Acute on chronic hypoxemic respiratory failure. Unfortunately, this patient, even though he is feeling fine, continues to require a high amount of oxygen. Now, he is not using any rebreathing mask but using Ventimask, and with 12 to 15 L, he is just barely able to have O2 saturation of 90 to 92. It has been decided to do a bronchoscopy today. He already had that procedure done. We will see what that exam shows. We will follow recommendations from Pulmonology. 2. Bilateral pneumonia versus cryptogenic organizing pneumonia. Patient is on cefepime 2 g IV q.12 h., day #[address] Link is directing antibiotics in this patient. 3. Enterobacter cloacae. There was a recommendation to do a LEONIE, I think Cardiology mentioned, according to the patient, that procedure can be done tomorrow if the patient tolerates the first procedure the bronchoscopy. We will inform the nurse about it. 4. Hypokalemia, resolved. 5. Severe aortic stenosis. We will continue to monitor. The patient is not symptomatic at this time. DISPOSITION: We will follow with Pulmonary and Infectious Disease. cc: Dejon Dominguez MD
[2019-02-24] MEDS: LIPITOR PO SCH (21:13)
--- NOTE | 2019-02-24 21:49 | CARDIOLOGY PROGRESS NOTE ---
DATE: 02/24/2019 SUBJECTIVE: Patient underwent his bronchoscopy today without much difficulty. OBJECTIVE: Vital Signs: Afebrile. His heart rate is in the 90s to 110s. His blood pressure is 134/77. His O2 saturation appears to be predominantly in the low-to-mid 90s on a face mask. General: No acute distress. Cardiovascular: He sounds to be in a tachycardic and regular rhythm consistent with sinus tachycardia on his monitor. He has no lower extremity edema. Chest: Exam has coarse breath sounds somewhat diffusely. No increased work of breathing. Abdomen: Soft, nontender. PERTINENT DATA: White count 11.7. His hematocrit is 32. His platelet count is 228,000. His sodium is 140. Potassium 3.6. BUN 18. Creatinine 0.7. ASSESSMENT: Mr. Yang is a 68-year-old gentleman who has bilateral chest infiltrates concerning for possible pneumonia. He also has aortic valve disease concerning for severe aortic stenosis and possibly a component of endocarditis. PLAN: We will tentatively plan for LEONIE on . I have discussed case with Dr. Duarte. We will proceed cautiously. cc: Ezequiel Nicholson MD
[2019-02-25] MEDS: SOLU-MEDROL IV SCH ×2 (01:32→08:44)
[2019-02-25] MEDS: XOPENEX NEB INH SCH ×6 (03:15→23:26)
[2019-02-25 06:07] LABS: BASO# 0.01 X1000 (0.0-0.2); BASO% 0.1 % (0.0-0.8); HEMATOCRIT 32.9 % (42.0-52.0); HEMOGLOBIN 10.4 g/dL (14.0-18.0); IMM GRAN# 0.03 X1000 (0.0-0.04); IMM GRAN% 0.3 % (0.0-0.5); LYMPH# 0.44 X1000 (1.2-3.4); LYMPH% 4.7 % (20.5-51.1); MCHC 31.6 g/dL (33-37); MCV 91.6 FL (81-99); MONO% 3.2 % (1.7-9.3); MPV 10.8 FL (7.4-10.4); NEUT# 8.67 X1000 (1.4-6.5); NEUT% 91.7 % (42.2-75.2); PLT 209 X1000 (130-400); RBC 3.59 XMIL (4.7-6.1); RDW 15.2 % (11.5-14.5); WBC 9.45 X1000 (4.8-10.8)
[2019-02-25] MEDS: HUMULIN R SUBQ SCH ×4 (06:42→21:01)
[2019-02-25 06:43] LABS: AGAP 8; BUN 18 mg/dL (8-22); CALCIUM 7.9 mg/dL (8.8-10.2); CHLORIDE 96 mmol/L (98-107); COSMO 284; CREATININE 0.6 mg/dL (0.7-1.2); ESTIMATED GFR > 60; GLUCOSE 184 mg/dL (70-104); MAGNESIUM 1.7 mg/dL (1.5-2.7); POTASSIUM 4.2 mmol/L (3.5-5.1); SODIUM 139 mmol/L (136-145); TCO2 35 mmol/L (25-35)
[2019-02-25 06:49] LABS: LYMPHS 6 % (21-51); SEGS 90 % (42-75)
[2019-02-25] MEDS: ZYLOPRIM PO SCH ×2 (08:44→20:57)
[2019-02-25] MEDS: MAXIPIME 2 GM in NS 100 ML IV SCH ×2 (08:44→20:57)
[2019-02-25] MEDS: CULTURELLE PO SCH (08:44)
[2019-02-25] MEDS: PLETAL PO SCH ×2 (08:44→20:57)
[2019-02-25] MEDS: LANTUS INSULIN SUBQ SCH (08:44)
--- NOTE | 2019-02-25 09:39 | INFECTIOUS DISEASE PROGRESS NO ---
DATE: 02/25/2019 PRESENT ILLNESS: The patient has an Enterobacter bacteremia and urinary tract infection. He has bilateral pulmonary infiltrates. However, his procalcitonin came back and it was 0.19, which means that it is unlikely that the patient has a bacterial pneumonia. The patient also may have Enterobacter aortic valve endocarditis. 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 Yesterday the patient had bronchoscopy with transbronchial biopsy. MEDICATIONS: The patient is on cefepime 2 g IV every 12 hours. Day #1 of treatment will be the first day that the repeat blood cultures are sterile. Today will be the 48 hour reading and if it is negative, then this will be day 2 treatment with cefepime for his bacteremia. The patient also has received infusion of IVIG over a 2 day period. PHYSICAL EXAMINATION: Vital Signs: Temperature is 98.2 degrees, pulse 101, respirations 19, blood pressure 123/69. General: This is an ill-appearing elderly male. He is in no acute distress. Head/eyes/ears/nose/throat: He can hear my spoken words and see near objects. He does not have any white coating of his tongue. Neck: He does not have any pain when he moves his neck. Lungs: Clear to auscultation. Cardiovascular: Heart rate is regular. The patient does have a systolic murmur. Abdomen: Soft and nontender. Neurologic: The patient is alert. He can move his extremities. There is no tremor. LAB AND X-RAY: The patient's CBC shows that the white count has become normal. It is 9450, hemoglobin is 10.4, and platelet count is 209,000. Creatinine is 0.7, GFR is greater than 60. As mentioned above, the patient's procalcitonin is 0.19, which means that it is unlikely he that he has a bacterial pneumonia. Chest x-ray has bilateral infiltrates, all the Gram stains done on the bronchial washing show white cells, but no organisms. ASSESSMENT AND PLAN: The patient has an Enterobacter bacteremia and urinary tract infection. It is unlikely that the patient has an Enterobacter pneumonia. Assuming that today's blood cultures remain negative then this will be day 2 of treatment with cefepime. As regarding the patient's pulmonary process, the cultures from bronchoscopy and the lung biopsy from bronchoscopy are pending. As regarding the patient's immunoglobulin deficiency, he has had 2 infusions of IVIG, so his immunoglobulin level should be normal. My plan will be in approximately 6 weeks, repeat the immunoglobulin levels and if the IgG has become low despite getting immunoglobulin infusions, then I think the patient will be a good candidate to get monthly immunoglobulin infusions. COMORBIDITIES: The patient has a bladder problem such that he has to catheterize himself four times a day to make sure his bladder is emptying. Also, he may have an underlying pulmonary process that is noninfectious in nature. 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 cc: Aleks Link MD
--- NOTE | 2019-02-25 10:27 | PROGRESS NOTE ---
DATE: 02/25/2019 SUBJECTIVE: Patient reports breathing fine. He is using right now a high-flow nasal cannula. He reported he tolerated the procedure, in this case, bronchoscopy very well. OBJECTIVE: Vital Signs: Temperature 98.2 degrees, heart rate 92, respiratory rate 16, blood pressure 155/77, O2 saturation 96% on high-flow nasal cannula 30 L/minute. General: This is a chronically ill-appearing, 68-year-old male, lying in bed, in no acute distress. Cardiovascular: S1, S2 heard. Systolic murmur in the aortic area radiating to the neck. Respiratory: Decreased breath sounds globally with rhonchi, some crepitus noted in both pulmonary bases. Patient is not using any accessory muscles or having work of breathing. Abdomen: Soft, nontender to palpation. Bowel sounds present. No organomegaly. Extremities: No clubbing cyanosis mild edema in both lower extremities. Neurological: Patient alert oriented x3. Moves 4 extremities. LABORATORY DATA: White cell count 9.45, hemoglobin 10.4, hematocrit 32.9, platelets 209,000 with a BMP that shows creatinine 0.6, glucose 184, calcium 7.9. ASSESSMENT AND PLAN: 1. Acute on chronic hypoxemic respiratory failure. Because of persistent pneumonia despite treatment with broad-spectrum antibiotics and steroids the patient remains having in imaging persistent pneumonia with bilateral infiltrates. That is why Dr. Duarte decided to do a bronchoscopy. It showed basically chronic bronchitis and samples, 4 biopsies were taking. At this point, we will continue with antibiotics in this case cefepime as directed by Dr. Link. 2. Enterobacter cloacae bacteremia. Considering his severe aortic stenosis on this bacteremia it was recommended by Infectious Disease to perform a transesophageal echo. I think because this patient has tolerated bronchoscopy well cardiology is planning to that exam tomorrow morning. We will see what it shows. 3. IgG deficiency patient is being repleted with IgG as per Dr. Link recommendation. 4. Hypokalemia, resolved. 5. Severe aortic stenosis. The patient now is stable we will continue to monitor. We will do transesophageal echocardiogram tomorrow. DISPOSITION: Of course because of his high oxygen needs, I prefer to keep him in the [facility] unit. cc: Dejon Dominguez MD
[2019-02-25] MEDS: PREDNISONE PO SCH (14:07)
--- NOTE | 2019-02-25 18:15 | PULMONOLOGY PROGRESS NOTE ---
DATE: 02/25/2019 SUBJECTIVE: The patient is awake and alert. He is tolerating p.o. intake. He continues to remain on non-rebreather oxygen. OBJECTIVE: Vital signs: Blood pressure 154/82, heart rate 115, respiratory rate 18. HEENT: Pupils are equal and reactive. Oropharynx appears clear. Neck: Supple. Chest: Reveals crackles bilaterally. Cardiac exam: S1, S2. Abdomen: Soft. Extremities: Without edema. LABORATORIES: Brushing of the lingula reveals normal rommel. Washing of the right upper lobe reveals normal rommel. A 2nd washing of the lingula is requiring more incubation. 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 IMPRESSIONS: 1. This is a 68-year-old with bilateral consolidation. 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 The lingular segment looks consolidated just like the right upper lobe and I suspect that this represents the same pathology. 2. Aortic stenosis, suspicious for being severe. 3. Hypoxemic respiratory failure. 4. Urinary tract infection. 5. Bacteremia with immunoglobulin deficiency. DISCUSSION: Unfortunate, 68-year-old male with problems outlined above. He has what appears to be bilateral lung cancer, immunoglobulin deficiency, probable severe aortic stenosis with severe hypoxemic respiratory failure. His prognosis appears to be poor. I will ask Oncology to evaluate Mr. Yang, but I suspect his treatment options will be limited. RECOMMENDATIONS: 1. Continue oxygen. 2. Continue antibiotics per Infectious Disease. 3. Possible LEONIE, although he is not likely to be a surgical candidate now that he has lung cancer. 4. Transition IV steroids to oral steroids and taper as tolerated. cc: Dereck Duarte MD
--- NOTE | 2019-02-25 20:01 | CARDIOLOGY PROGRESS NOTE ---
DATE: 02/25/2019 SUBJECTIVE: Mr. Yang continues on relatively high levels of oxygen. 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 OBJECTIVE: The patient is afebrile. His heart rates are in the 90s to 110s. His blood pressure is 154/82. O2 saturation continues to be in the high 80s to low 90s on relatively high-flow oxygen. Generally, no acute distress.Cardiovascular: He is in a tachycardic and regular rhythm. It appears to be sinus tachycardia presently. He has no lower extremity edema. His chest exam has coarse breath sounds somewhat diffusely. No increased work of breathing. Abdomen is soft, nontender. LABORATORY DATA: Pertinent data, labs were reviewed. ASSESSMENT: Mr. 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 PLAN: At this point we will hold off doing the transesophageal echocardiogram. I do not believe that his pulmonary status at present will be improved by further treatment of his aortic stenosis. He has had a negative fluid balance this hospitalization, and has had little to no improvement in his oxygenation. We will continue to follow. cc: Ezequiel Nicholson MD
[2019-02-25] MEDS: LIPITOR PO SCH (20:57)
--- NOTE | 2019-02-25 22:26 | HEMO/ONC CONSULTATION ---
DATE: 02/25/2019 CHIEF COMPLAINT: We are being consulted to evaluate the patient for bronchoalveolar carcinoma. HISTORY OF PRESENT ILLNESS: Mr. Yang is a 68-year-old male who has had multiple extended admissions for recurrent pneumonias requiring steroids and antibiotics.Last week he began having increased shortness of breath and came to the ER. He was admitted as possible sepsis and respiratory failure and placed on BiPap. The patient has known severe aortic stenosis and was diuresed for possible diastolic congestive heart failure. 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 PAST MEDICAL HISTORY: 1. Recent and multiple admissions for recurrent pneumonia. 2. Known coronary artery disease status post CABG. 3. Severe aortic stenosis. 4. Prolonged antibiotic and steroid course over the past few weeks. 5. History of PAD. 6. Hypertension. 7. Hyperlipidemia. 8. History of prostate cancer. PAST SURGICAL HISTORY: He has had a CABG, right carotid endarterectomy, appendectomy. SOCIAL HISTORY: He quit smoking a long time ago. Drinks socially. Denies drug use. FAMILY HISTORY: Significant for diabetes and lung cancer. MEDICATIONS: Allopurinol, Ecotrin, Lipitor, metoprolol tartrate, Norvasc, Plavix, Pletal, colchicine, prednisone, albuterol. REVIEW OF SYSTEMS: Negative except per HPI. PHYSICAL EXAMINATION: General: No acute distress. Cardiovascular: S1, S2 noted, tachycardic, regular rhythm. Respiratory: Coarse breath sounds diffusely. No increased work of breathing. Abdomen: Soft, nontender. Vital signs: Temperature 99.5 degrees, heart rate 126, respiratory rate 20, blood pressure 157/99. He is 93% on non-rebreather mask. He denies pain. LABORATORY DATA: White blood cells 9.45, hemoglobin 10.4, hematocrit 32.9, platelet count 209,000. Creatinine 0.6, calcium 7.9. Chest x-ray shows stable dense bilateral alveolar infiltrates. ASSESSMENT AND PLAN: 1. Acute on chronic hypoxemic respiratory failure: Remain on steroids. On high oxygen requirements. Continue antibiotics per Dr. Link and Dr. Duarte. 2. IgG deficiency: Continue with IgG replacement per Dr. Link. 3. Severe aortic stenosis: Follow recommendations of Cardiology. 4. Bronchoalveolar carcinoma: Patient wants chemotherapy and request to be aggressive with therapy. Will discuss with Cardiology and Dr Duarte and will plan accordingly. Dictated by RIO Myers for Tyree Hurst MD cc: Tyree Hurst MD [facility]
[2019-02-26] MEDS: XOPENEX NEB INH SCH ×6 (04:46→23:30)
[2019-02-26] MEDS: HUMULIN R SUBQ SCH ×4 (06:05→23:09)
[2019-02-26] MEDS: MAXIPIME 2 GM in NS 100 ML IV SCH ×2 (08:08→21:25)
[2019-02-26] MEDS: LANTUS INSULIN SUBQ SCH (08:10)
[2019-02-26] MEDS: ZYLOPRIM PO SCH ×2 (08:10→21:26)
[2019-02-26] MEDS: PLETAL PO SCH ×2 (08:10→21:25)
[2019-02-26] MEDS: PREDNISONE PO SCH (08:11)
[2019-02-26] MEDS: CULTURELLE PO SCH (08:11)
[2019-02-26] MEDS ORDERED: CYANOCOBALAMIN IM ONE ×2 (08:59→15:00)
[2019-02-26] MEDS ORDERED: FOLIC ACID PO ONE ×2 (09:00→15:00)
--- NOTE | 2019-02-26 09:08 | PROGRESS NOTE ---
DATE: 02/26/2019 SUBJECTIVE: The patient reports breathing fine. Dr. Duarte from Pulmonary talked to this patient because apparently we have found out in the biopsies from bronchoscopy yesterday lung adenocarcinoma with bronchoalveolar features. OBJECTIVE: Vital signs: Temperature 97.5, heart rate 111, respiratory rate 22, blood pressure 136/89, O2 saturation 92% on nonrebreather mask. General examination: This is a chronically ill- appearing 68-year-old male lying in bed in no acute distress. Cardiovascular exam: S1, S2 heard. Systolic murmur in the aortic area radiating to the neck. Respiratory: Decreased breath sounds globally with rhonchi, some crepitus noted in both pulmonary bases. Patient is not using any accessory muscles or having work of breathing. Abdomen: Soft, nontender to palpation. Bowel sounds present. No organomegaly. Extremities: No clubbing, cyanosis, or edema. Peripheral pulses present in both legs. Neurological: Patient is alert, oriented x3. Moves 4 extremities. LABORATORY DATA: There are no labs from today. ASSESSMENT AND PLAN: 1. [id number] hypoxemic respiratory failure. Because of persistent pneumonia despite treatment with antibiotics and steroids, bronchoscopy was performed which basically showed in biopsies lung adenocarcinoma with bronchoalveolar features. In that regard, Dr. Hurst from Oncology has been consulted. Will follow recommendation. He continues of course to require high amounts of oxygen as well. 2. Enterobacter cloacae bacteremia. Initially, this patient was scheduled to do a LEONIE. After we found out that this patient had lung cancer, that procedure was canceled. I have talked with Dr. Link about this patient. The patient wanted to start chemotherapy and in order to do that we need to rule out any infection in the aortic valve so this LEONIE is still needed, so we are going to talk with Cardiology and see what we can do for this patient when we can perform this procedure. That will definitely change the length of treatment because it just is Enterobacter bacteremia, the patient will receive 2 weeks of antibiotics but if we confirm the infection in the aortic valve, the patient will receive 6 weeks of antibiotics. 3. IgG deficiency. The patient is being replenished IgG as per Dr. Link' recommendation. 4. Hypokalemia, resolved. 5. Severe aortic stenosis, stable. DISPOSITION: At this point, we are following leads from Pulmonary, Oncology, and we will see if we can rearrange LEONIE on this patient. cc: Dejon Dominguez MD
[2019-02-26] MEDS: IMODIUM PO PRN (09:47)
--- NOTE | 2019-02-26 10:28 | EKG Report ---
Test Performed on : 02/26/2019 09:50:56 AM Test Reason : Chest pain Blood Pressure : / mmHG Vent. Rate : 136 BPM Atrial Rate : 136 BPM P-R Int : 120 ms QRS Dur : 126 ms QT Int : 300 ms P-R-T Axes : 047 -68 049 degrees QTc Int : 451 ms Sinus tachycardia. Left axis deviation Right bundle branch block Minimal voltage criteria for LVH, may be normal variant Inferior infarct (cited on or before 29-MAY-2015) Abnormal ECG When compared with ECG of 20-FEB-2019 09:44, premature atrial complexes. are no longer present Questionable change in initial forces of Inferior leads Confirmed by Giorgio BERMUDEZ, Fidencio Byrd ([id number]) on 02/26/2019 11:40:05 AM
--- NOTE | 2019-02-26 12:31 | INFECTIOUS DISEASE PROGRESS NO ---
DATE: 02/26/2019 PRESENT ILLNESS: The patient is being treated for an Enterobacter urinary tract infection and an associated bacteremia. He also has pulmonary infiltrates, and unfortunately on biopsy, was found to have bilateral lung cancer. MEDICATIONS: The patient is on cefepime. Day 1 of treatment will be the first day that the repeat blood cultures are sterile. The patient has already received an IVIG infusion for his low IgG number. PHYSICAL EXAMINATION: Vital Signs: Temperature is 97.5 degrees, pulse 111, respirations 22, blood pressure 136/89. General: This is an ill-appearing elderly male. He is in no acute distress. HEENT: He can hear my spoken words and see near objects. He does not have any white coating on his tongue. Neck: He does not have any pain when he moves his neck. Lungs: Clear to auscultation. Cardiovascular: Heart rate is regular. He does have a systolic murmur. Abdomen: Soft and nontender. Extremities: The patient has leg edema. There is no erythema. Neurologic: The patient is alert. He ambulates without difficulty. DIAGNOSTIC STUDIES: Unfortunately, the patient's lung biopsy does show lung cancer. The patient does not have any lab work back for today, and also there is no radiologic study scheduled for today. ASSESSMENT AND PLAN: The patient has Enterobacter bacteremia and urinary tract infection. There is a consideration that he could have endocarditis in view of the fact that he has a bacteremia and a systolic murmur. I have talked with the patient, and I told him that I think we should go ahead with a transesophageal echocardiogram because it would influence how long we treat him for his infection. If he does not have endocarditis, then he will be treated for 2 weeks, but if he does have endocarditis, he will be treated for 6 weeks. The patient has also told me that he is going to pursue treatment for his lung cancer, especially chemotherapy, and therefore, it would be useful to do the LEONIE to know how long we will need to keep treating him with cefepime. The big reason would be that chemotherapy probably will not be started until all the infections have cleared, and if the patient has endocarditis, he will need 6 weeks of treatment. The patient, as mentioned above, has immunoglobulin infusions, so he will not need another infusion very soon. COMORBIDITIES: The patient has bladder problems and says that he has to catheterize himself 4 times a day. He also has lung cancer that is recently just diagnosed. The patient also has an immunoglobulin deficiency. cc: Aleks Link MD [facility]
[2019-02-26] MEDS: XOPENEX NEB INH PRN (17:50)
[2019-02-26] MEDS: LIPITOR PO SCH (21:26)
--- NOTE | 2019-02-26 21:49 | HEMO/ONC PROGRESS NOTE ---
DATE: 02/26/2019 SUBJECTIVE: The patient is awake and alert, sitting in a chair. He is tolerating p.o. intake well. He continues to be on nonrebreather oxygen, high-flow oxygen. OBJECTIVE: Vital Signs: Temperature 97.6 degrees, pulse rate 117, respiratory rate 20, blood pressure 126/79. He is 97% on 15 L via non-rebreather. He denies pain. General: The patient appears ill, but in no acute distress. HEENT: Pupils are equal and reactive. Respiratory: Crackles bilaterally. Cardiac Exam: S1, S2. Tachycardic. Abdomen: Soft, nontender, nondistended. Extremities: Without edema. Able to move all 4 extremities. LABORATORY: No labs ordered today. His blood sugar is running high today at 300. ASSESSMENT AND PLAN: 1. Acute on chronic hypoxemic respiratory failure: Patient to remain on steroids and cefepime per Dr. Link and Dr. Duarte. Management per Dr. Duarte. 2. IgG deficiency: Continue with IgG replacement as per Dr. Link. 3. Severe aortic stenosis: Follow recommendations per Cardiology. 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 Duarte. Tentatively, will begin treatment with chemotherapy next week. Patient requesting to be aggressive with treatment. This plan of care was discussed with Dr. Hurst. Dictated by RIO Myers for Tyree Hurst MD cc: Tyree Hurst MD [facility]
--- NOTE | 2019-02-26 23:59 | CARDIOLOGY PROGRESS NOTE ---
DATE: 02/26/2019 SUBJECTIVE: He continues to be short of breath on a high level of oxygen. He has no pain complaints. PHYSICAL EXAMINATION: Vital Signs: He is afebrile. His heart rates are in the 100s to 110s predominantly. Blood pressure 127/83. O2 saturations predominantly in the low to mid 90s. General: No acute distress. Cardiovascular: He sounds to be in a tachycardic and regular rhythm. He has no murmurs. He has no S3. He has no lower extremity edema. Chest: Coarse breath sounds somewhat diffusely. No increased work of breathing. Abdomen: Soft, nontender. PERTINENT DATA: The bronchial washing culture from the shows gram-negative rods. He had an EKG performed this morning, demonstrating what appears to be sinus tachycardia with a right bundle branch block. No new CBC or chemistry data from today. ASSESSMENT: Mr. Yang is a 68-year-old gentleman with bilateral lung malignancies. PLAN: He likely has a pulmonary infectious process in addition to his lung malignancies. He is maintained on antibiotics. He continues on antibiotics, and the decision at this time is between 2 weeks of antibiotics versus 6 weeks of antibiotics if he indeed does have endocarditis. At this point, performing a LEONIE tomorrow would not alter the antibiotic coverage as he has not yet reached the 2-week period. He continues to have a high oxygen requirement. I would plan on allowing him to convalesce over the weekend, and hopefully with continued antibiotics and hopefully improvement in his pulmonary infectious process, we can see a lower requirement for oxygen and then tentatively plan for a transesophageal echo next week. Presently, it does not seem that the transesophageal echo information will significantly alter his immediate course of care. He does appear to have significant aortic stenosis based on transthoracic echoes. He is not a candidate for aortic valve replacement, considering his bilateral lung malignancies. Performing a transesophageal echo will not alter this as far as his aortic stenosis goes. cc: Ezequiel Nicholson MD
[2019-02-27] MEDS: XOPENEX NEB INH SCH ×5 (03:16→21:57)
[2019-02-27 05:43] LABS: EOS# 0.18 X1000 (0.0-0.7); EOS% 1.5 % (0.0-10.0); HEMATOCRIT 38.5 % (42.0-52.0); HEMOGLOBIN 11.9 g/dL (14.0-18.0); IMM GRAN# 0.06 X1000 (0.0-0.04); IMM GRAN% 0.5 % (0.0-0.5); LYMPH# 1.99 X1000 (1.2-3.4); LYMPH% 17.1 % (20.5-51.1); MCHC 30.9 g/dL (33-37); MCV 93.7 FL (81-99); MONO# 0.47 X1000 (0.11-0.59); NEUT# 8.97 X1000 (1.4-6.5); NEUT% 76.9 % (42.2-75.2); PLT 204 X1000 (130-400); RBC 4.11 XMIL (4.7-6.1); RDW 15.8 % (11.5-14.5); WBC 11.67 X1000 (4.8-10.8)
[2019-02-27] MEDS ORDERED: LASIX IV ONE (06:00)
[2019-02-27] MEDS: HUMULIN R SUBQ SCH ×4 (06:09→21:34)
[2019-02-27 06:19] LABS: MAGNESIUM 1.8 mg/dL (1.5-2.7); PHOSPHORUS 4.1 mg/dL (2.7-4.5)
[2019-02-27 06:21] LABS: AGAP 7; BUN 15 mg/dL (8-22); CALCIUM 8.5 mg/dL (8.8-10.2); CHLORIDE 102 mmol/L (98-107); COSMO 288; CREATININE 0.7 mg/dL (0.7-1.2); ESTIMATED GFR > 60; GLUCOSE 70 mg/dL (70-104); POTASSIUM 3.8 mmol/L (3.5-5.1); SODIUM 145 mmol/L (136-145); TCO2 36 mmol/L (25-35)
--- NOTE | 2019-02-27 06:30 | Diag Imaging Result Doc PS360 ---
CHEST-PORTABLE - 02/27/2019 INDICATION: abnormal exam COMPARISON: 02/24/2019 FINDINGS: There are stable dense bilateral infiltrates which have been biopsied and represent lung cancer. No new infiltrates. Heart size is normal. No pneumothorax or significant pleural effusion. IMPRESSION: No change from prior. Electronically signed by Jairo Hammonds 02/27/2019 6:27 AM
--- NOTE | 2019-02-27 08:04 | PULMONOLOGY PROGRESS NOTE ---
DATE: 02/26/2019 SUBJECTIVE: The patient is awake, alert, and conversant. He remains on non-rebreather. OBJECTIVE: HEENT: Pupils are equal and reactive. Oropharynx appears clear. Neck is supple. Chest: Bilateral crackles. Cardiac: S1-S2. ABDOMEN: Soft. Extremities: Trace to 1+ peripheral edema. LABORATORIES: Sputum culture from wash from the lingula is growing a gram-negative joon. No new chemistries or CBC. IMPRESSION: A 68-year-old white male with: 1. Bilateral consolidations with pathology from the right upper lobe consistent with adenocarcinoma with bronchioloalveolar features. 2. Aortic stenosis, suspect severe. 3. Hypoxemic respiratory failure, which has fluctuated in severity. 4. Gram-negative joon in bronchial wash. 5. Bacteremia with immunoglobulin deficiency. DISCUSSION: A 68-year-old with problems outlined above. The patient did successfully wean oxygen before his last discharge and current high oxygen requirements may be related to acute lung injury associated with immunoglobulin deficiency which led to bacteremia. Clinically, he appears to be improving but continues to require high oxygen concentrations. I have discussed the case with Dr. Hurst. I would continue to treat him with antibiotics in the hope that over the next 3 to 5 days, his oxygen requirements will decrease. RECOMMENDATION: 1. Continue oxygen. 2. Continue antibiotics per Infectious Disease. 3. Replace immunoglobulin levels if they decline less 600. 4. Continue oral steroids. 5. Maintain fluid balance between intake and output. 6. Overall prognosis is guarded to poor. cc: Dereck Duarte MD
[2019-02-27] MEDS: MAXIPIME 2 GM in NS 100 ML IV SCH ×2 (08:40→20:50)
[2019-02-27] MEDS: CULTURELLE PO SCH (08:41)
[2019-02-27] MEDS: PLETAL PO SCH ×2 (08:41→20:50)
[2019-02-27] MEDS: ZYLOPRIM PO SCH ×2 (08:41→20:51)
[2019-02-27] MEDS: PREDNISONE PO SCH (08:41)
[2019-02-27] MEDS: LANTUS INSULIN SUBQ SCH (08:41)
--- NOTE | 2019-02-27 10:41 | PROGRESS NOTE ---
DATE: 02/27/2019 SUBJECTIVE: The patient reports feeling some numbness in both hands. Denies any other complaint. OBJECTIVE: Vital Signs: Temperature 97.4 degrees, heart rate 105, respiratory rate 18, blood pressure 120/77, O2 saturation 92% on non-rebreather mask at 15 L. General: This is a chronically ill-appearing, 68-year-old male, lying in bed, in no acute distress. Cardiovascular: S1, S2 heard with systolic murmur in the aortic area radiating to the neck. Respiratory: Decreased breath sounds globally with rhonchi and crepitations noted in both pulmonary bases. Patient is not using any accessory muscles or having work of breathing. Abdomen: Soft. Nontender to palpation. Bowel sounds present. No organomegaly. Extremities: No clubbing, cyanosis, or edema. Peripheral pulses present in both legs. Neurological: Patient is alert and oriented x3. Moves all four extremities. LABORATORY DATA: White cell count 11.67, hemoglobin 11.9, hematocrit 38.5, and platelets 204,000. Normal BMP. ASSESSMENT AND PLAN: 1. Acute on chronic hypoxemic respiratory failure. Basically, the patient is requiring the same amount of oxygen. Dr. Duarte from pulmonary is following this patient. We will follow recommendations. 2. Enterobacter cloaca bacteremia/Stenotrophomonas maltophilia. Dr. Link from infectious disease is following this patient. Currently, this patient is on cefepime. The results of the bronchial wash of the lingula Stenotrophomonas. I think that is covering both infections. Initially, he was recommended to do a LEONIE to rule out any endocarditis. Dr. Nicholson from Cardiology thinks that will not change basically the management of this patient. At this point, we will continue with the same antibiotics. 3. Lung adenocarcinoma with bronchoalveolar features. Dr. Duarte and Dr. Hurst are in agreement to continue antibiotics for this infection. Next Saturday are planning tentatively to start chemotherapy in patient. We will continue to monitor this patient closely. 4. IgG deficiency. Dr. Link is following this patient and replenish IgG. 5. Hypokalemia, resolved. 6. Severe aortic stenosis. Stable. 7. Disposition. At this point, we will continue to monitor this patient closely here in the [facility] considering his high oxygen needs. cc: Dejon Dominguez MD [facility]
--- NOTE | 2019-02-27 11:30 | INFECTIOUS DISEASE PROGRESS NO ---
DATE: 02/27/2019 PRESENT ILLNESS: The patient is being treated for an Enterobacter urinary tract infection with an associated bacteremia. He may have endocarditis. MEDICATIONS: The patient is on cefepime; this is day 4 of treatment with cefepime, with day 1 being the first day that the patient's repeat blood cultures are sterile. PHYSICAL EXAMINATION: Vital Signs: Temperature is 97.3 degrees, pulse 99, respirations 21, blood pressure 107/66. General: This is an ill-appearing elderly male. He is in no acute distress; however, he has to have oxygen by mask, and he is still a little bit dyspneic even with that. Head/eyes/ears/nose/throat: He can hear my spoken words and see near objects. He does not have any white coating on his tongue. Neck: He does not have any pain when he moves his neck. Lungs: Clear to auscultation. Cardiovascular: Heart rate is regular with a systolic murmur. Abdomen: Soft and nontender. Neurologic: Patient is alert. He can move his extremities. He ambulates without difficulty. There is no tremor. LAB AND RADIOLOGY STUDIES: The patient's repeat blood cultures have remained negative now for 4 days. His CBC shows a white count of 11,670, hemoglobin 11.9, and platelet count 204,000. Bronchial washings on 1 specimen is growing a gram-negative joon. The specimen was from the lingula. ASSESSMENT AND PLAN: For right now, I am going to continue with cefepime, and this is day 4 of treatment as mentioned above. Just as the urinary tract infection and bacteremia, I will treat the patient for 2 weeks with cefepime. If on transesophageal echocardiogram he has an endocarditis, then I will treat him for 6 weeks with intravenous cefepime. COMORBIDITIES: Patient has a bladder problem, for which he has to catheterize himself four times a day. He also has an immunoglobulin deficiency, and finally unfortunately he has lung cancer. cc: Aleks Link MD
[2019-02-27] MEDS: XOPENEX NEB INH PRN (11:58)
--- NOTE | 2019-02-27 16:05 | HEMO/ONC PROGRESS NOTE ---
DATE: 02/27/2019 SUBJECTIVE: The patient is awake and alert, sitting up in his bed. He continues today on high- flow non-rebreather oxygen. He states that he does have some numbness in both hands. He denies any other complaints of pain or swelling. OBJECTIVE: Vital signs: Temperature 97.4 degrees, pulse rate 105, respiratory rate 18, blood pressure 120/77, is 91 percent on non-rebreather at 15 L, 0/10 pain. General: On physical examination, he is sitting up in bed, in no acute distress with a Venturi mask on, attempting to eat breakfast. Respiratory: Bilateral crackles noted. Decreased breath sounds globally. Not using any accessory muscles. Cardiovascular: S1, S2 heard. Tachycardic with regular rhythm. No lower extremity edema. Abdomen: Soft, nontender. Neurologic: Awake and alert and oriented x3. LABORATORY DATA: White blood cells 11.67, hemoglobin 11.9, hematocrit 38.5, platelets 204. Creatinine 0.7. Magnesium 1.8. ASSESSMENT AND PLAN: 1. Acute on chronic hypoxemic respiratory failure. The patient continues to require the same amount of high-flow oxygen. Dr. Duarte is following this patient. Will continue the recommendations per Pulmonary. 2. IgG deficiency. Dr. Link is following and replenishing IgG. 3. Severe aortic stenosis. Following recommendations per Cardiology; however they do not believe this is contributing to his respiratory failure. 4. Enterobacter cloacae bacteremia/Stenotrophomonas maltophilia. Dr. Link from Infectious Disease was following this patient. He is currently on cefepime. Continue recommendations per the medical team and Dr. Link. 5. Bronchoalveolar carcinoma: Dr. Duarte and Dr. Hurst are in agreement to continue antibiotics for this infection, continue oxygenation as needed. Next Saturday we plan to tentatively start chemotherapy for this patient. The patient is requesting to be aggressive with his treatments. Dictated by RIO Myers for Tyree Hurst MD Patient seen and examined. As above. Had a lengthy discussion with the patient and his today. Disease status prognosis and treatment plan discussed. Questions answered. Tyree Hurst M.D. cc: MD NIKO Shane
[2019-02-27] MEDS: SEPTRA DS PO SCH (17:24)
[2019-02-27] MEDS: LIPITOR PO SCH (20:50)
--- NOTE | 2019-02-27 21:17 | CARDIOLOGY PROGRESS NOTE ---
DATE: 02/27/2019 SUBJECTIVE: The patient reports he is doing well. He continues on high flow oxygen. He is tolerating oral intake. PHYSICAL EXAMINATION: Vital Signs:: The patient is afebrile. His heart rates are anywhere from the 100s to 130s. His blood pressure is 105/76. General: He is in no acute distress. Cardiovascular: He sounds to be in a tachycardic and regular rhythm. He has a 2/6 systolic murmur that is very difficult to auscultate secondary to lung noise. Chest: Coarse breath sounds somewhat diffusely. No increased work of breathing. Abdomen: Soft, nontender. He has no obvious organomegaly. PERTINENT DATA: His EKG yesterday demonstrated sinus tachycardia, rate of 136, right bundle branch block. His chest x-ray today demonstrated stable dense bilateral infiltrates. His lab data shows a white count of 11.6, hematocrit 38, platelet count 204,000. Sodium 145, potassium 3.8, BUN 15, creatinine 0.7. ASSESSMENT: Mr. Juan Yang is a 68-year-old gentleman who has bilateral lung malignancies, aortic stenosis, and consideration for possible endocarditis. PLAN: We will tentatively plan for transesophageal echocardiogram on Saturday of next week. Hopefully, with more time with antibiotics, we can get slight improvement in his pulmonary function. The risks of the procedure were discussed with the patient extensively yesterday, including a potential need for intubation if his respiratory status is compromised, and he is aware that given his significant respiratory issues, he would be very difficult to wean from the ventilator. cc: Ezequiel Nicholson MD
[2019-02-28] MEDS: XOPENEX NEB INH SCH ×5 (03:45→23:30)
[2019-02-28] MEDS: SEPTRA DS PO SCH ×2 (05:45→17:31)
[2019-02-28 06:03] LABS: BASO# 0.01 X1000 (0.0-0.2); BASO% 0.1 % (0.0-0.8); EOS% 1.7 % (0.0-10.0); HEMATOCRIT 37.7 % (42.0-52.0); HEMOGLOBIN 11.7 g/dL (14.0-18.0); IMM GRAN% 0.5 % (0.0-0.5); LYMPH# 2.05 X1000 (1.2-3.4); LYMPH% 17.3 % (20.5-51.1); MCH 29.2 PG (27-31); MONO# 0.47 X1000 (0.11-0.59); MPV 11.3 FL (7.4-10.4); NEUT# 9.04 X1000 (1.4-6.5); NEUT% 76.4 % (42.2-75.2); PLT 221 X1000 (130-400); RBC 4.01 XMIL (4.7-6.1); RDW 15.9 % (11.5-14.5); WBC 11.83 X1000 (4.8-10.8)
[2019-02-28 06:04] LABS: IMM GRAN# 0.06 X1000 (0.0-0.04)
[2019-02-28] MEDS: HUMULIN R SUBQ SCH ×4 (06:14→20:36)
[2019-02-28 07:06] LABS: AGAP 9; BUN 21 mg/dL (8-22); CALCIUM 8.6 mg/dL (8.8-10.2); CHLORIDE 99 mmol/L (98-107); COSMO 290; CREATININE 0.8 mg/dL (0.7-1.2); ESTIMATED GFR > 60; GLUCOSE 102 mg/dL (70-104); POTASSIUM 4.7 mmol/L (3.5-5.1); SODIUM 144 mmol/L (136-145); TCO2 36 mmol/L (25-35)
[2019-02-28] MEDS: XOPENEX NEB INH PRN (07:39)
[2019-02-28] MEDS: LANTUS INSULIN SUBQ SCH (08:22)
[2019-02-28] MEDS: MAXIPIME 2 GM in NS 100 ML IV SCH ×2 (08:22→21:09)
[2019-02-28] MEDS: CULTURELLE PO SCH (08:22)
[2019-02-28] MEDS: PREDNISONE PO SCH (08:23)
[2019-02-28] MEDS: ZYLOPRIM PO SCH ×2 (08:23→21:09)
[2019-02-28] MEDS: PLETAL PO SCH ×2 (08:23→21:09)
[2019-02-28] MEDS: ATROVENT NEB INH SCH ×4 (11:02→23:30)
[2019-02-28 14:34] LABS: ALLEN TEST YES; BE 10.4 mmoll (-3.0-3.0); BLOOD TYPE ARTERIAL; METHB 0.8 % (0.0-1.5); O2(CT) 16.5 mL/dL (15.0-23.0); O2HB 94.5 % (95.0-99.0); PCO2(98.6) 46 mmHg (35-45); PO2(98.6) 71 mmHg (60-100); SAMPLE BLOOD; SAO2 97.1 % (95.0-100.0); THB 12.4 g/dL (11.5-17.4); pH(98.6) 7.49 (7.35-7.45)
[2019-02-28 14:35] LABS: MODALITY PRB
--- NOTE | 2019-02-28 18:16 | PROGRESS NOTE ---
DATE: 02/28/2019 SUBJECTIVE: Patient reports feeling fine. No more sensation of numbness in both hands. Actually, he is a little bit short of breath. He requested to have his breathing treatment to be rescheduled to q. 4 hours as it was before. OBJECTIVE: Vitals: Temperature 97.4 degrees, heart rate 111, respiratory rate 20, blood pressure 151/80, O2 saturation 95% on room air. General Examination: This is a chronically ill- appearing, 68-year-old male, lying in bed, in no acute distress. Cardiovascular: S1, S2 heard with systolic murmur noted in the aortic area radiating to the neck. Respiratory: Decreased breath sounds globally with rhonchi and crepitations noted still in both pulmonary bases. Patient is not using any accessory muscles or having work of breathing. Abdomen: Soft. Nontender to palpation. Bowel sounds present. No organomegaly. Extremities: No clubbing, cyanosis, or edema. Peripheral pulses present in both legs. Neurological: Patient alert oriented x3. Moves 4 extremities. LABORATORY DATA: Reviewed. ASSESSMENT AND PLAN: 1. Acute on chronic hypoxemic respiratory failure. Continues to require the same amount of oxygen. In this case there is no rebreather mask. We know now that is because of bone infection plus lung cancer. In any case, we will continue monitoring this patient closely. Dr. Duarte from pulmonary following this patient. 2. Enterobacter cloacae bacteremia/Stenotrophomonas maltophilia. Dr. Link of infectious disease following this patient. Currently, this patient is on cefepime. We will continue with the same management. For possible endocarditis, patient is going to have a LEONIE next Saturday. We will see what it shows. 3. Lung adenocarcinoma with bronchioloalveolar features. Start chemotherapy on Saturday. Until then, we will continue with antibiotics due to this lung infection. 4. IgE deficiency. Dr. Link following this patient. Replenish IgG. 5. Hypokalemia, resolved. 6. Severe aortic stenosis, stable. We are going to have a LEONIE on Saturday. 7. Disposition. At this point, we will continue to monitor this patient closely. Continue with antibiotics and waiting for Saturday to start chemotherapy on him. cc: Dejon Dominguez MD [facility]
[2019-02-28] MEDS: LIPITOR PO SCH (21:09)
[2019-03-01] MEDS: XOPENEX NEB INH SCH ×5 (03:30→19:53)
[2019-03-01] MEDS: ATROVENT NEB INH SCH ×5 (03:30→19:53)
[2019-03-01 03:42] LABS: ALLEN TEST YES; BE 11.7 mmoll (-3.0-3.0); BLOOD TYPE ARTERIAL; HCO3-(ACT) 33.9 mmoll (20.0-26.0); METHB 0.8 % (0.0-1.5); O2(CT) 13.8 mL/dL (15.0-23.0); PO2(98.6) 55 mmHg (60-100); SAMPLE BLOOD; SAO2 91.3 % (95.0-100.0); pH(98.6) 7.45 (7.35-7.45)
[2019-03-01 03:49] LABS: MODALITY NRB; O2HB 89.2 % (95.0-99.0); PCO2(98.6) 54 mmHg (35-45)
[2019-03-01 05:58] LABS: BASO# 0.01 X1000 (0.0-0.2); BASO% 0.1 % (0.0-0.8); EOS# 0.17 X1000 (0.0-0.7); EOS% 1.5 % (0.0-10.0); HEMATOCRIT 36.9 % (42.0-52.0); HEMOGLOBIN 11.5 g/dL (14.0-18.0); IMM GRAN# 0.07 X1000 (0.0-0.04); IMM GRAN% 0.6 % (0.0-0.5); LYMPH# 1.94 X1000 (1.2-3.4); LYMPH% 17.5 % (20.5-51.1); MCH 29.1 PG (27-31); MCHC 31.2 g/dL (33-37); MCV 93.4 FL (81-99); MONO# 0.61 X1000 (0.11-0.59); MONO% 5.5 % (1.7-9.3); NEUT# 8.31 X1000 (1.4-6.5); NEUT% 74.8 % (42.2-75.2); PLT 222 X1000 (130-400); RBC 3.95 XMIL (4.7-6.1); RDW 16.2 % (11.5-14.5); WBC 11.11 X1000 (4.8-10.8)
[2019-03-01] MEDS: SEPTRA DS PO SCH ×2 (06:17→16:59)
[2019-03-01 06:48] LABS: AGAP 7; BUN 18 mg/dL (8-22); CALCIUM 8.8 mg/dL (8.8-10.2); CHLORIDE 99 mmol/L (98-107); COSMO 284; CREATININE 0.8 mg/dL (0.7-1.2); ESTIMATED GFR > 60; GLUCOSE 106 mg/dL (70-104); POTASSIUM 4.3 mmol/L (3.5-5.1); SODIUM 141 mmol/L (136-145); TCO2 35 mmol/L (25-35)
[2019-03-01] MEDS: HUMULIN R SUBQ SCH ×4 (07:14→20:34)
[2019-03-01] MEDS: CULTURELLE PO SCH (09:02)
[2019-03-01] MEDS: MAXIPIME 2 GM in NS 100 ML IV SCH ×2 (09:02→20:34)
[2019-03-01] MEDS: PLETAL PO SCH ×2 (09:03→20:34)
[2019-03-01] MEDS: ZYLOPRIM PO SCH ×2 (09:03→20:35)
[2019-03-01] MEDS: PREDNISONE PO SCH (09:03)
[2019-03-01] MEDS: LANTUS INSULIN SUBQ SCH (09:03)
[2019-03-01] MEDS: XOPENEX NEB INH PRN (09:33)
[2019-03-01] MEDS ORDERED: MORPHINE IV ONE (09:43)
[2019-03-01] MEDS ORDERED: ATIVAN IV ONE (09:43)
[2019-03-01] MEDS ORDERED: LASIX IV ONE (10:01)
--- NOTE | 2019-03-01 11:11 | Diag Imaging Result Doc PS360 ---
EXAM: CT ANGIOGRM PULMONARY ARTERIES HISTORY: R/O PULMONARY EMBOLISM TECHNIQUE: Emergency CT of the chest with intravenous contrast. Pulmonary arterial protocol with MIP images. COMPARISON: Compared to study performed seven days earlier. FINDINGS: Normal opacification of the pulmonary arteries and their major branches. No aortic aneurysm or dissection. Prominent atherosclerosis. Sternal wires are present. The heart is not enlarged. There are dense multinodular infiltrates bilaterally. These are more pronounced than on the prior study. No effusions. No enlarged lymph nodes. IMPRESSION: 1.No pulmonary emboli 2.Worsening multinodular infiltrates This exam was performed using automated exposure control, adjustment of mA or kV according to patient size, and/or use of iterative reconstruction technique. Electronically signed by Rosendo Mendoza 03/01/2019 11:09 AM
--- NOTE | 2019-03-01 11:38 | PROGRESS NOTE ---
DATE: 03/01/2019 SUBJECTIVE: According to nursing staff and also the patient, he started complaining of shortness of breath mildly during last night, and today morning, he denies any chest pain, just difficulty in breathing. It is important to remark that even though he has been requiring high amount of oxygen since even last admission and this admission, he never complained of shortness of breath. Until today. The patient reports feeling scared. Now, he is on BiPAP machine. OBJECTIVE: Vital Signs: Temperature 97.9 degrees, heart rate 101, respiratory rate 18, blood pressure 104/68, O2 saturation 91% on BiPAP mask. General Examination: This is a chronically ill- appearing, 68-year-old male, lying in bed, in no acute distress. Cardiovascular: S1, S2 heard. There is a systolic murmur noted in the aortic area radiating to the neck. Respiratory: Decreased breath sounds globally with minimal rhonchi and crepitations noted in both pulmonary bases. Basically physical exam unchanged in comparing with the previous days and yesterday. The patient is not using any accessory muscles or having work of breathing. Abdomen: Soft. Nontender to palpation. Bowel sounds present. No organomegaly. Extremities: No clubbing, cyanosis, or edema. Peripheral pulses present in both legs. Neurological: Patient is alert oriented x3. Moves 4 extremities. LABORATORY DATA: Reviewed. ASSESSMENT AND PLAN: 1. Acute on chronic hypoxemic respiratory failure. Clinically, the patient started to get worse today, complaining of shortness of breath. Considering his history of recently diagnosed lung cancer and new onset shortness of breath, one option that we need to rule out is a pulmonary embolism. In that regard, we are going to order a CT angiogram of the pulmonary arteries. We will see what it shows. Until then, we will continue with a BiPAP mask. Pulmonary is following this patient. We will follow recommendations. 2. Enterobacter cloacae bacteremia/Stenotrophomonas maltophilia. The patient is on cefepime. Dr. Link is following this patient. We will follow recommendations for ruling out possible endocarditis. LEONIE has been scheduled for the next few days. 3. Lung adenocarcinoma with bronchioloalveolar features. According to Oncology, we are going to start chemotherapy on Saturday, and until then, we will continue with antibiotics to clear any possible infection in the lung. 4. IgE deficiency. Aware. 5. Hypokalemia, resolved. 6. Severe aortic stenosis, stable. We will do LEONIE on Saturday. DISPOSITION: At this point, considering his new onset shortness of breath, we will rule out pulmonary embolism. We will see what that exam shows. cc: Dejon Dominguez MD
[2019-03-01] MEDS: MYCOSTATIN SUSP PO SCH ×3 (12:55→20:34)
--- NOTE | 2019-03-01 14:25 | INFECTIOUS DISEASE PROGRESS NO ---
DATE: 03/01/2019 PRESENT ILLNESS: The patient has an Enterobacter urinary tract infection with an associated bacteremia. He may have endocarditis. Most recently, the patient appears to have developed a Stenotrophomonas pneumonia superimposed over the patient's bilateral lung cancer. On exam today the patient has developed oral candidiasis. MEDICATIONS: This is day 4 of treatment with cefepime for the patient's Enterobacter urinary tract infection and bacteremia. This is day 2 of treatment with the patient's superimposed Stenotrophomonas pneumonia. PHYSICAL EXAMINATION: Vital Signs: Temperature is 98.2 degrees, pulse 112, respirations 17, blood pressure is 116/63. General: This is an ill-appearing elderly male. He does seem to be dyspneic, even at rest. Head, Eyes, Ears, Nose, and Throat: The patient has developed white patches in his mouth, which I think are secondary to oral candidiasis. He can hear my spoken words and see near objects. Neck: He does not have any pain when he moves his neck. Lungs: Clear to auscultation. Cardiovascular: Heart rate is regular with a systolic murmur. Abdomen: Soft and nontender. Neurologic: The patient is awake. He can move his extremities. There is no tremor. Integument: No rash noted. DIAGNOSTIC STUDIES: The patient does not have any recent chest x-ray. The patient's CBC shows a white count of 11,110, hemoglobin 11.5, and platelet count 222,000. Creatinine is 0.8, GFR is greater than 60. Arterial blood gases show a pH of 7.45, a PO2 of 55, and a pCO2 of 54. As mentioned above, bronchial washings are growing Stenotrophomonas. ASSESSMENT AND PLAN: 1. I am going to continue cefepime to treat the patient's Enterobacter urinary tract infection and bacteremia. 2. Also, I am going to continue Septra for the patient's probable Stenotrophomonas superimposed infection. 3. I started the patient on nystatin swish and swallow. It appears that the patient will have his transesophageal echocardiogram on Saturday, which would be on March 03. Also, on the next day, he will be starting his chemotherapy. COMORBIDITIES: 1. The patient has a bladder problem where he has to catheterize himself four times a day. 2. He has an immunoglobulin deficiency. 3. Unfortunately, he has lung cancer. cc: Aleks Link MD MTDD
--- NOTE | 2019-03-01 14:51 | INFECTIOUS DISEASE PROGRESS NO ---
DATE: 03/01/2019 ADDENDUM: The patient is developing oral candidiasis. I have started him on nystatin swish and swallow. cc: Aleks Link MD
[2019-03-01] MEDS: LIPITOR PO SCH (20:34)
[2019-03-02] MEDS: ATROVENT NEB INH SCH ×7 (00:23→22:47)
[2019-03-02] MEDS: XOPENEX NEB INH SCH ×7 (00:23→22:47)
[2019-03-02 05:01] LABS: ALLEN TEST YES; BE 10.2 mmoll (-3.0-3.0); BLOOD TYPE ARTERIAL; HCO3-(ACT) 32.8 mmoll (20.0-26.0); METHB 1.2 % (0.0-1.5); O2(CT) 17.2 mL/dL (15.0-23.0); O2HB 93.4 % (95.0-99.0); PO2(98.6) 71 mmHg (60-100); SAMPLE BLOOD; SAO2 96.1 % (95.0-100.0); THB 13.1 g/dL (11.5-17.4); pH(98.6) 7.43 (7.35-7.45)
[2019-03-02 05:02] LABS: MODALITY NRB
[2019-03-02 05:03] LABS: BASO# 0.02 X1000 (0.0-0.2); BASO% 0.2 % (0.0-0.8); EOS# 0.21 X1000 (0.0-0.7); EOS% 1.8 % (0.0-10.0); HEMATOCRIT 37.5 % (42.0-52.0); HEMOGLOBIN 11.6 g/dL (14.0-18.0); IMM GRAN# 0.11 X1000 (0.0-0.04); LYMPH# 1.67 X1000 (1.2-3.4); LYMPH% 14.7 % (20.5-51.1); MCH 28.9 PG (27-31); MCHC 30.9 g/dL (33-37); MCV 93.5 FL (81-99); MONO# 0.84 X1000 (0.11-0.59); MONO% 7.4 % (1.7-9.3); MPV 10.7 FL (7.4-10.4); NEUT# 8.54 X1000 (1.4-6.5); NEUT% 74.9 % (42.2-75.2); PLT 248 X1000 (130-400); RBC 4.01 XMIL (4.7-6.1); RDW 16.4 % (11.5-14.5); WBC 11.39 X1000 (4.8-10.8)
[2019-03-02 05:08] LABS: PCO2(98.6) 55 mmHg (35-45)
[2019-03-02] MEDS: SEPTRA DS PO SCH ×2 (05:52→17:42)
[2019-03-02] MEDS: HUMULIN R SUBQ SCH ×4 (06:04→20:14)
[2019-03-02] MEDS: ZYLOPRIM PO SCH ×2 (08:54→20:15)
[2019-03-02] MEDS: MAXIPIME 2 GM in NS 100 ML IV SCH ×2 (08:54→20:15)
[2019-03-02] MEDS: LANTUS INSULIN SUBQ SCH (08:55)
[2019-03-02] MEDS: CULTURELLE PO SCH (08:55)
[2019-03-02] MEDS: MYCOSTATIN SUSP PO SCH ×4 (08:55→20:15)
[2019-03-02] MEDS: PLETAL PO SCH ×2 (08:55→20:15)
[2019-03-02] MEDS: PREDNISONE PO SCH (08:55)
--- NOTE | 2019-03-02 09:37 | INFECTIOUS DISEASE PROGRESS NO ---
DATE: 03/02/2019 PRESENT ILLNESS: The patient has an Enterobacter urinary tract infection with an associated bacteremia. The patient may have endocarditis. The patient has developed a superimposed Stenotrophomonas pneumonia superimposed over his bilateral lung cancer and finally, the patient has developed oral candidiasis. The patient also has an immunoglobulin deficiency. MEDICATIONS: This is day 10 of treatment with cefepime and other antibiotics for the patient's Enterobacter urinary tract infection and bacteremia. This is day 3 of treatment with Septra for the patient's superimposed Stenotrophomonas pneumonia and finally Mycostatin day 1 of treatment for the patient's oral candidiasis. The patient has an immunoglobulin deficiency and has received intravenous immunoglobulin infusion. Typically, the patient with an immunoglobulin deficiency receives IVIG on a monthly basis. PHYSICAL EXAMINATION: Vital Signs: Temperature is 97.9 degrees, pulse 126, respirations 18, blood pressure 137/77. General: This is an ill-appearing, elderly male. He is dyspneic even at rest and despite wearing an oxygen mask. Head/eyes/ears/nose/throat: He can hear my spoken words and see near objects. He has white patches in his mouth, but they do not seem to be quite as big as they were yesterday. Neck: The patient does not have any pain when he moves his neck. Lungs: There were bilateral rhonchi. Cardiovascular: Heart rate is regular with a systolic murmur. Abdomen: Soft and nontender. Neurologic: Patient is alert. He can move his extremities. He can walk to the bathroom, but he gets even more short of breath. Abdomen: Soft and nontender. Neurologic: The patient is alert. He can move his extremities. He can walk to the bathroom, but he gets even more short of breath. Integument: No rash noted. LABORATORY AND X-RAY: CBC shows a white count of 11,390, hemoglobin 11.6, and platelet count 248,000. Blood gases show a pH of 7.43, a PO2 of 71, and a PCO2 of 55. There was no BMP yet for the patient today. CT angiogram showed no pulmonary emboli, but there is worsening of the patient's multinodular infiltrates. ASSESSMENT AND PLAN: 1. As regarding the patient's Enterobacter urinary tract infection and bacteremia, I plan to continue cefepime until the patient has had 14 days of treatment. As regarding the patient's superimposed Stenotrophomonas pneumonia, I plan to continue Septra for at least 14 days. As regarding the patient's oral candidiasis, I am going to continue with Mycostatin as long as he is on antibiotics and then for a few days after stopping the last antibiotic. 2. Comorbidities: Unfortunately, his main comorbidity is bilateral lung cancer. The patient also has a bladder problem for which he has to catheterize himself 4 times a day and finally, the patient has an immunoglobulin deficiency, but he has had an immunoglobulin infusion. cc: lAeks Link MD MTDD
--- NOTE | 2019-03-02 11:02 | PROGRESS NOTE ---
DATE: 03/02/2019 SUBJECTIVE: Patient reports feeling better. He has no shortness of breath any more. That sensation that he had yesterday was gone a few hours after, around noon. Now, he is breathing and feeling better. OBJECTIVE: Vital Signs: Temperature 97.9 degrees, heart rate 126, respiratory rate 18, blood pressure 137/77, O2 saturation 93% on a nonrebreather mask at 15 L per minute. General Examination: This is a chronically ill-appearing, 68-year-old, male, lying in bed, in no acute distress. Cardiovascular Examination: S1 and S2 heard. Systolic murmur noted in the aortic area radiating to the neck. Respiratory Examination: Decreased breath sounds globally with minimal rhonchi and crepitations noted in both pulmonary bases. Unchanged compared to the last few days. The patient is not using any accessory muscles or having work of breathing. Abdomen: Soft, nontender to palpation. Bowel sounds present. No organomegaly. Extremities: No clubbing, cyanosis, or edema. Peripheral pulses present in both legs. Neurological Examination: The patient is alert and oriented x3. Moves 4 extremities. Laboratory Data: Reviewed. ASSESSMENT AND PLAN: 1. Acute on chronic hypoxemic respiratory failure. Clinically, this patient is stable. Yesterday, he got really short of breath in the morning. We have ordered a CT angiogram of the chest to rule out pulmonary embolism but there is no pulmonary emboli and worsening multinodular infiltrates noted. In that regard, we will continue with the same management. Pulmonary is following this patient. We will follow recommendations. 2. Enterobacter cloacae bacteremia/Stenotrophomonas maltophilia. The patient is on cefepime and Septra as per Dr. Link's recommendations. He is planning to complete at least 2 weeks of antibiotics each. For possible endocarditis, there is a plan to do a transesophageal echocardiogram tomorrow. We will see what that exam shows. 3. Lung adenocarcinoma with bronchoalveolar features. The plan is to start chemotherapy on Saturday and considering his high oxygen needs, I prefer to keep this patient in the [facility] in order to provide chemotherapy. 4. IgE deficiency. Aware. 5. Hypokalemia, resolved. 6. Severe aortic stenosis. Clinically stable. We will do a transesophageal echocardiogram tomorrow. 7. Disposition. We will continue to monitor this patient closely. cc: Dejon Dominguez MD
[2019-03-02] MEDS: IMODIUM PO PRN (15:41)
[2019-03-02] MEDS: LIPITOR PO SCH (20:14)
[2019-03-03] MEDS: ATROVENT NEB INH SCH ×6 (03:33→22:49)
[2019-03-03] MEDS: XOPENEX NEB INH SCH ×6 (03:33→22:49)
[2019-03-03] MEDS: TYLENOL PO PRN (04:17)
[2019-03-03 05:11] LABS: ALLEN TEST YES; BE 8.5 mmoll (-3.0-3.0); BLOOD TYPE ARTERIAL; HCO3-(ACT) 31.5 mmoll (20.0-26.0); PO2(98.6) 90 mmHg (60-100); SAMPLE BLOOD
[2019-03-03 05:13] LABS: MODALITY BI PAP
[2019-03-03 05:22] LABS: PCO2(98.6) 57 mmHg (35-45)
[2019-03-03 05:41] LABS: RBC 3.77 XMIL (4.7-6.1); WBC 12.03 X1000 (4.8-10.8)
[2019-03-03 05:42] LABS: BASO# 0.04 X1000 (0.0-0.2); BASO% 0.3 % (0.0-0.8); EOS# 0.32 X1000 (0.0-0.7); EOS% 2.7 % (0.0-10.0); HEMATOCRIT 35.3 % (42.0-52.0); HEMOGLOBIN 10.9 g/dL (14.0-18.0); IMM GRAN# 0.15 X1000 (0.0-0.04); IMM GRAN% 1.2 % (0.0-0.5); LYMPH# 1.61 X1000 (1.2-3.4); LYMPH% 13.4 % (20.5-51.1); MCH 28.9 PG (27-31); MCHC 30.9 g/dL (33-37); MCV 93.6 FL (81-99); MONO# 1.02 X1000 (0.11-0.59); MONO% 8.5 % (1.7-9.3); MPV 11.4 FL (7.4-10.4); NEUT# 8.89 X1000 (1.4-6.5); NEUT% 73.9 % (42.2-75.2); PLT 217 X1000 (130-400); RDW 16.2 % (11.5-14.5)
[2019-03-03] MEDS: HUMULIN R SUBQ SCH ×4 (06:42→21:21)
--- NOTE | 2019-03-03 07:25 | EKG Report ---
Test Performed on : 03/03/2019 06:54:37 AM Test Reason : LEONIE procedure 03/03/19 Blood Pressure : / mmHG Vent. Rate : 107 BPM Atrial Rate : 107 BPM P-R Int : 152 ms QRS Dur : 130 ms QT Int : 362 ms P-R-T Axes : 066 -60 046 degrees QTc Int : 483 ms Sinus tachycardia. 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
--- NOTE | 2019-03-03 07:36 | EKG Report ---
Test Performed on : 03/03/2019 04:10:37 AM Test Reason : Chest Pain Blood Pressure : / mmHG Vent. Rate : 109 BPM Atrial Rate : 109 BPM P-R Int : 150 ms QRS Dur : 128 ms QT Int : 356 ms P-R-T Axes : 061 -61 053 degrees QTc Int : 479 ms Sinus tachycardia. 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
--- NOTE | 2019-03-03 09:19 | PROGRESS NOTE ---
DATE: 03/03/2019 SUBJECTIVE: The patient reports some chest pain early this morning, but apparently after he was burping. That pain is completely gone. He reports feeling and breathing okay. No other issues noted as per nursing staff overnight. OBJECTIVE: Vital Signs: Temperature 98.0 degrees, heart rate 99, respiratory rate 12, blood pressure 112/79, O2 saturation 94% on nonrebreather mask at 15 L/minute. General: This is a chronically ill-appearing, 68-year-old male, lying in bed in no acute distress. Cardiovascular: S1, S2 heard. Systolic murmur noted in the aortic area, radiating to the neck. Respiratory: Decreased breath sounds globally. Minimal rhonchi and crepitations noted still in both pulmonary bases, unchanged in comparing with the last few days. The patient is not using any accessory muscles or having work of breathing. Abdomen: Soft, nontender to palpation. Bowel sounds present. No organomegaly. Extremities: No clubbing, cyanosis, or edema. Peripheral pulses present in both legs. Neurological: The patient is alert and oriented x3. Moves all 4 extremities. LABORATORY DATA: Reviewed. ASSESSMENT AND PLAN: 1. Acute on chronic hypoxemic respiratory failure. Clinically, this patient is stable and still requiring the same amount of oxygen, in this case nonrebreather mask. Pulmonary is following with this patient. Will follow recommendations. 2. Enterobacter cloacae bacteremia and Stenotrophomonas maltophilia pneumonia. The patient is on cefepime, day #11, and Septra, day #[address] angiogram of the chest that we have ordered 2 days ago for possible pulmonary embolism reveals more infiltrate, and that is the reason why this patient is on two antibiotics. Dr. Link from Infectious Disease is following this patient. For possible endocarditis, there is a plan to do a transesophageal echocardiogram today. Will see what that exam shows. Will continue with the same management. 3. Lung adenocarcinoma with bronchioloalveolar features. Plan is to start chemotherapy tomorrow, and considering his high oxygen needs, the patient will remain in the [facility]. 4. Hypokalemia, resolved. 5. IgG deficiency. Aware. 6. Severe aortic stenosis, clinically stable. Will we transesophageal echocardiogram shows today. 7. Disposition. Will continue to monitor this patient closely. cc: Dejon Dominguez MD
[2019-03-03] MEDS ORDERED: PRECEDEX ONE (09:30)
[2019-03-03 09:34] LABS: INR 0.9; PROTIME 12.9 Seconds (11.0-16.0)
[2019-03-03 09:35] LABS: PTT 30.9 Seconds (22.3-41.8)
[2019-03-03 09:45] LABS: AGAP 7; ALB/GLOB RATIO 1.2; ALBUMIN 3.2 g/dL (3.5-5.0); ALKALINE PHOSPHATASE 104 U/L (32-122); BUN 19 mg/dL (8-22); CALCIUM 8.4 mg/dL (8.8-10.2); CHLORIDE 98 mmol/L (98-107); COSMO 281; CREATININE 0.9 mg/dL (0.7-1.2); ESTIMATED GFR > 60; GLUCOSE 88 mg/dL (70-104); GOT 21 U/L (10-34); GPT 28 U/L (10-44); POTASSIUM 4.8 mmol/L (3.5-5.1); SODIUM 140 mmol/L (136-145); TCO2 35 mmol/L (25-35); TOTAL BILIRUBIN 0.47 mg/dL (0.20-1.00); TOTAL PROTEIN 5.8 g/dL (6.3-8.3)
[2019-03-03] MEDS ORDERED: XYLOCAINE 2% VISCOUS ONE (10:04)
[2019-03-03] MEDS ORDERED: NS 1,000 ML ONE (10:05)
[2019-03-03] MEDS ORDERED: ANESTHESIA PB SET 88 IN 5742 ONE (10:05)
--- NOTE | 2019-03-03 10:40 | ECHO REPORT ---
ORDER DATE: 03/03/2019 PROCEDURE PERFORMED: Transesophageal echocardiogram to rule out endocarditis. DESCRIPTION OF PROCEDURE: Informed consent was obtained from the patient. Patient was brought to the cardiac catheterization laboratory. The patient's oropharynx was anesthetized using Cetacaine spray. The patient was given Precedex 140 mg titrated. Please see detailed anesthesia records. A transesophageal probe was easily passed into the esophagus and ultrasound pictures were obtained. There were no complications. FINDINGS: 1. Normal left ventricular cavity size. Estimated ejection fraction of 60%. 2. Aortic valve leaflets were trileaflet calcified, aortic valve area of 0.8 cm2. There is severe aortic stenosis associated with trace aortic regurgitation. 3. Mitral valve leaflets are thickened. There is calcification noted in the mitral annulus as well as calcification of the tip of the posterior mitral leaflet, there is no vegetation noted. 4. There is mild mitral regurgitation. 5. Tricuspid valve was normal. There is mild tricuspid regurgitation. 6. Pulmonic valve was normal. 7. Left atrium was enlarged. Left atrial appendage was normal. Right atrium was normal. 8. The interatrial septum was aneurysmal by Doppler studies. There is no patent foramen ovale. 9. Ascending aorta revealed calcification on the wall. Descending aorta had layered plaque. CONCLUSIONS: 1. Normal left ventricular cavity size. Estimated ejection fraction of 60%. 2. Aortic valve leaflets were calcified, trileaflet, aortic valve area of 0.8 cm/2. There is severe aortic stenosis with trace aortic regurgitation. 3. There is no obvious intracardiac mass or thrombus seen. No vegetation noted. cc: MD Ezequiel Farias MD
[2019-03-03] MEDS ORDERED: NEO-SYNEPHRINE ONE (10:47)
[2019-03-03] MEDS: PITRESSIN ONE ×2 (11:34→15:02)
[2019-03-03] MEDS: ALBUMIN 25% ONE ×2 (11:35→15:02)
[2019-03-03] MEDS: NS 500 ML ONE ×2 (11:50→15:02)
[2019-03-03] MEDS: MAXIPIME 2 GM in NS 100 ML IV SCH ×2 (12:26→21:20)
[2019-03-03] MEDS: ZYLOPRIM PO SCH ×2 (12:27→21:20)
[2019-03-03] MEDS: SEPTRA DS PO SCH ×2 (12:27→21:20)
[2019-03-03] MEDS: PREDNISONE PO SCH (12:27)
[2019-03-03] MEDS: CULTURELLE PO SCH (12:28)
[2019-03-03] MEDS: LANTUS INSULIN SUBQ SCH (12:28)
[2019-03-03] MEDS: MYCOSTATIN SUSP PO SCH ×4 (12:28→21:21)
[2019-03-03] MEDS: PLETAL PO SCH ×2 (12:28→21:21)
--- NOTE | 2019-03-03 14:17 | HEMO/ONC PROGRESS NOTE ---
DATE: 03/03/2019 SUBJECTIVE: The patient is sitting upright in bed, feeling comfortable this morning. Reports no acute distress. The patient reports that he feels like he is breathing better today and there were no acute events overnight per nursing staff. OBJECTIVE: Vital Signs: Temperature 98.0, heart rate 104, respiratory rate 18, blood pressure 112/79, O2 sat 94% on a non-rebreather at 15 L. He states 0/10 pain. PHYSICAL EXAMINATION: General: Sitting up in bed, in no acute distress. Respiratory: Decreased breath sounds globally. Not using any accessory muscles. Bilateral crackles noted. Cardiovascular: S1, S2 noted. Regular rate and rhythm. Abdomen: Soft, nontender, nondistended. Extremities: No edema noted. Neurologic: Awake, alert, oriented x3. Moves all 4 extremities. LABORATORY DATA: CBC 12.03, hemoglobin is 10.9, hematocrit 35.3. Platelets 217,000. His last CT angiogram showed no pulmonary embolism, but worsening multinodular infiltrate. ASSESSMENT AND PLAN: Acute on chronic hypoxemic respiratory failure. Clinically, the patient is stable, although requiring the same amount of oxygen. IgG deficiency. Aortic stenosis. Follow recommendations per Cardiology. Bacteremia and pneumonia on antibiotis per Dr. Link. Bronchoalveolar carcinomatosis. Plan is start chemotherapy tomorrow. The patient will remain on [facility] due to his high oxygen demand. This plan of care has been thoroughly discussed with the patient and his . Dictated by RIO Myers for Tyree Hurst MD Patient seen and examined. As above. Discussed care with Dr. Duarte and Dr. Link. From that standpoint did have advised her to proceed with chemotherapy. We will make arrangements to start same tomorrow. Tyree Hurst M.D. [facility]
[2019-03-03] MEDS: LIPITOR PO SCH (21:21)
--- NOTE | 2019-03-03 22:05 | PULMONOLOGY PROGRESS NOTE ---
DATE: 03/03/2019 SUBJECTIVE: The patient was seen following his LEONIE. He reports he has had a rough afternoon. OBJECTIVE: The patient has been afebrile for the last 24 hours. Blood pressure 103/61, heart rate 90, respiratory rate 22, oxygen saturation 95% on non-rebreather. HEAD, EYES, EARS, NOSE AND THROAT: Pupils are equal, oropharynx appears clear. Neck: Is supple. Chest: Reveals coarse rhonchi bilaterally . Cardiac: S1, S2-2 with 3 to 4/6 systolic ejection murmur right upper sternal border. Abdomen: Soft . Extremities: Reveal trace edema. LABORATORIES: LEONIE reveals normal ejection fraction with severe aortic stenosis. Cytology report from the bronchoscopy performed 02/24/2019 revealed malignant cells consistent with adenocarcinoma in the washings from the right upper lobe and lingula and trachea. Pulmonary angiogram performed 03/01/2019 revealed no evidence of emboli but persistent and progressive infiltrates. Microbiology from the bronchial washings reveals Stenotrophomonas maltophilia. IMPRESSION: 1. 68-year-old with acute hypoxemic respiratory failure. 2. Bilateral adenocarcinoma with bronchioloalveolar features. 3. Stenotrophomonas pneumonia. 4. Severe aortic stenosis. 5. Immunoglobulin deficiency. DISCUSSION: 68-year-old with problems outlined above. He has not had significant improvement over the last 2 to 3 days. His prognosis is extremely poor. There is a high probability that he will not survive. I agree with plans to initiate chemotherapy. His prognosis is poor without chemotherapy and poor with chemotherapy but if the chemotherapy can decrease some inflammatory markers and improve his oxygenation he may have some clinical benefit. cc: Dereck Duarte MD
--- NOTE | 2019-03-04 03:28 | ED EKG INTERP ---
This chart was entered by Robina Negrete Scribe, acting as scribe for Deandre Bay MD. EKG Interpretation - EKG Time of EKG reading by physician:: 06:48 EKG Read and Signed by:: Deandre Bay EKG Interpretation (*Must complete 3 of following elements*): Abnormal Rate: 129 Rhythm: Sinus tach Nelson: normal QRS: RBB, LVH (with repolarization abnormality), other (L anterior fascicular block; bifascicular block; cannot rule out inferior infarct) MN Interval: normal ST Wave: normal Attestation - Physician/ BRIGITTE Attestation Patient care was provided by Advanced Practice Provider:: No The physician spent face to face time with patient:: Yes Advanced Practice Provider documentation review:: Supervising physician onsite and consulted in the evaluation and care of this patient. The physician did have a face to face encounter with the patient. This chart was documented by the indicated scribe, (Robina Negrete Scribe) and accurately reflects the services I performed and decisions made by me, Deandre Bay MD, as attested by the provider's signature.
[2019-03-04] MEDS: ATROVENT NEB INH SCH ×6 (03:37→23:31)
[2019-03-04] MEDS: XOPENEX NEB INH SCH ×6 (03:38→23:32)
[2019-03-04 04:57] LABS: ALLEN TEST YES; BE 6.9 mmoll (-3.0-3.0); BLOOD TYPE ARTERIAL; HCO3-(ACT) 30.3 mmoll (20.0-26.0); O2(CT) 15.4 mL/dL (15.0-23.0); O2HB 94.6 % (95.0-99.0); PO2(98.6) 82 mmHg (60-100); SAMPLE BLOOD; SAO2 97.2 % (95.0-100.0); SRATE 16 BPM; THB 11.5 g/dL (11.5-17.4); pH(98.6) 7.39 (7.35-7.45)
[2019-03-04 04:59] LABS: MODALITY BI PAP
[2019-03-04 05:01] LABS: PCO2(98.6) 55 mmHg (35-45)
[2019-03-04 05:54] LABS: BASO# 0.02 X1000 (0.0-0.2); BASO% 0.2 % (0.0-0.8); EOS# 0.12 X1000 (0.0-0.7); EOS% 1.1 % (0.0-10.0); HEMATOCRIT 33.2 % (42.0-52.0); HEMOGLOBIN 10.2 g/dL (14.0-18.0); IMM GRAN# 0.13 X1000 (0.0-0.04); IMM GRAN% 1.2 % (0.0-0.5); LYMPH# 1.24 X1000 (1.2-3.4); LYMPH% 11.6 % (20.5-51.1); MCHC 30.7 g/dL (33-37); MCV 94.3 FL (81-99); MONO# 0.88 X1000 (0.11-0.59); MONO% 8.2 % (1.7-9.3); NEUT# 8.31 X1000 (1.4-6.5); NEUT% 77.7 % (42.2-75.2); PLT 238 X1000 (130-400); RBC 3.52 XMIL (4.7-6.1); RDW 16.1 % (11.5-14.5)
[2019-03-04] MEDS: HUMULIN R SUBQ SCH ×4 (06:26→23:36)
[2019-03-04 06:36] LABS: AGAP 11; BUN 16 mg/dL (8-22); CALCIUM 8.8 mg/dL (8.8-10.2); CHLORIDE 99 mmol/L (98-107); COSMO 283; CREATININE 0.7 mg/dL (0.7-1.2); ESTIMATED GFR > 60; GLUCOSE 79 mg/dL (70-104); POTASSIUM 4.5 mmol/L (3.5-5.1); SODIUM 142 mmol/L (136-145); TCO2 32 mmol/L (25-35)
--- NOTE | 2019-03-04 08:06 | INFECTIOUS DISEASE PROGRESS NO ---
DATE: 03/04/2019 PRESENT ILLNESS: The patient has an Enterobacter urinary tract infection with an associated bacteremia. He also has a Stenotrophomonas pneumonia, which is superimposed over his bilateral lung cancers. The patient also has oral candidiasis and immunoglobulin deficiency. MEDICATIONS: This is day 12 of cefepime use, day 5 of use with Septra, and day 3 of use for Mycostatin swish and swallow for the patient's oral candidiasis. The patient already has received intravenous immunoglobulin infusion. PHYSICAL EXAMINATION: Vital Signs: Temperature is 98 degrees, pulse 100, respirations 21, blood pressure 106/69. General: This is an ill-appearing, elderly male. He is dyspneic and wheezes can be heard audibly without a stethoscope. Head, eyes, ears, nose, and throat: He can hear my spoken words and see near objects. His white patches in his mouth are getting smaller. Neck: There is no stiffness. Lungs: There were bilateral rhonchi and wheezes. Cardiovascular: Heart rate is regular with a systolic murmur. Abdomen: Soft and nontender. Neurologic: The patient is awake. He can move his extremities. There is no tremor. LAB AND X-RAY: There is no new radiographic study for today. The CBC shows a white count of 10,700, hemoglobin 10.2, and platelet count 238,000. Arterial blood gases show a pH of 7.39, a PO2 of 82, and a pCO2 of 55. Creatinine is 0.7. GFR is greater than 60. The patient had a transesophageal echocardiogram yesterday, and it did not show any vegetations suggestive of endocarditis. ASSESSMENT AND PLAN: I plan to continue cefepime for 2 more days to complete his treatment of the urinary tract infection with bacteremia. I plan to continue Septra at least for 9 more days to complete a 2-week treatment of Stenotrophomonas pneumonia, and Mycostatin I plan on continuing until the patient is off his antibiotics and his absolute neutrophil count is 1000 or more. As regarding the patient's immunoglobulin deficiency, I will repeat his immunoglobulin levels approximately 4 to 6 weeks after the gammaglobulin infusion, and treat pending on the result of that determination. COMORBIDITIES: The patient's comorbidities reveals he has bilateral lung cancer. He also has a bladder problem, for which he has to catheterize himself 4 times a day. The patient also has an immunoglobulin deficiency. cc: Aleks Link MD
[2019-03-04] MEDS: PREDNISONE PO SCH (08:50)
[2019-03-04] MEDS: LANTUS INSULIN SUBQ SCH (08:50)
[2019-03-04] MEDS: MYCOSTATIN SUSP PO SCH ×4 (08:50→22:08)
[2019-03-04] MEDS: CULTURELLE PO SCH (08:50)
[2019-03-04] MEDS: PLETAL PO SCH ×2 (08:50→22:08)
[2019-03-04] MEDS: ZYLOPRIM PO SCH ×2 (08:50→22:09)
[2019-03-04] MEDS: SEPTRA DS PO SCH ×2 (08:50→22:08)
[2019-03-04] MEDS: MAXIPIME 2 GM in NS 100 ML IV SCH ×2 (08:53→22:09)
[2019-03-04] MEDS: IMODIUM PO PRN (09:36)
--- NOTE | 2019-03-04 09:38 | PROGRESS NOTE ---
DATE: 03/04/2019 SUBJECTIVE: Patient reports he is breathing okay. No shortness of breath noted. No fever or chills. OBJECTIVE: Vital Signs: Temperature 98 degrees, heart rate 108, respiratory rate 18, blood pressure 137/77 and O2 saturation 94% on non-rebreather mask of 15 L/minute. General: On examination, this is a chronically ill-appearing, 68-year-old male lying in bed in no acute distress. Cardiovascular: S1, S2 heard. Systolic murmur noted in the aortic area radiating to the neck. Respiratory: Decreased breath sounds globally with minimal rhonchi. Some crepitation noted, still in both pulmonary bases unchanged in comparing with the last few days. Patient is not using any accessory muscles or having work of breathing. Abdomen: Soft. Nontender to palpation. Bowel sounds present. No organomegaly. Extremities: No clubbing, cyanosis, or edema. Peripheral pulses present in both legs. Neurological: Patient is alert and oriented x3. Moves 4 extremities. LABORATORY DATA: White cell count 10.7, hemoglobin 10.2, and hematocrit 33.2, and platelets 238,000. ABG shows pH 7.39 with pCO2 55, PO2 82. Normal BMP except for elevation of glucose. ASSESSMENT AND PLAN: 1. Acute on chronic hypoxemic respiratory failure. Clinically, this patient is stable although he continues to require high amounts of oxygen. He has been on non- rebreather mask for the whole hospitalization. Pulmonary is following this patient Dr. Duarte. He thinks that it is because of his medical conditions, lung cancer he does have a poor prognosis. 2. Enterobacter cloacae bacteremia/ Stenotrophomonas maltophilia pneumonia. Patient is on Cefepime and Septra. Dr. Link from Infectious Disease is planning to complete 2 more days of cefepime and continue with Septra for almost a week. We have done yesterday a LEONIE to rule out endocarditis but returned negative for any vegetations. In any case, we will continue to monitor this patient closely. 3. Lung adenocarcinoma with bronchoalveolar features. Plan is to start chemotherapy today as per Dr. Hurst's recommendation. 4. Hypokalemia, resolved. 5. IgG deficiency aware. The patient is going to be treated in a month with Dr. Link. 6. Severe aortic stenosis. Stable. 7. Disposition: I think at this point, considering his respiratory status, would prefer to keep him in the [facility] to receive chemotherapy here. cc: Dejon Dominguez MD MTDEzequiel
[2019-03-04] MEDS: LOPRESSOR IV PRN (13:15)
[2019-03-04] MEDS ORDERED: REGLAN IV PRN (14:03)
--- NOTE | 2019-03-04 15:29 | HEMO/ONC PROGRESS NOTE ---
DATE: 03/04/2019 SUBJECTIVE: The patient was getting out of bed to use the bathroom this morning. He states he is comfortable, but states that he does feel worse today than he did yesterday. He had a good night's sleep. He continues on high-flow oxygen and is tolerating his oral intake. OBJECTIVE: Vital Signs: Temperature 98 degrees, pulse rate 108, respiratory rate 18, blood pressure 137/77. He has an O2 sat 92% on non-rebreather at 15 L. He reports 0/10 pain. PHYSICAL EXAMINATION: General: The patient appears in no acute distress. Cardiovascular: He has a tachycardic regular rhythm. Chest: Chest not using any accessory muscles. Decreased breath sounds globally. Bilateral crackles noted. Abdomen: Soft, nontender, nondistended. Extremities: No edema noted. Neurologic: Awake, alert, oriented x 3. Moves all 4 extremities. Able to get up and down at will. LABORATORY DATA: White blood cells 10.7, hemoglobin 10.2, hematocrit 33.2, platelet count 238,000. ASSESSMENT: 1. Acute on chronic hypoxemic respiratory failure. 2. Enterobacter cloacoa bacteremia/stenotrophomonas maltophilia pneumonia. 3. Bronchoalveolar carcinomatosis 4. IgG deficiency. 5. Severe aortic stenosis. PLAN: The plan is to start the patient on chemotherapy to combat his lung cancer today. Dr. Duarte and Dr. Link have been covering his Infectious Disease which will continue per their recommendation. He will continue on his high-flow oxygen as needed. Cardiology performed a LEONIE, which ruled out endocarditis. We will continue to monitor closely for any chemotherapy related reactions or side effects. Dictated by RIO Myers for Tyree Hurst MD Patient seen and examined. As above. Patient will be started on chemotherapy and immunotherapy today. Side effect profile was discussed and he is voiced understanding. He will receive nausea prophylaxis. Monitor for side effects. Tyree Hurst M.D. cc: MD NIKO Shane
[2019-03-04] MEDS ORDERED: CYANOCOBALAMIN IM ONE (15:30)
--- NOTE | 2019-03-04 15:41 | CARDIOLOGY PROGRESS NOTE ---
DATE: 03/04/2019 SUBJECTIVE: Mr. Yang underwent his LEONIE yesterday. This revealed severe aortic stenosis, a preserved ejection fraction, and no evidence of vegetations. He continues to have a high requirement for oxygen. PHYSICAL EXAMINATION: Vital signs: He is afebrile. His heart rates seem to be widely variable anywhere from 60 to 140. At his peak heart rates, he is usually awake and active and appears to be in a rate-related bundle-branch block with a sinus rhythm. His blood pressure is 111/71. His O2 saturation is 96%. He continues on non-rebreather. General: In no acute distress. Cardiovascular: He sounds to be in a tachycardic and regular rhythm. He has no obvious murmurs, but he has quite a bit of lung sound interfering. He has no lower extremity edema. Chest: Has coarse breath sounds diffusely. No increased work of breathing. Abdomen: Soft, nontender, nondistended. Laboratory Data: Pertinent data. His LEONIE is noted as listed above. His valve area was 0.8 cm2. His white count is 10.7, hematocrit 33. His platelet count is 238,000. His sodium is 142, potassium 4.5, BUN 16, creatinine 0.7. ASSESSMENT: Mr. Yang is a 68-year-old gentleman with presumed bilateral lung cancer. PLAN: His LEONIE did not any evidence of vegetation. His rate is getting quite elevated in the 130s to 140's at times. I will add in a low dose of Lopressor p.r.n. heart rates above 130. He has severe aortic stenosis, but given his current lung malignancy he is not a candidate for any sort of replacement. If his lung cancer gets under control with a reasonable life expectancy, we can consider re-evaluation for replacement; but currently he is not a candidate. Please contact us if we can be of further assistance with this patient. cc: Ezequiel Nicholson MD
[2019-03-04] MEDS ORDERED: DECADRON 20 MG in NS 100 ML IV ONE (16:00)
[2019-03-04] MEDS ORDERED: ZOFRAN 16 MG in NS 100 ML IV ONE (16:00)
[2019-03-04] MEDS ORDERED: KEYTRUDA 200 MG in NS 100 ML IV ONE (16:30)
[2019-03-04] MEDS ORDERED: NS IV ONE ×2 (17:00→17:15)
[2019-03-04] MEDS ORDERED: ALIMTA IV ONE (17:00)
[2019-03-04] MEDS ORDERED: PARAPLATIN IV ONE (17:15)
[2019-03-04] MEDS ORDERED: LASIX IV ONE (21:21)
[2019-03-04] MEDS: LIPITOR PO SCH (22:09)
--- NOTE | 2019-03-04 23:24 | PULMONOLOGY PROGRESS NOTE ---
DATE: 03/04/2019 SUBJECTIVE: The patient is awake, alert, and conversant. He is on a non-rebreather. He has received chemotherapy today and reports he tolerated this without difficulty. He has been out of the bed, and he has ambulated some in the hallway. OBJECTIVE: Vital signs: The patient has been afebrile for the last 24 hours. Heart rate 110, respiratory rate 21, blood pressure 117/59, oxygen saturation 91%. HEENT: Pupils are equal and reactive. Oropharynx is clear. Neck: Supple. Chest: Reveals bilateral crackles. Cardiac exam: S1, S2. Abdomen: Soft. Extremities: Reveal trace edema. LABORATORIES: Arterial blood gas reveals a pH of 7.39, pCO2 of 55, pO2 of 82. White blood count is 10.7, hemoglobin 10.2, platelet count 238,000. Sodium 142, potassium 4.5, chloride 99, bicarbonate 32, BUN 16, creatinine 0.7. IMPRESSION: A 68-year-old male with: 1. Acute hypoxemic respiratory failure. 2. Bilateral adenocarcinoma with bronchioloalveolar features. 3. Stenotrophomonas pneumonia. 4. Severe aortic stenosis. 5. Immunoglobulin deficiency. RECOMMENDATIONS: 1. Continue current antibiotic regimen. 2. Continue chemotherapy. 3. Continue oxygen therapy. 4. Follow up chemistries, CBC, and chest x-ray tomorrow. cc: Dereck Duarte MD
[2019-03-05] MEDS: XOPENEX NEB INH SCH ×5 (03:37→19:30)
[2019-03-05] MEDS: ATROVENT NEB INH SCH ×5 (03:37→19:30)
[2019-03-05 05:56] LABS: BASO# 0.01 X1000 (0.0-0.2); BASO% 0.1 % (0.0-0.8); HEMATOCRIT 34.4 % (42.0-52.0); HEMOGLOBIN 10.6 g/dL (14.0-18.0); IMM GRAN# 0.14 X1000 (0.0-0.04); IMM GRAN% 1.1 % (0.0-0.5); LYMPH# 0.44 X1000 (1.2-3.4); LYMPH% 3.4 % (20.5-51.1); MCHC 30.8 g/dL (33-37); MCV 94.2 FL (81-99); MONO# 0.39 X1000 (0.11-0.59); MPV 11.2 FL (7.4-10.4); NEUT# 12.11 X1000 (1.4-6.5); NEUT% 92.4 % (42.2-75.2); PLT 248 X1000 (130-400); RBC 3.65 XMIL (4.7-6.1); RDW 16.1 % (11.5-14.5); WBC 13.09 X1000 (4.8-10.8)
[2019-03-05] MEDS: HUMULIN R SUBQ SCH ×4 (06:08→20:48)
[2019-03-05 06:19] LABS: AGAP 10; ALBUMIN 3.3 g/dL (3.5-5.0); ALKALINE PHOSPHATASE 111 U/L (32-122); BUN 17 mg/dL (8-22); CALCIUM 9.3 mg/dL (8.8-10.2); CHLORIDE 98 mmol/L (98-107); COSMO 286; CREATININE 0.8 mg/dL (0.7-1.2); ESTIMATED GFR > 60; GLUCOSE 162 mg/dL (70-104); GOT 25 U/L (10-34); GPT 32 U/L (10-44); MAGNESIUM 1.9 mg/dL (1.5-2.7); PHOSPHORUS 4.7 mg/dL (2.7-4.5); POTASSIUM 5.1 mmol/L (3.5-5.1); SODIUM 141 mmol/L (136-145); TCO2 33 mmol/L (25-35); TOTAL BILIRUBIN 0.31 mg/dL (0.20-1.00); TOTAL PROTEIN 6.5 g/dL (6.3-8.3)
--- NOTE | 2019-03-05 07:47 | Diag Imaging Result Doc PS360 ---
CHEST-PORTABLE - 03/05/2019 INDICATION: abnormal exam COMPARISON: 02/27/2019 FINDINGS: There are grossly stable dense bilateral infiltrates. No new infiltrates. Stable sternotomy wires. Heart size remains normal. IMPRESSION: No significant change from prior. Electronically signed by Jairo Hammonds 03/05/2019 7:45 AM
[2019-03-05] MEDS: CULTURELLE PO SCH (08:42)
[2019-03-05] MEDS: MAXIPIME 2 GM in NS 100 ML IV SCH ×2 (08:42→20:47)
[2019-03-05] MEDS: LANTUS INSULIN SUBQ SCH (08:43)
[2019-03-05] MEDS: ZYLOPRIM PO SCH ×2 (08:43→20:48)
[2019-03-05] MEDS: SEPTRA DS PO SCH ×2 (08:43→20:48)
[2019-03-05] MEDS: MYCOSTATIN SUSP PO SCH ×4 (08:43→20:48)
[2019-03-05] MEDS: PLETAL PO SCH ×2 (08:43→20:48)
[2019-03-05] MEDS: PREDNISONE PO SCH (08:43)
--- NOTE | 2019-03-05 10:14 | PROGRESS NOTE ---
DATE: 03/05/2019 Patient received a dose of pembrolizumab or Keytruda, carboplatin, dexamethasone, and pemetrexed yesterday which he tolerated well. SUBJECTIVE: He is denying any complaints. He is breathing well on 80% non-rebreather mask. Denies any chest pain. He states he was able to walk in the hallway without any trouble. VITAL SIGNS: Temperature 97.8 degrees, pulse 120, respiratory rate 20, blood pressure 132/73 and saturating 95% on 80% non-rebreather mask. PHYSICAL EXAMINATION: General: Does not appear in any acute distress. HEENT: Oral cavity is moist. I do not see any oropharyngeal oral candidiasis. He does have inspiratory crackles on the right supra mammary and left inframammary region without any wheeze or rhonchi. Abdomen: Soft and nontender. No lower extremity edema. Input and output suggests -1.2 L yesterday. Vitals: Temperature of 97.8 degrees, pulse 120, respiratory rate 20, and blood pressure 132/73. LABORATORY: Labs are suggestive of mild leukocytosis, normocytic anemia, and normal platelet count. His electrolytes are all within acceptable range. MICROBIOLOGY: Bronchial washing is growing Stenotrophomonas maltophilia. Other were oral rommel. LABORATORY: He does have nothing significant. ASSESSMENT AND PLAN: 1. Acute hypoxic respiratory failure likely because of Stenotrophomonas maltophilia pneumonia and bilateral lung adenocarcinoma with bronchoalveolar features currently saturating well on 80% non-rebreather mask. I will continue that with titrating it down as tolerated. He is also on 15 mg of prednisone daily as per Pulmonology recommendations. 2. Stenotrophomonas maltophilia pneumonia with Enterobacter cloacae urosepsis. Continue intravenous cefepime for 2 more days and p.o. Bactrim for 9 more days as per ID recommendations. He is not spiking any fever anymore. 3. Bilateral lung adenocarcinoma with bronchoalveolar features, oncology on board. He had received a dose of pembrolizumab, dexamethasone, pemetrexed, and carboplatin yesterday which he has tolerated well so far. 4. Severe aortic stenosis. He underwent transesophageal echocardiogram which did not detect any vegetation considering his current diagnosis of lung cancer. Conservative management has been planned for from cardiology perspective. At the moment in future if his cancer responds well to the chemotherapy and his functional status still remains acceptable, he may need evaluation. 5. History of coronary artery disease status post CABG in the past. I will add his aspirin. Continue atorvastatin. Continue metoprolol as per Cardiology recommendation. I will continue his cilostazol for peripheral artery disease, and will consider switching it to Plavix in the future. 6. Others. Continue home medications of allopurinol for gout, insulin for steroid-induced hyperglycemia, albuterol ipratropium nebulization, and nystatin for oral candidiasis. 7. Disposition: Patient remains inside the hospital as he has high oxygen requirement. I will discuss with pulmonology about long-term placement. Plan of care discussed with the patient. All of his questions have been answered. cc: Dickson Monteiro MD
--- NOTE | 2019-03-05 15:19 | HEMO/ONC PROGRESS NOTE ---
DATE: 03/05/2019 SUBJECTIVE: The patient is sitting up in bed eating his breakfast. He is comfortable. States he feels better than he did yesterday. He has absolutely no complaints regarding yesterday's chemotherapy. He felt no side effects. He continues on high-flow oxygen and tolerating p.o. intake very well. He denies any pain. OBJECTIVE: Vital Signs: Temperature 97.8, pulse rate 120, respiratory rate 20, blood pressure 132/73, O2 saturation 95% on a non-rebreather. Has 100% oxygen flow. He is in 0/10 pain. General: On physical exam, he is an elderly looking gentleman in no acute distress. Respiratory: Bilateral crackles noted. Cardiac: S1, S2 is noted. Regular tachycardic rate and rhythm. Abdomen: Soft, nontender, nondistended. Extremities: No edema noted. Neurological: Awake, alert, and oriented. Moves all 4 extremities. Able to get up and down at will. IMAGING: This morning's chest x-ray reveals grossly stable, dense bilateral infiltrates. No new infiltrates. No significant change from prior x-rays. ASSESSMENT: 1. Acute on chronic hypoxic respiratory failure. 2. Stenotrophomonas maltophilia pneumonia with Enterobacter cloacae urosepsis. 3. Bilateral lung bronchoalveolar adenocarcinoma. 4. Severe aortic stenosis. PLAN: The patient has received his first dose of chemotherapy, which included Keytruda, carboplatin, dexamethasone. He denies any complaint. He will continue to receive antibiotics with Dr. Link for his pneumonias. We will continue to follow and monitor for any infusional reactions and side effects related to chemotherapy. We will continue to monitor his labs for neutropenia. Dictated by RIO Myers for Tyree Hurst MD Patient seen and examined. As above. Patient tolerated his first cycle of chemotherapy extremely well. No nausea or any other complaints from chemotherapy standpoint. Continue current management. His next chemotherapy will be in 3 weeks. Tyree Hurst M.D. cc: Tyree Hurst MD [facility]
[2019-03-05] MEDS: LOPRESSOR IV PRN (16:22)
[2019-03-05] MEDS: LIPITOR PO SCH (20:48)
[2019-03-06] MEDS: ATROVENT NEB INH SCH ×7 (00:45→23:34)
[2019-03-06] MEDS: XOPENEX NEB INH SCH ×7 (00:46→23:35)
--- NOTE | 2019-03-06 02:49 | PULMONOLOGY PROGRESS NOTE ---
DATE: 03/04/2019 SUBJECTIVE: The patient is awake, alert, and conversant. He is being irritated because his oxygen saturation dropped below 88% setting off the oximeter alarm. OBJECTIVE: Vital signs: BP 127/73, heart rate 121, oxygen saturation 87% on non-rebreather. HEENT: Pupils are equal and reactive. Oropharynx appears clear. Neck: Supple. Chest: Reveals coarse rhonchi bilaterally. Cardiac: S1, S2. Abdomen: Soft. Extremities: Without edema. LABORATORIES: White blood count 13,000, hemoglobin 10.6, platelet count 248,000. Sodium 141, potassium 5.1, chloride 98, bicarbonate 33, BUN 17, creatinine 0.8. Chest x-ray reveals bilateral infiltrates/masses in the right upper lobe and left upper lobe without change. IMPRESSION: A 68-year-old male with 1. Acute hypoxemic respiratory failure. 2. Bilateral adenocarcinoma with bronchioloalveolar features. He has received his initial cycle of chemotherapy. 3. Stenotrophomonas maltophilia pneumonia. 4. Severe aortic stenosis. He is not a candidate for intervention at this time. 5. Immunoglobulin deficiency with recent replacement. 6. Current code status undetermined. DISCUSSION: A 68-year-old with problems outlined above. He continues to remain on high oxygen requirements. If the patient has a cardiac or pulmonary event which would require intubation or would require advanced cardiac life support with resuscitation, he would not survive those events to the point that he could resume care on his own and do additional chemotherapy. In essence, these would represent terminal events. If he were to receive resuscitation or mechanical ventilation, these with would simply prolonging his life without chances of increasing his survival. I explained this to Mr. Yang. With this in mind, I do not believe that he wants to be intubated or undergo advanced cardiac life support. This will be rediscussed with his family and the palliative care nurse tomorrow. RECOMMENDATIONS: 1. Continue current antibiotic regimen for Stenotrophomonas maltophilia. 2. Recheck immunoglobulin levels. 3. Continue oxygen therapy. 4. P.r.n. diuretics. 5. Prognosis is poor. End of life discussions are in progress. cc: Dereck Duarte MD
[2019-03-06 05:41] LABS: BASO# 0.03 X1000 (0.0-0.2); BASO% 0.2 % (0.0-0.8); EOS# 0.12 X1000 (0.0-0.7); EOS% 0.8 % (0.0-10.0); HEMATOCRIT 34.1 % (42.0-52.0); HEMOGLOBIN 10.5 g/dL (14.0-18.0); LYMPH# 1.26 X1000 (1.2-3.4); LYMPH% 8.6 % (20.5-51.1); MCH 29.7 PG (27-31); MCHC 30.8 g/dL (33-37); MCV 96.3 FL (81-99); MONO# 0.64 X1000 (0.11-0.59); MONO% 4.4 % (1.7-9.3); MPV 10.7 FL (7.4-10.4); NEUT# 12.65 X1000 (1.4-6.5); PLT 264 X1000 (130-400); RBC 3.54 XMIL (4.7-6.1); RDW 16.3 % (11.5-14.5)
[2019-03-06] MEDS: HUMULIN R SUBQ SCH ×4 (06:21→21:18)
[2019-03-06 06:27] LABS: AGAP 9; BUN 22 mg/dL (8-22); CALCIUM 8.9 mg/dL (8.8-10.2); CHLORIDE 99 mmol/L (98-107); COSMO 284; CREATININE 0.8 mg/dL (0.7-1.2); ESTIMATED GFR > 60; GLUCOSE 92 mg/dL (70-104); SODIUM 141 mmol/L (136-145); TCO2 33 mmol/L (25-35)
[2019-03-06] MEDS: PREDNISONE PO SCH (08:39)
[2019-03-06] MEDS: MYCOSTATIN SUSP PO SCH ×4 (08:39→21:17)
[2019-03-06] MEDS: LANTUS INSULIN SUBQ SCH (08:39)
[2019-03-06] MEDS: PLETAL PO SCH ×2 (08:39→21:18)
[2019-03-06] MEDS: SEPTRA DS PO SCH ×2 (08:40→21:18)
[2019-03-06] MEDS: CULTURELLE PO SCH (08:40)
[2019-03-06] MEDS: ZYLOPRIM PO SCH ×2 (08:40→21:18)
[2019-03-06] MEDS: ASPIRIN PO SCH (08:40)
[2019-03-06] MEDS: MAXIPIME 2 GM in NS 100 ML IV SCH ×2 (08:45→21:17)
[2019-03-06] MEDS: LASIX IV SCH ×3 (10:16→21:18)
--- NOTE | 2019-03-06 13:46 | PROGRESS NOTE ---
DATE: 03/06/2019 INTERVAL HISTORY: No acute events. The patient had a discussion with the bag turner about code status, and he wants to think about further goals of care. In the morning time, he is feeling increasingly short of breath. He states that he has started feeling tired, and he has been working up in terms of his shortness of breath. He also had desaturation episodes where his saturation would drop down to high 70s to low 80s on 100% non-rebreather. We discussed about giving him Lasix. VITALS: Currently, temperature 97.7 degrees, pulse 118, respiratory rate 21, blood pressure 120/76 and saturating 96% on BiPAP, and a nonrebreather mask 100%. PHYSICAL EXAMINATION: General: Appears in mild to moderate distress because of shortness of breath. He also has cough during examination, bringing up yellowish expectoration. Lungs: Air entry has inspiratory crackles on right supra mammary and left inframammary region without any wheeze or rhonchi. Cardiovascular: S1, S2 normal. He has systolic murmur affecting base of the heart. Abdomen: Soft, nontender. Extremities: No lower extremity edema. He has urine catheter. LABORATORY: He has mild leukocytosis. Otherwise normal CBC. BMP is unremarkable. ASSESSMENT AND PLAN: 1. Acute hypoxic respiratory failure because of Stenotrophomonas maltophilia pneumonia, bilateral lung adenocarcinoma with bronchoalveolar features. Currently, he is short of breath. I will continue oxygenation to cycle BiPAP and non-rebreather mask. We will give him Lasix today for his worsening acute respiratory distress and continue 15 mg of prednisone daily as per Pulmonology recommendation. 2. Stenotrophomonas maltophilia pneumonia with Enterobacter cloacae urosepsis. Continue intravenous cefepime today. Tomorrow, will be last day of cefepime and continue Bactrim for 2 more weeks as per Infectious Disease recommendation. 3. Bilateral lung adenocarcinoma with bronchoalveolar features. Oncology on board. He had received a dose of Pembrolizumab, dexamethasone and carboplatin on 03/04/2019, which he has tolerated well so far. He is going to receive treatment every 3 weeks as per his medical course. 4. Severe aortic stenosis with transesophageal echocardiogram did not detect any vegetation. Conservative management has been planned by Cardiology. I will continue his home aspirin, statin, and metoprolol for history of coronary artery disease and CABG. I will also continue cilostazol for peripheral arterial disease. 5. Others: Continue allopurinol for gout, insulin for steroid-induced hyperglycemia on sliding scale basis, albuterol ipratropium nebulization, and statin for oral candidiasis. Graff catheter for history of neurogenic bladder. 6. Disposition: Patient's condition remains tenuous cardiorespiratory status hernandez. I will continue to monitor him in [facility]. Plan of care were discussed with him. All of his questions have been answered satisfactorily. cc: Dickson Monteiro MD MTDD
--- NOTE | 2019-03-06 18:17 | HEMO/ONC PROGRESS NOTE ---
DATE: 03/06/2019 SUBJECTIVE: The patient is sitting upright in his bed, however he is not eating breakfast this morning, he states that his stomach really hurts. He apparently vomited at some point in the night a brown liquid. He is not feeling very good today. This is a significant change from yesterday morning. He continues on high-flow oxygen. OBJECTIVE: Vital Signs: Temperature 97.7 degrees, pulse rate 118, respiratory rate 21, blood pressure 119/76, 96%, he is on BiPAP now. He states 5/10 abdominal pain. General: Chronically ill-appearing gentleman appearing uncomfortable. Respiratory: Bilateral crackles . Cardiac: S1, S2 noted. Tachycardic rhythm. Abdomen: Nondistended, soft, general pain with light palpation diffusely. Extremities: No edema noted. LABORATORY: WBC 14.7, hemoglobin 10.5, hematocrit 34.1, platelet count 264,000, creatinine 0.8. ASSESSMENT: 1. Acute on chronic hypoxic respiratory failure. 2. Stenotrophomonas maltophilia pneumonia with Enterobacter cloacae urosepsis, bilateral lung bronchoalveolar adenocarcinoma. 3. Severe aortic stenosis. 4. Immunoglobulin deficiency. PLAN: Continue patient's current antibiotic regimen. Continue his high oxygen therapy. Use diuretics p.r.n. as needed. Dr. Duarte has had an end-of-life discussion with the patient. We will continue to monitor his labs for neutropenia. Dictated by RIO Myers for Tyree Hurst MD cc: Tyree Hurst MD [facility]
[2019-03-06] MEDS: LOPRESSOR IV PRN (19:34)
--- NOTE | 2019-03-06 21:10 | PULMONOLOGY PROGRESS NOTE ---
DATE: 03/06/2019 SUBJECTIVE: The patient reports his breathing was short this morning. He received a dose of Lasix, and he reports his breathing has significantly improved through the day. OBJECTIVE: Vital Signs: The patient has been afebrile over the last 24 hours. Blood pressure 107/67, heart rate 122, respiratory rate 20, oxygen saturation 92% on non-rebreather. HEENT: Pupils are equal and reactive. Oropharynx is clear. Neck: Supple. Chest: Reveals prolonged expiratory phase with scattered rhonchi bilaterally. Cardiac exam: S1-S2. Abdomen: Soft. Extremities: Without edema. LABORATORIES: White blood count 14.7, hemoglobin 10.5, platelet count 264,000. IMPRESSION: 68-year-old with: 1. Acute hypoxemic respiratory failure. 2. Bilateral adenocarcinoma of the lung with bronchioloalveolar features. 3. Stenotrophomonas maltophilia pneumonia. 4. Severe aortic stenosis. Not a candidate for transcatheter aortic valve replacement other interventions at this time. 5. Immunoglobulin deficiency, status post replacement. 6. Poor prognosis. End-of-life discussions in progress. PLAN: 1. Continue current antibiotic regimen. 2. Await immunoglobulin recheck. 3. Continue oxygen for severe hypoxemic respiratory failure. 4. Treatment of lung cancer per Dr. Hurst. 5. Overall prognosis is poor. End-of-life discussions in progress. cc: Dereck Duarte MD
[2019-03-06] MEDS: LIPITOR PO SCH (21:18)
[2019-03-07] MEDS: XOPENEX NEB INH SCH ×6 (03:13→23:12)
[2019-03-07] MEDS: ATROVENT NEB INH SCH ×6 (03:13→23:12)
[2019-03-07] MEDS: TYLENOL PO PRN (03:42)
[2019-03-07] MEDS: HUMULIN R SUBQ SCH ×4 (06:25→20:34)
--- NOTE | 2019-03-07 07:40 | Diag Imaging Result Doc PS360 ---
CHEST-PORTABLE - 03/07/2019 INDICATION: abnormal exam COMPARISON: 03/05/2019 FINDINGS: There are stable dense bilateral pulmonary infiltrates. No new infiltrates. Heart size remains normal. No pneumothorax or significant pleural effusion. IMPRESSION: No change from prior. Electronically signed by Jairo Hammonds 03/07/2019 7:38 AM
[2019-03-07] MEDS: ASPIRIN PO SCH (08:46)
[2019-03-07] MEDS: ZYLOPRIM PO SCH ×2 (08:46→20:20)
[2019-03-07] MEDS: PLETAL PO SCH ×2 (08:46→20:19)
[2019-03-07] MEDS: SEPTRA DS PO SCH ×2 (08:46→20:20)
[2019-03-07] MEDS: LANTUS INSULIN SUBQ SCH (08:46)
[2019-03-07] MEDS: MYCOSTATIN SUSP PO SCH ×4 (08:46→20:20)
[2019-03-07] MEDS: PREDNISONE PO SCH (08:46)
[2019-03-07] MEDS: CULTURELLE PO SCH (08:46)
[2019-03-07] MEDS: MAXIPIME 2 GM in NS 100 ML IV SCH (08:51)
[2019-03-07] MEDS ORDERED: GAMUNEX-C 10% IV ONE (11:00)
[2019-03-07] MEDS: LOPRESSOR PO SCH ×2 (12:21→20:35)
[2019-03-07] MEDS: CELEXA PO SCH (12:21)
--- NOTE | 2019-03-07 14:22 | PROGRESS NOTE ---
DATE: 03/07/2019 INTERVAL HISTORY: Patient received doses of Lasix yesterday and he had good urine output yesterday, and he slightly felt a little better after the Lasix. Today morning, he feels anxious. Denies any new complaints. He is emotional about his medical illness and he cries in the middle of the encounter. He states he is feeling probably the same as yesterday. Denies any new complaints. He feels a little teary at the moment and he states he had a panic attack at nighttime yesterday as well because of wires and everything dangling around his body. VITAL SIGNS: Currently temperature 97.9 degrees, pulse 127, respiratory rate 17, blood pressure 107/69, saturating 97% on nonrebreather mask at 70% to 100%. PHYSICAL EXAMINATION: General: He appears in mild to moderate in distress. He has an anxious look on his face. Lungs: Air entry bilaterally equal. No wheeze, rhonchi. Mild crackles affecting right supramammary and left inframammary region. Cardiovascular: S1, S2 normal. Systolic murmur affecting base of the heart, crescendo-decrescendo. Abdomen: Soft, nontender. Extremities: No lower extremities edema. Genitourinary: He has a urine catheter. LABORATORY DATA: No CBC or BMP today. His blood sugars are in acceptable range. IMAGING: No imaging data except the chest x-ray which suggests no change from the prior, stable dense bilateral pulmonary infiltrate. ASSESSMENT AND PLAN: 1. Acute hypoxic respiratory failure because of Stenotrophomonas maltophilia pneumonia, bilateral lung adenocarcinoma with bronchoalveolar features. Continue to cycle BiPAP and non-rebreather mask as tolerated. Continue prednisone as per Pulmonology recommendation. He is status post intravenous Lasix yesterday and had good urine output. His shortness of breath is likely going to be his baseline clinical condition now. 2. Stenotrophomonas maltophilia pneumonia. Continue Bactrim until 03/20/2019. He is status post intravenous cefepime for Enterobacter cloacae urosepsis. 3. Bilateral lung adenocarcinoma with bronchoalveolar features. Oncology on board. He is status post pembrolizumab, dexamethasone and carboplatin on March 04, which he has tolerated well. His next dose would be 3 weeks later. I will start him on citalopram for his anxiety, depression and anhedonia. 4. Severe aortic stenosis with transesophageal echocardiogram without any vegetation, and history of coronary artery disease with coronary artery bypass grafting in the past, as well as peripheral artery disease. Cardiology recommends conservative management. I will continue his home aspirin, statin, metoprolol, clopidogrel, and cilostazol. 5. Others. Continue allopurinol for gout, insulin for steroid-induced hyperglycemia on sliding scale basis, albuterol ipratropium nebulization for shortness of breath, and nystatin for oral candidiasis, and Graff catheter for history of neurogenic bladder. DISPOSITION: Patient's condition remains critical and he has poor prognosis. Plan of care is discussed with the patient and I would continue to monitor him in [facility] considering high oxygen requirement. ADDENDUM: I went to the bedside and updated multiple family members about his health. cc: Dickson Monteiro MD MTDD
--- NOTE | 2019-03-07 16:06 | INFECTIOUS DISEASE PROGRESS NO ---
DATE: 03/07/2019 PRESENT ILLNESS: The patient had an Enterobacter urinary tract infection with an associated bacteremia. This has been treated with cefepime and has been cleared. The patient more recently was found to have a Stenotrophomonas pneumonia superimposed on his bilateral lung cancers. The patient also has oral candidiasis and an immunoglobulin deficiency. MEDICATIONS: This is the 14th day of treatment with cefepime for the patient's Enterobacter infection and this is day 5 of treatment with Septra for his Stenotrophomonas pneumonia. The patient is receiving Mycostatin swish and swallow for his oral candidiasis. The patient has received intravenous immunoglobulin infusion for his immunoglobulin deficiency. PHYSICAL EXAMINATION: Vital Signs: Temperature is 98 degrees, pulse 120, respirations are 20, blood pressure 120/70. General: This is a very ill-appearing, elderly male. He is dyspneic just sitting in his bed. Head, eyes, ears, nose and throat: He can hear my spoken words and see near objects. The white patches he had in his mouth have been clearing. Neck: There is no pain when he moves his head. Lungs: Clear to auscultation. Cardiovascular: Heart rate is regular and rapid. Abdomen: Soft and nontender. Neurologic: The patient is awake. He can move his extremities but he is very weak. He does not have a tremor. LAB AND X-RAY: The patient's CBC today shows a white count of 14,700, hemoglobin 10.5, and platelet count 264,000. Creatinine is 0.8. GFR is greater than 60. IgG level is 627. Chest x- ray shows dense bilateral infiltrates. ASSESSMENT AND PLAN: The patient's treatment of the Enterobacter urinary tract infection with bacteremia with cefepime has cleared the infection and cefepime is being discontinued after this morning's dose. My plan will be to continue Septra for another 7 days to treat the Stenotrophomonas superimposed pneumonia on the patient's bilateral lung cancer. Also, I plan to continue Mycostatin swish and swallow for his oral candidiasis. As regarding his immunoglobulin G level of 627, I do not think he requires at this time another infusion of intravenous immunoglobulin. COMORBIDITIES: The patient has bilateral lung cancer. He also has a bladder problem for which he has to catheterize himself 4 times a day and most recently, it was discovered that the patient has an immunoglobulin deficiency. cc: Aleks Link MD
--- NOTE | 2019-03-07 16:06 | INFECTIOUS DISEASE PROGRESS NO ---
DATE: 03/07/2019 ADDENDUM: I discussed with the patient again his code status. The patient indicated if he requires being coded which includes pumping on his chest and intubating him, he wants to go ahead and do that. He told me that he has discussed with his and daughter parameters; if the patient meets those parameters, then the and daughter will discontinue keeping the patient on life-support measures such as being on a respirator. cc: Aleks Link MD MTDD
[2019-03-07] MEDS ORDERED: LASIX IV ONE (17:00)
--- NOTE | 2019-03-07 19:33 | PULMONOLOGY PROGRESS NOTE ---
DATE: 03/07/2019 SUBJECTIVE: The patient is awake, alert and conversant. He reports he had a rough morning, but feels better this afternoon. He would like his beta-sanya to be reinitiated. OBJECTIVE: Heart rate 127, blood pressure 107/69, respiratory rate 17, oxygen saturation 97% on nonrebreather. HEENT: Pupils are equal and reactive. Oropharynx is clear. Neck is supple. Chest reveals bibasilar crackles. Cardiac exam: S1, S2. Abdomen is soft. Extremities without edema. LABORATORY DATA: Immunoglobulin levels yesterday reveal an IgG level of 627. IMPRESSION: A 68-year-old with: 1. Acute hypoxemic respiratory failure. 2. Bilateral adenocarcinoma of the lung. 3. Stenotrophomonas maltophilia pneumonia. 4. Severe aortic stenosis. 5. Immunoglobulin deficiency. I have requested replacement again this morning. 6. Poor prognosis, as outlined before. PLAN: 1. Replace immunoglobulin. 2. Continue current antibiotic regimen. 3. Wean oxygen as tolerated. 4. Attempt to balance intake and output. 5. Treatment of lung cancer per Dr. Hurst. 6. Overall prognosis is poor. cc: Dereck Duarte MD
[2019-03-07] MEDS: LIPITOR PO SCH (20:19)
[2019-03-08] MEDS: ATROVENT NEB INH SCH ×6 (03:25→23:25)
[2019-03-08] MEDS: XOPENEX NEB INH SCH ×6 (03:25→23:25)
[2019-03-08 05:56] LABS: BASO# 0.01 X1000 (0.0-0.2); BASO% 0.1 % (0.0-0.8); EOS# 0.11 X1000 (0.0-0.7); EOS% 0.9 % (0.0-10.0); HEMATOCRIT 35.9 % (42.0-52.0); HEMOGLOBIN 11.2 g/dL (14.0-18.0); IMM GRAN# 0.04 X1000 (0.0-0.04); IMM GRAN% 0.3 % (0.0-0.5); LYMPH# 1.02 X1000 (1.2-3.4); LYMPH% 8.6 % (20.5-51.1); MCH 28.9 PG (27-31); MCHC 31.2 g/dL (33-37); MCV 92.5 FL (81-99); MONO# 0.09 X1000 (0.11-0.59); MONO% 0.8 % (1.7-9.3); MPV 10.8 FL (7.4-10.4); NEUT# 10.56 X1000 (1.4-6.5); NEUT% 89.3 % (42.2-75.2); PLT 259 X1000 (130-400); RBC 3.88 XMIL (4.7-6.1); RDW 15.7 % (11.5-14.5); WBC 11.83 X1000 (4.8-10.8)
[2019-03-08] MEDS: HUMULIN R SUBQ SCH ×4 (06:15→20:28)
[2019-03-08 06:25] LABS: AGAP 11; BUN 39 mg/dL (8-22); CHLORIDE 92 mmol/L (98-107); COSMO 285; CREATININE 1.1 mg/dL (0.7-1.2); ESTIMATED GFR > 60; GLUCOSE 104 mg/dL (70-104); POTASSIUM 4.5 mmol/L (3.5-5.1); SODIUM 138 mmol/L (136-145); TCO2 35 mmol/L (25-35)
[2019-03-08] MEDS: REGLAN IV PRN ×3 (06:45→19:12)
--- NOTE | 2019-03-08 07:29 | Diag Imaging Result Doc PS360 ---
CHEST-PORTABLE - 03/08/2019 INDICATION: abnormal exam COMPARISON: 03/07/2019 FINDINGS: Stable dense bilateral focal infiltrates. No new infiltrates. Heart size remains normal. IMPRESSION: No change from prior. Electronically signed by Jairo Hammonds 03/08/2019 7:27 AM
[2019-03-08] MEDS: ASPIRIN PO SCH (09:32)
[2019-03-08] MEDS: PLAVIX PO SCH (09:33)
[2019-03-08] MEDS: ZYLOPRIM PO SCH ×2 (09:33→20:28)
[2019-03-08] MEDS: PREDNISONE PO SCH (09:33)
[2019-03-08] MEDS: SEPTRA DS PO SCH ×2 (09:33→20:27)
[2019-03-08] MEDS: PLETAL PO SCH ×2 (09:34→20:27)
[2019-03-08] MEDS: LANTUS INSULIN SUBQ SCH (09:34)
[2019-03-08] MEDS: LOPRESSOR PO SCH ×2 (09:34→20:27)
[2019-03-08] MEDS: CULTURELLE PO SCH (09:34)
[2019-03-08] MEDS: MYCOSTATIN SUSP PO SCH ×4 (09:34→20:27)
[2019-03-08] MEDS: CELEXA PO SCH (09:35)
--- NOTE | 2019-03-08 09:58 | PROGRESS NOTE ---
DATE: 03/08/2019 INTERVAL HISTORY: The patient received doses of intravenous Lasix yesterday. He does not appear in any acute distress. He stated he was having some abdominal pain on the right side since nighttime, which was intermittent, but it started getting worse in the morning time and he received some medications, which has helped him. He denies any known history of gallstones or urinary bladder. He thinks that he has been overeating which could be contributing to that. No new complaints. VITALS: Temperature of 98.2 degrees, pulse 112, respiratory rate 16, blood pressure 108/64. He is saturating 96 to 97 percent on nonrebreather mask. Input and output -60 mL so far today. PHYSICAL EXAMINATION: General: Does not appear in any acute distress, though he is needing a high amount of oxygen. Lungs: Air entry bilaterally equal. No wheeze or rhonchi. He has right supramammary crackles and left inframammary crackles. Cardiovascular: S1, S2 normal. Systolic murmur affecting base of the heart, crescendo-decrescendo. Abdomen: Soft. Mildly tender in the right lower quadrant. No lower extremity edema. He has a urine catheter in place. LABS: Today suggestive of acceptable range of hemoglobin, hematocrit, and platelet count. He does have mild leukocytosis. BMP suggestive of normal electrolytes except elevated BUN which is likely because of intermittent Lasix use. ASSESSMENT AND PLAN: 1. Acute hypoxic respiratory failure because of Stenotrophomonas maltophilia pneumonia and bilateral lung adenocarcinoma with bronchoalveolar features. Continue nonrebreather mask and BiPAP as needed. Continue giving Lasix as needed. 2. Stenotrophomonas maltophilia pneumonia. Continue Bactrim until March 20. He is status post intravenous cefepime for Enterobacter cloacae urosepsis. 3. Bilateral lung adenocarcinoma with bronchoalveolar features. He is status post pembrolizumab, dexamethasone, and carboplatin on March 04, which he has tolerated well. Next dose would be 3 weeks later. Continue citalopram for his anxiety, depression, and anhedonia. 4. Severe aortic stenosis with transesophageal echocardiogram without any vegetation and history of coronary artery disease with coronary artery bypass graft in the past and peripheral arterial disease. Conservative management has been recommended by cardiology. Continue his home aspirin, clopidogrel, metoprolol, statin, and cilostazol. 5. Others. Continue allopurinol for gout, insulin for steroid-induced hyperglycemia on a sliding scale basis; albuterol-ipratropium nebulization for shortness of breath; nystatin for oral candidiasis as long as he is on antibiotics; Graff catheter for history of neurogenic bladder. 6. Disposition. Patient remains in [facility]. Plan of care discussed with the patient. All of his questions have been answered. cc: Dickson Monteiro MD
[2019-03-08 13:37] LABS: INR 0.97; PROTIME 13.6 Seconds (11.0-16.0)
[2019-03-08 13:38] LABS: PTT 29.3 Seconds (22.3-41.8)
--- NOTE | 2019-03-08 14:43 | PULMONOLOGY PROGRESS NOTE ---
DATE: 03/08/2019 SUBJECTIVE: The patient is awake and alert. He has dyspnea when moving back and forth to the bathroom. He does report intermittent right-sided abdominal pain with some reproducibility on exam in the right lower quadrant. OBJECTIVE: Vital Signs: The patient has been afebrile for the last 24 hours, blood pressure 113/66, heart rate 114, oxygen saturation 97%. HEENT: Pupils are equal and reactive. Oropharynx is clear. Neck: Supple. Chest: Scattered rhonchi bilaterally. Cardiac: S1, S2. Abdomen: Soft. Extremities: Without edema. IMAGING AND LABORATORY DATA: White blood count 11.8, hemoglobin 11.2, platelet count 259,000. Sodium 138, potassium 4.5, chloride 92, bicarbonate 35, BUN 39, creatinine 1.1, glucose 104. White blood count 11.8, hemoglobin 11.2, platelet count 259,000. Chest x-ray unchanged. IMPRESSION: A 68-year-old with: 1. Bilateral adenocarcinoma of the lung. 2. Stenotrophomonas maltophilia pneumonia. 3. Acute hypoxemic respiratory failure. 4. Severe aortic stenosis. 5. Immunoglobulin deficiency with replacement. 6. Poor prognosis for problems outlined above. RECOMMENDATIONS: 1. Continue current antibiotic regimen. 2. Continue bronchial hygiene. 3. Wean oxygen as tolerated. 4. Attempt to balance intake and output. 5. Overall prognosis is poor. End-of-life discussions have been held with this patient, but no change in status. cc: Dereck Duarte MD
[2019-03-08] MEDS ORDERED: NS 250 ML ONE (15:35)
--- NOTE | 2019-03-08 17:59 | HEMO/ONC PROGRESS NOTE ---
DATE: 03/08/2019 SUBJECTIVE: Patient reports of tiredness today. He is on mask ventilation at high FiO2. He reports of right-sided abdominal pain. He has seen no hospitalist who is suspecting kidney stone pain. He seems to have tolerated chemotherapy well without any problems so far. OBJECTIVE: Vital signs: Afebrile, blood pressure 113/66, pulse 114, percent saturation 97% on 100% FiO2. HEENT: Eyes: EOMI. PERRLA. Anicteric. Mucous membranes are moist. Cardiac: Regular rate and rhythm. Normal S1, S2. Chest: Reveals occasional rhonchi bilaterally. Abdomen: Soft with some right upper quadrant tenderness. No hepatosplenomegaly. Extremities: Without edema. LABORATORY DATA: White count 11.8, hemoglobin 11.2, platelets 259,000. BUN 39, creatinine 1.1. ASSESSMENT AND PLAN: 1. Bilateral bronchoalveolar carcinoma. 2. Acute on chronic respiratory failure. 3. Severe aortic stenosis. 4. IgG deficiency. 5. Stenotrophomonas and Enterobacter infections. PLAN: Continue current management per pulmonary and ID. He is status post 1st cycle of chemotherapy and has tolerated this without significant nausea, vomiting. Monitor counts for neutropenia, which may happen between day 7 and day 10. No further recommendations from my standpoint at this time. Hopefully his cancer will respond to this therapy. cc: Tyree Hurst MD
[2019-03-08] MEDS: TYLENOL PO PRN (18:17)
[2019-03-08] MEDS ORDERED: CALMOSEPTINE OINTMENT TOP PRN (20:12)
[2019-03-08] MEDS: LIPITOR PO SCH (20:27)
[2019-03-09] MEDS: REGLAN IV PRN ×2 (02:24→10:11)
[2019-03-09] MEDS: ATROVENT NEB INH SCH ×5 (03:07→23:17)
[2019-03-09] MEDS: XOPENEX NEB INH SCH ×6 (03:07→23:18)
[2019-03-09] MEDS: TYLENOL PO PRN (04:21)
[2019-03-09] MEDS: HUMULIN R SUBQ SCH ×4 (06:38→20:57)
--- NOTE | 2019-03-09 07:53 | INFECTIOUS DISEASE PROGRESS NO ---
DATE: 03/09/2019 PRESENT ILLNESS: The patient has finished treatment on his Enterobacter urinary tract infection and associated bacteremia. Currently, he is being treated for a Stenotrophomonas pneumonia with p.o. Septra. The patient has oral candidiasis, for which he is on micafungin. He also has an immunoglobulin deficiency. His last IgG is 627. I do not think he requires any IVIG infusions now. MEDICATIONS: The patient's cefepime has been discontinued. This is day 10 of treatment with Septra for his Stenotrophomonas pneumonia. He also is on Mycostatin swish and swallow for his oral candidiasis. PHYSICAL EXAMINATION: Vital Signs: Temperature is 98.3 degrees, pulse 111, respirations 22, blood pressure 116/85. General: This is an ill-appearing, elderly male. He does not appear dyspneic at bedrest. He does not look to be in as much misery as he was a few days ago. He did, however, complain of having some right lower quadrant pain in the past 2 or 3 days. He told me that it was not very serious. HEENT: He can hear my spoken words and see near objects. He does not have any white coating of his tongue. Neck: He does not have any pain when he moves his head. Lungs: There were bilateral rhonchi. Cardiovascular: Heart rate is regular. Abdomen: Soft. He is slightly tender in the right lower quadrant. Neurologic: The patient is awake. He can move his extremities. He does not have a tremor. IMAGING AND LABORATORY DATA: Chest x-ray shows bilateral dense infiltrates. CBC shows a white count of 11,830, hemoglobin 11.2, and platelet count 259,000. Creatinine is 1.1. GFR is 60. ASSESSMENT AND PLAN: I plan on continuing Septra for the patient's Stenotrophomonas pneumonia. As regarding the patient's right lower quadrant, I think I am going to go ahead and order a CT scan of the abdomen and pelvis. COMORBIDITIES: He has bilateral lung cancer. He also has a bladder problem, for which he has to catheterize himself 4 times a day at home, and the patient has an immunoglobulin deficiency. cc: Aleks Link MD
[2019-03-09] MEDS: LANTUS INSULIN SUBQ SCH (08:16)
--- NOTE | 2019-03-09 09:06 | PROGRESS NOTE ---
DATE: 03/09/2019 INTERVAL HISTORY: Mr. Yang states that he had a rough night yesterday, and he has been experiencing right lower quadrant pain which is colicky in nature. He is not able to exactly pinpoint, but he is showing me sometimes right upper and sometimes right lower quadrant region. He denies any known history of cholelithiasis or nephrolithiasis. Infectious Disease team has already ordered CT scan of the abdomen and pelvis. SUBJECTIVE: Otherwise, he is feeling fine. Denies any chest pain or shortness of breath except baseline shortness of breath that he has been having since many days now. VITALS: Currently, suggest temperature of 98.3 degrees pulse 106, respiratory rate 20, blood pressure 132/71, and saturating 94% on nonrebreather mask. PHYSICAL EXAMINATION: He is in mild distress because of abdominal pain and shortness of breath. Oral cavity is moist. Air entry: He has supra mammary crackles on the right and inframammary crackles on the left. No wheeze. Cardiovascular: S1, S2 normal. Systolic crescendo-decrescendo murmur best heard at second intercostal space on the right. Abdomen: Soft. He does have significant tenderness in the right quadrant. Extremities: No lower extremity edema. He has urine catheter in place for his neurogenic bladder issues. LABORATORY: Suggestive of no CBC or BMP. His blood sugar is 81. ASSESSMENT AND PLAN: 1. Acute hypoxic respiratory failure because of Stenotrophomonas maltophilia pneumonia and bilateral lung bronchoalveolar carcinoma. Continue oxygenation through non-rebreather mask and BiPAP as needed. Continue Lasix as needed. 2. Stenotrophomonas maltophilia pneumonia. Continue Bactrim until 03/20. He is status post intravenous cefepime for Enterobacter cloacae urosepsis. 3. Bilateral lung bronchoalveolar carcinoma, status post pembrolizumab, dexamethasone and carboplatin on 03/04. Next dose would be 3 weeks later. Continue citalopram for anxiety, depression and anhedonia. 4. Right quadrant abdominal pain. The patient denies known history of cholelithiasis or nephrolithiasis considering he has received multiple Lasix doses. I will get CT scan of abdomen and pelvis, which has been ordered by Infectious Disease to rule out cholelithiasis or nephrolithiasis. He denies any nausea or vomiting. He has had bowel movement yesterday. 5. Severe aortic stenosis with LEONIE showing no vegetation and history of CABG in the past with peripheral artery disease. Conservative management recommended by Cardiology. I will continue home aspirin, clopidogrel, metoprolol statin, and cilostazol. 6. Others: Continue allopurinol for gout; insulin for steroid-induced hyperglycemia on a sliding scale basis; albuterol ipratropium nebulization for shortness of breath; nystatin for oral candidiasis as long as he is on antibiotics. Graff catheter for history of urinary retention and intermittent self catheterization. 7. Disposition: I will continue to monitor patient in [facility]. Goals of care discussion has been held with him multiple times, and he wants to be full code. Condition and prognosis are poor. cc: Dickson Monteiro MD
[2019-03-09] MEDS: PLAVIX PO SCH (10:11)
[2019-03-09] MEDS: PREDNISONE PO SCH (10:11)
[2019-03-09] MEDS: CULTURELLE PO SCH (10:11)
[2019-03-09] MEDS: CELEXA PO SCH (10:12)
[2019-03-09] MEDS: LOPRESSOR PO SCH ×2 (10:12→21:15)
[2019-03-09] MEDS: PLETAL PO SCH ×2 (10:12→21:15)
[2019-03-09] MEDS: MYCOSTATIN SUSP PO SCH ×4 (10:12→21:12)
[2019-03-09] MEDS: ZYLOPRIM PO SCH ×2 (10:12→21:15)
[2019-03-09] MEDS: ASPIRIN PO SCH (10:13)
--- NOTE | 2019-03-09 10:49 | Diag Imaging Result Doc PS360 ---
EXAM: CT ABD/PELVIS W/PO AND IV CON 03/09/2019 HISTORY: RLQ pain TECHNIQUE: This exam was performed using automated exposure control, adjustment of mA or kV according to patient size, and/or use of iterative reconstruction technique. COMMENT: There continue to be patchy alveolar and acinar type nodular opacities bilaterally with denser consolidation present in the visualized portion of the lingula. There is also confluent opacification in the posterior costophrenic sulcus of the right lower lobe. There has apparently been some improvement since the previous thoracic study of 03/01/2019 with respect to the right lower lobe. There is a lipoma in the anterolateral chest wall on the right which was present at the time the previous study. There are no previous abdominal studies. There is extensive atherosclerotic calcification in the aorta and iliac arteries. There is slight dilatation of the infrarenal aorta which tapers normally distally. The maximum AP diameter is 2.4 cm. This area was not included on the thoracic study. The adrenal glands are stable in appearance. The spleen is not enlarged. The pancreas is unremarkable. There is a fairly large amount of stool throughout the colon. There are no apparent gallstones. The liver is normal in appearance. The small bowel is not distended. There is no evidence of significant adenopathy. There is fullness of the collecting systems of both kidneys particularly the renal pelvis on the left side. The possibility of a congenital UPJ stenosis cannot be excluded. There are no renal masses. There is a vascular calcification in a branch of the renal artery on the left and heavy calcification is present in the proximal left renal artery. There has been appendectomy. There is a mesh in the anterior abdominal wall. Pelvis: There is diverticulosis in the distal descending and sigmoid colon without evidence of acute diverticulitis. There are numerous seeds in the prostate. There is a Graff catheter in the bladder. There is some thickening of the bladder wall of the bladder is not distended. There is no evidence of free fluid. There is extensive atherosclerotic calcification in the common and external iliac arteries. There are postsurgical changes in the femoral/inguinal regions bilaterally. There are degenerative changes in the lumbar spine with apparent spinal stenosis at L2-3, L3-4 and L4-5. IMPRESSION: Improved pulmonary consolidation in the right lower lobe. Constipation. Diverticulosis coli. Other nonacute findings as described above. Electronically signed by Kamlesh Garcia 03/09/2019 10:47 AM
[2019-03-09] MEDS: MORPHINE IV PRN ×2 (11:23→18:11)
[2019-03-09] MEDS: SEPTRA DS PO SCH ×2 (11:37→21:15)
[2019-03-09] MEDS: LIPITOR PO SCH (21:15)
[2019-03-10] MEDS: XOPENEX NEB INH SCH ×6 (03:15→22:58)
[2019-03-10] MEDS: ATROVENT NEB INH SCH ×6 (03:16→22:58)
[2019-03-10] MEDS: HUMULIN R SUBQ SCH ×4 (06:10→21:59)
[2019-03-10] MEDS: LANTUS INSULIN SUBQ SCH (09:18)
[2019-03-10] MEDS: ASPIRIN PO SCH (09:44)
[2019-03-10] MEDS: CELEXA PO SCH (09:44)
[2019-03-10] MEDS: PREDNISONE PO SCH (09:45)
[2019-03-10] MEDS: SEPTRA DS PO SCH ×2 (09:45→20:34)
[2019-03-10] MEDS: CULTURELLE PO SCH (09:45)
[2019-03-10] MEDS: PLETAL PO SCH ×2 (09:46→20:34)
[2019-03-10] MEDS: PLAVIX PO SCH (09:46)
[2019-03-10] MEDS: LOPRESSOR PO SCH ×2 (09:46→20:34)
[2019-03-10] MEDS: ZYLOPRIM PO SCH ×2 (09:46→20:34)
[2019-03-10] MEDS: MYCOSTATIN SUSP PO SCH ×4 (09:47→20:34)
[2019-03-10] MEDS: LASIX IV SCH ×4 (12:03→23:24)
--- NOTE | 2019-03-10 12:20 | PROGRESS NOTE ---
DATE: 03/10/2019 INTERVAL HISTORY: Mr. Yang got a CT scan of the abdomen and pelvis which had many findings. The only significant was he had a lot of constipation. Otherwise, he did not detect any nephrolithiasis or cholelithiasis to explain his abdominal pain. SUBJECTIVE: Mr. Yang states that he is feeling bad today as he is more short of breath. He has been sitting on the potty chair because he has had 3 bowel movements today. I explained to him about CT scan of the abdomen and pelvis finding, and I also explained to him about giving him Lasix. He is sitting on the potty chair and has had multiple bowel movements so far which are soft. VITAL SIGNS: Temperature 97.8 degrees, pulse 112, respiratory 19, blood pressure 133/94 and saturating 98% on Venturi mask. PHYSICAL EXAMINATION: General: He appears in mild to moderate distress. He has a nonrebreather mask. Lungs: He does have bilateral infrascapular crackles. No wheeze or rhonchi. Cardiovascular: S1, S2 normal. Systolic crescendo-decrescendo murmur best heard at second intercostal space on the right. Abdomen: Soft. Active bowel sounds. No tenderness today. Extremities: No lower extremity edema. He has urine catheter. LABORATORY: No CBC or BMP today. ASSESSMENT AND PLAN: 1. Acute hypoxic respiratory failure because of Stenotrophomonas maltophilia pneumonia, and bilateral lung bronchoalveolar carcinoma. Continue oxygenation through non- rebreather mask and BiPAP as needed. I will start him on Lasix for 3 more doses today. 2. Continue Bactrim for Stenotrophomonas maltophilia pneumonia. He is status post intravenous cefepime for Enterobacter cloacae urosepsis. 3. Bilateral lung bronchoalveolar carcinoma, status post pembrolizumab, dexamethasone and carboplatin on 03/04 on every 3 week schedule. Continue citalopram for anxiety, depression, and anhedonia. Right quadrant abdominal pain could be related to constipation. It is better today. CT scan of the abdomen and pelvis did not have any evidence of cholecystitis, nephrolithiasis or choledocholithiasis. Continue intravenous morphine as needed. 4. Severe aortic stenosis with history of coronary artery disease, peripheral artery disease, and CABG in the past. Continue home aspirin, clopidogrel, metoprolol statin, and cilostazol. 5. Others: Continue allopurinol for gout; sliding scale insulin for steroid induced hyperglycemia. I will stop the Lantus considering his hypoglycemia; albuterol ipratropium nebulization for shortness of breath; nystatin for oral candidiasis, and Graff catheter for his history of urinary retention. 6. Disposition: Continue to monitor patient in [facility]. Plan of care discussed with the patient. All of his questions have been answered. His code status is full at the moment. There is ongoing discussion of goals of care. The palliative care team has also been involved. cc: Dickson Monteiro MD MTDD
[2019-03-10] MEDS: LIPITOR PO SCH (20:34)
[2019-03-11] MEDS: ATROVENT NEB INH SCH ×6 (03:54→23:36)
[2019-03-11] MEDS: XOPENEX NEB INH SCH ×6 (03:54→23:36)
[2019-03-11 05:52] LABS: BASO# 0.02 X1000 (0.0-0.2); BASO% 0.3 % (0.0-0.8); EOS# 0.05 X1000 (0.0-0.7); EOS% 0.7 % (0.0-10.0); HEMATOCRIT 36.2 % (42.0-52.0); HEMOGLOBIN 11.6 g/dL (14.0-18.0); IMM GRAN# 0.03 X1000 (0.0-0.04); IMM GRAN% 0.4 % (0.0-0.5); LYMPH# 0.77 X1000 (1.2-3.4); LYMPH% 10.9 % (20.5-51.1); MCH 29.1 PG (27-31); MONO# 0.22 X1000 (0.11-0.59); MONO% 3.1 % (1.7-9.3); MPV 10.9 FL (7.4-10.4); NEUT# 5.97 X1000 (1.4-6.5); NEUT% 84.6 % (42.2-75.2); PLT 227 X1000 (130-400); RBC 3.98 XMIL (4.7-6.1); WBC 7.06 X1000 (4.8-10.8)
[2019-03-11] MEDS: HUMULIN R SUBQ SCH ×4 (06:23→22:56)
[2019-03-11 06:30] LABS: AGAP 15; BUN 41 mg/dL (8-22); CHLORIDE 94 mmol/L (98-107); COSMO 283; CREATININE 1.1 mg/dL (0.7-1.2); ESTIMATED GFR > 60; GLUCOSE 107 mg/dL (70-104); MAGNESIUM 2.1 mg/dL (1.5-2.7); POTASSIUM 4.6 mmol/L (3.5-5.1); SODIUM 136 mmol/L (136-145); TCO2 27 mmol/L (25-35)
--- NOTE | 2019-03-11 06:31 | INFECTIOUS DISEASE PROGRESS NO ---
DATE: 03/11/2019 PRESENT ILLNESS: The patient is being treated for a Stenotrophomonas pneumonia. Unfortunately, he has lung cancer and he is going through chemotherapy. The patient has oral candidiasis. He also has an immunoglobulin deficiency. MEDICATIONS: The patient is on trimethoprim/sulfamethoxazole, this is day 10 of treatment with the antibiotic. The patient is also getting nystatin swish and swallow. He is also on a fairly low dose of steroids, namely prednisone 15 mg daily. PHYSICAL EXAMINATION: Vital Signs: Temperature is 98.3 degrees, pulse 115, respirations 18, blood pressure 92/62. General: This is an ill-appearing, elderly male. He actually looks better than when I saw him 2 days ago. He is in no acute distress. The abdominal pain that he had earlier seems to be getting better. He is passing some thick, pasty stools. He has not been vomiting. Head/eyes/ears/nose/throat: He can hear my spoken words and see near objects. He does not have any white coating on his tongue. Neck: He does not have any pain when he moves his head. Lungs: Clear to auscultation. Cardiovascular: Heart rate is regular. Abdomen: Soft, and it was not tender. Neurologic: The patient was sleeping, but he was easily arousable. He can move his extremities. He does not have a tremor. Integument: No rash noted. LABORATORY AND RADIOLOGY: There is no new radiologic study. A CT scan done 2 days ago showed that there was stool throughout his colon. There were bibasilar opacities. The patient's CBC shows a white count of 7060, hemoglobin 11.6, and platelet count 227,000. There was no BMP yet back. ASSESSMENT AND PLAN: I am going to continue Septra for the patient's Stenotrophomonas pneumonia. Also, I plan to continue with Mycostatin swish and swallow. COMORBIDITIES: The patient has lung cancer for which he is getting chemotherapy. He also has a bladder problem for which he has to catheterize himself 4 times a day. Also, he has immunoglobulin deficiency. cc: Aleks Link MD
[2019-03-11 09:11] LABS: ALLEN TEST YES; BE 6.4 mmoll (-3.0-3.0); BLOOD TYPE ARTERIAL; HCO3-(ACT) 29.7 mmoll (20.0-26.0); METHB 1.3 % (0.0-1.5); MODALITY NRB; O2HB 87.8 % (95.0-99.0); PCO2(98.6) 41 mmHg (35-45); PO2(98.6) 54 mmHg (60-100); SAMPLE BLOOD; SAO2 90.5 % (95.0-100.0); THB 11.3 g/dL (11.5-17.4); pH(98.6) 7.48 (7.35-7.45)
--- NOTE | 2019-03-11 09:20 | Diag Imaging Result Doc PS360 ---
EXAM: CHEST-PORTABLE 03/11/2019 HISTORY: SOB/decreased O2sat TECHNIQUE: AP portable at 0909 COMMENT: There are patchy alveolar opacities in the lingula and right upper lobe. There may be slight improvement since 03/08/2019. Otherwise are has been no apparent change. IMPRESSION: Bilateral pneumonia. Electronically signed by Kamlesh Garcia 03/11/2019 9:18 AM
[2019-03-11] MEDS ORDERED: LASIX IV ONE (09:40)
[2019-03-11] MEDS: MORPHINE IV PRN (09:52)
[2019-03-11] MEDS: MYCOSTATIN SUSP PO SCH ×5 (11:06→21:18)
[2019-03-11] MEDS: SEPTRA DS PO SCH ×2 (11:54→21:18)
[2019-03-11] MEDS: CELEXA PO SCH (11:54)
[2019-03-11] MEDS: ASPIRIN PO SCH (11:54)
[2019-03-11] MEDS: ZYLOPRIM PO SCH ×2 (11:54→21:18)
[2019-03-11] MEDS: PREDNISONE PO SCH (11:55)
[2019-03-11] MEDS: LOPRESSOR PO SCH ×2 (11:55→21:18)
[2019-03-11] MEDS: PLAVIX PO SCH (11:55)
[2019-03-11] MEDS: MIRALAX PO SCH ×2 (11:55→17:52)
[2019-03-11] MEDS: DULCOLAX PR PRN (11:55)
[2019-03-11] MEDS: CULTURELLE PO SCH (11:55)
--- NOTE | 2019-03-11 12:15 | HEMO/ONC PROGRESS NOTE ---
DATE: 03/11/2019 SUBJECTIVE: Mr. Yang does not appear to be doing well today. His breakfast tray is pushed to the side unopened. He is lying flat in bed in a dark room holding his belly and moaning. He explains to me that the CT was done several days ago, which showed diverticulosis and significant constipation. He states no one has done anything about this and he is continuing to be in pain. He is unable to eat at this time. OBJECTIVE: Vitals: Temperature 97.8 degrees, pulse rate 112, respiratory rate 22, blood pressure 108/62, O2 saturation 98% on 15 L non-rebreather, 8/10 pain. General: Uncomfortable, ill- appearing elderly gentleman. Respiratory: Rate is increased. Upper lobes clear. Occasional rhonchi bilaterally. Chest: S1, S2 noted. Tachycardic. Abdomen: Guarded. Diffuse tenderness throughout. Bowel sounds present. Extremities: Without edema. DIAGNOSTIC DATA: WBC 7.06, hemoglobin 11.6, hematocrit 36.2, platelet count 227,000. Creatinine 1.1. This morning's chest x-ray has no apparent change in bilateral pneumonia. CT abdomen and pelvis from 03/09, improved pulmonary consolidation in the right lower lung, constipation, diverticulosis coli. ASSESSMENT: 1. Bilateral bronchoalveolar carcinoma. 2. Acute on chronic respiratory failure. 3. Severe aortic stenosis. 4. IgG deficiency. 5. Stenotrophomonas and Enterobacter infection. PLAN: Continue current management per Pulmonary and Infectious Disease. He is status post his first cycle of chemotherapy and has tolerated it well without any significant nausea or vomiting. We will continue to monitor his counts for neutropenia, which is most likely to happen between day 7 and day 10. No further recommendations from our standpoint. We continue to hope his cancer will respond to this therapy. Regarding his constipation, we have ordered MiraLAX and Dulcolax suppositories every 6 hours in an attempt to soften the constipation and improve his pain. Dictated by RIO Myers for Tyree Hurst MD cc: Tyree Hurst MD [facility] [facility]
[2019-03-11] MEDS: PLETAL PO SCH ×2 (15:32→21:18)
--- NOTE | 2019-03-11 15:55 | PROGRESS NOTE ---
DATE: 03/11/2019 INTERVAL HISTORY: I was informed by the nursing team that the patient was significantly feeling short of breath and immediately evaluated the patient. Even on nonrebreather mask, the patient's saturation would drop to high 70s and 80s when the mask is not appropriately tightened up. The patient is also complaining of right lower quadrant pain which is likely in the setting of constipation. I discussed with the patient and nursing team about giving him Lasix and starting him on BiPAP. The patient is okay to take any medications to help with his abdominal pain. VITALS: Temperature 98, pulse 120, respiratory 21 blood pressure 127/80, saturating 95% on BiPAP. PHYSICAL EXAMINATION: General: In mild to moderate distress because of shortness of breath. He has an anxious look on his face. HEENT: Oral cavity is moist. Lungs: Air entry bilaterally equal. He does have inspiratory crackles on the right supramammary and left infrascapular region. No wheeze or rhonchi. Cardiovascular: S1, S2 normal. Crescendo/decrescendo systolic murmur best heard at second intercostal space on the right. Abdomen: Soft, active bowel sounds. He does have tenderness in right quadrant. No lower extremity edema. He has a urine catheter. LABS: Today suggestive of no leukocytosis. Normal hemoglobin, normal platelet count. His ABG is suggestive of hypoxia with PO2 of 54 on 100% non-rebreather. He does have elevated BUN and creatinine. DATA: No new microbiology or imaging data except the chest x-ray performed today which on my review suggests pretty much the same, which are patchy alveolar opacity on lingula and right upper lobe. ASSESSMENT AND PLAN: 1. Acute hypoxic respiratory failure because of stenotrophomonas maltophilia pneumonia and bilateral lung bronchoalveolar carcinoma. Continue oxygenation through BiPAP and cycle to non- rebreather as tolerated, according to oxygen levels. I will give him additional doses of Lasix and continue Bactrim for stenotrophomonas maltophilia pneumonia as per ID recommendation. He is already status post intravenous cefepime for Enterobacter cloacae urosepsis. 2. 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 I will monitor for neutropenia in next 4 or 5 days. I will continue citalopram for anxiety and depression and anhedonia. 3. Right abdominal quadrant pain likely in the setting of constipation. The patient agrees to take intravenous morphine. CT scan of abdomen and pelvis did not have any cholecystitis or renal colic. The patient has had liquidy bowel movements, but the CAT scan still detects constipation. 4. Severe aortic stenosis with history of coronary artery disease, peripheral artery disease and CABG in the past. Continue home aspirin, clopidogrel, metoprolol, statin and cilostazol. 5. Others: Continue allopurinol for gout, sliding scale insulin for steroid- induced hyperglycemia, albuterol ipratropium nebulization for shortness of breath, nystatin for oral candidiasis, Graff catheter for history of urinary retention. 6. Disposition: The patient's condition is critical. I will continue to monitor him in [facility]. 7. Previously, code status discussions were held and he wanted to be full code again. Palliative Care team is going to hold goals of care discussion with the patient and his today; however, I was not able to attend that. I will follow up. Plan of care discussed with the nursing team and the patient. ADDENDUM: Code status discussion done. Patient is DNR level 1 now. cc: Dickson Monteiro MD MTDD
[2019-03-11] MEDS: LASIX IV SCH ×2 (16:18→21:18)
--- NOTE | 2019-03-11 20:40 | PROGRESS NOTE ---
DATE: 03/11/2019 ADDENDUM: I evaluated the patient at bedside again. He is looking much more comfortable. He states he had a better rest of his day. Patient's daughter is at bedside and we held goals of care discussion. Patient has had a discussion with his daughter and rest of the family members. Patient has decided to make himself Do Not Resuscitate level 1. Patient states that if things do not work out from this point onward, he would not like to be intubated. He also mentioned that he would not like to receive any chest compressions or shock. However, he mentions that he still wants to fight this cancer and wants to receive the therapy for cancer and his breathing. He is also agreeable to receive antianxiety and pain medications as opposed to before. I communicated this discussion with the nurse and have made the patient Do Not Resuscitate level 1. Also, I started the patient on p.o. lorazepam every morning at 6 a.m. since he gets very anxious as soon as he wakes up in the morning. I will also start him on IV lorazepam as needed. cc: Dickson Monteiro MD
[2019-03-11] MEDS: LIPITOR PO SCH (21:18)
--- NOTE | 2019-03-11 22:33 | PULMONOLOGY PROGRESS NOTE ---
DATE: 03/11/2019 SUBJECTIVE: The patient is awake and alert. He had more difficulty with his breathing this morning but feels better this afternoon. OBJECTIVE: The patient has been afebrile for the last 24 hours. BP 113/78, heart rate 108, respiratory rate 15, oxygen saturation 93% on nonrebreather. HEENT: Pupils are equal and reactive. Oropharynx is clear. Neck is supple. Chest reveals prolonged expiratory phase with coarse breath sounds. Cardiac exam: Increased rate, regular rhythm. Abdomen is soft. No definite rebound. No specific localized tenderness. Extremities reveal trace edema. DIAGNOSTIC DATA: Chest x-ray reveals bilateral masses with possible marginal decrease in infiltrates compared to 03/08/2019. IMPRESSION: A 68-year-old with: 1. Bilateral adenocarcinoma of the lung, status post chemotherapy treatment earlier during this hospitalization. 2. Stenotrophomonas maltophilia pneumonia. 3. Acute hypoxemic respiratory failure. 4. Severe aortic stenosis. Patient not a candidate for intervention at this time. 5. Immunoglobulin deficiency with recent replacement. 6. Overall poor prognosis. PLAN: 1. Continue current antibiotic regimen. 2. Continue bronchial hygiene. 3. Continue to balance intake and output. 4. Continue oxygen and BiPAP p.r.n. 5. Agree with resuscitation status, which will allow the patient to have a natural if he expires. 6. Consider LTAC evaluation. He may or may not improve at this juncture, but if he does not improve, I doubt whether he will be a candidate for additional chemotherapy. cc: Dereck Duarte MD
[2019-03-12] MEDS: MIRALAX PO SCH ×5 (00:40→23:12)
[2019-03-12] MEDS: XOPENEX NEB INH SCH ×6 (03:05→23:28)
[2019-03-12] MEDS: ATROVENT NEB INH SCH ×6 (03:05→23:28)
[2019-03-12] MEDS: ATIVAN PO SCH (05:39)
[2019-03-12] MEDS: HUMULIN R SUBQ SCH ×4 (06:30→20:49)
[2019-03-12] MEDS: PREDNISONE PO SCH (08:49)
[2019-03-12] MEDS: ZYLOPRIM PO SCH ×2 (08:49→20:46)
[2019-03-12] MEDS: CULTURELLE PO SCH (08:49)
[2019-03-12] MEDS: SEPTRA DS PO SCH ×2 (08:49→20:46)
[2019-03-12] MEDS: ASPIRIN PO SCH (08:49)
[2019-03-12] MEDS: PLAVIX PO SCH (08:49)
[2019-03-12] MEDS: LOPRESSOR PO SCH ×2 (08:49→20:46)
[2019-03-12] MEDS: MYCOSTATIN SUSP PO SCH ×4 (08:49→20:45)
[2019-03-12] MEDS: CELEXA PO SCH (08:49)
[2019-03-12] MEDS: DULCOLAX PR PRN ×3 (08:49→20:46)
[2019-03-12] MEDS: PLETAL PO SCH ×2 (08:49→20:46)
--- NOTE | 2019-03-12 10:06 | PROGRESS NOTE ---
DATE: 03/12/2019 SUBJECTIVE: The patient is feeling a little bit better today. He is on a nonrebreathing mask. His abdominal pain is a little bit better compared with yesterday. We will continue with same management. OBJECTIVE: Vital Signs: Temperature 97.7 degrees, pulse 110, respiratory rate 20, blood pressure 115/73, oxygen saturation 93 on a nonrebreathing mask. HEENT: Head normocephalic. No trauma. PERRLA. Neck: Supple. No JVD. No masses. Central trachea. Chest: He has some crepitus and inspiratory crackles bilaterally, mostly right upper thoracic area and left lower thoracic area, no wheezing at this moment. Cardiovascular: Regular rhythm and rate. Systolic murmur. Abdomen: Soft. Tenderness to palpation at the level of the periumbilical area and lower abdomen. No signs of peritoneal irritation. Extremities: No edema. No clubbing. No cyanosis. Neurological: The patient is alert and oriented x3. No focal deficits. LABORATORY: Glucose 112. ASSESSMENT AND PLAN: 1. Acute hypoxemic respiratory failure secondary to bilateral lung bronchoalveolar carcinoma and Stenotrophomonas maltophilia pneumonia. Continue with the same management for now. Infectious Disease Department and Pulmonary Department on board. 2. Bilateral lung bronchoalveolar carcinoma status post chemotherapy on 03/04/2019. Dr. Hurst following this patient closely. We will monitor his white counts. 3. Right abdominal pain mostly at the level of the periumbilical area and lower abdomen, likely secondary to constipation. Continue with same management. It looks like this is getting better. 4. Severe aortic stenosis with history of coronary artery disease, peripheral arterial disease and coronary artery bypass grafting in the past. Continue with aspirin, Plavix metoprolol, statin, and cilostazol. 5. History of gout. Continue with allopurinol. 6. Hyperglycemia. Continue with sliding scale insulin and pattern blood sugar. 7. Resuscitation status. This patient is DNR level 1. We will continue with treating this patient in the CIC unit. We will start talking to this patient about possible LTAC placement. cc: Jason Steele MD
--- NOTE | 2019-03-12 18:04 | HEMO/ONC PROGRESS NOTE ---
DATE: 03/12/2019 SUBJECTIVE: Mr. Yang is lying on his left side with his bed flat, curled up. He states he continues to have abdominal pain. He was aware that we had written him several orders in order to help with his abdominal pain. He is wanting to continue his MiraLAX until resolved. We discussed doing suppositories and enemas if needed to get the job done. He is again not interested in his breakfast this morning. His abdomen is continuing to hurt. OBJECTIVE: Vital Signs: Temperature 97.7 degrees, pulse rate 110, respiratory rate 20, blood pressure 115/73, O2 saturation 93% on non-rebreather at 15 L. Pain: 5/10 abdominal pain. General: Chronically ill-appearing gentleman in no acute distress. Respiratory: Coarse breath sounds at an increased rate. Cardiovascular: S1, S2 noted. Abdomen: Guarded, diffuse tenderness, nondistended. Extremities: Without edema. LABORATORY DATA: None today. RADIOLOGICAL DATA: No radiology reports today. ASSESSMENT: 1. Bilateral bronchoalveolar carcinoma. 2. Acute on chronic respiratory failure. 3. Severe aortic stenosis. 4. IgG deficiency. 5. Stenotrophomonas and Enterobacter infections. PLAN: Not much change in patient condition today. Continue current management per Pulmonology and Infectious Disease. Continue to watch for neutropenia status post chemotherapy. This most likely could happen between day 7 and day 10. No further recommendations per our standpoint. We understand patient has made himself a DNR level 1 in agreement with his family members. Regarding his constipation we spoken with nursing staff about MiraLAX and Dulcolax suppository and enema as needed to help patient with his abdominal pain. Dictated by RIO Myers for Tyree Hurst MD cc: Tyree Hurst MD [facility]
[2019-03-12] MEDS: LIPITOR PO SCH (20:46)
--- NOTE | 2019-03-13 00:20 | PULMONOLOGY PROGRESS NOTE ---
DATE: 03/12/2019 SUBJECTIVE: The patient is awake and alert. He reports he has had a pretty good day. He had an enema earlier with limited bowel movement. OBJECTIVE: Vital Signs: The patient has been afebrile for the last 24 hours. Blood pressure 105/68, heart rate 117, respiratory rate 19, oxygen saturation 92%. HEENT: Pupils are equal and reactive. Oropharynx is clear. Neck: Supple. Chest: Reveals coarse crackles and rhonchi bilaterally. Cardiac: S1, S2. Abdomen: Soft with diminished bowel sounds. Extremities: Without edema. LABORATORIES: No new chemistries, CBC, or chest x-ray today. IMPRESSION: A 68-year-old with 1. Bilateral adenocarcinoma, status post chemotherapy. 2. Stenotrophomonas maltophilia pneumonia. 3. Acute hypoxemic respiratory failure. 4. Severe aortic stenosis. The patient not a candidate for intervention. 5. Immunoglobulin deficiency with recent replacement. PLAN: 1. Continue antibiotic regimen. 2. Continue bronchial hygiene. 3. Continue oxygen and BiPAP p.r.n. 4. Consider LTAC evaluation given his prolonged hospital course and lack of improvement. 5. Agree with current resuscitation status which will allow the patient to have a natural . cc: Dereck Duarte MD
[2019-03-13] MEDS: ATROVENT NEB INH SCH ×6 (03:35→22:49)
[2019-03-13] MEDS: XOPENEX NEB INH SCH ×6 (03:35→22:50)
[2019-03-13 05:04] LABS: ALLEN TEST YES; BE 6.6 mmoll (-3.0-3.0); BLOOD TYPE ARTERIAL; METHB 1.4 % (0.0-1.5); O2(CT) 14.7 mL/dL (15.0-23.0); PCO2(98.6) 48 mmHg (35-45); PO2(98.6) 85 mmHg (60-100); SAMPLE BLOOD; SAO2 97.8 % (95.0-100.0); THB 10.9 g/dL (11.5-17.4); pH(98.6) 7.43 (7.35-7.45)
[2019-03-13 05:05] LABS: MODALITY NRB
[2019-03-13 06:03] LABS: BASO# 0.03 X1000 (0.0-0.2); BASO% 0.2 % (0.0-0.8); EOS# 0.11 X1000 (0.0-0.7); EOS% 0.9 % (0.0-10.0); HEMATOCRIT 33.8 % (42.0-52.0); HEMOGLOBIN 10.8 g/dL (14.0-18.0); IMM GRAN# 0.05 X1000 (0.0-0.04); IMM GRAN% 0.4 % (0.0-0.5); LYMPH# 0.96 X1000 (1.2-3.4); LYMPH% 7.7 % (20.5-51.1); MCH 28.9 PG (27-31); MCV 90.4 FL (81-99); MONO# 0.46 X1000 (0.11-0.59); MONO% 3.7 % (1.7-9.3); MPV 11.4 FL (7.4-10.4); NEUT# 10.84 X1000 (1.4-6.5); NEUT% 87.1 % (42.2-75.2); PLT 205 X1000 (130-400); RBC 3.74 XMIL (4.7-6.1); RDW 14.9 % (11.5-14.5); WBC 12.45 X1000 (4.8-10.8)
[2019-03-13] MEDS: MIRALAX PO SCH (06:06)
[2019-03-13] MEDS: ATIVAN PO SCH (06:06)
[2019-03-13] MEDS: TYLENOL PO PRN (06:06)
[2019-03-13] MEDS: HUMULIN R SUBQ SCH ×4 (06:07→20:00)
[2019-03-13 06:46] LABS: ALBUMIN 3.6 g/dL (3.5-5.0); CALCIUM 9.4 mg/dL (8.8-10.2); CREATININE 1.8 mg/dL (0.7-1.2); POTASSIUM 4.5 mmol/L (3.5-5.1); TOTAL BILIRUBIN 0.35 mg/dL (0.20-1.00); TOTAL PROTEIN 7.2 g/dL (6.3-8.3)
--- NOTE | 2019-03-13 07:11 | Diag Imaging Result Doc PS360 ---
EXAM: CHEST-PORTABLE 03/13/2019 HISTORY: dyspnea TECHNIQUE: AP portable at 0542 COMMENT: Dense alveolar opacity remains in the right upper lobe and lingula. There has been no appreciable change since 03/11/2019. IMPRESSION: Bilateral pneumonia. Electronically signed by Kamlesh Garcia 03/13/2019 7:09 AM
--- NOTE | 2019-03-13 07:56 | INFECTIOUS DISEASE PROGRESS NO ---
DATE: 03/13/2019 PRESENT ILLNESS: The patient is currently being treated for a Stenotrophomonas pneumonia superimposed on lung cancer. The patient also has oral candidiasis and also he has an immunoglobulin deficiency. MEDICATIONS: This is the 14th day of treatment with trimethoprim/sulfamethoxazole. The patient also is getting nystatin swish and swallow and steroids, namely prednisone 15 mg daily. PHYSICAL EXAMINATION: Vital Signs: Temperature is 97.7 degrees, pulse is 96, respirations 19, blood pressure 107/63. General: This is an ill-appearing elderly male. He is in no acute distress. Head, eyes, ears, nose, and throat: He can hear my spoken words and see near objects. He does not have any white patches on his tongue. Neck: He does not have any meningismus. Lungs: Clear to auscultation. Cardiovascular: Heart rate is at times regular. At other times it is irregular due to the presence of premature atrial contractions. Abdomen: Abdomen is soft and nontender. Neurologic: The patient is arousable. He can move his extremities. There is no tremor. LABORATORY AND X-RAY: CBC shows a white count of 12,450, hemoglobin 10.8, and platelet count 205,000. Blood gases show a pH of 7.43, a pO2 of 85, and a pCO2 of 48. Creatinine is 1.1. Bronchial washings grew yeast. Transbronchial biopsy of the patient's right upper lobe showed adenocarcinoma. I should also mention that the bronchial washings were also positive for adenocarcinoma as well as yeast. The patient's chest x-ray shows patchy alveolar opacities in the lingula and right upper lobe with slight improvement noted. ASSESSMENT AND PLAN: The patient now has had 2 weeks of treatment with Septra for the Stenotrophomonas pneumonia, and I think that the antibiotic can be discontinued. As regarding the patient's leukocytosis. He is on prednisone which could be contributing to the leukocytosis. As regarding the bronchial washings growing yeast, I think this most likely represents yeast from the patient's upper airway and does not mean that the patient has a yeast pneumonia, and therefore I am not going to start an antifungal agent. I am going to discontinue Septra. I would suggest continuing Mycostatin swish and swallow as long as he is getting chemotherapy in the hospital. At this time, I do not think the patient needs any other antimicrobial treatment. 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 I will let Dr. Hurst handle giving the patient immunoglobulin on a regular basis if he feels that is necessary. I am signing off the patient's case for now. I am available to see him on a p.r.n. basis. The patient's comorbidity is adenocarcinoma of the lung. The patient also has a bladder problem that requires him to catheterize himself 4 times a day. The patient has an immunoglobulin deficiency. cc: Aleks Link MD
[2019-03-13] MEDS ORDERED: NS 1,000 ML IV SCH (08:45)
[2019-03-13] MEDS: LOPRESSOR PO SCH ×2 (09:45→20:00)
[2019-03-13] MEDS: NS 1,000 ML IV SCH ×2 (09:45→19:57)
[2019-03-13] MEDS: SEPTRA DS PO SCH ×2 (09:45→20:00)
[2019-03-13] MEDS: CELEXA PO SCH (09:45)
[2019-03-13] MEDS: ZYLOPRIM PO SCH ×2 (09:45→20:00)
[2019-03-13] MEDS: CULTURELLE PO SCH (09:45)
[2019-03-13] MEDS: PREDNISONE PO SCH (09:45)
[2019-03-13] MEDS: ASPIRIN PO SCH (09:45)
[2019-03-13] MEDS: PLAVIX PO SCH (09:45)
[2019-03-13] MEDS: PLETAL PO SCH ×2 (09:46→20:00)
[2019-03-13] MEDS: MYCOSTATIN SUSP PO SCH ×4 (09:46→20:00)
--- NOTE | 2019-03-13 09:49 | PROGRESS NOTE ---
DATE: 03/13/2019 SUBJECTIVE: This patient is feeling tired today. He is not complaining of abdominal pain. It looks like his constipation resolved, but he has acute kidney injury. He has a negative balance of at least 20.4 L. I will start this patient on normal saline. I will stop the stool softeners. Antibiotics has been stopped by Dr. Link since he feels that treatment has been completed. He is still using a nonrebreathing mask and his oxygen saturation has been borderline low and sometimes in the 80s. PHYSICAL EXAMINATION: Vital Signs: Temperature 97.3 degrees, pulse 110, respiratory rate 20, blood pressure 123/48. Oxygen saturation 90 on a nonrebreathing mask. HEENT: Head normocephalic, no trauma. PERRLA. Neck: Is supple. No JVD. No masses. Central trachea. Chest: Crepitus and expiratory crackles bilaterally, mostly right upper thoracic area and left lower thoracic area. No wheezing. Cardiovascular: RRR. Systolic murmur. Abdomen: Soft. Nontender today, nondistended, protuberant. Positive bowel sounds. Extremities: No edema, no clubbing, no cyanosis. Neurological: The patient is alert. He is oriented, but he does have generalized weakness. No focal deficits. A little bit somnolent. LABORATORY: WBC 12.4, hemoglobin 10.8, hematocrit 33.8, platelets 205,000, sodium 135, potassium 4.5, chloride 92, bicarbonate 31, BUN 63, creatinine 1.8, glucose 102, calcium 9.4, AST 30, ALT 24, alkaline phosphatase 134, albumin 3.6. ASSESSMENT AND PLAN: 1. Acute hypoxemic respiratory failure secondary to bilateral lung bronchoalveolar carcinoma and Stenotrophomonas maltophilia pneumonia. Antibiotics have been stopped already because we feel that we already completed treatment. We will continue breathing treatment. We will continue oxygen supplementation, Pulmonary Department on board. 2. Acute kidney injury. This patient looks dehydrated today. I will start this patient on normal saline. He has a negative balance of 20.4 L and also he has been having multiple bowel movements due to recent constipation. 3. Bilateral lung bronchoalveolar carcinoma status post chemotherapy on 03/04/2019. Followed by Dr. Hurst. We will continue to monitor. 4. Right abdominal pain mostly at the level of the periumbilical area and lower abdomen, likely secondary to constipation, resolved. He is not complaining of pain at this moment. I will get an x-ray. 5. Severe aortic stenosis with history of coronary artery disease, peripheral arterial disease, and coronary artery bypass grafting in the past. Continue with aspirin, Plavix metoprolol, statin, and cilostazol. 6. History of gout, continue with allopurinol. 7. Hyperglycemia. Continue with sliding scale insulin and pattern of blood sugar. 8. Resuscitation status- this patient is DNR level 1. DISPOSITION: We have been thinking about sending this patient to an LTAC if he does not get better, and he needs to continue with treatment. I do believe he does not qualify, but I will corroborate this information with the mental health social worker. cc: Jason Steele MD
--- NOTE | 2019-03-13 15:42 | Diag Imaging Result Doc PS360 ---
EXAM: ABDOMEN FLAT/UPRIGHT INDICATION: Abdominal pain TECHNIQUE: 3 views COMPARISON: None. FINDINGS: There are unremarkable bowel gas and stool patterns. There is no obstructive bowel pattern. There is no evidence of large volume free abdominal gas. There are prostate brachytherapy beads projecting of the pelvis. There are multiple metallic mesh coils projecting over the abdomen and pelvis. Dense multilobar pneumonia is noted incidentally and appear stable as compared to a chest radiograph performed earlier today. IMPRESSION: No evidence of acute abdominal pathology by plain radiograph. Electronically signed by Tae Cornell 03/13/2019 3:40 PM
--- NOTE | 2019-03-13 17:19 | HEMO/ONC PROGRESS NOTE ---
DATE: 03/13/2019 SUBJECTIVE: Mr. Yang is lying flat in his bed. He states he had several bowel movements yesterday, and the enema seemed to clear his constipation. He says he has absolutely zero abdominal pain today. He still continues to not feel all that well. OBJECTIVE: Vital signs: Temperature 97.3 degrees, pulse rate 107, respiratory rate 15, blood pressure 123/48, O2 saturation 93% on non-rebreather at 15 L. Pain: 0/10. General: He is a chronically ill-appearing gentleman who appears in no acute distress this morning. Respiratory: Coarse breath sounds. Cardiovascular: S1, S2 noted, tachycardic rhythm. Abdomen: Soft, nondistended, nontender today. Positive bowel sounds. Extremities: No edema noted. Neurological: Awake, alert, and oriented. DIAGNOSTIC STUDIES: WBC 12.45, hemoglobin 10.8, hematocrit 33.8, platelet count 205,000. Creatinine 1.8. Today's chest x-ray continues to show bilateral pneumonia with no appreciable changes since the 03/11/2019 x-ray. ASSESSMENT: 1. Bilateral bronchoalveolar carcinoma. 2. Acute on chronic respiratory failure. 3. Severe aortic stenosis. 4. IgG deficiency. 5. Stenotrophomonas and Enterobacter infections. PLAN: The patient has been relieved of his constipation. It is noted that his creatinine is elevated. We agree with gentle hydration with normal saline. Continue current management per Pulmonology and Infectious Disease. We continue to watch for any neutropenia status post his chemotherapy. No further recommendations per our standpoint. Please call us for any needs over the weekend. Dictated by RIO Myers for Tyree Hurst MD cc: Tyree Hurst MD [facility]
[2019-03-13] MEDS: LIPITOR PO SCH (20:00)
[2019-03-14] MEDS: TYLENOL PO PRN (01:08)
[2019-03-14] MEDS: ATROVENT NEB INH SCH ×6 (03:36→22:47)
[2019-03-14] MEDS: XOPENEX NEB INH SCH ×6 (03:36→22:47)
[2019-03-14] MEDS: ATIVAN PO SCH (05:53)
[2019-03-14] MEDS: NS 1,000 ML IV SCH ×2 (05:53→15:57)
[2019-03-14 06:00] LABS: BASO# 0.02 X1000 (0.0-0.2); BASO% 0.2 % (0.0-0.8); EOS# 0.15 X1000 (0.0-0.7); EOS% 1.5 % (0.0-10.0); HEMATOCRIT 30.5 % (42.0-52.0); HEMOGLOBIN 9.8 g/dL (14.0-18.0); IMM GRAN# 0.03 X1000 (0.0-0.04); IMM GRAN% 0.3 % (0.0-0.5); LYMPH# 0.95 X1000 (1.2-3.4); LYMPH% 9.8 % (20.5-51.1); MCH 29.4 PG (27-31); MCHC 32.1 g/dL (33-37); MCV 91.6 FL (81-99); MONO# 0.41 X1000 (0.11-0.59); MONO% 4.2 % (1.7-9.3); MPV 11.3 FL (7.4-10.4); NEUT# 8.12 X1000 (1.4-6.5); PLT 177 X1000 (130-400); RBC 3.33 XMIL (4.7-6.1); RDW 14.8 % (11.5-14.5); WBC 9.68 X1000 (4.8-10.8)
[2019-03-14] MEDS: HUMULIN R SUBQ SCH ×4 (06:10→20:16)
[2019-03-14 06:11] LABS: CALCIUM 8.9 mg/dL (8.8-10.2); CREATININE 1.4 mg/dL (0.7-1.2); MAGNESIUM 2.1 mg/dL (1.5-2.7); PHOSPHORUS 3.1 mg/dL (2.7-4.5); POTASSIUM 4.1 mmol/L (3.5-5.1)
--- NOTE | 2019-03-14 08:50 | PROGRESS NOTE ---
DATE: 03/14/2019 SUBJECTIVE: This patient is resting comfortably in bed. He seems to be feeling a little bit better today compared with yesterday, his kidney function is recovering and urine output is better. Continue with the same management. OBJECTIVE: Vital Signs: Temperature 97.9, pulse 89, respiratory rate 20, blood pressure 122/52, oxygen saturation 99% on a nonrebreather mask. HEENT: Head is normocephalic. No trauma. PERRLA. Neck: Supple. No JVD. No masses. Central trachea. Chest: Crepitus and some crackles bilaterally, most at the right upper thoracic area and left lower thoracic area. No wheezing. Cardiovascular: RRR. Systolic murmurs. Abdomen: Soft, nontender, nondistended, and nonprotuberant. Positive bowel sounds. Extremities: No edema. No clubbing. No cyanosis. Neurological: The patient is alert. He is oriented. Generalized weakness but no focal deficits. LABORATORY: WBC 9.6, hemoglobin 9.8, hematocrit 30.5, and platelets 177. Sodium 137, potassium 4.1, chloride 98, bicarbonate 30, BUN 48, creatinine 1.4, glucose 99, and calcium 8.9. ASSESSMENT AND PLAN: 1. Acute hypoxemic respiratory failure secondary to bilateral lung bronchoalveolar carcinoma and Stenotrophomonas maltophilia pneumonia. Antibiotics have been already stopped. Treatment has been completed. The Infectious Disease Department has been following this patient. We will continue with the rest of the treatment. 2. Acute kidney injury. This is getting better. Urine output is improving as well as BUN and creatinine. 3. Bilateral lung bronchoalveolar carcinoma status post chemotherapy on 03/04/[address] Hurst. We will continue to monitor. 4. Right abdominal pain, mostly at the level of the periumbilical area and lower abdomen, likely secondary to constipation. That has basically resolved. X-ray did not show any signs of impaction and/or constipation. 5. Severe aortic stenosis with history of coronary artery disease, peripheral arterial disease, and coronary artery bypass grafting in the past. Continue with aspirin, Plavix, metoprolol, statin, and cilostazol. 6. History of gout. Continue with allopurinol. 7. Hyperglycemia. Continue with sliding scale insulin and pattern blood sugars. 8. Resuscitation status: This patient is a DNR Level 1. cc: Jason Steele MD
[2019-03-14] MEDS: PLETAL PO SCH ×2 (09:28→20:16)
[2019-03-14] MEDS: CELEXA PO SCH (09:28)
[2019-03-14] MEDS: PREDNISONE PO SCH (09:28)
[2019-03-14] MEDS: ZYLOPRIM PO SCH ×2 (09:28→20:16)
[2019-03-14] MEDS: LOPRESSOR PO SCH ×2 (09:28→20:16)
[2019-03-14] MEDS: CULTURELLE PO SCH (09:28)
[2019-03-14] MEDS: PLAVIX PO SCH (09:28)
[2019-03-14] MEDS: ASPIRIN PO SCH (09:28)
[2019-03-14] MEDS: MYCOSTATIN SUSP PO SCH ×4 (09:29→20:17)
[2019-03-14] MEDS: LIPITOR PO SCH (20:16)
[2019-03-15] MEDS: XOPENEX NEB INH SCH ×6 (03:55→23:14)
[2019-03-15] MEDS: ATROVENT NEB INH SCH ×6 (03:55→23:14)
[2019-03-15] MEDS: NS 1,000 ML IV SCH ×2 (03:57→14:38)
[2019-03-15 04:46] LABS: BLOOD TYPE ARTERIAL; SAMPLE BLOOD
[2019-03-15 04:47] LABS: ALLEN TEST YES; BE 3.7 mmoll (-3.0-3.0); HCO3-(ACT) 27.8 mmoll (20.0-26.0); METHB 1.7 % (0.0-1.5); O2(CT) 12.2 mL/dL (15.0-23.0); O2HB 97.1 % (95.0-99.0); PO2(98.6) 150 mmHg (60-100); SAO2 100.3 % (95.0-100.0); THB 8.7 g/dL (11.5-17.4); pH(98.6) 7.34 (7.35-7.45)
[2019-03-15 04:51] LABS: MODALITY NRB; PCO2(98.6) 56 mmHg (35-45)
[2019-03-15] MEDS: ATIVAN PO SCH (05:36)
[2019-03-15 06:05] LABS: AGAP 10; BUN 24 mg/dL (8-22); CALCIUM 8.7 mg/dL (8.8-10.2); CHLORIDE 106 mmol/L (98-107); COSMO 290; CREATININE 0.8 mg/dL (0.7-1.2); ESTIMATED GFR > 60; GLUCOSE 85 mg/dL (70-104); POTASSIUM 4.4 mmol/L (3.5-5.1); SODIUM 144 mmol/L (136-145); TCO2 28 mmol/L (25-35)
[2019-03-15] MEDS: HUMULIN R SUBQ SCH ×4 (06:38→22:04)
--- NOTE | 2019-03-15 07:56 | Diag Imaging Result Doc PS360 ---
EXAM: CHEST-1 VIEW INDICATION: SOB TECHNIQUE: One view COMPARISON: 03/13/2019 FINDINGS: The right PICC line is in stable position. Very dense right upper lobe and lingular infiltrates are approximately stable. No new consolidation is identified. Cardiac silhouette is stable. IMPRESSION: Stable chest. Electronically signed by Tae Cornell 03/15/2019 7:54 AM
--- NOTE | 2019-03-15 08:12 | PROGRESS NOTE ---
DATE: 03/15/2019 SUBJECTIVE: The patient is resting comfortably in bed. He is feeling a little bit better. Kidney function is basically at baseline, good urine output. He has not been eating too much. Continue with the same management. OBJECTIVE: Vital Signs: Temperature 98.1 degrees, pulse 106, respiratory rate 19, blood pressure 133/106, oxygen saturation is 97% on a nonrebreathing mask. HEENT: Head normocephalic. No trauma. PERRLA. Neck: Supple. No JVD. No masses. Central trachea. Chest: Crepitus and some crackles bilaterally, mostly at the level of the right upper thoracic area and left lower thoracic area. No wheezing. Cardiovascular: Regular rhythm and rate. Systolic murmur. Abdomen: Soft, nontender, nondistended, protuberant. Positive bowel sounds. Extremities: No edema, no clubbing, no cyanosis. Neurological Examination: The patient is alert. He is oriented x3. He does have generalized weakness but no focal deficits. Laboratory: Sodium 144, potassium 4.4, chloride 106, bicarbonate 28, BUN 24, creatinine 0.8, glucose 85, calcium 8.7. ASSESSMENT AND PLAN: 1. Acute hypoxemic respiratory failure secondary to bilateral lung bronchioloalveolar carcinoma and Stenotrophomonas maltophilia pneumonia. Antibiotics have been already stopped. Treatment has been completed per infectious disease department. We will continue with the rest of the treatment. We will continue to monitor. Pulmonary department on board. 2. Acute kidney injury, resolved. Continue with the same management for now. He is getting some intravenous fluids. 3. Bilateral lung bronchioloalveolar carcinoma, status post chemotherapy on 03/04/2019, followed by Dr. Hurst. We will continue to monitor. 4. Right abdominal discomfort, mostly at the level of the periumbilical area and lower abdomen, resolved, likely secondary to constipation. 5. Severe aortic stenosis with a history of coronary artery disease, peripheral arterial disease, and coronary artery bypass grafting in the past. Continue with aspirin, Plavix, metoprolol, statin, and cilostazol. 6. History of gout. Continue with allopurinol. 7. Hyperglycemia. Continue with sliding scale insulin and pattern of blood sugars. 8. Do Not Resuscitate status. This patient is a Do Not Resuscitate level 1. 9. Overall, his prognosis is not good due to his current presentation, comorbidities, and age. He is still requiring a high amount of oxygen. I believe he does not qualify for a long-term acute care. We will continue to monitor. cc: Jason Steele MD
[2019-03-15] MEDS: MYCOSTATIN SUSP PO SCH ×4 (09:49→22:02)
[2019-03-15] MEDS: LOPRESSOR PO SCH ×2 (09:50→22:02)
[2019-03-15] MEDS: ASPIRIN PO SCH (09:50)
[2019-03-15] MEDS: CULTURELLE PO SCH (09:50)
[2019-03-15] MEDS: PLETAL PO SCH ×2 (09:50→22:02)
[2019-03-15] MEDS: PLAVIX PO SCH (09:50)
[2019-03-15] MEDS: ZYLOPRIM PO SCH ×2 (09:50→22:03)
[2019-03-15] MEDS: PREDNISONE PO SCH (09:50)
[2019-03-15] MEDS: CELEXA PO SCH (09:50)
[2019-03-15] MEDS: LIPITOR PO SCH (22:02)
[2019-03-16] MEDS: ATROVENT NEB INH SCH ×6 (03:46→23:28)
[2019-03-16] MEDS: XOPENEX NEB INH SCH ×6 (03:46→23:27)
[2019-03-16 05:28] LABS: ALLEN TEST YES; BE 3.1 mmoll (-3.0-3.0); BLOOD TYPE ARTERIAL; HCO3-(ACT) 27.4 mmoll (20.0-26.0); METHB 1.3 % (0.0-1.5); O2(CT) 11.3 mL/dL (15.0-23.0); O2HB 97.3 % (95.0-99.0); PCO2(98.6) 43 mmHg (35-45); PO2(98.6) 139 mmHg (60-100); SAMPLE BLOOD; SAO2 99.8 % (95.0-100.0); pH(98.6) 7.42 (7.35-7.45)
[2019-03-16 05:29] LABS: MODALITY BI PAP
[2019-03-16 06:18] LABS: AGAP 5; BASO# 0.01 X1000 (0.0-0.2); BASO% 0.1 % (0.0-0.8); BUN 13 mg/dL (8-22); CALCIUM 8.4 mg/dL (8.8-10.2); CHLORIDE 107 mmol/L (98-107); COSMO 283; CREATININE 0.6 mg/dL (0.7-1.2); EOS# 0.13 X1000 (0.0-0.7); EOS% 1.2 % (0.0-10.0); ESTIMATED GFR > 60; GLUCOSE 101 mg/dL (70-104); HEMATOCRIT 26.3 % (42.0-52.0); IMM GRAN# 0.02 X1000 (0.0-0.04); IMM GRAN% 0.2 % (0.0-0.5); LYMPH# 0.85 X1000 (1.2-3.4); LYMPH% 7.9 % (20.5-51.1); MAGNESIUM 1.6 mg/dL (1.5-2.7); MCH 28.9 PG (27-31); MCHC 30.4 g/dL (33-37); MCV 94.9 FL (81-99); MONO# 0.27 X1000 (0.11-0.59); MONO% 2.5 % (1.7-9.3); MPV 10.5 FL (7.4-10.4); NEUT# 9.47 X1000 (1.4-6.5); NEUT% 88.1 % (42.2-75.2); PLT 135 X1000 (130-400); POTASSIUM 4.7 mmol/L (3.5-5.1); RBC 2.77 XMIL (4.7-6.1); RDW 14.9 % (11.5-14.5); SODIUM 142 mmol/L (136-145); TCO2 30 mmol/L (25-35); WBC 10.75 X1000 (4.8-10.8)
[2019-03-16] MEDS: HUMULIN R SUBQ SCH ×5 (06:34→22:57)
[2019-03-16 06:41] LABS: EOS 1 % (1-10); LYMPHS 8 % (21-51); MONO 2 % (1-9); SEGS 89 % (42-75)
[2019-03-16] MEDS: ATIVAN PO SCH (06:46)
--- NOTE | 2019-03-16 09:06 | PROGRESS NOTE ---
DATE: 03/16/2019 SUBJECTIVE: Mr. Yang is asleep in bed this morning, in no acute distress. Awakens easily. He is on BiPAP. He appears comfortable. OBJECTIVE: Vital Signs: Temperature of 98.5 degrees, heart rate 78, respiratory rate 18, blood pressure 112/68, O2 saturation 98% on BiPAP, 0/10 pain. Physical Examination: Respiratory: Some coarse crackles bilaterally. Patient is on BiPAP. No wheezing. Cardiovascular: S1, S2 noted. Regular rate and rhythm. Systolic murmur noted. Gastrointestinal: Abdomen is soft, nontender, nondistended, protuberant. Extremities: No edema. Neurological: No focal deficits noted. Alert and oriented x3. Laboratory: WBCs 10.75, hemoglobin 8.0, hematocrit 26.3, platelet count 135,000. Creatinine 0.6, magnesium 1.6. ASSESSMENT: 1. Bilateral bronchoalveolar carcinoma. 2. Acute on chronic respiratory failure. 3. Severe aortic stenosis. 4. IgG deficiency. 5. Stenotrophomonas and Enterobacter infections. PLAN: Antibiotics have been stopped for his infection per infectious disease. Pulmonary continuing to follow. The acute kidney injury has resolved. The patient is currently a Do Not Resuscitate. His progress continues to be poor. He is still requiring a high amount of oxygen. We will continue to follow along. Dictated by RIO Myers for Tyree Hurst MD Patient seen and examined. As above. Patient is not particularly improving from his respiratory failure standpoint. His prognosis is poor. Continue current management. He seems to have tolerated chemotherapy without nausea vomiting or neutropenic episodes. I understand that he is not a candidate for long-term placement. Tyree Hurst M.D. cc: Tyree Hurst MD [facility]
[2019-03-16] MEDS: ASPIRIN PO SCH (09:27)
[2019-03-16] MEDS: PLETAL PO SCH ×2 (09:27→22:53)
[2019-03-16] MEDS: PREDNISONE PO SCH (09:27)
[2019-03-16] MEDS: LOPRESSOR PO SCH ×2 (09:27→22:53)
[2019-03-16] MEDS: ZYLOPRIM PO SCH ×2 (09:27→22:52)
[2019-03-16] MEDS: CELEXA PO SCH (09:28)
[2019-03-16] MEDS: PLAVIX PO SCH (09:28)
[2019-03-16] MEDS: CULTURELLE PO SCH (09:28)
[2019-03-16] MEDS: MYCOSTATIN SUSP PO SCH ×4 (09:29→22:53)
--- NOTE | 2019-03-16 10:04 | PROGRESS NOTE ---
DATE: 03/16/2019 SUBJECTIVE: Patient reports breathing better. Denies any fever or chills. No nausea or vomiting. OBJECTIVE: Vital Signs: Temperature 98.5 degrees, heart rate 99, respiratory rate 18, blood pressure 112/68, O2 saturation 98% on BiPAP. General: This is a chronically ill-appearing, 68- year-old male, lying in bed, in no acute distress. Cardiovascular: S1, S2 heard. No murmurs, gallops, or rubs. Regular rate and rhythm. Respiratory: There are some crackles and rhonchi noted in both pulmonary bases, mostly noted in the right upper thoracic area. The patient is not using any accessory muscles or having work of breathing. Abdomen: Soft. A little bit distended, nondistended. Bowel sounds present. No organomegaly. Extremities: No clubbing, cyanosis, or edema. Peripheral pulses present in both legs. Neurological: Patient alert and oriented x3. Moves 4 extremities. LABORATORY DATA: White cell count 10.75, hemoglobin 8.0, hematocrit 26.3, platelets 135,000. ABG that shows pH 7.42 with pCO2 43, PO2 139. Normal BMP. ASSESSMENT AND PLAN: 1. Acute hypoxemic respiratory failure secondary to bilateral lung bronchioalveolar carcinoma, Stenotrophomonas maltophilia pneumonia. He has completed treatment with antibiotics as per Infectious Disease. At this point, for this cancer as per patient, they are planning to do chemotherapy next Saturday. We will follow recommendations from Dr. Hurst. 2. Acute kidney injury, resolved. 3. Bilateral lung bronchioloalveolar carcinoma, as we mentioned above. 4. Right abdominal discomfort secondary to constipation, it is resolved. 5. Severe aortic stenosis with history of coronary artery disease. Patient is not complaining of any chest pain. The patient currently is on aspirin, Plavix, metoprolol, statin and cilostazol. We will continue with the same management. 6. History of gout. We will continue with allopurinol. 7. Hyperglycemia. The blood sugars are much better today. We will continue to monitor. 8. Code status is DNR level 1. 9. Disposition. At this point, the patient has been in the hospital for 24 days. His oxygen needs are basically unchanged. He is still requiring oxygen by non-rebreather mask. We will continue to monitor but the prognosis is poor. cc: Dejon Dominguez MD
[2019-03-16] MEDS: NS 1,000 ML IV SCH (17:49)
[2019-03-16] MEDS: LIPITOR PO SCH (22:53)
[2019-03-17] MEDS: XOPENEX NEB INH SCH ×6 (03:15→23:16)
[2019-03-17] MEDS: ATROVENT NEB INH SCH ×6 (03:15→23:16)
[2019-03-17] MEDS: NS 1,000 ML IV SCH (04:32)
[2019-03-17] MEDS: ATIVAN PO SCH (07:31)
--- NOTE | 2019-03-17 07:56 | PULMONOLOGY PROGRESS NOTE ---
DATE: 03/16/2019 SUBJECTIVE: The patient is awake and alert. He reports he has had a fair day. He continues to have a cough with foamy secretions. OBJECTIVE: Vital Signs: Blood pressure 118/67, heart rate 112, respiratory rate 16, oxygen saturation 100 on a nonrebreather. HEENT: Pupils are equal and reactive. Oropharynx appears clear. Neck is supple. Chest reveals crackles bilaterally. Cardiac Examination: S1, S2. Abdomen is soft. Extremities are without edema. Laboratories: Sodium 142, potassium 4.7, chloride 107, BUN 13, creatinine 0.6, glucose 101. White blood count 10.75, hemoglobin 8.0, platelet count 135,000. Arterial blood gas on a BiPAP this morning, pH 7.42, pCO2 of 43, pO2 of 139. IMPRESSION: A 68-year-old with: 1. Bilateral adenocarcinoma, status post chemotherapy without improvement in overall status. 2. Stenotrophomonas maltophilia pneumonia, status post course of antibiotics per infectious disease. 3. Severe aortic stenosis. The patient is not a candidate for intervention. 4. Immunoglobulin deficiency, status post replacement therapy. DISCUSSION: A 68-year-old with problems outlined above. He is hospital day 24 and continues to require high oxygen. His prognosis is poor. RECOMMENDATIONS: 1. Continue oxygen for hypoxemic respiratory failure. 2. Continue bronchial hygiene. 3. Consider discharge home with hospice if this is an option for the family. cc: Derekc Duarte MD
[2019-03-17] MEDS: CULTURELLE PO SCH (08:12)
[2019-03-17] MEDS: MYCOSTATIN SUSP PO SCH ×4 (08:12→22:03)
[2019-03-17] MEDS: PLETAL PO SCH ×2 (08:12→22:03)
[2019-03-17] MEDS: LOPRESSOR PO SCH ×2 (08:12→22:03)
[2019-03-17] MEDS: PLAVIX PO SCH (08:12)
[2019-03-17] MEDS: ASPIRIN PO SCH (08:12)
[2019-03-17] MEDS: ZYLOPRIM PO SCH ×2 (08:12→22:03)
[2019-03-17] MEDS: CELEXA PO SCH (08:12)
[2019-03-17] MEDS: PREDNISONE PO SCH (08:12)
[2019-03-17] MEDS: HUMULIN R SUBQ SCH ×4 (11:08→21:54)
--- NOTE | 2019-03-17 15:20 | PROGRESS NOTE ---
DATE: 03/17/2019 SUBJECTIVE: Patient reports feeling the same. He is still requiring high amount of oxygen. He denies any chest pain, fever or chills. OBJECTIVE: Vital Signs: Temperature 98.4 degrees, heart rate 102, respiratory rate 20, blood pressure 90/54, O2 saturation 98% on nonrebreather mask . General: This is a chronically ill- appearing 68-year-old male lying in bed in no acute distress. Cardiovascular: S1, S2 heard. Tachycardic. No murmurs, gallops, or rubs noted. Respiratory: Some crackles and rhonchi noted in both pulmonary bases unchanged in comparing with last couple days. Patient is not using any accessory muscles or having work of breathing. Abdomen: Soft, a little bit distended, nontender to palpation. Bowel sounds present. No organomegaly. Extremities: No clubbing, cyanosis, or edema. Peripheral pulses present in both legs. Neurological: Patient is alert and oriented x3. Moves 4 extremities. LABORATORY DATA: White cell count 10.75, hemoglobin 8.0, hematocrit 26.3, platelets 135,000. No BMP. ASSESSMENT AND PLAN: 1. Acute hypoxemic respiratory failure secondary to bilateral bronchial alveolar carcinoma. Patient has completed treatment for a pneumonia. Unfortunately I think the factor that is causing this high amount of oxygen needs is the bronchioloalveolar carcinoma. He has received 1 cycle of chemotherapy given by Dr. Hurst but unfortunately his prognosis is poor considering that his oxygen need has not improved during these 25 days of hospitalization. I think at this time we may need to talk with the family to establish goals of care and see if they are okay to send him home with hospice. Palliative care is involved in his care will follow their recommendations. 2. Acute kidney injury resolved. 3. Bilateral lung bronchoalveolar carcinoma aware. 4. Severe aortic stenosis with history of coronary artery disease. That condition is stable. Patient is not complaining of any chest pain. Will continue aspirin, Plavix and Toprol statin and cilostazol. 5. History of gout. Will continue with allopurinol. 6. Code status. Do not resuscitate level 1. 7. Disposition. At this point considering this patient has been 25 days in the hospital with no improvement at all in his oxygen needs we need to talk with the family again to establish goals of care. Will reconsult palliative care to see they can talk with the family about it and I will definitely talk with them tomorrow about what else we can do for. cc: Dejon Dominguez MD
[2019-03-17] MEDS: MORPHINE IV PRN ×2 (17:41→22:09)
[2019-03-17] MEDS: LIPITOR PO SCH (22:03)
[2019-03-18] MEDS: ATROVENT NEB INH SCH ×5 (03:58→20:16)
[2019-03-18] MEDS: XOPENEX NEB INH SCH ×5 (03:58→20:16)
[2019-03-18] MEDS: ATIVAN PO SCH (07:51)
[2019-03-18] MEDS: HUMULIN R SUBQ SCH ×4 (07:58→20:54)
--- NOTE | 2019-03-18 10:00 | HEMO/ONC PROGRESS NOTE ---
DATE: 03/18/2019 SUBJECTIVE: Mr. Yang is asleep in bed this morning; he is somewhat difficult to arouse. He continues to still require the same amount of high oxygen. He is on a non- rebreather mask at 15 L while sleeping. Denies any complaints today. He is more somnolent than normal. OBJECTIVE: Vital Signs: Temperature 98.0 degrees, pulse rate 109, respiratory rate 20, blood pressure 112/62, O2 saturation 95% on non-rebreather at 15 L. He is in 0/10 pain. Cardiovascular: S1, S2 heard. He is tachycardic. Respiratory: Crackles and rhonchi in both pulmonary bases is unchanged and use of the accessory muscles. Gastrointestinal: Soft, slightly distended, nontender. Bowel sounds are present. LABORATORY: No labs drawn for today. ASSESSMENT: 1. Bilateral bronchoalveolar carcinoma, s/p 1st cycle of chemotherapy 02/28/19. 2. Acute on chronic respiratory failure 3. Severe aortic stenosis. 4. IgG deficiency. 5. Stenotrophomonas and Enterobacter infection. PLAN: The patient is continuing to require the same amount of high oxygen despite being over 25 days in the hospital with treatment. We agree with any management per Pulmonary and Infectious Disease as needed. Continue to watch for his neutropenic status post chemotherapy. Dictated by RIO Myers for Tyree Hurst MD Patient seen and examined. He seems to have tolerated chemotherapy without nausea, vomiting or neutropenic episodes. So far no improvement in oxygenation. CXR however appears somewhat better. WIll discuss with Dr. Duarte. Next chemotherapy will be in 1 week if patient/Dr. Duarte wants to continue it. Tyree Hurst MD. cc: Tyree Hurst MD [facility]
[2019-03-18] MEDS: CELEXA PO SCH (10:42)
[2019-03-18] MEDS: CULTURELLE PO SCH (10:42)
[2019-03-18] MEDS: MYCOSTATIN SUSP PO SCH ×4 (10:42→21:08)
[2019-03-18] MEDS: PLETAL PO SCH ×2 (10:42→21:08)
[2019-03-18] MEDS: ZYLOPRIM PO SCH ×2 (10:42→21:08)
[2019-03-18] MEDS: ASPIRIN PO SCH (10:43)
[2019-03-18] MEDS: PREDNISONE PO SCH (10:43)
[2019-03-18] MEDS: PLAVIX PO SCH (10:43)
[2019-03-18] MEDS: MORPHINE IV PRN (10:53)
--- NOTE | 2019-03-18 11:38 | PROGRESS NOTE ---
DATE: 03/18/2019 SUBJECTIVE: The patient continues to feel the same. Still requiring a high amount of oxygen. Now he has a bad cough. OBJECTIVE: Vital Signs: Temperature 98.0 degrees, heart rate 109, respiratory rate 20, blood pressure 112/62, O2 saturation 96% on a nonrebreather mask at 15 L per minute. General Examination: This is a chronically ill-appearing, 68-year-old, male, lying in bed, in no acute distress. Cardiovascular Examination: S1 and S2 heard. Tachycardic. No murmurs, gallops, or rubs noted. Respiratory Examination: Crackles and rhonchi noted in both pulmonary bases, unchanged in comparing with the last couple of days. Patient is not using any accessory muscles or having work of breathing. Abdomen: Soft. A little bit distended. Nontender to palpation. Bowel sounds present. No organomegaly. Extremities: No clubbing, cyanosis, or edema. Peripheral pulses present in both legs. Neurological Examination: The patient is alert and oriented x3. Moves 4 extremities. Laboratory Data: There are no labs from today. ASSESSMENT AND PLAN: 1. Acute hypoxemic respiratory failure secondary to bilateral bronchioalveolar adenocarcinoma. While here in the hospital, he has completed treatment for pneumonia. I think he is coughing a lot and also the reason why he has high oxygen needs is the bronchioloalveolar carcinoma. He has received 1 cycle of chemotherapy given by Dr. Hurst here. The prognosis is very poor. There is apparently a meeting between Dr. Hurst and his family to see what is his plan. In the notes from today, apparently, it seems like this patient is not a candidate for any further chemotherapy. We will see what they have to say. Most likely, we are turning toward hospice. Palliative care is also involved. We will follow recommendations. 2. Acute kidney injury, resolved. 3. Bilateral lung bronchoalveolar carcinoma, aware. Dr. Hurst following. 4. Severe aortic stenosis with history of coronary artery disease, stable. At this point, we will continue with home medications. 5. History of gout. We will continue with allopurinol. 6. Code status. Do Not Resuscitate level 1. 7. Disposition. At this point, considering this patient has been in the hospital for 26 days, we are going to check with Dr. Hurst if he is planning to provide more chemotherapy. If not, and considering his current situation requiring high amount of oxygen, I think the next step will be to talk with the family about hospice. In any case, we will continue to monitor this patient closely here. cc: Dejon Dominguez MD
[2019-03-18] MEDS: TUSSIONEX LIQUID PO SCH ×2 (11:45→21:08)
[2019-03-18] MEDS: LOPRESSOR PO SCH ×2 (14:33→21:08)
[2019-03-18] MEDS: LIPITOR PO SCH (21:08)
--- NOTE | 2019-03-18 23:59 | PULMONOLOGY PROGRESS NOTE ---
DATE: 03/18/2019 PULMONARY MEDICINE SUBJECTIVE: The patient was sleeping upon arrival. He is arousable to alert. He reports he had a fair day. OBJECTIVE: Vital signs: Current saturation 98% on nonrebreather. Patient has been afebrile for the last 24 hours. Blood pressure 133/79, heart rate 124, respiratory rate 24. HEENT: Pupils are equal and reactive. Oropharynx appears clear. Neck: Supple. Chest: Reveals crackles bilaterally. Cardiac: S1, S2. Abdomen: Soft with good bowel sounds. Extremities: Without edema. IMPRESSION: A 68-year-old with 1. Bilateral adenocarcinoma, status post 1 cycle of chemotherapy. 2. Stenotrophomonas maltophilia pneumonia status post a course of antibiotics. 3. Severe aortic stenosis. 4. Immunoglobulin deficiency. DISCUSSION: A 68-year-old with problems outlined above. He continues to require a significant amount of oxygen. RECOMMENDATION: 1. Continue oxygen for hypoxemic respiratory failure. 2. Single dose of Lasix tomorrow morning. 3. Check immunoglobulin level. 4. Overall prognosis is poor. He will be allowed to have a natural if he dies. cc: Dereck Duarte MD
[2019-03-19] MEDS: XOPENEX NEB INH SCH ×7 (03:34→23:25)
[2019-03-19] MEDS: ATROVENT NEB INH SCH ×7 (03:34→23:25)
[2019-03-19] MEDS ORDERED: LASIX IV ONE (06:00)
[2019-03-19] MEDS: ATIVAN PO SCH (06:13)
[2019-03-19] MEDS: HUMULIN R SUBQ SCH ×2 (06:40→11:03)
[2019-03-19 06:57] LABS: AGAP 8; ALB/GLOB RATIO 0.8; ALBUMIN 2.4 g/dL (3.5-5.0); ALKALINE PHOSPHATASE 92 U/L (32-122); BUN 9 mg/dL (8-22); CALCIUM 8.1 mg/dL (8.8-10.2); CHLORIDE 102 mmol/L (98-107); COSMO 281; CREATININE 0.5 mg/dL (0.7-1.2); ESTIMATED GFR > 60; GLUCOSE 124 mg/dL (70-104); GOT 42 U/L (10-34); GPT 37 U/L (10-44); POTASSIUM 3.1 mmol/L (3.5-5.1); SODIUM 141 mmol/L (136-145); TCO2 31 mmol/L (25-35); TOTAL PROTEIN 5.3 g/dL (6.3-8.3)
[2019-03-19 06:58] LABS: MAGNESIUM 1.3 mg/dL (1.5-2.7); PHOSPHORUS 3.1 mg/dL (2.7-4.5)
[2019-03-19 07:09] LABS: BASO# 0.01 X1000 (0.0-0.2); BASO% 0.2 % (0.0-0.8); EOS% 1.8 % (0.0-10.0); HEMATOCRIT 23.5 % (42.0-52.0); HEMOGLOBIN 7.2 g/dL (14.0-18.0); IMM GRAN# 0.05 X1000 (0.0-0.04); IMM GRAN% 0.9 % (0.0-0.5); LYMPH# 0.79 X1000 (1.2-3.4); LYMPH% 14.5 % (20.5-51.1); MCHC 30.6 g/dL (33-37); MCV 94.8 FL (81-99); MONO# 0.38 X1000 (0.11-0.59); MPV 10.4 FL (7.4-10.4); NEUT# 4.11 X1000 (1.4-6.5); NEUT% 75.6 % (42.2-75.2); PLT 158 X1000 (130-400); RBC 2.48 XMIL (4.7-6.1); WBC 5.44 X1000 (4.8-10.8)
--- NOTE | 2019-03-19 07:21 | Diag Imaging Result Doc PS360 ---
EXAM: CHEST-PORTABLE 03/19/2019 HISTORY: abnormal exam TECHNIQUE: AP portable at 0540 COMMENT: There is dense alveolar opacification in the lower portion of the right upper lobe and in the lingula. There is some ill-defined opacity in the left lower lobe as well. Compared to 03/15/2019 this has not changed appreciably. IMPRESSION: Stable alveolar opacities. Electronically signed by Kamlesh Garcia 03/19/2019 7:19 AM
[2019-03-19] MEDS ORDERED: TYLENOL PO ONE (08:04)
[2019-03-19] MEDS ORDERED: BENADRYL PO ONE (08:04)
[2019-03-19] MEDS: CELEXA PO SCH (10:40)
[2019-03-19] MEDS: MYCOSTATIN SUSP PO SCH ×4 (10:40→21:57)
[2019-03-19] MEDS: ASPIRIN PO SCH (10:42)
[2019-03-19] MEDS: PREDNISONE PO SCH (10:43)
[2019-03-19] MEDS: LOPRESSOR PO SCH ×2 (10:43→21:57)
[2019-03-19] MEDS: ZYLOPRIM PO SCH ×2 (10:45→21:57)
[2019-03-19] MEDS: CULTURELLE PO SCH (10:45)
[2019-03-19] MEDS: PLAVIX PO SCH (10:45)
[2019-03-19] MEDS: PLETAL PO SCH (10:46)
[2019-03-19] MEDS: MORPHINE IV PRN (10:46)
[2019-03-19] MEDS: TUSSIONEX LIQUID PO SCH ×2 (11:03→21:56)
--- NOTE | 2019-03-19 11:44 | HEMO/ONC PROGRESS NOTE ---
DATE: 03/19/2019 SUBJECTIVE: Mr. Yang is in bed this morning with a Venturi mask on at 15 L. Respiratory is at bedside, having some trouble getting his O2 saturation above 80% this morning. The patient seems lethargic. He opens his eyes when asked a question. OBJECTIVE: Vital Signs: Temperature 97.7 degrees, pulse rate 111, respiratory rate 22, O2 saturation 94% on nonrebreather at 100%. He is in 5/10 abdominal pain. Physical Examination: General: Chronically ill-appearing man, in no acute distress. Cardiovascular: S1 and S2 noted. He is tachycardic. Respiratory: Coarse crackles throughout his lungs, using accessory muscles. Gastrointestinal: Soft, slightly distended, nontender. Laboratory: White blood cells 5.44, hemoglobin 7.2, hematocrit 23.5, platelet count 158,000. Potassium 3.1, creatinine 0.5, magnesium 1.3, albumin 2.4. ASSESSMENT: 1. Bilateral bronchovascular carcinoma, status post 1 cycle of chemotherapy on 03/04/2019. 2. Acute on chronic respiratory failure. 3. Severe aortic stenosis. 4. IgG deficiency. 5. Stenotrophomonas and Enterobacter infection. PLAN: The patient is continuing to require the same amount of high oxygen despite multiple weeks in the hospital with treatment. We continue to follow, in agreement with pulmonary and infectious disease. We continue to watch for his neutropenic status post chemotherapy. There has been no improvement in his oxygenation. The next chemotherapy will be in approximately 1 week if the patient and Dr. Duarte would like to continue treatment. We did order the patient 1 unit of packed red blood cells this morning due to his low hemoglobin and hematocrit. However, the patient refused the blood product. Dictated by RIO Myers for Tyree Hurst MD cc: Tyree Hurst MD [facility]
[2019-03-19] MEDS: KLOR-CON PO SCH ×2 (12:58→16:23)
[2019-03-19] MEDS ORDERED: NS 500 ML ONE (13:06)
[2019-03-19] MEDS: MAGNESIUM SULFATE 2 GM/S.W.I. 2 GM/50 ML IVPB IV SCH ×3 (13:28→21:56)
[2019-03-19] MEDS: POTASSIUM CHLORIDE 20 MEQ/SWI 20 MEQ/100 ML IVPB IV SCH ×2 (15:20→19:12)
--- NOTE | 2019-03-19 16:25 | PROGRESS NOTE ---
DATE: 03/19/2019 INTERVAL HISTORY: The patient received intravenous dose of Lasix. SUBJECTIVE: At the time of evaluation the patient is sleeping. He is arousable. He denies any complaints. He says he is "sleeping like a baby." His cough is getting better. He thinks his antianxiety medication is helping him. He says his abdominal pain is intermittent, it comes and goes. Denies any new complaints. VITALS: Temperature 97.8, pulse 127, respiratory rate 18, blood pressure 97/65. He is saturating 96% on 100% nonrebreather mask. PHYSICAL EXAMINATION: General: He does not appear in any acute distress. Sleeping on nonrebreather mask. Oral cavity is dry with mask on. Lungs: He has inspiratory crackles on right inframammary and left supramammary region. No wheeze or rhonchi except occasional end expiratory wheeze. Cardiovascular: S1, S2 normal. Systolic crescendo to decrescendo murmur affecting second intercostal space. Abdomen: Soft. Mildly tender. Extremities: Right lower extremity, he has a urine catheter. No lower extremity edema. : Input and output suggests negative 1.8 liters so far. LABORATORY: Suggestive of normocytic anemia with hemoglobin of 7.2, platelets of 158. According to reports, he had refused to get any blood products. His potassium is 3.1 and magnesium of 1.3 is being repleted right now. No new microbiological data. IMAGING: Chest x-ray yesterday had suggested no changes recently. ASSESSMENT AND PLAN: 1. Acute hypoxic respiratory failure secondary to bilateral bronchoalveolar adenocarcinoma and Stenotrophomonas maltophilia pneumonia, status post antibiotic treatment and one cycle of chemotherapy. The next cycle would be a week later. Continue oxygenation to maintain saturation more than 94%. His code status is Do Not Resuscitate level 1. Palliative Care is on board. 2. History of severe aortic stenosis, history of coronary artery disease with coronary artery bypass graft in the past, and peripheral arterial disease. Continue home aspirin, clopidogrel, metoprolol, and statin. I am stopping cilostazol, considering his drop in hemoglobin. 3. Other. Continue allopurinol for gout, Albuterol per nebulizer for shortness of breath, Nystatin for oral candidiasis, Graff catheter for history of urinary retention, alprazolam with citalopram for anxiety, and morphine as needed for pain control. DISPOSITION: I will continue to monitor patient on routine medical floor. Plan of care discussed with him. All of his questions have been answered. Will also replete his potassium and magnesium for hypokalemia and hypomagnesemia. cc: Dickson Monteiro MD
--- NOTE | 2019-03-19 20:47 | PULMONOLOGY PROGRESS NOTE ---
DATE: 03/19/2019 SUBJECTIVE: The patient had increased shortness of breath this morning but is doing better this afternoon. He did receive a dose of Lasix earlier. OBJECTIVE: Vital Signs: The patient has been afebrile for the last 24 hours. Blood pressure 109/67, heart rate 111, respiratory rate 17, oxygen saturation 98% on non-rebreather. HEENT: Pupils are equal and reactive. Oropharynx appears clear. Neck: Supple. Chest: Reveals coarse rhonchi bilaterally. Cardiac exam: S1, S2. Abdomen: Soft. Extremities: Reveal trace edema. LABORATORIES: Chest x-ray reveals dense bilateral infiltrates without change. Sodium 141, potassium 3.1, chloride 102, bicarbonate 31, BUN 9, creatinine 0.5, glucose 124, phosphorus 3.1, magnesium 1.3. White blood count 5.44, hemoglobin 7.2, platelet count 158,000. Immunoglobulin level is reduced at 660. IMPRESSION: A 68-year-old with: 1. Bilateral adenocarcinoma, status post 1 cycle of chemotherapy. 2. Stenotrophomonas maltophilia pneumonia. 3. Immunoglobulin deficiency. 4. Severe aortic stenosis. 5. Anemia associated with chemotherapy. RECOMMENDATIONS: 1. Continue oxygen via high-flow O2 BiPAP or face mask as needed. 2. Replace immunoglobulin to keep greater than 700. 3. Overall prognosis is poor. cc: Dereck Duarte MD
[2019-03-19] MEDS: LIPITOR PO SCH (21:57)
[2019-03-20] MEDS: ATROVENT NEB INH SCH ×6 (02:50→23:39)
[2019-03-20] MEDS: XOPENEX NEB INH SCH ×6 (02:50→23:40)
[2019-03-20] MEDS: ATIVAN PO SCH (06:05)
[2019-03-20] MEDS ORDERED: GAMUNEX-C 10% IV ONE (08:00)
[2019-03-20] MEDS ORDERED: BENADRYL PO ONE (08:53)
[2019-03-20] MEDS ORDERED: TYLENOL PO ONE (08:53)
[2019-03-20] MEDS: MYCOSTATIN SUSP PO SCH ×4 (09:07→21:54)
[2019-03-20] MEDS: CELEXA PO SCH (09:07)
[2019-03-20] MEDS: PREDNISONE PO SCH (09:09)
[2019-03-20] MEDS: ZYLOPRIM PO SCH ×2 (09:09→21:54)
[2019-03-20] MEDS: CULTURELLE PO SCH (09:09)
[2019-03-20] MEDS: LOPRESSOR PO SCH ×2 (09:09→21:54)
[2019-03-20] MEDS: ASPIRIN PO SCH (09:10)
[2019-03-20] MEDS: PLAVIX PO SCH (09:10)
[2019-03-20] MEDS: MORPHINE IV PRN (09:11)
--- NOTE | 2019-03-20 09:53 | HEMO/ONC PROGRESS NOTE ---
DATE: 03/20/2019 SUBJECTIVE: Mr. Yang is sitting up this morning, awake and alert, on a Venturi mask at 15 L. He states that he is feeling okay. We had a long talk about his low blood count and how that can effect his oxygen level. He has agreed to accept the blood transfusion. All of his questions were answered to his satisfaction. OBJECTIVE: Vital Signs: Temperature 98.2 degrees, pulse rate 107, respiratory rate 23, blood pressure 119/73, O2 saturation 95% on 15 L via non-rebreather, 5/10 abdominal pain. Respiratory: Reveals coarse rhonchi bilaterally. Cardiac Exam: S1, S2 noted. Gastrointestinal: Soft, nondistended, nontender. Neurological: Awake, alert, and oriented x3. Able to move all extremities. LABS: Today are pending. ASSESSMENT: 1. 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 2. Acute on chronic respiratory failure. 3. Severe aortic stenosis. 4. IgG deficiency. 5. Stenotrophomonas and Enterobacter infections. 6. Normocytic anemia. PLAN: The patient continues to require the same amount of high oxygen despite multiple treatments and multiple weeks in the hospital. We continue to follow along with Pulmonary and Infectious Disease recommendations. We are monitoring his anemia and other blood counts. We have had a long discussion with him about a blood transfusion. We have ordered 1 unit packed red blood cells to be transfused today. The patient has agreed. We discussed the possibility of doing another round of chemotherapy next Saturday. The patient has agreed that he would like to try another round if he is medically stable to do so. Dictated by RIO Myers for Tyree Hurst MD Patient seen and examined. He seems to have tolerated chemotherapy without any significant issues. Discussed with Dr. Duarte. Respiratory status and oxygenation has not improved much, although x-ray compared to 2 weeks ago appears somewhat better. Patient wants to continue therapy and from my standpoint we will make arrangements for the same as long as patient and Dr. Duarte feel the same. Tyree Hurst M.D. cc: Tyree Hurst MD [facility]
[2019-03-20 10:18] LABS: BASO# 0.04 X1000 (0.0-0.2); BASO% 0.7 % (0.0-0.8); EOS# 0.14 X1000 (0.0-0.7); EOS% 2.4 % (0.0-10.0); HEMATOCRIT 32.2 % (42.0-52.0); IMM GRAN# 0.14 X1000 (0.0-0.04); IMM GRAN% 2.4 % (0.0-0.5); LYMPH# 0.95 X1000 (1.2-3.4); LYMPH% 16.1 % (20.5-51.1); MCH 29.4 PG (27-31); MCHC 31.1 g/dL (33-37); MCV 94.7 FL (81-99); MONO# 0.43 X1000 (0.11-0.59); MONO% 7.3 % (1.7-9.3); MPV 10.3 FL (7.4-10.4); NEUT% 71.1 % (42.2-75.2); PLT 223 X1000 (130-400); RDW 15.8 % (11.5-14.5)
[2019-03-20 10:21] LABS: BANDS 2 % (0-1); LYMPHS 22 % (21-51); SEGS 76 % (42-75)
[2019-03-20 10:32] LABS: POTASSIUM 4.6 mmol/L (3.5-5.1); SODIUM 141 mmol/L (136-145)
[2019-03-20 10:33] LABS: AGAP 14; ALB/GLOB RATIO 0.6; ALBUMIN 2.6 g/dL (3.5-5.0); ALKALINE PHOSPHATASE 113 U/L (32-122); BUN 10 mg/dL (8-22); CALCIUM 8.6 mg/dL (8.8-10.2); CHLORIDE 99 mmol/L (98-107); COSMO 284; CREATININE 0.6 mg/dL (0.7-1.2); ESTIMATED GFR > 60; GLUCOSE 172 mg/dL (70-104); GOT 50 U/L (10-34); GPT 44 U/L (10-44); TCO2 28 mmol/L (25-35); TOTAL BILIRUBIN 0.46 mg/dL (0.20-1.00)
[2019-03-20] MEDS: TUSSIONEX LIQUID PO SCH ×2 (13:28→21:54)
[2019-03-20 14:58] LABS: HEMATOCRIT 26.4 % (42.0-52.0); HEMOGLOBIN 8.3 g/dL (14.0-18.0)
--- NOTE | 2019-03-20 19:06 | PROGRESS NOTE ---
DATE: 03/20/2019 INTERVAL HISTORY: Patient did have low blood count and today he agreed to receive a blood transfusion, and I think the oncology team has ordered blood transfusion. Multiple family members were initially present. The patient denies any new complaints. VITAL SIGNS: Temperature 97.5 degrees, pulse 106, respiratory rate 24, blood pressure 109/63, saturating 91% on 100% non-rebreather mask. PHYSICAL EXAMINATION: General: In mild distress because of shortness of breath. Has an anxious look on the face as well. Lungs: He has inspiratory crackles on right inframammary and left supramammary regions. No wheeze or rhonchi. Heart: S1, S2 normal. Systolic crescendo- decrescendo murmur affecting second intercostal space. Abdomen: Soft. : He has a urine catheter. I discussed with the nursing team about consulting Urology if he will need change of urine catheter. He is -200 mL today. LABS: Hemoglobin of 8.3, platelet of 223,000. His electrolytes are in acceptable range. ASSESSMENT AND PLAN: 1. Acute hypoxic respiratory failure, secondary to bilateral bronchoalveolar adenocarcinoma and Stenotrophomonas maltophilia pneumonia, status post antibiotic treatment and one cycle of chemotherapy. Next cycle would be next week. Continue oxygenation to maintain saturation more than 94%. Palliative Care is on board. His code status is Do Not Resuscitate level 1; however, he would want to receive further chemotherapy. 2. History of severe aortic stenosis and coronary artery disease, with coronary artery bypass grafting in the past, with peripheral artery disease. Continue home aspirin, clopidogrel, metoprolol, and statin. 3. Continue allopurinol for gout, albuterol ipratropium nebulization for shortness of breath, nystatin for oral candidiasis, Graff catheter for history of urinary retention, and Urology will be reconsulted if he would need change of Graff, alprazolam and citalopram for anxiety, morphine as needed for pain. 4. Disposition. The patient has a poor prognosis. I will continue to monitor him inside hospital. Apparently, patient cannot receive chemotherapy at half-way acute care. Plan of care discussed with the patient. All of his questions been answered. cc: Dickson Monteiro MD
[2019-03-20] MEDS: LIPITOR PO SCH (21:54)
[2019-03-20] MEDS: TYLENOL PO PRN (21:55)
[2019-03-21] MEDS: ATROVENT NEB INH SCH ×6 (04:09→23:15)
[2019-03-21] MEDS: XOPENEX NEB INH SCH ×6 (04:10→23:15)
[2019-03-21] MEDS: ATIVAN PO SCH (06:03)
[2019-03-21] MEDS: MYCOSTATIN SUSP PO SCH ×4 (10:23→22:11)
[2019-03-21] MEDS: PREDNISONE PO SCH (10:23)
[2019-03-21] MEDS: TUSSIONEX LIQUID PO SCH ×2 (10:23→22:11)
[2019-03-21] MEDS: ZYLOPRIM PO SCH ×2 (10:24→22:11)
[2019-03-21] MEDS: CULTURELLE PO SCH (10:24)
[2019-03-21] MEDS: CELEXA PO SCH (10:24)
[2019-03-21] MEDS: PLAVIX PO SCH (10:24)
[2019-03-21] MEDS: LOPRESSOR PO SCH ×2 (10:24→22:11)
[2019-03-21] MEDS: ASPIRIN PO SCH (10:24)
[2019-03-21] MEDS ORDERED: KLOR-CON PO ONE (14:45)
[2019-03-21] MEDS: LASIX IV SCH (15:54)
[2019-03-21] MEDS: MAGNESIUM SULFATE 1 GM/D5W 1 GM/100 ML IVPB IV SCH ×2 (15:54→16:43)
--- NOTE | 2019-03-21 16:04 | PROGRESS NOTE ---
DATE: 03/21/2019 INTERVAL HISTORY: No acute events. The patient states he just worked with physical therapy and after that he got tired. Denies any new complaints. He had 1 bowel movement yesterday. His shortness of breath is at baseline. VITALS: Currently, temperature of 97.7 degrees, pulse 103, respiratory rate 20, blood pressure 120/74 saturating 95% on 100% non-rebreather mask. PHYSICAL EXAMINATION: Appears tired. Uses intercostal muscles and to some extent accessory muscles as well. Vital Signs: Temperature 97.7 degrees, blood pressure 116/74. General: Does not appear in any acute distress. He is currently at his baseline which is short of breath. Lungs: Inspiratory crackles on the right inframammary and left supramammary region. No wheeze or rhonchi. Heart: S1, S2 normal. Systolic crescendo-decrescendo murmur affecting second intercostal space. Abdomen: Soft. : He has urine catheter. LABS: No new labs today. IMAGING: No new chest x-ray. ASSESSMENT AND PLAN: 1. Acute hypoxic respiratory failure secondary to bilateral bronchoalveolar adenocarcinoma and Stenotrophomonas maltophilia pneumonia status post antibiotic treatment and 1 cycle of chemotherapy. Next cycle would be next week. Continue oxygenation to maintain saturation more than 94%, as possible and use BiPAP as needed. His code status is do not resuscitate level 1. 2. History of severe aortic stenosis and coronary artery disease status post coronary artery bypass graft in the past with peripheral artery disease. Continue home aspirin, clopidogrel, metoprolol and statin. 3. Continue allopurinol for gout, albuterol ipratropium nebulizer for shortness of breath, nystatin for oral candidiasis, Graff catheter for history of urinary retention, citalopram and lorazepam for anxiety, and morphine for pain as needed. Continue prednisone as well. DISPOSITION: Patient remains inside the hospital. Plan of care discussed with him. All of his questions have been answered. Pulmonology and oncology to discuss about appropriateness of chemotherapy next week. cc: MD NIKO Muñiz
[2019-03-21] MEDS: LIPITOR PO SCH (22:11)
[2019-03-22] MEDS: LASIX IV SCH (03:01)
[2019-03-22] MEDS: ATROVENT NEB INH SCH ×6 (03:45→23:15)
[2019-03-22] MEDS: XOPENEX NEB INH SCH ×6 (03:45→23:15)
[2019-03-22 04:55] LABS: ALLEN TEST YES; BE 13.4 mmoll (-3.0-3.0); BLOOD TYPE ARTERIAL; HCO3-(ACT) 35.4 mmoll (20.0-26.0); METHB 0.3 % (0.0-1.5); O2(CT) 13.3 mL/dL (15.0-23.0); O2HB 95.2 % (95.0-99.0); PO2(98.6) 73 mmHg (60-100); SAMPLE BLOOD; SAO2 97.5 % (95.0-100.0); THB 9.9 g/dL (11.5-17.4); pH(98.6) 7.46 (7.35-7.45)
[2019-03-22 04:57] LABS: MODALITY NRB
[2019-03-22 04:59] LABS: PCO2(98.6) 55 mmHg (35-45)
[2019-03-22] MEDS: ATIVAN PO SCH (06:02)
[2019-03-22] MEDS: MORPHINE IV PRN ×2 (06:05→21:51)
--- NOTE | 2019-03-22 07:37 | Diag Imaging Result Doc PS360 ---
EXAM: CHEST-1 VIEW - 03/22/2019 HISTORY: SOB TECHNIQUE: Portable chest COMPARISON: 03/19/2019 FINDINGS: Heart size is normal. There are sternal wires from previous surgery again seen. There are dense infiltrates at the right upper lobe and left lingula. These appear to have decreased slightly. There is no substantial pleural effusion or pneumothorax identified. PICC remains in place. IMPRESSION: Slight decrease in bilateral infiltrates. Electronically signed by Michael Beal 03/22/2019 7:35 AM
[2019-03-22] MEDS: PLAVIX PO SCH (11:03)
[2019-03-22] MEDS: PREDNISONE PO SCH (11:03)
[2019-03-22] MEDS: TUSSIONEX LIQUID PO SCH ×2 (11:03→21:46)
[2019-03-22] MEDS: CULTURELLE PO SCH (11:03)
[2019-03-22] MEDS: LOPRESSOR PO SCH ×2 (11:03→21:46)
[2019-03-22] MEDS: MYCOSTATIN SUSP PO SCH ×4 (11:03→21:46)
[2019-03-22] MEDS: CELEXA PO SCH (11:04)
[2019-03-22] MEDS: ZYLOPRIM PO SCH ×2 (11:04→21:47)
[2019-03-22] MEDS: ASPIRIN PO SCH (11:04)
--- NOTE | 2019-03-22 13:32 | PROGRESS NOTE ---
DATE: 03/22/2019 INTERVAL HISTORY: No acute events overnight. The patient had received doses of Lasix yesterday, and he had good urine output after that. He denies any new symptoms. OBJECTIVE: Vitals: Temperature 97.8 degrees, pulse 96, respiratory rate 20, blood pressure 106/59, saturating 89% on nonrebreather mask. General: Does not appear in any acute distress, except mild shortness of breath. He is sleepy. He appears tired. Oral cavity is moist. Air entry: He has inspiratory crackles in bilateral inframammary and right supramammary region. No wheeze or rhonchi. S1, S2 normal. No murmur. Previously, I could appreciate systolic crescendo- decrescendo murmur, affecting second intercostal space. Abdomen is soft, mildly tender. He has a urine catheter. DIAGNOSTIC STUDIES: No new laboratories today, except ABG which had PO2 of 73. ASSESSMENT AND PLAN: 1. Acute hypoxic respiratory failure secondary to bilateral bronchoalveolar adenocarcinoma. He is s/p 1 cycle of chemotherapy. Next cycle would be this week if deemed appropriate by Pulmonology and Oncology teams. Continue oxygenation to maintain saturation more than 94%, and as-needed BiPAP. 2. His code status is Do Not Resuscitate level 1. 3. History of severe aortic stenosis, coronary artery bypass graft, and peripheral artery disease. Continue home aspirin, clopidogrel, metoprolol, and statin. 4. Other: Continue allopurinol for gout, albuterol/ipratropium nebulization for shortness of breath, nystatin for candidiasis, Graff catheter for history of urinary retention, citalopram and lorazepam for anxiety, morphine as needed for pain. Continue prednisone as well. Stenotrophomonas maltophilia pneumonia status post antibiotic treatment. DISPOSITION: The patient remains inside the hospital. 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 Plan of care discussed with the patient. All of his questions have been answered. cc: Dickson Monteiro MD MTDD
[2019-03-22] MEDS: LIPITOR PO SCH (21:46)
[2019-03-23] MEDS: XOPENEX NEB INH SCH ×6 (03:15→22:34)
[2019-03-23] MEDS: ATROVENT NEB INH SCH ×6 (03:15→22:34)
[2019-03-23] MEDS: ATIVAN PO SCH (05:33)
--- NOTE | 2019-03-23 09:04 | HEMO/ONC PROGRESS NOTE ---
DATE: 03/23/2019 SUBJECTIVE: Mr. Yang is asleep in bed this morning. He awakes easily to my touch. He states he had a good night's sleep last night. He is currently on BiPAP. He denies any pain. He appears comfortable. OBJECTIVE: Vital Signs: Temperature 97.4 degrees, pulse rate 95, respiratory rate 24, blood pressure 118/76, O2 saturation 98% on BiPAP. There is 0/10 pain. Physical Examination: General: He does not appear in any acute distress this morning. He is sleepy and falls back asleep quickly. Respiratory: Coarse breath sounds heard throughout. Cardiovascular: S1 and S2 normal. Gastrointestinal: Abdomen is soft, nondistended, mildly tender. Laboratory: No labs drawn over the weekend. Imaging: Chest x-ray from 03/22/2019 shows slight decrease in the bilateral infiltrates. ASSESSMENT: 1. 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 2. Acute hypoxic respiratory failure. 3. Severe aortic stenosis, coronary artery bypass graft, and peripheral artery disease. 4. IgG deficiency. 5. Stenotrophomonas and Enterobacter infection, status post antibiotic treatment. 6. Normocytic anemia. PLAN: The patient has shown little improvement. His oxygen demand remains quite high despite multiple treatments and weeks in the hospital. Continue to follow and monitor his anemia. We will continue to monitor if he is medically stable enough for another round of chemotherapy this week. Dictated by RIO Myers for Tyree Hurst MD Patient seen and examined. As above. He continues to require significant amount of oxygen. Lately he has required BiPAP more often. He continues to get weaker. I had a lengthy discussion with him today regarding chemotherapy versus comfort measures. He wants to proceed with next cycle of chemotherapy. I will make arrangements for this to be delivered on Saturday. Tyree Hurst M.D. cc: Tyree Hurst MD [facility]
[2019-03-23 09:25] LABS: EOS# 0.12 X1000 (0.0-0.7); EOS% 1.2 % (0.0-10.0); HEMATOCRIT 31.3 % (42.0-52.0); HEMOGLOBIN 9.4 g/dL (14.0-18.0); LYMPH# 1.29 X1000 (1.2-3.4); LYMPH% 12.9 % (20.5-51.1); MCH 28.8 PG (27-31); MONO# 0.61 X1000 (0.11-0.59); MONO% 6.1 % (1.7-9.3); MPV 9.8 FL (7.4-10.4); NEUT# 7.19 X1000 (1.4-6.5); NEUT% 71.8 % (42.2-75.2); PLT 334 X1000 (130-400); RBC 3.26 XMIL (4.7-6.1); WBC 10.01 X1000 (4.8-10.8)
[2019-03-23 09:47] LABS: BANDS 10 % (0-1); LYMPHS 14 % (21-51); MONO 2 % (1-9); SEGS 72 % (42-75)
[2019-03-23 09:53] LABS: AGAP 11; ALB/GLOB RATIO 0.6; ALBUMIN 2.7 g/dL (3.5-5.0); ALKALINE PHOSPHATASE 115 U/L (32-122); BUN 19 mg/dL (8-22); CALCIUM 8.9 mg/dL (8.8-10.2); CHLORIDE 96 mmol/L (98-107); COSMO 290; CREATININE 0.6 mg/dL (0.7-1.2); ESTIMATED GFR > 60; GLUCOSE 116 mg/dL (70-104); GOT 54 U/L (10-34); GPT 55 U/L (10-44); POTASSIUM 3.7 mmol/L (3.5-5.1); SODIUM 144 mmol/L (136-145); TCO2 37 mmol/L (25-35); TOTAL BILIRUBIN 0.38 mg/dL (0.20-1.00); TOTAL PROTEIN 6.9 g/dL (6.3-8.3)
[2019-03-23] MEDS: MORPHINE IV PRN (10:33)
[2019-03-23] MEDS: TUSSIONEX LIQUID PO SCH ×2 (10:38→21:48)
[2019-03-23] MEDS: PREDNISONE PO SCH (10:39)
[2019-03-23] MEDS: ZYLOPRIM PO SCH ×2 (10:40→21:49)
[2019-03-23] MEDS: CELEXA PO SCH (10:41)
[2019-03-23] MEDS: LOPRESSOR PO SCH ×2 (10:41→21:48)
[2019-03-23] MEDS: PLAVIX PO SCH (10:41)
[2019-03-23] MEDS: ASPIRIN PO SCH (10:41)
[2019-03-23] MEDS: MYCOSTATIN SUSP PO SCH ×4 (10:41→21:49)
[2019-03-23] MEDS: CULTURELLE PO SCH (10:42)
[2019-03-23] MEDS: LIPITOR PO SCH (21:48)
[2019-03-24] MEDS: ATROVENT NEB INH SCH ×6 (03:06→23:14)
[2019-03-24] MEDS: XOPENEX NEB INH SCH ×6 (03:06→23:14)
[2019-03-24] MEDS: ATIVAN PO SCH (05:59)
[2019-03-24] MEDS: MORPHINE IV PRN ×3 (06:05→15:11)
[2019-03-24 07:04] LABS: BASO# 0.12 X1000 (0.0-0.2); EOS% 0.8 % (0.0-10.0); IMM GRAN# 0.77 X1000 (0.0-0.04); IMM GRAN% 6.5 % (0.0-0.5); LYMPH# 1.56 X1000 (1.2-3.4); LYMPH% 13.2 % (20.5-51.1); MCH 28.8 PG (27-31); MCV 96.2 FL (81-99); MONO# 0.76 X1000 (0.11-0.59); MONO% 6.4 % (1.7-9.3); MPV 9.8 FL (7.4-10.4); NEUT% 72.1 % (42.2-75.2); PLT 353 X1000 (130-400); RBC 3.12 XMIL (4.7-6.1); RDW 15.9 % (11.5-14.5); WBC 11.81 X1000 (4.8-10.8)
[2019-03-24 07:25] LABS: AGAP 12; BUN 20 mg/dL (8-22); CALCIUM 8.9 mg/dL (8.8-10.2); CHLORIDE 95 mmol/L (98-107); COSMO 287; CREATININE 0.6 mg/dL (0.7-1.2); ESTIMATED GFR > 60; GLUCOSE 86 mg/dL (70-104); POTASSIUM 3.9 mmol/L (3.5-5.1); SODIUM 143 mmol/L (136-145); TCO2 36 mmol/L (25-35)
[2019-03-24 07:28] LABS: BANDS 4 % (0-1); LYMPHS 18 % (21-51); MONO 2 % (1-9); NRBC 1 % (0-0); SEGS 74 % (42-75)
[2019-03-24] MEDS: PREDNISONE PO SCH (08:49)
[2019-03-24] MEDS: ASPIRIN PO SCH (08:50)
[2019-03-24] MEDS: CELEXA PO SCH (08:50)
[2019-03-24] MEDS: ZYLOPRIM PO SCH ×2 (08:50→22:06)
[2019-03-24] MEDS: LOPRESSOR PO SCH ×2 (08:51→22:06)
[2019-03-24] MEDS: CULTURELLE PO SCH (08:51)
[2019-03-24] MEDS: PLAVIX PO SCH (08:51)
[2019-03-24] MEDS: MYCOSTATIN SUSP PO SCH ×4 (08:57→22:05)
[2019-03-24] MEDS: TUSSIONEX LIQUID PO SCH ×2 (08:57→22:06)
[2019-03-24] MEDS: FOLIC ACID PO SCH (11:00)
[2019-03-24 19:08] LABS: URINE SOURCE CATH
[2019-03-24 19:39] LABS: BILIRUBIN URINE NEGATIVE (NEGATIVE); BLOOD URINE TRACE (NEGATIVE); COLOR YELLOW; GLUCOSE URINE NEGATIVE (NEGATIVE); KETONE URINE NEGATIVE (NEGATIVE); LEUKOCYTES URINE MODERATE (NEGATIVE); NITRITE URINE NEGATIVE (NEGATIVE); PH URINE 5.5; PROTEIN URINE TRACE mg/dL (NEGATIVE); SP GRAVITY URINE 1.026; TURBIDITY URINE HAZY (CLEAR); UROBILINOGEN URINE NORMAL (NORMAL)
[2019-03-24 19:41] LABS: UR EPITHELIAL CELLS >10 /HPF (<10); URINE BACTERIA NEGATIVE /HPF; URINE RBC <10 /HPF (<10)
[2019-03-24] MEDS: LIPITOR PO SCH (22:05)
[2019-03-25] MEDS: ATROVENT NEB INH SCH ×6 (03:40→22:55)
[2019-03-25] MEDS: XOPENEX NEB INH SCH ×6 (03:40→22:55)
[2019-03-25] MEDS ORDERED: REGLAN IV PRN (06:00)
[2019-03-25] MEDS: ATIVAN PO SCH (06:22)
[2019-03-25] MEDS: MORPHINE IV PRN (06:27)
[2019-03-25] MEDS: TYLENOL PO PRN (08:33)
[2019-03-25] MEDS: PREDNISONE PO SCH (08:33)
[2019-03-25] MEDS: TUSSIONEX LIQUID PO SCH ×2 (08:34→20:23)
[2019-03-25] MEDS: MYCOSTATIN SUSP PO SCH ×4 (08:34→20:23)
[2019-03-25] MEDS: FOLIC ACID PO SCH (08:34)
[2019-03-25] MEDS: ASPIRIN PO SCH (08:34)
[2019-03-25] MEDS: PLAVIX PO SCH (08:34)
[2019-03-25] MEDS: CULTURELLE PO SCH (08:34)
[2019-03-25] MEDS: LOPRESSOR PO SCH ×2 (08:35→20:22)
[2019-03-25] MEDS: ZYLOPRIM PO SCH ×2 (08:35→20:23)
[2019-03-25] MEDS: CELEXA PO SCH (08:35)
[2019-03-25 08:58] LABS: BASO# 0.14 X1000 (0.0-0.2); EOS# 0.13 X1000 (0.0-0.7); EOS% 0.9 % (0.0-10.0); HEMATOCRIT 32.2 % (42.0-52.0); HEMOGLOBIN 9.7 g/dL (14.0-18.0); IMM GRAN# 0.94 X1000 (0.0-0.04); IMM GRAN% 6.7 % (0.0-0.5); LYMPH# 1.42 X1000 (1.2-3.4); LYMPH% 10.2 % (20.5-51.1); MCHC 30.1 g/dL (33-37); MCV 96.4 FL (81-99); MONO% 7.2 % (1.7-9.3); MPV 9.8 FL (7.4-10.4); NEUT# 10.31 X1000 (1.4-6.5); PLT 355 X1000 (130-400); RBC 3.34 XMIL (4.7-6.1); RDW 16.1 % (11.5-14.5); WBC 13.94 X1000 (4.8-10.8)
[2019-03-25 09:27] LABS: BANDS 14 % (0-1); EOS 1 % (1-10); LYMPHS 11 % (21-51); MONO 3 % (1-9); NRBC 1 % (0-0); SEGS 68 % (42-75)
[2019-03-25 09:30] LABS: AGAP 7; ALB/GLOB RATIO 0.6; ALBUMIN 2.6 g/dL (3.5-5.0); ALKALINE PHOSPHATASE 110 U/L (32-122); BUN 19 mg/dL (8-22); CALCIUM 9.2 mg/dL (8.8-10.2); CHLORIDE 94 mmol/L (98-107); COSMO 282; CREATININE 0.5 mg/dL (0.7-1.2); ESTIMATED GFR > 60; GLUCOSE 98 mg/dL (70-104); GOT 37 U/L (10-34); GPT 35 U/L (10-44); SODIUM 140 mmol/L (136-145); TCO2 39 mmol/L (25-35); TOTAL BILIRUBIN 0.45 mg/dL (0.20-1.00)
[2019-03-25] MEDS ORDERED: CYANOCOBALAMIN IM ONE (11:45)
[2019-03-25] MEDS ORDERED: KEYTRUDA 200 MG in NS 100 ML IV ONE ×2 (12:00→12:30)
[2019-03-25] MEDS ORDERED: DECADRON IV ONE (12:00)
[2019-03-25] MEDS ORDERED: NS IV ONE ×4 (12:00→13:30)
[2019-03-25] MEDS ORDERED: ZOFRAN IV ONE (12:00)
--- NOTE | 2019-03-25 12:07 | PROGRESS NOTE ---
DATE: 03/23/2019 INTERVAL HISTORY: No acute events. He is sleeping at the moment. Denies any complaints. The plan is to transfer from this floor to the third floor where he could receive, potentially, chemotherapy as I was informed. Urology has not seen him yet for a change of Graff catheter. VITAL SIGNS: Temperature 98.2, pulse 91, respiratory rate 24, blood pressure 123/70, saturating 96% on 100% nonrebreather. PHYSICAL EXAMINATION: He is sleepy. Oral cavity is moist. Air entry has inspiratory crackles at bilateral inframammary and right supramammary region. No wheeze or rhonchi. S1 and S2 normal. No murmur. I could not appreciate any rub or gallop. Abdomen is soft. Mildly tender. He has a urine catheter. DIAGNOSTIC STUDIES: Labs: He has hemoglobin of 9.4. His electrolytes are all within acceptable range. ASSESSMENT AND PLAN: 1. Acute hypoxic respiratory failure secondary to bilateral bronchoalveolar adenocarcinoma, status post one cycle of chemotherapy. Next cycle would be some time this week. Pulmonology, oncology on board. Continue oxygenation to maintain saturation more than 94% and cycle nonrebreather mask and BiPAP as tolerated. His code status is Do Not Resuscitate level 1. 2. Other issues including severe aortic stenosis; coronary artery disease and bypass graft; peripheral artery disease are stable. I will continue home aspirin, clopidogrel, metoprolol, and statin. I will also continue allopurinol for gout; albuterol-ipratropium nebulization for shortness of breath; nystatin for oral candidiasis; Graff catheter for history of urinary retention, awaiting change of Graff catheter by urology; prednisone for his pneumonia. He is status post antibiotic for Stenotrophomonas multilobar pneumonia. 3. Disposition. The patient remains on the medical floor. Plan of care was discussed with him. All of his questions have been answered. cc: MD NIKO Muñiz
[2019-03-25] MEDS ORDERED: ALIMTA IV ONE ×2 (12:15→13:00)
[2019-03-25] MEDS ORDERED: PARAPLATIN IV ONE (13:30)
[2019-03-25] MEDS: LIPITOR PO SCH (20:22)
--- NOTE | 2019-03-25 21:36 | PROGRESS NOTE ---
DATE: 03/24/2019 INTERVAL HISTORY: Patient was transferred to 3rd floor. His urine catheter was changed. No acute issues. SUBJECTIVE: The patient is denying new complaint. The patient's and daughter are at bedside. VITALS: Temperature 97.6 degrees, pulse 98, respiratory 18, blood pressure 122/76, saturating 98% on 100% nonrebreather mask. PHYSICAL EXAMINATION: General: Does not appear in acute distress. Oral cavity is moist. He has a nonrebreather mask. He is alert and oriented x3. He has inspiratory crackles bilateral inframammary and right supramammary region. No wheeze or rhonchi. S1, S2 normal. Systolic murmur affecting right second intercostal space crescendo decrescendo in nature. Abdomen is soft, mildly tender. Urine catheter which has been changed. LABS: WBC of 11,000, hemoglobin 9, platelet count 353,000. Hyponatremia, elevated bicarbonate, normal kidney function. No new microbiology. No new imaging. ASSESSMENT AND PLAN: 1. Acute hypoxic respiratory failure due to bilateral bronchoalveolar adenocarcinoma status post 1 cycle of chemotherapy. Next cycle is tomorrow. Continue oxygenation to maintain saturation more than 94% and cycle nonrebreather mask and BiPAP as tolerated. His code status is DNR level 1. 2. Other issues including severe aortic stenosis, coronary artery bypass graft for coronary artery disease, peripheral artery disease. I will continue home medication of aspirin, clopidogrel, metoprolol and statin. 3. Others, continue allopurinol for gout, albuterol ipratropium nebulization for shortness of breath, Nystatin for oral candidiasis, Graff catheter has been changed which he has for urinary retention, citalopram and lorazepam anxiety, morphine as needed for pain, prednisone. He is status post antibiotics for Stenotrophomonas pneumonia. 4. Disposition. Continue to monitor patient in medical floor. Code status DNR level 1. Patient's oxygen requirement is too high to be discharged. cc: MD NIKO Muñiz
--- NOTE | 2019-03-25 21:39 | PROGRESS NOTE ---
DATE: 03/25/2019 INTERVAL HISTORY: Patient received a dose of chemotherapy today. SUBJECTIVE: He is denying any complaints. He is still using non-rebreather mask. No new complaints today. OBJECTIVE: Vitals: Temperature 98.2 degrees, pulse 106 on bedside monitor, respiratory rate 22 per minute, blood pressure 120/72, saturating 92% on 100% non-rebreather mask. General: Appears not in any acute distress. HEENT: Oral cavity is moist. Lungs: Air entry decreased bilateral infrascapular region with inspiratory crackles. Cardiovascular: S1, S2 normal. Systolic crescendo-decrescendo murmur affecting right second intercostal space. Abdomen: Soft. Mildly tender especially right lower quadrant. Genitourinary: He has urine catheter, which was changed on March 24. ASSESSMENT: 1. Acute hypoxic respiratory failure. 2. Bilateral bronchoalveolar adenocarcinoma status post 2 cycles of chemotherapy, which he receives every 3 weeks. The 2nd cycle is today on March 25. 3. Severe aortic stenosis, coronary artery disease, history of coronary artery bypass grafting, recently treated Stenotrophomonas maltophilia pneumonia with a component of suspected cryptogenic organizing pneumonia. PLAN: He is receiving his second cycle of chemotherapy today. Continue oxygenation and cycle BiPAP and non-rebreather mask as tolerated. I will continue his current dose of steroid as per discussion with Pulmonology. Continue home medication of aspirin, clopidogrel, metoprolol, atorvastatin for history of coronary artery disease; continue levalbuterol, ipratropium nebulizer for shortness of breath; intravenous morphine, citalopram and lorazepam as needed for anxiety and pain. DISPOSITION: The patient remains inside the hospital because of high oxygen requirement. Plan of care discussed with the patient. All of his questions have been answered. cc: Dickson Monteiro MD
[2019-03-26] MEDS: XOPENEX NEB INH SCH ×6 (03:39→23:53)
[2019-03-26] MEDS: ATROVENT NEB INH SCH ×6 (03:39→23:53)
[2019-03-26] MEDS: ATIVAN PO SCH (06:29)
[2019-03-26 07:50] LABS: BASO# 0.03 X1000 (0.0-0.2); BASO% 0.2 % (0.0-0.8); HEMATOCRIT 28.5 % (42.0-52.0); HEMOGLOBIN 8.4 g/dL (14.0-18.0); IMM GRAN# 0.87 X1000 (0.0-0.04); IMM GRAN% 5.2 % (0.0-0.5); LYMPH# 0.85 X1000 (1.2-3.4); LYMPH% 5.1 % (20.5-51.1); MCH 28.4 PG (27-31); MCHC 29.5 g/dL (33-37); MCV 96.3 FL (81-99); MONO# 0.71 X1000 (0.11-0.59); MONO% 4.3 % (1.7-9.3); MPV 10.3 FL (7.4-10.4); NEUT# 14.21 X1000 (1.4-6.5); NEUT% 85.2 % (42.2-75.2); PLT 367 X1000 (130-400); RBC 2.96 XMIL (4.7-6.1); RDW 15.9 % (11.5-14.5); WBC 16.67 X1000 (4.8-10.8)
[2019-03-26 07:52] LABS: AGAP 11; ALB/GLOB RATIO 0.7; ALBUMIN 2.8 g/dL (3.5-5.0); ALKALINE PHOSPHATASE 109 U/L (32-122); BUN 19 mg/dL (8-22); CALCIUM 9.1 mg/dL (8.8-10.2); CHLORIDE 95 mmol/L (98-107); COSMO 287; CREATININE 0.7 mg/dL (0.7-1.2); ESTIMATED GFR > 60; GLUCOSE 134 mg/dL (70-104); GOT 30 U/L (10-34); GPT 27 U/L (10-44); POTASSIUM 4.6 mmol/L (3.5-5.1); SODIUM 142 mmol/L (136-145); TCO2 36 mmol/L (25-35); TOTAL BILIRUBIN 0.33 mg/dL (0.20-1.00); TOTAL PROTEIN 6.6 g/dL (6.3-8.3)
--- NOTE | 2019-03-26 11:01 | HEMO/ONC PROGRESS NOTE ---
DATE: 03/25/2019 SUBJECTIVE: Mr. Yang is asleep in bed. He awakes easily to my touch. He conversates appropriately. He states he has a headache this morning. He believes he is ready to do chemotherapy today. He is currently on BiPAP. He appears comfortable. OBJECTIVE: Vital signs: Temperature 98.0, pulse rate 91, respiratory rate 23, blood pressure 90/63, O2 saturation 99% on BiPAP, 7/10 headache. PHYSICAL EXAMINATION: Respiratory: Inspiratory wheezes heard in upper lungs, coarse crackles heard throughout. Cardiovascular: S1, S2 normal. Gastrointestinal: Soft, abdomen nondistended. Mildly tender. LABORATORY: Still pending for today. Labs have been ordered. ASSESSMENT: 1. Bilateral bronchoalveolar carcinoma status post 1 cycle of chemotherapy on 03/04/2019. 2. Acute hypoxic respiratory failure. 3. Severe aortic stenosis, coronary artery bypass graft, and peripheral artery disease. 4. IgG deficiency. 5. Stenotrophomonas and Enterobacter infection status post antibiotic treatment. 6. Normocytic anemia. PLAN: The patient has shown little improvement and continues to require a significant amount of oxygen. He has required BiPAP more often as of late. He continues to get weaker. The patient wants to proceed with his next cycle of chemotherapy today, we will proceed with that after we review his labs for this morning. Dictated by RIO Myers for Tyree Hurst MD cc: Tyree Hurst MD
[2019-03-26] MEDS: TUSSIONEX LIQUID PO SCH (11:22)
[2019-03-26] MEDS: CELEXA PO SCH (11:22)
[2019-03-26] MEDS: ASPIRIN PO SCH (11:34)
[2019-03-26] MEDS: CULTURELLE PO SCH (11:34)
[2019-03-26] MEDS: PREDNISONE PO SCH (11:35)
[2019-03-26] MEDS: PLAVIX PO SCH (11:35)
[2019-03-26] MEDS: LOPRESSOR PO SCH ×2 (11:35→21:44)
[2019-03-26] MEDS: ZYLOPRIM PO SCH ×2 (11:35→21:44)
[2019-03-26] MEDS: MYCOSTATIN SUSP PO SCH ×4 (11:36→21:44)
[2019-03-26] MEDS: FOLIC ACID PO SCH (11:36)
--- NOTE | 2019-03-26 14:54 | PROGRESS NOTE ---
DATE: 03/26/2019 SUBJECTIVE: This morning, Mr. Yang refers to be doing fairly the same. I understand his O2 saturation dropped down into the 70s but that was when he was getting nebulization. He was switched back to a non-rebreather and he seems to be in the upper 90s. OBJECTIVELY: Vital signs: Blood pressure is currently 134/77, pulse of 80, respirations 20, temperature 97.5 degrees. General: Mr. Yang is a 68-year-old gentleman. He is in bed. No cardiopulmonary distress. HEENT: Mucosa is pink and moist. Anicteric. Acyanotic. Neck: Supple. Chest: Air entry is bilaterally reduced. No crepitations. Cardiovascular: Regular rate and rhythm. Abdomen: Soft. Extremities: No pedal edema. Central nervous system: Patient is awake, alert, oriented. LABORATORY DATA: WBC is up to 16.67, hemoglobin is 8.4, platelet count of 367,000. Chemistry is also reviewed, stable. CURRENT MEDICATIONS: Have all been reviewed. He is currently not on anymore antimicrobial therapy. ASSESSMENT: 1. Acute hypoxemic respiratory failure. Patient continues to be using a non-rebreather. 2. 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 The patient is status post 2 cycles of chemotherapy. 3. Severe aortic stenosis. 4. History of coronary artery disease status post coronary artery bypass grafting. 5. Recently treated Stenotrophomonas maltophilia postobstructive pneumonia. 6. General poor prognosis. PLAN: In general, Mr. Yang continues to be needing high concentration of oxygen for adequate oxygenation. He got the 2nd cycle of chemotherapy yesterday. I think the general plan will be to get him to an LTAC or titrate his oxygen needs to where it would be acceptable in a rehab situation. cc: Simon Larson MD
[2019-03-26] MEDS: LIPITOR PO SCH (21:44)
[2019-03-27] MEDS: XOPENEX NEB INH SCH ×6 (03:14→23:18)
[2019-03-27] MEDS: ATROVENT NEB INH SCH ×6 (03:14→23:18)
[2019-03-27 05:20] LABS: ALLEN TEST YES; BE 12.7 mmoll (-3.0-3.0); BLOOD TYPE ARTERIAL; HCO3-(ACT) 34.8 mmoll (20.0-26.0); METHB 1.3 % (0.0-1.5); O2(CT) 11.6 mL/dL (15.0-23.0); O2HB 94.2 % (95.0-99.0); PO2(98.6) 74 mmHg (60-100); SAMPLE BLOOD; SAO2 97.2 % (95.0-100.0); THB 8.7 g/dL (11.5-17.4); pH(98.6) 7.42 (7.35-7.45)
[2019-03-27 05:26] LABS: MODALITY BI PAP; PCO2(98.6) 60 mmHg (35-45)
--- NOTE | 2019-03-27 06:37 | Diag Imaging Result Doc PS360 ---
CHEST-1 VIEW - 03/27/2019 INDICATION: SOB COMPARISON: 03/22/2019 FINDINGS: Stable right PICC line. Stable bilateral dense infiltrates. Heart size remains normal. No new infiltrates. IMPRESSION: No change from prior. Electronically signed by Jairo Hammonds 03/27/2019 6:35 AM
[2019-03-27] MEDS: TUSSIONEX LIQUID PO SCH ×3 (06:43→21:09)
[2019-03-27] MEDS: ATIVAN PO SCH (06:49)
[2019-03-27 07:18] LABS: BASO# 0.02 X1000 (0.0-0.2); BASO% 0.1 % (0.0-0.8); EOS# 0.15 X1000 (0.0-0.7); EOS% 0.8 % (0.0-10.0); HEMATOCRIT 31.4 % (42.0-52.0); HEMOGLOBIN 9.2 g/dL (14.0-18.0); IMM GRAN# 0.38 X1000 (0.0-0.04); IMM GRAN% 2.1 % (0.0-0.5); LYMPH# 1.18 X1000 (1.2-3.4); LYMPH% 6.6 % (20.5-51.1); MCH 28.4 PG (27-31); MCHC 29.3 g/dL (33-37); MCV 96.9 FL (81-99); MONO# 0.29 X1000 (0.11-0.59); MONO% 1.6 % (1.7-9.3); MPV 10.1 FL (7.4-10.4); NEUT# 15.73 X1000 (1.4-6.5); NEUT% 88.8 % (42.2-75.2); PLT 436 X1000 (130-400); RBC 3.24 XMIL (4.7-6.1); RDW 16.4 % (11.5-14.5); WBC 17.75 X1000 (4.8-10.8)
[2019-03-27 07:52] LABS: AGAP 10; ALB/GLOB RATIO 0.8; ALBUMIN 3.2 g/dL (3.5-5.0); ALKALINE PHOSPHATASE 111 U/L (32-122); BUN 19 mg/dL (8-22); CALCIUM 9.3 mg/dL (8.8-10.2); CHLORIDE 94 mmol/L (98-107); COSMO 284; CREATININE 0.7 mg/dL (0.7-1.2); ESTIMATED GFR > 60; GLUCOSE 102 mg/dL (70-104); GOT 49 U/L (10-34); GPT 33 U/L (10-44); POTASSIUM 4.1 mmol/L (3.5-5.1); SODIUM 141 mmol/L (136-145); TCO2 37 mmol/L (25-35); TOTAL BILIRUBIN 0.44 mg/dL (0.20-1.00)
[2019-03-27 07:54] LABS: BANDS 8 % (0-1); LYMPHS 6 % (21-51); SEGS 84 % (42-75)
[2019-03-27] MEDS: CULTURELLE PO SCH (08:49)
[2019-03-27] MEDS: PLAVIX PO SCH (08:49)
[2019-03-27] MEDS: ZYLOPRIM PO SCH ×2 (08:49→21:02)
[2019-03-27] MEDS: CELEXA PO SCH (08:49)
[2019-03-27] MEDS: PREDNISONE PO SCH (08:49)
[2019-03-27] MEDS: ASPIRIN PO SCH (08:49)
[2019-03-27] MEDS: LOPRESSOR PO SCH ×2 (08:49→21:02)
[2019-03-27] MEDS: FOLIC ACID PO SCH (08:50)
[2019-03-27] MEDS: MYCOSTATIN SUSP PO SCH ×3 (08:51→21:02)
[2019-03-27] MEDS: MORPHINE IV PRN (08:51)
--- NOTE | 2019-03-27 11:30 | PROGRESS NOTE ---
DATE: 03/27/2019 SUBJECTIVE: This morning Mr. Yang refers to be feeling fairly okay. However, I understand his oxygen saturations has been in the low 80s almost to the 70s whenever he is off the BiPAP. OBJECTIVE: His current vitals show blood pressure 117/70, pulse 90, respirations 21, and temperature is 98 degrees. Saturation was about 85 on the non-rebreather.General: Mr. Yang is a 68-year-old gentleman. He is in bed. He does not seem to be in distress. HEENT: Mucosa is pink and moist. Anicteric. Acyanotic. Neck: Supple. Chest: Air entry is bilaterally reduced. There are some diffuse crackles in both posterior lung harrington more so to the left. No rhonchi. Cardiovascular: Regular rate and rhythm. No murmurs, no rubs, no gallops. Abdomen: Soft and nontender. Bowel sounds are present. Extremities: No pedal edema. TRACK FITTER: Patient is awake, alert, and oriented. Musculoskeletal: There is an old sternotomy scar on the anterior chest wall. LABORATORY DATA: WBC is 17.75, hemoglobin 9.2, and platelet count of 436,000. Chemistry is also reviewed and completely normal. ASSESSMENT: 1. Acute hypoxemic respiratory failure. The patient continues to cycle between BiPAP and non- rebreather. He does not seem to be very compliant with the use of BiPAP. We will ask the Respiratory Therapy, and they could put a high-flow oxygen on him instead of the BiPAP. 2. 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 The patient is status post 2 cycles of chemotherapy. Hematology/Oncology is on board. 3. Severe aortic stenosis. Cardiology is aware. 4. History of coronary artery disease status post CABG. We will continue with his home medications. 5. Recently treated Stenotrophomonas maltophilia postobstructive pneumonia. 6. Prognosis is remarkably poor. The patient's oxygen demands continues to be remarkably high. We will continue to follow further recommendation from the other subspecialties. The patient is also being seen by palliative nurse. cc: Simon Larson MD
[2019-03-27] MEDS: LIPITOR PO SCH (21:02)
[2019-03-28] MEDS: XOPENEX NEB INH SCH ×6 (03:20→23:20)
[2019-03-28] MEDS: ATROVENT NEB INH SCH ×6 (03:20→23:19)
--- NOTE | 2019-03-28 05:33 | PULMONOLOGY PROGRESS NOTE ---
DATE: 03/27/2019 SUBJECTIVE: The patient is awake, alert, and conversant. He has received a 2nd round of chemotherapy 2 days ago. He reports that the watery sputum production has declined over time. He continues to require high concentration of oxygen. OBJECTIVE: Vital Signs: Blood pressure 100/68, heart rate 96, respiratory rate 16, oxygen saturation 98% on BiPAP. HEENT: Pupils are equal and reactive. Oropharynx is clear. Neck: Supple. Chest: Reveals rhonchi bilaterally. Cardiac: S1, S2. Abdomen: Soft. Extremities: Reveal trace edema. LABORATORIES: Sodium 141, potassium 4.1, chloride 94 bicarbonate 37, BUN 19, creatinine 0.7. White blood count 17.75, hemoglobin 9.2, platelet count 436,000. Chest x-ray reveals dense bilateral infiltrates without change. IMPRESSION: A 68-year-old with 1. Acute hypoxemic respiratory failure. 2. 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 3. Severe aortic stenosis. 4. Coronary artery disease, status post bypass grafting. 5. Immunoglobulin deficiency. 6. Status post treatment for Stenotrophomonas pneumonia. PLAN: 1. Continue current oxygen with cycling between the BiPAP and non-rebreather. 2. Recheck immunoglobulin level to ensure he is not developing progressive immunoglobulin deficiency. 3. Continue to observe off antibiotics unless he develops increased sputum, radiographic changes, fevers, or other signs of infectious process. 4. Overall prognosis is poor. He is a Do Not Resuscitate Level 1, which is appropriate for this gentleman who has an extremely poor prognosis. cc: Dereck Duarte MD
[2019-03-28] MEDS: ATIVAN PO SCH (06:11)
[2019-03-28] MEDS: MORPHINE IV PRN (06:17)
[2019-03-28 07:06] LABS: BASO# 0.01 X1000 (0.0-0.2); BASO% 0.1 % (0.0-0.8); EOS# 0.13 X1000 (0.0-0.7); EOS% 0.7 % (0.0-10.0); HEMATOCRIT 29.9 % (42.0-52.0); HEMOGLOBIN 8.8 g/dL (14.0-18.0); IMM GRAN# 0.07 X1000 (0.0-0.04); IMM GRAN% 0.4 % (0.0-0.5); LYMPH# 0.82 X1000 (1.2-3.4); LYMPH% 4.7 % (20.5-51.1); MCH 28.3 PG (27-31); MCHC 29.4 g/dL (33-37); MCV 96.1 FL (81-99); MONO# 0.07 X1000 (0.11-0.59); MONO% 0.4 % (1.7-9.3); MPV 10.1 FL (7.4-10.4); NEUT# 16.26 X1000 (1.4-6.5); NEUT% 93.7 % (42.2-75.2); PLT 391 X1000 (130-400); RBC 3.11 XMIL (4.7-6.1); RDW 16.3 % (11.5-14.5); WBC 17.36 X1000 (4.8-10.8)
[2019-03-28 07:37] LABS: BANDS 8 % (0-1); EOS 2 % (1-10); LYMPHS 2 % (21-51); SEGS 88 % (42-75)
[2019-03-28 07:48] LABS: AGAP 13; ALB/GLOB RATIO 0.8; ALBUMIN 2.9 g/dL (3.5-5.0); ALKALINE PHOSPHATASE 101 U/L (32-122); BUN 16 mg/dL (8-22); CALCIUM 9.3 mg/dL (8.8-10.2); CHLORIDE 95 mmol/L (98-107); COSMO 283; CREATININE 0.6 mg/dL (0.7-1.2); ESTIMATED GFR > 60; GLUCOSE 105 mg/dL (70-104); GOT 41 U/L (10-34); GPT 28 U/L (10-44); POTASSIUM 4.2 mmol/L (3.5-5.1); SODIUM 141 mmol/L (136-145); TCO2 33 mmol/L (25-35); TOTAL BILIRUBIN 0.57 mg/dL (0.20-1.00); TOTAL PROTEIN 6.6 g/dL (6.3-8.3)
[2019-03-28] MEDS: ASPIRIN PO SCH (08:42)
[2019-03-28] MEDS: CELEXA PO SCH (08:42)
[2019-03-28] MEDS: MYCOSTATIN SUSP PO SCH ×4 (08:42→20:26)
[2019-03-28] MEDS: PLAVIX PO SCH (08:42)
[2019-03-28] MEDS: REGLAN IV PRN (08:42)
[2019-03-28] MEDS: CULTURELLE PO SCH (08:42)
[2019-03-28] MEDS: ZYLOPRIM PO SCH ×2 (08:42→20:26)
[2019-03-28] MEDS: LOPRESSOR PO SCH ×2 (08:43→20:26)
[2019-03-28] MEDS: PREDNISONE PO SCH (08:43)
[2019-03-28] MEDS: TUSSIONEX LIQUID PO SCH ×2 (08:43→20:26)
[2019-03-28] MEDS: FOLIC ACID PO SCH (08:43)
--- NOTE | 2019-03-28 14:15 | PROGRESS NOTE ---
DATE: 03/28/2019 SUBJECTIVE: This morning Mr. Yang referred to be doing fairly okay. He was on the BiPAP. OBJECTIVE: Vital signs: Blood pressure is 115/71, pulse of 91, respirations 20, temperature 98.1 degrees. Patient was saturating about 96 on the BiPAP. General: Mr. Yang is a 68-year- old gentleman he was in bed. He is on the BiPAP. HEENT: Mucosa is pink and moist. Anicteric. Acyanotic. Neck: Supple. Chest: Air entry is still bilaterally reduced. There is still diffuse crackles in the posterior lung harrington. No rhonchi. No accessory muscle use. Cardiovascular: Regular rate and rhythm. No murmurs, no rubs, no gallops. Abdomen: Soft, nontender. Bowel sounds present, no hepatosplenomegaly. Extremities: No pedal edema. Distal pulses are present. 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 Chest Wall: There is an old sternotomy scar on the anterior chest wall. LABORATORY DATA: Today WBC is 17.36, hemoglobin is 8.8, platelet count of 391,000. There is only 8% of bands on peripheral smear. There is no ABG this morning. Chemistry is reviewed. Bicarb is down to 33. Rest of chemistry is completely unremarkable. ASSESSMENT: 1. Acute hypoxemic respiratory failure. Patient continues to cycle between BiPAP and non- rebreather. 2. 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 The patient is status post 2 cycle of chemotherapy. Hematology/Oncology is on board. 3. Severe aortic stenosis on echocardiogram. Cardiology is aware. 4. History of coronary artery disease status post coronary artery bypass grafting. The patient is on home medications. 5. Recently treated Stenotrophomonas maltophilia and postobstructive pneumonia. 6. Prognosis continues to be remarkably poor. We will continue with the current line of management and continue to titrate his oxygen needs. cc: Simon Larson MD
--- NOTE | 2019-03-28 18:30 | PULMONOLOGY PROGRESS NOTE ---
DATE: 03/28/2019 SUBJECTIVE: The patient is resting on BiPAP. He is arousable. He appears to be in no distress. OBJECTIVE: Vital Signs: The patient has been afebrile for the last 24 hours. Blood pressure 122/68, heart rate 125, respiratory rate 18, oxygen saturation 94% on BiPAP. HEENT: Pupils are equal and reactive. Oropharynx evaluation is limited with BiPAP in place. Neck: Neck is supple. Chest: Chest reveals coarse crackles in the lung bases. Cardiac exam: S1, S2. Abdomen: Soft. Extremities: Without edema. LABORATORIES: No new chemistries or blood gas today. White blood count 17.36, hemoglobin 8.8, platelet count 391,000. IMPRESSION: A 68-year-old with: 1. Acute hypoxemic respiratory failure. 2. Bilateral bronchoalveolar cell carcinoma, status post second cycle of chemotherapy. 3. Severe aortic stenosis. 4. Coronary artery disease. 5. Immunoglobulin deficiency with repeat immunoglobulin level pending. 6. Status post treatment for Stenotrophomonas maltophilia. PLAN: 1. Continue current antibiotic regimen, cycling BiPAP, high-flow O2 rebreather. 2. Followup immunoglobulin levels when available. 3. Continue to observe off antibiotics. 4. Overall prognosis appears poor. cc: Dereck Duarte MD
[2019-03-28] MEDS: LIPITOR PO SCH (20:26)
[2019-03-29] MEDS: ATROVENT NEB INH SCH ×6 (03:00→23:32)
[2019-03-29] MEDS: XOPENEX NEB INH SCH ×6 (03:00→23:32)
[2019-03-29] MEDS: ATIVAN PO SCH (06:15)
[2019-03-29] MEDS: MORPHINE IV PRN ×3 (06:15→22:18)
[2019-03-29 07:12] LABS: AGAP 13; ALB/GLOB RATIO 0.7; ALBUMIN 2.6 g/dL (3.5-5.0); ALKALINE PHOSPHATASE 100 U/L (32-122); BUN 18 mg/dL (8-22); CHLORIDE 97 mmol/L (98-107); COSMO 285; CREATININE 0.6 mg/dL (0.7-1.2); ESTIMATED GFR > 60; GLUCOSE 92 mg/dL (70-104); GOT 46 U/L (10-34); GPT 27 U/L (10-44); POTASSIUM 4.1 mmol/L (3.5-5.1); SODIUM 142 mmol/L (136-145); TCO2 32 mmol/L (25-35); TOTAL BILIRUBIN 0.69 mg/dL (0.20-1.00); TOTAL PROTEIN 6.5 g/dL (6.3-8.3)
[2019-03-29 07:14] LABS: BASO# 0.01 X1000 (0.0-0.2); BASO% 0.1 % (0.0-0.8); EOS# 0.13 X1000 (0.0-0.7); EOS% 0.7 % (0.0-10.0); HEMATOCRIT 28.6 % (42.0-52.0); HEMOGLOBIN 8.5 g/dL (14.0-18.0); IMM GRAN# 0.06 X1000 (0.0-0.04); IMM GRAN% 0.3 % (0.0-0.5); LYMPH# 0.92 X1000 (1.2-3.4); LYMPH% 4.8 % (20.5-51.1); MCH 28.5 PG (27-31); MCHC 29.7 g/dL (33-37); MONO# 0.08 X1000 (0.11-0.59); MONO% 0.4 % (1.7-9.3); MPV 10.3 FL (7.4-10.4); NEUT# 17.77 X1000 (1.4-6.5); NEUT% 93.7 % (42.2-75.2); PLT 378 X1000 (130-400); RBC 2.98 XMIL (4.7-6.1); RDW 16.3 % (11.5-14.5); WBC 18.97 X1000 (4.8-10.8)
[2019-03-29 07:23] LABS: LYMPHS 6 % (21-51); SEGS 94 % (42-75)
--- NOTE | 2019-03-29 10:18 | PROGRESS NOTE ---
DATE: 03/29/2019 SUBJECTIVE: This morning, Mr. Yang referred to be doing okay, was in bed under the BiPAP. OBJECTIVE: Current Vital Signs: Blood pressure is 120/64, pulse of 101, respirations 16, temperature is 97.8 degrees, the patient is saturating 93% on BiPAP. General: Mr. Yang is a 68-year-old gentleman. He is in bed. He is under the BiPAP, tolerating well. HEENT: Mucosa is pink and moist. Anicteric. Acyanotic. Neck: Supple. Chest: Good air entry bilaterally. A few crackles in the posterior lung harrington. No rhonchi. Cardiovascular: Regular rate and rhythm. No murmurs, no rubs, no gallops. GI: Abdomen is soft, nontender. Bowel sounds present. Extremities: No pedal edema. Distal pulses are present. 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 LABORATORY DATA: WBC is up to 18.97, hemoglobin is 8.5, platelet count of 374,000. There are no bands on the peripheral smear. Chemistry is also reviewed. It is completely unremarkable. MICROBIOLOGY: There is no new microbiology data. MEDICATIONS: The patient's current medications have all been reviewed. He is not on any antimicrobial therapy. ASSESSMENT: 1. Acute hypoxemic respiratory failure. The patient continues to be on bilevel positive airway pressure, cycling with nonrebreather and high-flow oxygen. 2. Bilateral bronchoalveolar carcinoma of the lungs. The patient is status post two cycles of chemotherapy. Hematology/Oncology is on board. 3. Severe aortic stenosis on echocardiogram. Cardiology is aware. 4. History of coronary artery disease, status post bypass grafting. The patient is on home medications. 5. Recently treated Stenotrophomonas maltophilia postobstructive pneumonia. The patient is currently not on any more antimicrobial therapy. His white cell count seems to be going up. We will do a chest x-ray in the morning to follow up on the lung findings. 6. The patient's prognosis continues to be remarkably poor. cc: Simon Larson MD
[2019-03-29] MEDS: ASPIRIN PO SCH (11:28)
[2019-03-29] MEDS: CELEXA PO SCH (11:29)
[2019-03-29] MEDS: FOLIC ACID PO SCH (11:29)
[2019-03-29] MEDS: ZYLOPRIM PO SCH ×2 (11:29→20:57)
[2019-03-29] MEDS: PREDNISONE PO SCH (11:30)
[2019-03-29] MEDS: PLAVIX PO SCH (11:30)
[2019-03-29] MEDS: LOPRESSOR PO SCH ×2 (11:30→22:17)
[2019-03-29] MEDS: CULTURELLE PO SCH (11:30)
[2019-03-29] MEDS: MYCOSTATIN SUSP PO SCH ×4 (11:31→20:57)
[2019-03-29] MEDS: TUSSIONEX LIQUID PO SCH ×2 (11:31→20:57)
[2019-03-29] MEDS: ATIVAN IV PRN (13:23)
--- NOTE | 2019-03-29 14:36 | PULMONOLOGY PROGRESS NOTE ---
DATE: 03/29/2019 SUBJECTIVE: The patient was asleep on BiPAP upon my arrival. He denies specific complaints. His appetite is poor. OBJECTIVE: Vital Signs: The patient has been afebrile for the last 24 hours. Blood pressure 116/68, heart rate 113, oxygen saturation 94%, respiratory rate is 21. HEENT: Pupils are equal and reactive. Oropharynx is clear. Neck: Supple. Chest: Chest reveals crackles bilateral lung bases. Cardiac: S1, S2. Abdomen: Soft. Extremities: Reveal trace edema. LABORATORIES: Sodium 142, potassium 4.1, chloride 97, bicarbonate 32, BUN 18, creatinine 0.6. White blood count 18.97, hemoglobin 8.5, platelet count 378,000. IMPRESSION: A 68-year-old with: 1. Acute hypoxemic respiratory failure. 2. Bilateral lung cancers, status post second course of chemotherapy. 3. Severe aortic stenosis. 4. Coronary artery disease. 5. Immunoglobulin deficiency, repeat level is pending. 6. Status post treatment for pneumonia. PLAN: 1. Continue to cycle current oxygen delivery devices as needed for hypoxemic respiratory failure. 2. Follow up immunoglobulin level when available. 3. Continue treatment for lung cancer per Oncology. 4. Overall prognosis appears poor. cc: Dereck Duarte MD
[2019-03-29] MEDS: LIPITOR PO SCH (20:57)
[2019-03-30] MEDS: XOPENEX NEB INH SCH ×6 (03:29→23:55)
[2019-03-30] MEDS: ATROVENT NEB INH SCH ×6 (03:29→23:55)
[2019-03-30] MEDS: ATIVAN PO SCH (05:11)
[2019-03-30 07:05] LABS: BASO# 0.01 X1000 (0.0-0.2); BASO% 0.1 % (0.0-0.8); EOS# 0.04 X1000 (0.0-0.7); EOS% 0.2 % (0.0-10.0); HEMATOCRIT 28.3 % (42.0-52.0); HEMOGLOBIN 8.5 g/dL (14.0-18.0); IMM GRAN% 0.2 % (0.0-0.5); LYMPH% 4.9 % (20.5-51.1); MCH 28.8 PG (27-31); MCV 95.9 FL (81-99); MONO% 0.5 % (1.7-9.3); MPV 10.4 FL (7.4-10.4); NEUT# 17.39 X1000 (1.4-6.5); NEUT% 94.1 % (42.2-75.2); PLT 352 X1000 (130-400); RBC 2.95 XMIL (4.7-6.1); RDW 16.4 % (11.5-14.5); WBC 18.48 X1000 (4.8-10.8)
[2019-03-30 07:06] LABS: IMM GRAN# 0.04 X1000 (0.0-0.04)
[2019-03-30 07:15] LABS: AGAP 14; ALB/GLOB RATIO 0.7; ALBUMIN 2.7 g/dL (3.5-5.0); ALKALINE PHOSPHATASE 98 U/L (32-122); BUN 21 mg/dL (8-22); CALCIUM 9.1 mg/dL (8.8-10.2); CHLORIDE 96 mmol/L (98-107); COSMO 285; CREATININE 0.6 mg/dL (0.7-1.2); ESTIMATED GFR > 60; GLUCOSE 86 mg/dL (70-104); GOT 44 U/L (10-34); GPT 23 U/L (10-44); POTASSIUM 3.9 mmol/L (3.5-5.1); SODIUM 142 mmol/L (136-145); TCO2 32 mmol/L (25-35); TOTAL BILIRUBIN 0.66 mg/dL (0.20-1.00); TOTAL PROTEIN 6.8 g/dL (6.3-8.3)
--- NOTE | 2019-03-30 07:34 | Diag Imaging Result Doc PS360 ---
EXAM: CHEST-PORTABLE INDICATION: dyspnea TECHNIQUE: One view COMPARISON: 03/27/2019 FINDINGS: Dense airspace consolidations bilaterally consistent with multilobar pneumonia are essentially stable. No new consolidation is appreciated. Cardiac silhouette is stable. IMPRESSION: Stable chest. Electronically signed by Tae Cornell 03/30/2019 7:32 AM
[2019-03-30 07:56] LABS: BANDS 6 % (0-1); EOS 2 % (1-10); LYMPHS 6 % (21-51); SEGS 86 % (42-75)
[2019-03-30] MEDS: MYCOSTATIN SUSP PO SCH ×3 (09:36→23:25)
[2019-03-30] MEDS: PLAVIX PO SCH (09:36)
[2019-03-30] MEDS: PREDNISONE PO SCH (09:36)
[2019-03-30] MEDS: CULTURELLE PO SCH (09:36)
[2019-03-30] MEDS: ASPIRIN PO SCH (09:36)
[2019-03-30] MEDS: CELEXA PO SCH (09:36)
[2019-03-30] MEDS: MORPHINE IV PRN ×2 (09:37→20:16)
[2019-03-30] MEDS: LOPRESSOR PO SCH ×2 (09:37→20:17)
[2019-03-30] MEDS: FOLIC ACID PO SCH (09:37)
[2019-03-30] MEDS: ZYLOPRIM PO SCH ×2 (09:37→20:17)
[2019-03-30] MEDS: TUSSIONEX LIQUID PO SCH ×2 (09:37→20:16)
--- NOTE | 2019-03-30 12:37 | PROGRESS NOTE ---
DATE: 03/30/2019 SUBJECTIVE: This morning Mr. Yang was sleeping but was arousable. He for refers to be doing well. Still remarkably hypoxemic. OBJECTIVELY: Vitals: Blood pressure is 112/79, pulse of 116, respirations 21, temperature was 97.9 degrees, the patient was saturating about 86-92 on BiPAP. General: Mr. Yang is a 68- year-old male. He is in bed, still under the BiPAP. Mucosa is pink and moist. Anicteric. Acyanotic. Neck: Supple. Chest: Air entry is bilaterally reduced. There are still some crackles in the posterior lung harrington. Cardiovascular: Regular rate and rhythm. Abdomen: Soft, nontender. Extremities: No pedal edema. Central Nervous System: Patient is sleepy, drowsy, but easily arousable and follows basic commands. DIAGNOSTIC STUDIES: WBC is 18.48, hemoglobin is 8.5, platelet count of 352,000. Chemistry is also reviewed and is unremarkable. No new microbiology data. ASSESSMENT: 1. Acute hypoxemic respiratory failure. Patient continues to be needing BiPAP. 2. Bilateral bronchoalveolar carcinoma of the lungs. The patient is status post 2 cycles of chemotherapy. Hematology/Oncology is on board. 3. Severe aortic stenosis on echocardiogram. Cardiology is aware. 4. History of coronary artery disease status post coronary artery bypass grafting. 5. Recently treated Stenotrophomonas maltophilia postobstructive pneumonia. The patient is no more on antimicrobial therapy. 6. Prognosis is poor. In general, Mr. Yang continues to be needing high concentration of oxygen to maintain adequate saturation. His prognosis continues to be remarkably poor. A chest x-ray this morning continues to show dense airspace consolidation, bilateral, consistent with multilobar pneumonia, essentially stable. No new consolidation. There has not been any remarkable improvement both clinically and imaging hernandez on Mr. Yang, despite his being the in hospital for 38 days. Palliative Medicine is also on board, and we will be following up with them with further discussions about goals of care. cc: Simon Larson MD
--- NOTE | 2019-03-30 13:07 | HEMO/ONC PROGRESS NOTE ---
DATE: 03/30/2019 SUBJECTIVE: He is awake, sitting up in bed. He is beginning to eat his breakfast. He states that he feels okay. He states that he tolerated chemotherapy very well without any nausea. OBJECTIVE: Vital Signs: Pulse rate 115, respiratory rate is 18, blood pressure 112/79, O2 saturation 92% on BiPAP at 15 L. Pain: 0/10. Chest: Continues to have crackles in bilateral lung bases. Cardiovascular: Normal S1, S2. Abdomen: Soft. Nontender. Nondistended. DIAGNOSTIC STUDIES: WBC 18.48, hemoglobin 8.5, hematocrit 28.3, platelet count 352,000. Creatinine 0.6. Chest x-ray shows bilateral consolidation consistent with multilobar pneumonia that is stable. ASSESSMENT: 1. Bilateral bronchoalveolar carcinoma status post 2 cycles of chemotherapy. 2. Acute hypoxic respiratory failure. 3. Severe aortic stenosis, coronary artery bypass graft. 4. Peripheral artery disease. 5. IgG deficiency. 6. Stenotrophomonas and Enterobacter infections status post antibiotic treatment. 7. Normocytic anemia. PLAN: The patient did very well after his 2nd round of chemotherapy. We will continue to monitor for severe anemia and neutropenia. Neutropenia is most likely to occur between day 7 and 10. He has continued to require a significant amount of oxygen per BiPAP. He does appear to continue to get weaker. We will continue to monitor as needed. Dictated by RIO Myers for Tyree Hurst MD Patient seen and examined. As above. Patient tolerated his second cycle of chemotherapy well. Continue to monitor for neutropenia. Continue current management. Hopefully he will show an improvement in oxygenation in the next 2 weeks, if not we may have to start having discussions about stopping chemotherapy. Tyree Hurst M.D. cc: Tyree Hurst MD [facility]
[2019-03-30] MEDS: LIPITOR PO SCH (20:17)
[2019-03-31] MEDS: ATROVENT NEB INH SCH ×6 (03:35→23:31)
[2019-03-31] MEDS: XOPENEX NEB INH SCH ×6 (03:35→23:31)
[2019-03-31] MEDS: ATIVAN PO SCH (06:34)
[2019-03-31 07:44] LABS: BASO# 0.03 X1000 (0.0-0.2); BASO% 0.2 % (0.0-0.8); EOS# 0.05 X1000 (0.0-0.7); EOS% 0.4 % (0.0-10.0); HEMATOCRIT 27.7 % (42.0-52.0); HEMOGLOBIN 8.2 g/dL (14.0-18.0); IMM GRAN# 0.06 X1000 (0.0-0.04); IMM GRAN% 0.4 % (0.0-0.5); LYMPH% 6.5 % (20.5-51.1); MCH 28.4 PG (27-31); MCHC 29.6 g/dL (33-37); MCV 95.8 FL (81-99); MONO# 0.24 X1000 (0.11-0.59); MONO% 1.7 % (1.7-9.3); MPV 10.6 FL (7.4-10.4); NEUT# 12.66 X1000 (1.4-6.5); NEUT% 90.8 % (42.2-75.2); PLT 357 X1000 (130-400); RBC 2.89 XMIL (4.7-6.1); RDW 16.4 % (11.5-14.5); WBC 13.94 X1000 (4.8-10.8)
[2019-03-31 07:47] LABS: AGAP 13; ALB/GLOB RATIO 0.7; ALBUMIN 2.8 g/dL (3.5-5.0); ALKALINE PHOSPHATASE 103 U/L (32-122); BUN 29 mg/dL (8-22); CALCIUM 9.2 mg/dL (8.8-10.2); CHLORIDE 95 mmol/L (98-107); COSMO 285; CREATININE 0.6 mg/dL (0.7-1.2); ESTIMATED GFR > 60; GLUCOSE 95 mg/dL (70-104); GOT 47 U/L (10-34); GPT 20 U/L (10-44); SODIUM 140 mmol/L (136-145); TCO2 32 mmol/L (25-35); TOTAL BILIRUBIN 0.71 mg/dL (0.20-1.00); TOTAL PROTEIN 6.7 g/dL (6.3-8.3)
[2019-03-31 08:25] LABS: BANDS 2 % (0-1); LYMPHS 5 % (21-51); SEGS 93 % (42-75)
[2019-03-31] MEDS: PLAVIX PO SCH (09:53)
[2019-03-31] MEDS: FOLIC ACID PO SCH (09:53)
[2019-03-31] MEDS: CULTURELLE PO SCH (09:53)
[2019-03-31] MEDS: CELEXA PO SCH (09:53)
[2019-03-31] MEDS: PREDNISONE PO SCH (09:53)
[2019-03-31] MEDS: ASPIRIN PO SCH (09:54)
[2019-03-31] MEDS: MORPHINE IV PRN ×4 (09:54→22:10)
[2019-03-31] MEDS: ZYLOPRIM PO SCH ×2 (09:54→20:16)
[2019-03-31] MEDS: LOPRESSOR PO SCH ×2 (09:54→20:17)
[2019-03-31] MEDS: MYCOSTATIN SUSP PO SCH ×5 (09:55→20:16)
[2019-03-31] MEDS: TUSSIONEX LIQUID PO SCH ×2 (09:55→20:16)
--- NOTE | 2019-03-31 12:46 | PROGRESS NOTE ---
DATE: 03/31/2019 SUBJECTIVE: This morning Mr. Yang refers to be doing a little better. Still on the BiPAP. No new complaints. OBJECTIVE: Vital signs: Blood pressure is 106/73, pulse of 118, respiration is 21, temperature is 97.9 degrees. Patient is saturating about 90 to 88 percent on BiPAP. General exam: Mr. Yang is a 68-year-old gentleman. He is in bed, still on the BiPAP. HEENT: Mucosa is pink and moist. Anicteric. Acyanotic. Neck: Supple. Chest: Air entry is bilaterally reduced. There are still some crackles in the posterior harrington. Cardiovascular: Regular rate and rhythm. Abdomen: Soft. Extremities: No pedal edema. 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 LABORATORY DATA: WBC is down to 13.94, hemoglobin is 8.2, platelet count of 357. Chemistry is also reviewed and is unremarkable. ASSESSMENT: 1. Acute hypoxemic respiratory failure. Patient continues to be needing BiPAP. 2. Bilateral bronchoalveolar carcinoma of lungs. The patient is status post [address] Hurst (Oncology) is on board. 3. Severe aortic stenosis on echocardiogram. Cardiology is on board. 4. History of coronary artery disease status post coronary artery bypass graft, currently asymptomatic. The patient is on medications. 5. Recently treated Stenotrophomonas maltophilia postobstructive pneumonia. The patient is not on any more antibiotics. Prognosis continues to be remarkably poor. PLAN: In general, Mr. Yang has been in hospital for the past 39 days. He still continues to be needing BiPAP. He does not seems to have made any remarkable improvement with the 2 chemotherapies. The patient's antibiotics have also been discontinued. We will continue titrating his oxygen needs. Patient is being seen by multiple subspecialties, including Infectious Disease, Hem/Onc, Pulmonary Medicine. We do appreciate their recommendations and assistance in the management of this complicated patient. Yesterday I did meet with the patient's and the daughter; did update them on Mr. Yang's condition and the fact that the prognosis continues to be remarkably poor. For now, Mr. Yang is DNR level 1. cc: Simon Larson MD
[2019-03-31] MEDS: ATIVAN IV PRN ×2 (13:36→20:50)
[2019-03-31] MEDS: XOPENEX NEB INH PRN (15:36)
[2019-03-31] MEDS: LIPITOR PO SCH (20:17)
--- NOTE | 2019-03-31 21:53 | PULMONOLOGY PROGRESS NOTE ---
DATE: 03/31/2019 SUBJECTIVE: Patient was asleep on BiPAP on my arrival. He reports he is fatigued. OBJECTIVE: Vital Signs: Blood pressure 106/73, heart rate 118, respiratory rate 22, oxygen saturation 92% on BiPAP. HEENT: Pupils are equal and reactive. Oropharynx is clear. Neck: Supple. Chest: Reveals prolonged expiratory phase with coarse crackles bilaterally. Cardiac exam: S1, S2. Abdomen: Soft. Extremities: Without edema. LABORATORIES: White blood count 140, potassium 4.0, chloride 95, bicarbonate 32, BUN 29, creatinine 0.6. White blood count 13.9, hemoglobin 8.2, platelet count 357,000. IMPRESSION: A 68-year-old with bilateral lung cancer, severe aortic stenosis, coronary artery disease, immunoglobulin deficiency with acute hypoxemic respiratory failure. DISCUSSION: A 68-year-old with problems outlined above. The patient is hospital day 39 and has received 2 cycles of chemotherapy. He has shown no clinical improvement. RECOMMENDATIONS: 1. Continue to cycle oxygen devices as necessary to maintain saturations greater than 90%. 2. Overall prognosis is extremely poor. He remains a DNR level 1. cc: Dereck Duarte MD
[2019-04-01] MEDS: ATIVAN IV PRN (02:12)
[2019-04-01] MEDS: XOPENEX NEB INH SCH ×6 (03:19→23:19)
[2019-04-01] MEDS: ATROVENT NEB INH SCH ×6 (03:19→23:18)
[2019-04-01] MEDS: ATIVAN PO SCH (05:55)
[2019-04-01] MEDS ORDERED: CATHFLO IV ONE (09:21)
[2019-04-01] MEDS ORDERED: STERILE WATER INJ. INJ ONE (09:21)
[2019-04-01 09:25] LABS: HEMATOCRIT 28.2 % (42.0-52.0); HEMOGLOBIN 8.4 g/dL (14.0-18.0); MCV 95.9 FL (81-99); RBC 2.94 XMIL (4.7-6.1); WBC 8.59 X1000 (4.8-10.8)
[2019-04-01 09:26] LABS: BASO# 0.01 X1000 (0.0-0.2); BASO% 0.1 % (0.0-0.8); EOS# 0.06 X1000 (0.0-0.7); EOS% 0.7 % (0.0-10.0); IMM GRAN# 0.07 X1000 (0.0-0.04); IMM GRAN% 0.8 % (0.0-0.5); LYMPH% 8.1 % (20.5-51.1); MCH 28.6 PG (27-31); MCHC 29.8 g/dL (33-37); MONO# 0.59 X1000 (0.11-0.59); MONO% 6.9 % (1.7-9.3); MPV 11.1 FL (7.4-10.4); NEUT# 7.16 X1000 (1.4-6.5); NEUT% 83.4 % (42.2-75.2); PLT 352 X1000 (130-400); RDW 16.4 % (11.5-14.5)
[2019-04-01 09:48] LABS: AGAP 18; ALB/GLOB RATIO 0.7; ALBUMIN 2.8 g/dL (3.5-5.0); ALKALINE PHOSPHATASE 109 U/L (32-122); BUN 37 mg/dL (8-22); CALCIUM 9.2 mg/dL (8.8-10.2); CHLORIDE 95 mmol/L (98-107); COSMO 292; CREATININE 0.7 mg/dL (0.7-1.2); ESTIMATED GFR > 60; GLUCOSE 108 mg/dL (70-104); GOT 45 U/L (10-34); GPT 18 U/L (10-44); POTASSIUM 4.5 mmol/L (3.5-5.1); SODIUM 142 mmol/L (136-145); TCO2 29 mmol/L (25-35); TOTAL BILIRUBIN 0.61 mg/dL (0.20-1.00); TOTAL PROTEIN 7.1 g/dL (6.3-8.3)
[2019-04-01] MEDS: ASPIRIN PO SCH (10:37)
[2019-04-01] MEDS: LOPRESSOR PO SCH ×2 (10:38→21:08)
[2019-04-01] MEDS: PLAVIX PO SCH (10:38)
[2019-04-01] MEDS: PREDNISONE PO SCH (10:38)
[2019-04-01] MEDS: FOLIC ACID PO SCH (10:38)
[2019-04-01] MEDS: CULTURELLE PO SCH (10:38)
[2019-04-01] MEDS: ZYLOPRIM PO SCH ×2 (10:39→21:08)
[2019-04-01] MEDS: CELEXA PO SCH (10:39)
[2019-04-01] MEDS: MYCOSTATIN SUSP PO SCH ×5 (10:39→21:08)
[2019-04-01] MEDS: TUSSIONEX LIQUID PO SCH ×2 (10:42→21:45)
[2019-04-01] MEDS: MORPHINE IV PRN ×2 (12:39→16:14)
--- NOTE | 2019-04-01 14:04 | PROGRESS NOTE ---
DATE: 04/01/2019 SUBJECTIVE: This morning Mr. Yang was seen in his bed. He was still on the BiPAP. There was no family member at the bedside. OBJECTIVE: Vital signs: Blood pressure is 112/80, pulse of 87, respiration is 23, temperature 98.6 degrees, the patient was saturating 89-90 on the BiPAP. On general exam, Mr. Yang is a 68-year-old gentleman. He is in bed. Mild distress. Mucosa is pink and moist. Anicteric. Acyanotic. Neck is supple. Chest: Air entry is bilaterally reduced. There are still crackles in the posterior lung harrington. Cardiovascular: Regular rate and rhythm. Abdomen: Soft, nontender. Bowel sounds present. Extremities: No pedal edema. Distal pulses present. Central Nervous System: Patient is sleepy but easily arousable and follows basic commands. DIAGNOSTIC STUDIES: WBC is down to 8.59, hemoglobin is 8.4, platelet count of 352,000. Chemistry is also reviewed unremarkable. No new imaging studies. ASSESSMENT: 1. Acute hypoxemic respiratory failure. Patient continues to be needing BiPAP. 2. Bilateral bronchoalveolar carcinoma of lungs. The patient is status post 2 cycles of chemotherapy. Hematology/Oncology is on board. 3. Severe aortic stenosis on echocardiogram. Cardiology is aware. 4. History of coronary artery disease status post coronary artery bypass grafting, currently asymptomatic. Continue with home medications. 5. Recently treated Stenotrophomonas maltophilia postobstructive pneumonia. WBC is normalized. The patient is not on any more antibiotics. 6. Prognosis. Remarkably poor. Patient is Do Not Resuscitate level 1 and does not want intubation. cc: Simon Larson MD
[2019-04-01] MEDS: LIPITOR PO SCH (21:08)
[2019-04-02] MEDS: XOPENEX NEB INH SCH ×4 (03:47→15:44)
[2019-04-02] MEDS: ATROVENT NEB INH SCH ×4 (03:47→15:44)
[2019-04-02] MEDS: ATIVAN IV PRN ×2 (05:15→13:48)
[2019-04-02] MEDS: ATIVAN PO SCH (06:12)
--- NOTE | 2019-04-02 07:36 | Diag Imaging Result Doc PS360 ---
EXAM: CHEST-PORTABLE INDICATION: dyspnea TECHNIQUE: One view COMPARISON: 03/30/2019 FINDINGS: The right PICC line is in stable position. Bilateral dense consolidations consistent with multilobar pneumonia are approximately stable. No new consolidation is identified. Cardiac silhouette is stable. IMPRESSION: Essentially stable chest. Electronically signed by Tae Cornell 04/02/2019 7:33 AM
[2019-04-02] MEDS: ASPIRIN PO SCH (08:28)
[2019-04-02] MEDS: FOLIC ACID PO SCH (08:28)
[2019-04-02] MEDS: TUSSIONEX LIQUID PO SCH (08:28)
[2019-04-02] MEDS: PREDNISONE PO SCH (08:29)
[2019-04-02] MEDS: LOPRESSOR PO SCH (08:29)
[2019-04-02] MEDS: CELEXA PO SCH (08:29)
[2019-04-02] MEDS: ZYLOPRIM PO SCH (08:29)
[2019-04-02] MEDS: CULTURELLE PO SCH (08:29)
[2019-04-02] MEDS: MYCOSTATIN SUSP PO SCH ×2 (08:29→12:06)
[2019-04-02] MEDS: PLAVIX PO SCH (08:29)
[2019-04-02] MEDS: MORPHINE IV PRN ×2 (08:55→12:30)
[2019-04-02] MEDS ORDERED: HALDOL IV ONE (09:32)
--- NOTE | 2019-04-02 10:29 | HEMO/ONC PROGRESS NOTE ---
DATE: 04/02/2019 SUBJECTIVE: Mr. Yang is sitting up in bed, resting with his eyes closed. His nurse is at bedside providing medication. He gives me a thumbs up for how he is feeling today. He tolerated his last chemotherapy very well without any nausea or problems to this point. He continues to progress poorly OBJECTIVE: Vital signs: Temperature 97.6 degrees, heart rate 114, respiratory rate 22, blood pressure 124/85, O2 saturation 85% on BiPAP. Pain: Does appear to be uncomfortable but cannot verbalize the pain level. General: The patient does appear to be in mild distress. HEENT: Eyes remain anicteric. Oral mucosa is pink and moist. Lips are acyanotic. Cardiovascular: Normal S1, S2. Tachycardic rate. Respiratory: Crackles in bilateral lung bases. Decreased air entry. Gastrointestinal: Abdomen is soft, nontender, nondistended. Neurological: Patient awakens easily to voice. Follows basic commands. DIAGNOSTIC STUDIES: No labs today. Today's chest x-ray shows stable chest. Right PICC line in stable position. Bilateral dense consolidations consistent with multilevel pneumonia that have remained stable. ASSESSMENT: 1. Acute hypoxemic respiratory failure. 2. Bilateral bronchoalveolar carcinoma of the lung. 3. Severe aortic stenosis. 4. Coronary artery bypass graft. 5. Peripheral artery disease. 6. Status post Stenotrophomonas and Enterobacter infections post antibiotic treatment. 7. Normocytic anemia. 8. IgG deficiency. PLAN: The patient tolerated the 2nd round of chemotherapy very well; however, he has not shown any improvement. We will continue to monitor for severe anemia and any neutropenia. We agree with continuing treatment per Dr. Duarte. He suggests continuing to cycle oxygen devices as necessary to maintain his saturations greater than 90%. His prognosis continues to remain extremely poor with a Do Not Resuscitate level 1. If he has not shown any improvement in the next week or so, we may have a discussion regarding stopping chemotherapy. We will continue to monitor closely. Dictated by RIO Myers for Tyree Hurst MD cc: Tyree Hurst MD
[2019-04-02] MEDS ORDERED: CLINIMIX E 4.25%-5% SOLUTION 1,000 ML IV SCH (11:30)
[2019-04-02] MEDS ORDERED: LIPOSYN 20% 250 ML IV SCH (11:30)
--- NOTE | 2019-04-02 13:06 | PROGRESS NOTE ---
DATE: 04/02/2019 SUBJECTIVE: Today Mr. Yang refers to be feeling the same. He had an episode of what appeared to be panic attack and had to be medicated. By the time I got to see him, he was calm. He said he was doing better. OBJECTIVE: Vitals: Blood pressure is 124/85, pulse of 110, respiration is 24, temperature is 97.6 degrees, patient is saturating about 85% on the BiPAP. On general exam, Mr. Yang is a 68-year-old gentleman. He is in bed. Continues to be in some respiratory distress. Mucosa is pink and moist. Anicteric. Acyanotic. Neck is supple. Chest: Air entry is bilaterally reduced. There are still some crackles in the posterior lung harrington with expiratory rhonchi. Cardiovascular: Regular rate and rhythm. No murmurs, no rubs, no gallops. Gastrointestinal: Abdomen is soft, nontender. Bowel sounds present. Extremities: No pedal edema. Distal pulses present. Central Nervous System: Patient is awake. Follows basic commands. DIAGNOSTIC STUDIES: Glucose is 180. A repeat chest x-ray this morning continues to show bilateral dense consolidations in both lung harrington. ASSESSMENT: 1. Acute hypoxemic respiratory failure. Patient continues to be needing BiPAP, and he does not seem to have shown any improvement. 2. Bilateral bronchoalveolar carcinoma of the lungs. Patient is status post 2 cycles of chemotherapy. Hematology/Oncology is on board. No improvement. 3. Severe aortic stenosis on echocardiogram. Cardiology is aware. 4. History of coronary artery disease status post coronary artery bypass grafting in the past, currently asymptomatic. We will continue with home medications. 5. Recently treated Stenotrophomonas maltophilia postobstructive pneumonia. Antibiotics have been discontinued. WBC has normalized. 6. Nutritional needs. As at this point Mr. Yang cannot even take the BiPAP off for 1 minute and eat anything. We will continue with the BiPAP therapy. We will start him on Clinimix with lipid infusion to supplement his nutrition, for now. Mr. Yang's prognosis continues to be extremely poor. He is currently Do Not Resuscitate level 1. Palliative Medicine is on board. cc: Simon Larson MD
[2019-04-02] MEDS ORDERED: DILAUDID IV PRN (15:51)
[2019-04-02] MEDS ORDERED: ATIVAN IV PRN (15:52)
[2019-04-02] MEDS ORDERED: ROBINUL IV PRN (15:54)
[2019-04-02] MEDS ORDERED: DURAGESIC 25 MICROGM/HR PATCH TD SCH (16:00)
--- NOTE | 2019-04-02 16:32 | PROGRESS NOTE ---
DATE: 04/02/2019 ADDENDUM: This afternoon I was notified by the nursing staff that Mr. Yang continues to be remarkably low on his O2 saturation and he gets extremely boisterous and agitated every now and then. He is pulling of his BiPAP. Respiratory therapy has been in multiple times to try and see if we can get better saturations. I was called later this afternoon. The wanted an update and discussion about the care going forward. I did notify her that this morning Mr. Yang has been particularly doing extremely poorly with O2 saturations struggling. Currently his sat was 78% on the BiPAP and respiratory therapy was actually working with him as we talk. He seems very agitated, wanting to take it off every now and then. His distal fingers seem to be getting purplish and cyanotic. The did relate to me that at this point the family has decided to do just comfort care and they were requesting if we could get hospice services to come and evaluate the patient. Mr. Yang is currently DNR level 1. I think he is currently getting extremely hypoxemic and he is getting more agitated and confused because of hypoxemic brain manifestations. I think it is reasonable, the request from the family, to get hospice to come and evaluate Mr. Yang. I have communicated the family's request to the oncologist and I have also consulted palliative medicine again for hospice evaluation. I have discontinue any chronic medications that the patient has been on and we have started him on opioids and benzodiazepines to address his underlying pain as well as air hunger issues. cc: Simon Larson MD
[2019-04-02 19:52] VITALS: BP 130/96
--- NOTE | 2019-04-02 21:08 | PULMONOLOGY PROGRESS NOTE ---
DATE: 04/02/2019 INTERIM HISTORY: Over the last 24 hours, the patient has had increasing difficulty with breathing with increasing decline in oxygen saturations despite BiPAP. He has had increasing periods of agitation requiring sedation with narcotics and benzodiazepines. He currently is sleeping but when arouses becomes agitated. OBJECTIVE: Vital Signs: The patient is afebrile. Blood pressure 130/96, heart rate 115, respiratory rate 21, oxygen saturation 81% on BiPAP. HEENT: Pupils are equal. Oropharynx evaluation is limited with BiPAP in place. Neck: Is supple. Chest: Reveals crackles bilaterally. Cardiac exam: S1-S2. Abdomen: Is soft. Extremities: Are cool to the touch. LABORATORIES: Chest x-ray reveals dense bilateral infiltrates without change from 03/30/2019. Sodium 142, potassium 4.5, chloride 95, bicarbonate 29, BUN 37, creatinine 0.7. IMPRESSION: A 68-year-old with: 1. Bilateral lung cancer. 2. Severe aortic stenosis. 3. Progressive hypoxemic respiratory failure. 4. Immunoglobulin deficiency. DISCUSSION: A 68-year-old with problems outlined above. He is now on BiPAP continuously. His oxygen saturations continue to drop. He is having progressive changes in mental status, likely due to decompensation and the need for comfort medications. The patient has completed 2 cycles of chemotherapy, but has not shown clinical improvement. He is not likely to survive this hospital stay. He currently is so unstable he would unlikely be able to tolerate a transfer home without dying. RECOMMENDATION: 1. Agree with comfort measures as you are doing. We will increase frequency of Dilaudid. 2. Continue BiPAP for comfort. 3. Agree with current resuscitation status which will allow patient to have a natural . 4. Agree with hospice evaluation. Patient qualifies for inpatient hospice given the terminal nature of his disease and need for ongoing comfort management. cc: Dereck Duarte MD
[2019-04-02] MEDS: DILAUDID IV PRN (22:30)
[2019-04-03] MEDS: DILAUDID IV PRN ×2 (01:46→03:23)
== END 2019-04-02 20:00 | disposition hospice, inpatient (51) | DRG 853 ==
LOC: SUPCPDRO → ED 06:33 → EDIPHOLD 08:44 → SUATTDRO 08:44 → ICU 02-21 11:08 → 3S 02-22 10:43 → 4N 03-15 15:54 → DIRADM 03-23 17:02 → 3N 03-23 17:02 → UNDODISIN 04-03 04:14
PROVIDERS: ATTEND Internal Medicine
CPT/HCPCS: 36569; 71010; 71045; 71250; 71275; 74019; 74020; 74177; 76000; 80048; 80053; 80202; 81001; 82378; 82550; 82784; 82805; 82948; 83036; 83605; 83735; 83880; 84100; 84145; 84484; 85014; 85018; 85025; 85610; 85730; 86850; 86900; 86901; 86920; 87015; 87040; 87070; 87077; 87088; 87102; 87116; 87147; 87186; 87205; 87206; 87324; 87449; 87899; 88112; 88305; 88313; 93005; 93010; 93308; 93312; 94150; 94640; 94660; 94761; 94762; 94799; 96365; 96366; 96367; 96368; 96372; 96375; 96376; 97110; 97163; 97530; 99285; 99291; A9270; J0171; J0692; J1170; J1561; J1630; J1650; J1815; J1940; J1956; J2060; J2248; J2270; J2370; J2405; J2765; J2920; J2930; J2997; J3010; J3370; J3420; J3475; J3480; J7030; J7040; J7050; J7506; J7512; J9045; J9271; J9305; P9047; Q9967; XXXXX

== ENCOUNTER 2019-04-02 20:01 | Inpatient (IN) ==
[2019-04-03] MEDS ORDERED: CALMOSEPTINE OINTMENT TOP PRN (04:56)
[2019-04-03] MEDS ORDERED: DILAUDID IV PRN (04:56)
[2019-04-03] MEDS ORDERED: ATIVAN IV PRN (04:56)
[2019-04-03] MEDS ORDERED: ROBINUL IV PRN (05:00)
[2019-04-03] MEDS ORDERED: TYLENOL PR PRN (05:02)
[2019-04-03] MEDS ORDERED: DULCOLAX PR PRN (05:05)
[2019-04-05] MEDS ORDERED: DURAGESIC 25 MICROGM/HR PATCH TD SCH (16:00)
--- NOTE | 2019-04-06 06:50 | DISCHARGE SUMMARY ---
ADMISSION DATE: 04/02/2019 DISCHARGE DATE: 04/03/2019 TIME OF : 0533 hours. The patient was pronounced by 2 nurses. CONSULTATIONS: During this admission, Pulmonary Medicine was consulted. The patient was seen by Dr. Duarte. Infectious Disease was consulted. The patient was seen by Dr. Link. Hematology/oncology was consulted. The patient was seen by Dr. Hurst. INVASIVE PROCEDURES: During this admission a bronchoscopy was done by Dr. Duarte on 02/24/2019. 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 ADMISSION DIAGNOSES: 1. Acute hypoxemic respiratory failure. 2. Sepsis on presentation. 3. Hyperglycemia. 4. Electrolyte abnormality. 5. Severe aortic stenosis. FINAL DIAGNOSES: 1. Acute hypoxemic respiratory failure. 2. Bilateral bronchoalveolar carcinoma of lungs. 3. Severe aortic stenosis. 4. History of coronary artery disease status post coronary artery bypass graft in the past. 5. Recently treated Stenotrophomonas maltophilia postobstructive pneumonia. 6. Sepsis on presentation secondary to pneumonia. 7. Electrolyte abnormality including hypokalemia and hypomagnesemia. PRESENTING COMPLAINT: Respiratory distress. HISTORY OF PRESENTING COMPLAINT: Mr. Yang is a 68-year-old gentleman who is known to have coronary artery disease, status post CABG, severe aortic stenosis, history of hypertension and dyslipidemia. He was recently discharged from the hospital because of pneumonia. The patient refers that while he was at home, he continued to be extremely symptomatic. On the morning of presentation his O2 saturation was 68%. The patient was brought to the emergency room where he was evaluated and admitted for acute hypoxemic respiratory failure. He was put on a BiPAP and admitted to the ICU. HOSPITAL COURSE: Mr. Yang was initially admitted to the ICU, placed on BiPAP and started on broad-spectrum IV antibiotics. During the hospital course, a bronchoscopy was done which revealed adenocarcinoma with bronchoalveolar features, moderately differentiated. A consult was placed to both Hematology/oncology and ID. The patient was treated for an extensive period of time with antibiotics; however, his imaging studies did not show any difference. He was also given 2 cycles of chemotherapy, that did not make a lot of difference in his clinical picture. Throughout the hospital course Mr. Yang continued to have decline in respiratory status. The family members decided to make him DNR level 1. Yesterday, he was saturating in the low 70s despite maximum supplements with the BiPAP. Palliative Medicine was consulted so family members did meet with Ms. Blair. Finally, they decided they wanted a hospice consult. The patient's oncologist was notified. [facility] was consulted and the patient was evaluated, and transitioned to [facility]. Unfortunately, in early hours of this morning Mr. Yang passed and was pronounced by 2 nurses. Time of was 0533 hours. Family members were notified. cc: Simon Larson MD
== END 2019-04-03 05:35 | disposition expired | DRG 180 ==
LOC: 3N 04-03 04:23
PROVIDERS: ADMIT Internal Medicine; ATTEND Internal Medicine